=== PATIENT | female | born 1950 | race African-American/Black ===

== ENCOUNTER 2021-03-16 18:38 | Inpatient (IN) | payer MEDICARE, MEDICAID, SELFPAY ==
[2021-03-16] VITALS (12 sets, daily range): BP systolic 113–162; BP diastolic 73–105; PULSE 44–78; RESP 14–22; TEMP 36.1–36.6; O2SAT 90–100; BMI 43.6
--- NOTE | ~2021-03-16 | CT_ITS ---
EXAMINATION: CT abdomen pelvis w con DATE: 03/16/2021 21:33 INDICATION: Abdominal pain. TECHNIQUE: Computed tomography (CT) of the abdomen and pelvis was performed with 100 mL Omnipaque 350 intravenous contrast. Automated exposure control and iterative reconstruction technique were employe d. The dose-length product was 1506.04 mGy-cm. COMPARISON: None. FINDINGS: The visualized portions of the lung bases demonstrate mild atelectasis. No pleural effusion . Cardiomegaly is noted. No pericardial effusion. There is a large sliding hiatal hernia. There is no nobstructed colon within the hiatal hernia. The liver is normal. There are gallstones in the gallblad luisa, which demonstrates wall calcifications. The gallbladder is normal in size. There are low-attenua tion lesions in the spleen measuring up to 14 mm. The pancreas and adrenal glands are normal. There i s cortical thinning of the kidneys. There are cysts in the kidneys measuring up to 19 mm on the right . The appendix is normal. There is a dilated loop of small bowel in right abdomen with proximal and d istal transition points in close proximity in the mid abdomen best seen on coronal images. Small yogi l is also dilated proximal to this loop. Distal small bowel is decompressed. The colon is normal in c aliber. There is a small supraumbilical ventral hernia containing trace ascites. There are no patholo gically enlarged lymph nodes. There is mild thoracolumbar spondylosis. IMPRESSION: 1. Closed-loop small bowel obstruction. 2. Large sliding hiatal hernia that also contains nonobstructed colon. 3. Splenic lesions measuring up to 14 mm, most likely benign given the absence of extrasplenic signs of malignancy. Reviewed, dictated and finalized at location A.
--- NOTE | ~2021-03-16 | XR_ITS ---
EXAMINATION: XR abdomen NG/feed tube rechec DATE: 03/16/2021 22:54 INDICATION: Nasogastric tube placement. TECHNIQUE: An upright view of the abdomen was obtained. COMPARISON: CT abdomen and pelvis 03/16/2021 FINDINGS: The lower abdomen is excluded. The nasogastric tube tip is in the stomach below the diaphra gm. There is a large hiatal hernia. Cardiomegaly is noted. IMPRESSION: 1. Large hiatal hernia. 2. Nasogastric tube tip in the stomach below the diaphragm. Reviewed, dictated and finalized at location A.
--- NOTE | ~2021-03-16 | XR_ITS ---
EXAMINATION: XR chest 1V portable INDICATION: Nausea and vomiting, chest pain TECHNIQUE: Portable AP chest at 1917 hours COMPARISON: None available FINDINGS: There is a small left pleural effusion. Cardiomegaly is noted. There is a moderate diffuse interstitial pattern. No pneumothorax is identified. There appears to be a moderate-sized hiatal john ia. IMPRESSION: 1. Cardiomegaly with moderate pulmonary edema. 2. Small left pleural effusion. 3. Left basilar airspace opacity, consistent with atelectasis versus pneumonia. Reviewed, dictated and finalized at location A.
--- NOTE | ~2021-03-16 | XR_ITS ---
XR abdomen NG/feed tube insert DATE: 03/16/2021 22:34 INDICATION: NG tube TECHNIQUE: Portable AP view on 04/02/2021 at 2225 and 2227 hours COMPARISON: None FINDINGS: NG tube is present in the lower left thorax situated in the proximal aspect of a moderately large hiatal hernia. Bilateral renal excretion of contrast material is noted. There are bilateral patchy mid and lower lung infiltrates. IMPRESSION: NG tube in proximal aspect of moderately large hiatal hernia, in the lower left thorax Reviewed, dictated and finalized at Location A. Reviewed, dictated and finalized at location A. IMPRESSION: NG tube in proximal aspect of moderately large hiatal hernia, in th e lower left thorax
--- NOTE | 2021-03-16 18:50 | ECG_ITS ---
Measurements Intervals [place] Rate: 57 P: MO: 0 QRS: -35 QRSD: 161 T: -61 QT: 470 QTc: 461 Interpretive Statements ATRIAL FIBRILLATION VENTRICULAR BIGEMINY LEFT AXIS DEVIATION RIGHT BUNDLE BRANCH BLOCK BASELINE ARTIFACT- I, II, III, AVR, AVL, AVF, V3-V5 ABNORMAL ECG Electronically Signed On 03-16-2021 19:50:23 CDT by José Miguel Gomes D.O.
--- NOTE | 2021-03-16 19:12 | ED.GENADULT ---
HPI - General Adult General Chief complaint: Abdominal Pain Stated complaint: n/v/abd pain/cp Time Seen by Provider: 03/16/21 18:57 Source: RN notes reviewed History of Present Illness HPI narrative: Patient presents emergency department from home via EMS for abdominal pain. Patient states that symptoms began approximately 430 today. Patient states abdominal pain the bilateral lower abdomen associated with nausea and vomiting. Patient states that approximate hour and half ago she developed midsternal chest pain described as a tightness patient was given Zofran as well as aspirin by EMS she states she is not taking medication for pain at home she denies any fevers or chills shortness of breath diarrhea or any other symptoms Related Data Home Medications Medication Instructions Recorded Confirmed apixaban [Eliquis] mg 03/16/21 03/16/21 cephalexin 03/16/21 diltiazem HCl PO 03/16/21 gentamicin applic TOPICAL 03/16/21 hydrocodone-acetaminophen 03/16/21 Allergies Allergy/AdvReac Type Severity Reaction Status Date / Time No Known Allergies Allergy Verified 03/16/21 18:55 Review of Systems Review of Systems: Gen.: Denies fevers or chills ENT: Denies congestion Respiratory: Denies shortness of breath or cough CV: Reports chest pain GI: See HPI Musculoskeletal: Denies back pain or muscle pain Neuro: Denies numbness, tingling, weakness or focal weakness Skin: Denies rash Except as documented, all other systems reviewed and negative [facility] Past Medical History Medical History (Updated 03/16/21 @ 22:07 by Oni Thompson DO) CHF (congestive heart failure) Social History Social History (Updated 03/16/21 @ 19:13 by Oni Thompson DO) Smoking status: Never smoker Exam Narrative: APPEARANCE: No acute distress, nontoxic, resting in bed HEENT: Normocephalic, atraumatic, OMM RESPIRATORY: No respiratory distress, clear to auscultation bilaterally with no rhonchi wheezing or rales CARDIOVASCULAR: RRR s murmur ABDOMINAL: Soft nondistended tender palpation diffusely throughout the abdomen no rebound or guarding MUSCULOSKELETAl: Moves all extremities. No clubbing, cyanosis or edema. NEURO: Awake and alert. Following commands, speech normal, no focal deficits SKIN:: Warm, dry. Normal Color PSYCHIATRIC: Normal affect/mood Course Course Emergency Course: Patient with episode of oxygen desaturation down to the 80s nursing staff in room start patient on nasal cannula Discussed with Dr. Valdes presentation work-up agrees with consult and agrees plan for NG tube Discussed Dr. Ralph presentation work-up agrees with admission at this time Discussed with patient and family results of workup and diagnosis. Discussed need for admission. Patient and family understand and agree to current treatment plan Vital Signs Vital signs: Vital Signs Temperature 97 F L 03/16/21 18:39 Pulse Rate 56 L 03/16/21 18:39 Respiratory Rate 20 03/16/21 18:39 Blood Pressure 113/73 03/16/21 18:39 Pulse Oximetry 96 03/16/21 18:39 Temperature 97 F L 03/16/21 18:39 Pulse Rate 64 03/16/21 21:17 Respiratory Rate 20 03/16/21 21:17 Blood Pressure 157/95 H 03/16/21 21:17 Pulse Oximetry 98 03/16/21 21:17 Medical Decision Making Vital Signs Vital Signs: Vital Signs Temperature 97 F L 03/16/21 18:39 Pulse Rate 56 L 03/16/21 18:39 Respiratory Rate 20 03/16/21 18:39 Blood Pressure 113/73 03/16/21 18:39 Pulse Oximetry 96 03/16/21 18:39 Temperature 97 F L 03/16/21 18:39 Pulse Rate 64 03/16/21 21:17 Respiratory Rate 20 03/16/21 21:17 Blood Pressure 157/95 H 03/16/21 21:17 Pulse Oximetry 98 03/16/21 21:17 Lab Data Result diagrams: 03/16/21 20:18 03/16/21 20:18 Labs: Lab Results 03/16/21 03/16/21 03/16/21 Range/Units 20:18 20:18 20:18 WBC 7.4 (4.5-10.0) K/mm3 RBC 4.43 (4.2-5.4) M/mm3 Hgb 10.1 L (12.0-15.0) g/dL Hct 34.4
[2021-03-16 20:40] LABS: Basophils Percent Auto 0.3 % (0.2-1.2); Eosinophils Percent Auto 0.1 % (0-4.4); Hematocrit 34.4 % (37.0-47.0); Hemoglobin 10.1 g/dL (12.0-15.0); Immature Granulocyte Absolute 0.02 K/mm3 (0.00-0.031); Immature Granulocyte Percent A 0.3 % (0-0.5); Immature Platelet Fraction Pct 5.3 % (0.9-11.2); Lymphocytes Absolute Auto 0.89 K/mm3 (0.9-3.2); Mean Corpuscular HGB Conc 29.4 g/dl (32-36); Mean Corpuscular Hemoglobin 22.8 pg (26-34); Mean Corpuscular Volume 77.7 fl (80-100); Monocytes Absolute Auto 0.3 K/mm3 (0.1-0.6); Monocytes Percent Auto 3.8 % (2.6-8.5); Neutrophils Absolute Auto 6.2 K/mm3 (1.3-6.7); Neutrophils Percent Auto 83.5 % (45.5-73.1); Platelet Count Result 156 k/mm3 (150-375); Red Blood Count 4.43 M/mm3 (4.2-5.4); Red Cell Distribution Width 30.2 % (11.5-14.5); White Blood Count 7.4 K/mm3 (4.5-10.0)
[2021-03-16 20:47] LABS: Alanine Aminotransferase 12 U/L (4-35); Alkaline Phosphatase 83 U/L (38-126); Anion Gap 7 mmol/L (8-16); Aspartate Amino Transferase 24 U/L (14-36); Bilirubin,Total 0.7 mg/dL (0.2-1.3); Blood Urea Nitrogen 12 mg/dL (7-17); Calcium 9.4 mg/dL (8.4-10.2); Carbon Dioxide 29 mmol/L (22-30); Chloride 102 mmol/L (98-107); Estimated CRCL calculation 132 ml/min; Estimated Glomerular Filt Rate > 60; Glucose 131 mg/dL (65-110); Lipase 32 U/L (23-300); Magnesium 1.6 mg/dL (1.6-2.3); Potassium 3.9 mmol/L (3.4-5.0); Sodium 138 mmol/L (137-145)
[2021-03-16 20:47] LABS: Alveolar/Arterial O2 Gradient 29.1 mmHg; Base Excess ABG 1.4 mEq/l (+/-2.0); Device NASAL CANNULA; Fractional Inspired Oxygen 28 %; HCO3 ABG 27.6 mEq/l (22.0-26.0); Modified Allen's Test Pass; Oxygen Content ABG 15.5 %vol (16.0-22.0); Oxygen Saturation ABG 97.8 % (95.0-100.0); Oxyhemoglobin 96.6 % THb (90.0-100.0); PCO2 ABG 50.6 mmHg (35.0-45.0); PO2 ABG 110.8 mmHg (80.0-100.0); PO2 FiO2 Ratio Arterial Blood 3.96 %; Site Drawn LEFT RADIAL; Total Hemoglobin 11.3 g/dL (12.0-18.0); pH ABG 7.354 (7.350-7.450)
[2021-03-16 20:48] LABS: INR 1.3; Prothrombin Time 16.3 Seconds (11.1-14.7)
[2021-03-16 20:49] LABS: Partial Thromboplastin Time 34.7 SECONDS (22.3-36.8)
[2021-03-16 20:59] LABS: NT Pro B Type Natriuretic Pept 845 pg/mL (5-100); Troponin I < 0.012 ng/mL (0.000-0.034)
[2021-03-16 21:01] LABS: Platelet Estimate Adequate (Adequate)
[2021-03-16 21:02] LABS: Hypochromasia 1+ (NORMAL)
[2021-03-16 21:03] LABS: Ovalocytes 1+ (NORMAL); Target Cells 2+ (NORMAL)
[2021-03-16] MEDS: MAGNESIUM SULF 2 GM/WATER 50ML 2 GM/50 ML BAG IVPB (21:09)
[2021-03-17] VITALS (20 sets, daily range): BP systolic 111–166; BP diastolic 61–96; PULSE 47–91; RESP 13–22; TEMP 36–37.6; O2SAT 90–99
--- NOTE | 2021-03-17 00:08 | ADMGEN ---
This patient, Vanessa Olsen, was admitted to IMU Room 206-01 at 2330 on 03/16/21. Patient/family oriented to hospital policies and general routines including ID bracelet, bed and alarms, visiting hours, pain management, procedures, bathroom and other care routines, personal items, smoking policy, room service/diet, and visiting hours. Information on how to activate the Rapid Response Team has been discussed. Patient/Family are encouraged to report perceived risks to care and to ask questions if they do not understand what they are told or what they should do.
[2021-03-17 00:37] LABS: Troponin I < 0.012 ng/mL (0.000-0.034)
--- NOTE | 2021-03-17 00:48 | PM.IMHP ---
H&P: HPI History of Present Illness Date/Time: 03/17/21 00:48 Chief Complaint: Abdominal pain Narrative: This is a 71-year-old female with past medical history significant atrial fibrillation rate control and anticoagulated, bilateral lower extremity chronic ulcers, congestive heart failure. Patient presented to emergency room due to abdominal pain the restarted in the morning states that she has been her usual state of health up until yesterday morning when she started having abdominal pain that progressed through nausea vomiting patient has history of hernia repair in the past. Pain is localized diffusely but signaled to the left lower quadrant states that she has been having her usual bowel movement every day and there has been no change in stool character.She has not been able to eat due to persistent nausea and vomiting decided to come to the emergency room. Patient found to have small-bowel obstruction. Patient denies any fevers any rigors, any chills ,any cough ,any sputum production ,any shortness of breath,any hematemesis, bright red blood per rectum or melena. NG was placed in emergency room and hooked up to low intermittent suction and surgery has been consulted patient has been admitted to general medical floor for further management assessment and treatment. Review of Systems Review of Systems: Abdominal pain nausea and vomiting of 1 day duration Constitutional: Constitutional: Denies chills, Denies fatigue, Denies fever(s), Denies lethargy, Denies night sweats, Denies poor appetite and Denies weakness Eyes: Eyes: Denies change in vision ENT: Denies dysphagia, Denies nasal congestion, Denies nasal discharge, Denies nasal obstruction and Denies odynophagia Cardiovascular: Cardiovascular: Denies irregular heart rhythm, Denies lightheadedness, Denies radiating jaw, neck or arm pain, Denies palpitations, Denies dyspnea on exertion and Denies orthopnea Respiratory: Respiratory: Denies change in phlegm color, Denies cough, Denies excessive phlegm production and Denies dyspnea Gastrointestinal: Gastrointestinal: Reports abdominal pain, Denies diarrhea, Reports nausea and Reports vomiting Genitourinary: Genitourinary: Reports no additional female genitourinary complaints Musculoskeletal: Musculoskeletal: Reports no additional musculoskeletal complaints Integumentary/Breasts: Skin/Breast: Reports system reviewed and no additional complaints, except as docu Neurologic: Reports system reviewed and no additional complaints, except as documented Psychiatric: Psychiatric: Reports no additional psychiatric complaints Endocrine: Endocrine: Reports no additional endocrine complaints Hematologic/Lymphatic: Hematologic/Lymphatic: Reports no additional hematologic/lymphatic complaints Allergic/Immunologic: Allergic/Immunologic: Reports no additional allergic/immunologic complaints [facility] Past Medical History Medical History (Updated 03/17/21 @ 04:27 by Jorge Mayo MD) CHF (congestive heart failure) Social History Social History (Updated 03/16/21 @ 19:13 by Oni Thompson DO) Smoking status: Never smoker Spiritual care concerns: No Meds Home Medications and Allergies Home Medications Medication Instructions Recorded Confirmed Type apixaban [Eliquis] 5 mg PO BID 03/16/21 03/17/21 History cephalexin 500 mg PO BID 03/16/21 03/17/21 History diltiazem HCl 120 mg PO DAILY 03/16/21 03/17/21 History gentamicin 1 applic TOPICAL DAILY PRN 03/16/21 03/17/21 History hydrocodone-acetaminophen 5 - 325 tablet PO Q8H PRN 03/16/21 03/17/21 History sertraline 50 mg PO DAILY 03/17/21 03/17/21 History spironolactone 25 mg PO BID 03/17/21 03/17/21 History Allergies Allergy/AdvReac Type Severity Reaction Status Date / Time No Known Allergies Allergy Verified 03/16/21 18:55 Vital Signs Vital Signs - 24 hr 03/16/21 18:39 03/16/21 18:47 03/16/21 19:00 Temperature 97 F L Pulse Rate 56 L 56 L 66 Respiratory Rate
[2021-03-17 03:34] LABS: Basophils Percent Auto 0.3 % (0.2-1.2); Hematocrit 34.7 % (37.0-47.0); Hemoglobin 10.2 g/dL (12.0-15.0); Immature Granulocyte Absolute 0.02 K/mm3 (0.00-0.031); Immature Granulocyte Percent A 0.3 % (0-0.5); Immature Platelet Fraction Pct 5.5 % (0.9-11.2); Lymphocytes Absolute Auto 0.96 K/mm3 (0.9-3.2); Lymphocytes Percent Auto 13.5 % (18.3-44.2); Mean Corpuscular HGB Conc 29.4 g/dl (32-36); Mean Corpuscular Hemoglobin 22.7 pg (26-34); Mean Corpuscular Volume 77.1 fl (80-100); Monocytes Absolute Auto 0.4 K/mm3 (0.1-0.6); Monocytes Percent Auto 5.9 % (2.6-8.5); Neutrophils Absolute Auto 5.7 K/mm3 (1.3-6.7); Platelet Count Result 158 k/mm3 (150-375); Red Cell Distribution Width 30.2 % (11.5-14.5); White Blood Count 7.1 K/mm3 (4.5-10.0)
[2021-03-17 03:53] LABS: Alanine Aminotransferase 12 U/L (4-35); Albumin Level 3.8 g/dL (3.5-5.1); Alkaline Phosphatase 84 U/L (38-126); Anion Gap 7 mmol/L (8-16); Aspartate Amino Transferase 23 U/L (14-36); Bilirubin,Total 0.6 mg/dL (0.2-1.3); Blood Urea Nitrogen 10 mg/dL (7-17); Calcium 9.2 mg/dL (8.4-10.2); Carbon Dioxide 29 mmol/L (22-30); Chloride 102 mmol/L (98-107); Estimated CRCL calculation 161 ml/min; Estimated Glomerular Filt Rate > 60; Glucose 121 mg/dL (65-110); Sodium 138 mmol/L (137-145)
[2021-03-17 04:05] LABS: Troponin I < 0.012 ng/mL (0.000-0.034)
[2021-03-17 05:12] LABS: INR 1.3; Prothrombin Time 15.8 Seconds (11.1-14.7)
[2021-03-17 05:13] LABS: Partial Thromboplastin Time 31.5 SECONDS (22.3-36.8)
[2021-03-17 05:26] LABS: Hypochromasia 1+ (NORMAL); Ovalocytes 1+ (NORMAL); Platelet Estimate Adequate (Adequate); Target Cells 1+ (NORMAL)
[2021-03-17] MEDS: HEPARIN SOD/D5W 100 UNITS/ML 25,000 UNITS/250 ML BAG 15 UNITS IV CONT (05:37)
[2021-03-17] MEDS: ONDANSETRON INJ 4 MG/2 ML VIAL IV PUSH ×2 (05:50→08:17)
[2021-03-17] MEDS: PANTOPRAZOLE SODIUM IV 40 MG VIAL IV PUSH ×2 (08:18→20:30)
[2021-03-17] MEDS: MORPHINE SULFATE (*CRX) 2 MG/ML INJ IV PUSH (10:06)
--- NOTE | 2021-03-17 10:41 | PM.CNGS ---
Assessment and Plan Assessment and plan (1) Small bowel obstruction: Code(s): K56.609 - Unspecified intestinal obstruction, unspecified as to partial versus complete obstruction Status: Acute Assessment and Plan: Patient presented with evidence of a small bowel obstruction on the CT scan. The Radiologist who reviewed the CT scan this morning believes this looks like a closed-loop small bowel obstruction, which we wouldn't expect to resolve with conservative measures. Clinically, the patient is not showing much improvement and is still having a significant amount of abdominal pain and nausea. We will continue the NG tube decompression, NPO status, and analgesics. Will adjust pain medication to help with pain control. Dr. Valdes plans to review the CT scan with the Radiologist and further plans to follow. If this appears to be a closed-loop obstruction, then the patient will likely require more urgent exploratory surgery. Will try to gather more information regarding her recent hernia repair as well. I will stop the Heparin drip now, in case of surgery today. Discussed the plan with the patient. (2) Anticoagulant long-term use: Code(s): Z79.01 - correction (current) use of anticoagulants Status: Acute Assessment and Plan: Eliquis on hold. Will stop Heparin drip. See plan above. (3) CHF (congestive heart failure): Code(s): I50.9 - Heart failure, unspecified Status: Acute Assessment and Plan: Increases risks of surgery. (4) A-fib: Code(s): I48.91 - Unspecified atrial fibrillation Status: Acute Assessment and Plan: Hx of atrial fibrillation on Eliquis, which is currently on hold. Appears to be in a.fib on the radiation monitor with heart rate in 50-60's. Management per Hospitalist. (5) S/P hernia repair: Code(s): Z98.890 - Other specified postprocedural states; Z87.19 - Personal history of other diseases of the digestive system Status: Acute Assessment and Plan: Reportedly had a recent hernia repair with mesh at [facility]. Will try to request records of her recent surgery. (6) Patient is Mandaen: Code(s): Z78.9 - Other specified health status Status: Acute Assessment and Plan: She is a Mandaen and subsequently refuses any blood products. I spoke with her about the risks of bleeding with surgery and her anticoagulation. She is aware of these risks and the consequences of refusing blood products if deemed necessary. Additional Plan I have discussed the patient's case and plan of care with Dr. Valdes. Thank you for allowing us to see the patient in consultation and we will continue to follow along with you. History of Present Illness Consult details Consult date: 03/17/21 Reason for consult: other (Small-bowel obstruction) Requesting physician: Oni Thompson DO Narrative: This is a 71-year-old female who presented to the ER with complaints of abdominal pain. The patient began having lower abdominal pain yesterday around 4:30 a.m.. She developed nausea and vomiting. She also developed midsternal chest pain with tightness. She was brought to the ED via EMS from home where she lives alone. CT scan of the abdomen and pelvis in the ER was read by the virtual radiologist, suggesting evidence of a small bowel obstruction with transition point in the mid lower anterior abdomen. EKG obtained and showed atrial fibrillation with heart rate in the 50's with bigeminy. Troponin negative x 3. She was admitted for the small bowel obstruction to the Hospitalist in the IMU. She takes Eliquis at home for a history of atrial fibrillation, which she reportedly took her last dose yesterday. The Hospitalist has started her on a Heparin drip this morning while holding her oral anticoagulation. Our service has been consulted by the ED physician for the small bowel obstruction. On my exam in the IMU, she appears uncomfortable
[2021-03-17] MEDS: HYDROmorphone HCL INJ (*CRX) 1 MG/ML SYR IV PUSH ×3 (11:34→21:23)
[2021-03-17 12:18] LABS: Partial Thromboplastin Time 52.4 SECONDS (22.3-36.8)
--- NOTE | 2021-03-17 15:02 | PM.IMPN ---
Progress Note: A&P Assessment and Plan (1) Abdominal pain: Code(s): R10.9 - Unspecified abdominal pain Status: Acute Assessment and Plan: CT of abdomen and pelvis significant for small bowel obstruction NPO Supportive care IV fluid Intake and output 03/17 Interval history patient with a small-bowel obstruction patient continue to complaint of pain, started the patient on the diluaded, patient had a CT scan of abdomen and showed patient has Closed-loop small bowel obstruction. discussed with general surgeon may take the patient to OR today, will continue to monitor and further recommendation to follow. (2) Small bowel obstruction: Code(s): K56.609 - Unspecified intestinal obstruction, unspecified as to partial versus complete obstruction Status: Acute Assessment and Plan: NG in to low intermittent suction (3) CHF (congestive heart failure): Code(s): I50.9 - Heart failure, unspecified Status: Acute Assessment and Plan: Appears to be euvolemic Continue to monitor intake and output (4) A-fib: Code(s): I48.91 - Unspecified atrial fibrillation Status: Acute Assessment and Plan: Rate controlled Holding p.o. anticoagulation Started heparin drip Subjective Date/time seen: 03/17/21 15:02 Chief Complaint: Abdominal pain Narrative: This is a 71-year-old female with past medical history significant atrial fibrillation rate control and anticoagulated, bilateral lower extremity chronic ulcers, congestive heart failure. Patient presented to emergency room due to abdominal pain the restarted in the morning states that she has been her usual state of health up until yesterday morning when she started having abdominal pain that progressed through nausea vomiting patient has history of hernia repair in the past. Pain is localized diffusely but signaled to the left lower quadrant states that she has been having her usual bowel movement every day and there has been no change in stool character.She has not been able to eat due to persistent nausea and vomiting decided to come to the emergency room. Patient found to have small-bowel obstruction. Patient denies any fevers any rigors, any chills ,any cough ,any sputum production ,any shortness of breath,any hematemesis, bright red blood per rectum or melena. NG was placed in emergency room and hooked up to low intermittent suction and surgery has been consulted patient has been admitted to general medical floor for further management assessment and treatment. 10/04 Interval history patient with a small-bowel obstruction patient continue to complaint of pain, started the patient on the diluaded, patient had a CT scan of abdomen and showed patient has Closed-loop small bowel obstruction. discussed with general surgeon may take the patient to OR today, will continue to monitor and further recommendation to follow. Review of Systems Review of Systems: All systems reviewed & are unremarkable except as noted in HPI and below Exam Narrative: Patient is in pain NAD HEENT: eyes are clear and none icteric LUNGS: normal respiratory effort ABD: distended Lower extremities: no edema SKIN: nonjaundiced Neuro: grossly intact normal speech. Objective Data Vital Signs Vital Signs: Vital Signs - 24 hr 03/16/21 18:39 03/16/21 18:47 03/16/21 19:00 Temperature 97 F L Pulse Rate 56 L 56 L 66 Respiratory Rate 20 20 18 Blood Pressure 113/73 Pulse Oximetry 96 90 98 03/16/21 19:01 03/16/21 19:26 03/16/21 20:35 Temperature Pulse Rate 61 51 L 49 L Respiratory Rate 17 17 14 Blood Pressure 144/105 H Pulse Oximetry 94 100 03/16/21 20:47 03/16/21 20:48 03/16/21 21:07 Temperature Pulse Rate 44 L 45 L 78 Respiratory Rate 14 16 22 H Blood Pressure 162/81 H Pulse Oximetry 100 100 98 03/16/21 21:15 03/16/21 21:17 03/16/21 23:43 Temperature 97.9 F Pulse Rate 59 L 64 67 Respiratory Rate 17 20 20 Bl
--- NOTE | 2021-03-17 15:03 | SUR.PREOP ---
DR FALCON NOTIFIED OF PTT OF 52.4 AT 1155 TODAY. NO ORDERS AT THIS TIME.
--- NOTE | 2021-03-17 15:40 | WPDHPUPDATE1 ---
History and Physical Update Update Date/Time: 03/17/21 15:40 History and Physical has been reviewed, including an updated exam of the patient. There are NO changes in the patient's condition. Risks, benefits, and alternatives have been discussed and questions answered. Patient agrees to proceed with procedure.
--- NOTE | 2021-03-17 15:57 | WPDANESEPPF ---
Anes - Initial Pre Proc Eval Procedure: Operation Date: 03/17/21 16:30 Proposed Procedures p Laparoscopic Adhesiolysis, - Vernon Valdes DO s Possible Exploratory Laparotomy, Possible Bowel Resection - Vernon Valdes DO Date/Time: 03/17/21 15:57 Surgeon: Jorge Mayo MD Pre Op Diagnosis: small bowel obstruction, hypoxia, bigeminy Patient Data Age: 71 Gender: F Height: 1.78 m Weight: 138 kg Last Vital Signs Temp 37.6 C H 03/17/21 14:45 Pulse 67 03/17/21 14:45 Resp 14 03/17/21 14:45 BP 128/67 03/17/21 14:45 Pulse Ox 97 03/17/21 14:45 Allergies Allergy/AdvReac Type Severity Reaction Status Date / Time No Known Allergies Allergy Verified 03/16/21 18:55 Home Medications Medication Instructions Recorded Confirmed Type apixaban [Eliquis] 5 mg PO BID 03/16/21 03/17/21 History cephalexin 500 mg PO BID 03/16/21 03/17/21 History diltiazem HCl 120 mg PO DAILY 03/16/21 03/17/21 History gentamicin 1 applic TOPICAL DAILY PRN 03/16/21 03/17/21 History hydrocodone-acetaminophen 5 - 325 tablet PO Q8H PRN 03/16/21 03/17/21 History sertraline 50 mg PO DAILY 03/17/21 03/17/21 History spironolactone 25 mg PO BID 03/17/21 03/17/21 History Laboratory Tests 03/16/21 03/16/21 03/16/21 20:18 20:18 20:18 WBC 7.4 K/mm3 K/mm3 (4.5-10.0) RBC 4.43 M/mm3 M/mm3 (4.2-5.4) Hgb 10.1 g/dL L g/dL (12.0-15.0) Hct 34.4 % L % (37.0-47.0) MCV 77.7 fl L fl (80-100) MCH 22.8 pg L pg (26-34) MCHC 29.4 g/dl L g/dl (32-36) RDW 30.2 % H % (11.5-14.5) Plt Count 156 k/mm3 k/mm3 (150-375) MPV TNP Immature Gran % (Auto) 0.3 % % (0-0.5) Neut % (Auto) 83.5 % H % (45.5-73.1) Lymph % (Auto) 12.0 % L % (18.3-44.2) [place] % (Auto) 3.8 % % (2.6-8.5) Eos % (Auto) 0.1 % % (0-4.4) Baso % (Auto) 0.3 % % (0.2-1.2) Lymph # (Auto) 0.89 K/mm3 L K/mm3 (0.9-3.2) [place] # (Auto) 0.3 K/mm3 K/mm3 (0.1-0.6) Eos # (Auto) 0.0 K/mm3 K/mm3 (0-0.3) Baso # (Auto) 0.0 K/mm3 K/mm3 (0.0-0.1) Abs Immat Gran (auto) 0.02 K/mm3 K/mm3 (0.00-0.031) Absolute Neuts (auto) 6.2 K/mm3 K/mm3 (1.3-6.7) Absolute Nucleated RBC 0.0 K/mm3 K/mm3 (0.0-0.012) Nucleated RBC % 0.0 % % (0.0-0.2) Platelet Estimate Adequate (Adequate) % Immature Plt Fraction 5.3 % % (0.9-11.2) Hypochromasia 1+ (NORMAL) Target Cells 2+ (NORMAL) Ovalocytes 1+ (NORMAL) PT 16.3 Seconds H Seconds (11.1-14.7) INR 1.3 APTT 34.7 SECONDS SECONDS (22.3-36.8) Puncture Site ABG pH ABG pCO2 ABG pO2 ABG PO2/FiO2 Ratio ABG HCO3 ABG O2 Saturation ABG O2 Content ABG Base Excess A-a Gradient Oxyhemoglobin Total Hemoglobin O2 Delivery Device O2 Liters/Min FiO2 Sodium 138 mmol/L mmol/L (137-145) Potassium 3.9 mmol/L mmol/L (3.4-5.0) Chloride 102 mmol/L mmol/L (98-107) Carbon Dioxide 29 mmol/L mmol/L (22-30) Anion Gap 7 mmol/L L mmol/L (8-16) BUN 12 mg/dL mg/dL (7-17) Creatinine 0.50 mg/dL L mg/dL (0.7-1.0) Estim Creat Clear Calc 132 ml/min ml/min Estimated GFR > 60 (59 - ) Glucose 131 mg/dL H mg/dL (65-110) Calcium 9.4 mg/dL mg/dL (8.4-10.2) Magnesium 1.6 mg/dL mg/dL (1.6-2.3) Total Bilirubin 0.7 mg/dL mg/dL (0.2-1.3) Direct Bilirubin 0.0 mg/dL mg/dL (0-0.3) AST 24 U/L U/L (14-36) ALT 12 U/L U/L (4-35) Alkaline Phosphatase 83 U/L U/L (38-126) Tro
[2021-03-17] MEDS: LACTATED RINGERS 1,000 ML 30 ML IV CONT ×2 (16:00)
--- NOTE | 2021-03-17 18:12 | W.PM.PROC2 ---
Procedure Note - Detailed Date of Procedure 03/17/21 Pre-op Diagnosis small bowel obstruction, history of laparoscopic ventral hernia repair with mesh Post-op Diagnosis same (Closed loop bowel obstruction caused by adhesive band) Procedure Performed Laparoscopic adhesiolysis with release of small-bowel obstruction Surgeon Vernon Valdes, DO Anesthesia general and local (0.5% bupivacaine) Indications This is a 71-year-old woman who presented to the emergency department with abdominal pain over the past 24 hours. She had been feeling bloated and nauseated. She is not passing any flatus. A CT in the emergency department showed evidence of a closed loop small-bowel obstruction. She does have a recent history of a robotic assisted laparoscopic ventral hernia repair with mesh done at an outside facility. Discussions were made with the patient about treatment options and decision was made to proceed with laparoscopic adhesiolysis, possible exploratory laparotomy, possible bowel resection. Findings Laparoscopic adhesiolysis was performed. The patient was found to have a few omental adhesions up to the falciform ligament, and there was 1 loop of bowel adherent up to the omentum in this area. After taking down these adhesions I was then able to carefully inspect the small bowel and identified an adhesive band causing a closed loop obstruction in the distal jejunum. Once this adhesive band was taken down, I was then able to run the entire small bowel from terminal ileum to the ligament of Treitz. No other adhesions were identified and all of the bowel appeared healthy and viable. The previous mesh repair appeared intact with only a few adhesions. Description of Procedure Procedure as well as risks, benefits, and alternatives were discussed with the patient. Written consent was obtained and placed in chart prior to procedure. Patient was brought back to surgical suite. She was placed supine on operating table. Time-out was done to confirm patient and procedure. She was then intubated by the Anesthesia Department. Her abdomen was prepped and draped in sterile fashion using chlorhexidine prep. 0.5% bupivacaine was infiltrated locally at the areas for port placement. A 5 mm incision was made in the left upper quadrant and a 5 mm Optiview trocar was then advanced through the abdominal layers under direct visualization. Once inside the abdominal cavity, carbon dioxide insufflation was used for pneumoperitoneum. The camera was inserted in the abdomen was inspected. The left lateral abdomen appeared free of adhesions. A 5 mm incision was made in the left lower quadrant and another 5 mm incision was made in the left lateral abdomen. 5 mm trocars were inserted under direct visualization. I then carefully inspected the bowel and identified a few areas of adhesions. These adhesions were carefully taken down using scissors. There was then some omentum adherent to the falciform ligament and this was carefully taken down using scissors with electrocautery. I was then able to identify decompressed distal bowel and I carefully traced this proximally using an atraumatic bowel grasper. I then was able to identify the adhesive band causing the closed-loop obstruction. This band was then taken down using scissors. This then freed up the small bowel and I was able to continue running the small bowel to identify any other potential areas of obstruction. I was able to identify the terminal ileum and traced the bowel proximally all the way to the ligament of Treitz. No other significant adhesions or obstruction was identified. Hemostasis appeared adequate. No other abnormalities were noted. The mesh from her recent ventral hernia repair was inspected and this appeared in proper position with minimal adhesions. The ports were then removed under direct visualization, the camera was removed, and the pneumoperitoneum was released. The incisions were then closed using 4-0 Monocr
[2021-03-17] MEDS: DEXTROSE 5%/LACTATED RINGERS 1,000 ML 125 ML IV CONT (20:22)
[2021-03-18] VITALS (17 sets, daily range): BP systolic 110–142; BP diastolic 56–75; PULSE 43–89; RESP 18–24; TEMP 35.9–36.8; O2SAT 94–100
--- NOTE | 2021-03-18 | ECHO_ITS ---
Patient Info Name: Vanessa Olsen Age: 71 years : 1950 Gender: Female Ht: 70 in Wt: 309 lbs BSA: 2.70 m2 HR: 50 bpm BP: 142 / 75 mmHg Heart Rhythm: Atrial Fibrillation Technical Quality: Poor Exam Date: 03/18/2021 1:34 PM Exam Location: [facility] Pulmonary Patient Status: Inpatient Admit Date: 03/17/2021 Staff Ordering Physician: Marc Sunshine MD Physician Assistant Psychiatry: Inez Merchant RDCS Attending Provider: Jorge Mayo MD Exam Type: CA echo dop color flow w con Study Info Indications - CHF Complete two-dimensional, color flow and Doppler transthoracic echocardiogram is performed with contrast to opacify the left ventricle and to improve the deliniation of the left ventricle endocardial borders. Contrast/Agitated Saline Contrast/Ag. Saline: Definity Amount: 2.00 ml Administered By: Sabine Wen RN Existing IV Access: Yes IV Access Condition: patent with no signs of infiltration Reason for Poor Study: patient body habitus Summary 1. Left ventricular chamber dimension is mildly enlarged. 2. Left ventricular systolic function is normal, estimated at 60-65%. 3. There is mildly increased left ventricular wall thickness. 4. The left ventricular diastolic function is indeterminate. 5. Right ventricular chamber dimension is severely enlarged. 6. Right ventricular systolic function is reduced. 7. 'D-shaped' in both systole and diasole consistent with RV pressure and volume overload. 8. Left atrial chamber dimension is severely enlarged. 9. Right atrial chamber dimension is severely enlarged. 10. The mitral valve has thickened leaflets, calcified annulus and anterior prolapse. 11. There is moderate mitral valve regurgitation. 12. There is moderate to severe tricuspid valve regurgitation. 13. Severe pulmonary hypertension, estimated pulmonary arterial systolic pressure is 75 mmHg. Left Ventricle Left ventricular chamber dimension is mildly enlarged. Left ventricular systolic function is normal, estimated at 60-65%. There is mildly increased left ventricular wall thickness. The left ventricular diastolic function is indeterminate. Right Ventricle Right ventricular chamber dimension is severely enlarged. Right ventricular systolic function is reduced. 'D-shaped' in both systole and diasole consistent with RV pressure and volume overload. Left Atria Left atrial chamber dimension is severely enlarged. Right Atria Right atrial chamber dimension is severely enlarged. Atrial Septum Bowing of the interatrial septum to the left by color flow imaging. Aortic Valve The aortic valve is trileaflet. There is mild aortic valve sclerosis. There is no aortic valve stenosis. There is trace aortic valve regurgitation. Pulmonic Valve The pulmonic valve is normal. There is no pulmonic valve stenosis. There is trace pulmonic regurgitation. Mitral Valve The mitral valve has thickened leaflets, calcified annulus and anterior prolapse. There is no mitral valve stenosis. There is moderate mitral valve regurgitation. Tricuspid Valve The tricuspid valve leaflets are normal. There is no significant tricuspid valve stenosis. There is moderate to severe tricuspid valve regurgitation. Severe pulmonary hypertension, estimated pulmonary arterial systolic pressure is 75 mmHg. Pericardium/Pleural The pericardium appears normal. There is no pericardial effusion. Inferior Vena Cava Normal inferio
[2021-03-18] MEDS: HYDROmorphone HCL INJ (*CRX) 1 MG/ML SYR IV PUSH ×3 (04:02→20:42)
[2021-03-18] MEDS: DEXTROSE 5%/LACTATED RINGERS 1,000 ML 125 ML IV CONT ×2 (04:02→16:02)
[2021-03-18 05:20] LABS: Basophils Percent Auto 0.1 % (0.2-1.2); Hematocrit 34.2 % (37.0-47.0); Immature Granulocyte Absolute 0.03 K/mm3 (0.00-0.031); Immature Granulocyte Percent A 0.4 % (0-0.5); Immature Platelet Fraction Pct 6.2 % (0.9-11.2); Lymphocytes Absolute Auto 0.85 K/mm3 (0.9-3.2); Lymphocytes Percent Auto 10.6 % (18.3-44.2); Mean Corpuscular HGB Conc 29.2 g/dl (32-36); Mean Corpuscular Hemoglobin 23.2 pg (26-34); Mean Corpuscular Volume 79.4 fl (80-100); Monocytes Absolute Auto 0.5 K/mm3 (0.1-0.6); Monocytes Percent Auto 5.6 % (2.6-8.5); Neutrophils Absolute Auto 6.7 K/mm3 (1.3-6.7); Neutrophils Percent Auto 83.3 % (45.5-73.1); Platelet Count Result 134 k/mm3 (150-375); Red Blood Count 4.31 M/mm3 (4.2-5.4)
[2021-03-18 05:50] LABS: Alanine Aminotransferase 11 U/L (4-35); Albumin Level 3.4 g/dL (3.5-5.1); Alkaline Phosphatase 68 U/L (38-126); Anion Gap 4 mmol/L (8-16); Aspartate Amino Transferase 22 U/L (14-36); Bilirubin,Total 0.6 mg/dL (0.2-1.3); Blood Urea Nitrogen 11 mg/dL (7-17); Calcium 8.9 mg/dL (8.4-10.2); Carbon Dioxide 29 mmol/L (22-30); Chloride 103 mmol/L (98-107); Estimated CRCL calculation 134 ml/min; Estimated Glomerular Filt Rate > 60; Glucose 139 mg/dL (65-110); Magnesium 1.9 mg/dL (1.6-2.3); Potassium 4.1 mmol/L (3.4-5.0); Sodium 136 mmol/L (137-145)
[2021-03-18 06:27] LABS: Ovalocytes 1+ (NORMAL); Platelet Estimate Adequate (Adequate); Target Cells 1+ (NORMAL)
[2021-03-18 06:28] LABS: Tear Drop Cells 1+ (NORMAL)
--- NOTE | 2021-03-18 08:13 | PM.CNCAR ---
Assessment and Plan Assessment and plan (1) Atrial fibrillation: Code(s): I48.91 - Unspecified atrial fibrillation Status: Acute Assessment and Plan: A 71-year-old female (Jeh[employer]ah Witness) with atrial fibrillation on anticoagulation with apixaban, CHF with unknown LV systolic function, chronic left lower extremity wound, history of ? TIA. Patient admitted with small-bowel obstruction, and status post laparoscopic adhesiolysis with release of small-bowel obstruction. patient has atrial fibrillation with slow ventricular response, frequent PVCs versus aberrantly conducted beats and pauses up to 2.2 seconds. No associated symptoms of dizziness or syncope. Hemodynamically stable , with blood pressure either normal or high. Patient was on diltiazem at home, however has not received diltiazem during hospitalization. - Avoid AV rachael blocking agents - continue to monitor for now. Will consider temporary pacemaker placement if patient has any worsening of bradyarrhythmia or pauses. Patient may have underlying sick sinus syndrome which will need to be monitored closely. - Keep atropine and transcutaneous pads bedside. - Patient gives history of CHF. She does have mild volume overload. Will check echocardiogram with Doppler to assess LV/ RV function and rule out any major structural heart disease. - Resume anticoagulation with apixaban when okay with surgery. - Gentle diuresis as needed for any significant volume overload. - Local wound care in the left lower extremity. Patient undergoing vascular studies at outside hospital, per patient. (2) Bradyarrhythmia: Code(s): I49.8 - Other specified cardiac arrhythmias Status: Acute Assessment and Plan: atrial fibrillation with slow ventricular response, occasional pauses up to 2.2 seconds. Hemodynamically stable. No symptoms of dizziness or syncope. Continue to monitor closely. Avoid AV rachael blocking agents. (3) Small bowel obstruction: Code(s): K56.609 - Unspecified intestinal obstruction, unspecified as to partial versus complete obstruction Status: Acute Assessment and Plan: Status post surgery. Management as per primary team and surgery. (4) CHF (congestive heart failure): Code(s): I50.9 - Heart failure, unspecified Status: Acute History of Present Illness History of Present Illness Consult date/time: 03/18/21 08:13 DATE OF CONSULT: 03/18/2021 REASON FOR CONSULT: afib with bigeminy REQUESTING PHYSICIAN:Wikiera,Vernon H., DO CHIEF COMPLAINT: abdominal pain HPI: A 71-year-old female (Jeh[employer]ah Witness) with atrial fibrillation on anticoagulation with apixaban, CHF with unknown LV systolic function, chronic left lower extremity wound, history of ? TIA. Patient presented to [facility] Emergency Room via EMS on 03/16/2021 with complaints of abdominal pain, nausea and vomiting. CT scan of abdomen and pelvis among other findings showed closed-loop small bowel obstruction; large sliding hiatal hernia containing nonobstructed colon. On 03/17/2021, patient underwent laparoscopic adhesiolysis with release of small-bowel obstruction. Patient gives history of atrial fibrillation and has been on chronic anticoagulation with apixaban. She does not recall the onset of the atrial fibrillation. She also has dyspnea on exertion with limited mobility. She also reports occasional chest discomfort, occasional dizziness without syncope. She uses walker and wheelchair due to what she described as lymphedema in the left lower extremity. She states that she has wound in the left lower extremity for about a month. She denies any history of clinical [place], but reports history of congestive heart failure. He does not recall any cardiac catheterization or PCI in the past. She follows up with field service consultant in [place]. She does not recall the name. EKG on my personal evaluation showed atrial fibrillation with PVCs versus aberrantly conducted
--- NOTE | 2021-03-18 09:08 | PM.PNGS ---
Progress Note: A&P Assessment and Plan (1) Small bowel obstruction: Code(s): K56.609 - Unspecified intestinal obstruction, unspecified as to partial versus complete obstruction Status: Acute Assessment and Plan: Await return of bowel function Increase activity OK to remove [place] when determined by Hospitalist (2) S/P hernia repair: Code(s): Z98.890 - Other specified postprocedural states; Z87.19 - Personal history of other diseases of the digestive system Status: Acute (3) Anticoagulant long-term use: Code(s): Z79.01 - watermelon harvesting supervisor (current) use of anticoagulants Status: Acute (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 No flatus or BM yet. Exam GI: Inspection: incision (intact with glue) and obesity GI Palp: Yes Tenderness to palpation present (GI) (incisional) Auscultation: Hypoactive bowel sounds present Objective Data Vital Signs Vital Signs: Vital Signs - 24 hr 03/17/21 10:00 03/17/21 12:00 03/17/21 14:00 Temperature 36.6 C Pulse Rate 76 72 66 Respiratory Rate 22 H Blood Pressure 116/62 Pulse Oximetry 92 03/17/21 14:45 03/17/21 16:00 03/17/21 18:14 Temperature 37.6 C H 36.0 C L Pulse Rate 67 54 L 58 L Respiratory Rate 14 15 Blood Pressure 128/67 130/87 Pulse Oximetry 97 97 03/17/21 18:29 03/17/21 18:44 03/17/21 18:59 Temperature Pulse Rate 60 56 L 47 L Respiratory Rate 15 13 15 Blood Pressure 130/86 111/96 H 166/93 H Pulse Oximetry 99 99 90 03/17/21 19:09 03/17/21 19:31 03/17/21 20:00 Temperature 36.6 C Pulse Rate 65 53 L 64 Respiratory Rate 14 18 Blood Pressure 161/95 H 152/92 H Pulse Oximetry 95 98 03/17/21 21:01 03/17/21 22:00 03/17/21 23:38 Temperature 36.6 C 36.4 C L Pulse Rate 53 L 53 L 55 L Respiratory Rate 18 20 Blood Pressure 148/78 H 140/78 Pulse Oximetry 98 99 03/18/21 00:00 03/18/21 02:00 03/18/21 04:00 Temperature Pulse Rate 52 L 47 L 48 L Respiratory Rate Blood Pressure Pulse Oximetry 03/18/21 05:01 03/18/21 06:00 Temperature 36.8 C Pulse Rate 89 47 L Respiratory Rate 18 Blood Pressure 138/56 L Pulse Oximetry 97 Intake/Output Intake/Output: Intake & Output 03/15/21 03/16/21 03/17/21 03/18/21 23:59 23:59 23:59 23:59 Intake Total 764 195 1995 Output Total 705 250 Balance 150 145 900 Meds/Results Medications: Active Medications Generic Name Dose Route Start Last Admin Trade Name Freq PRN Reason Stop Dose Admin Enoxaparin Sodium 40 mg 03/18/21 09:00 Enoxaparin 40 Mg/0.4 Ml Syringe SUB-Q DAILY TAMMY Hydromorphone HCl 1 mg 03/17/21 11:20 03/18/21 04:02 Hydromorphone Hcl Inj (*Crx) 1 Mg/Ml Syr IV PUSH 1 mg Q2H PRN Administration Pain Rated 7-10 Hydromorphone HCl 0.5 mg 03/17/21 11:21 Hydromorphone Hcl Inj (*Crx) 1 Mg/Ml Syr IV PUSH Q2H PRN Pain Rated 4-6 Piperacillin/Tazobactam/Dextrose 3.375 gm in 50 mls @ 100 mls/hr 03/17/21 04:30 03/18/21 05:50 Zosyn 3.375 Gm/D5w 50ml Pm IVPB 100 mls/hr Q6HR TAMMY Administration Acetaminophen 1,000 mg in 100 mls @ 400 mls/hr 03/18/21 00:00 03/18/21 05:53 Ofirmev 1,000 Mg Ivpb IVPB 03/18/21 22:59 400 mls/hr Q6HR TAMMY Administration Dextrose/Lactated Ringer's 1,000 mls @ 125 mls/hr 03/17/21 19:16 03/18/21 04:02 Dextrose 5%/Lactated Ringers IV CONT 125 mls/hr .Q8H TAMMY Administration Ondansetron HCl 4 mg 03/17/21 05:09 03/17/21 05:50 Ondansetron Inj 4 Mg/2 Ml Vial IV PUSH 4 mg Q6H PRN Administration Nausea And Vomiting Pantoprazole Sodium 40 mg 03/17/21 09:00 03/17/21 20:30 Pantoprazole Sodium Iv 40 Mg Vial IV PUSH 40 mg Q12HR TAMMY Administration Radiology Results: ITS Impressions Chest X-
[2021-03-18] MEDS: PANTOPRAZOLE SODIUM IV 40 MG VIAL IV PUSH ×2 (09:51→20:41)
[2021-03-18] MEDS: ENOXAPARIN 40 MG/0.4 ML SYRINGE SUB-Q (09:51)
--- NOTE | 2021-03-18 10:25 | WPDANESPN ---
Anes - Prog Note Post-Op Date/Time: 03/18/21 10:25 Cardiovascular status: normal Respiratory status: normal Airway patency: baseline Mental status: baseline Post-Op hydration status: normal Vital Signs: Last Vital Signs Temp 36.2 C L 03/18/21 09:08 Pulse 52 L 03/18/21 09:08 Resp 24 H 03/18/21 09:08 BP 142/75 H 03/18/21 09:08 Pulse Ox 100 03/18/21 09:08 Pain Score (VAS): 3 I/O: Intake & Output 03/17/21 03/18/21 03/18/21 23:59 07:59 15:59 Intake Total 750 1150 Output Total 105 250 Balance 645 900 Laboratory Tests 03/18/21 04:29 03/18/21 04:29 03/17/21 03/18/21 03/18/21 11:55 04:29 04:29 WBC 8.0 RBC 4.31 Hgb 10.0 L Hct 34.2 L MCV 79.4 L MCH 23.2 L MCHC 29.2 L RDW TNP Plt Count 134 L MPV TNP Immature Gran % (Auto) 0.4 Neut % (Auto) 83.3 H Lymph % (Auto) 10.6 L Blount % (Auto) 5.6 Eos % (Auto) 0.0 Baso % (Auto) 0.1 L Lymph # (Auto) 0.85 L Blount # (Auto) 0.5 Eos # (Auto) 0.0 Baso # (Auto) 0.0 Abs Immat Gran (auto) 0.03 Absolute Neuts (auto) 6.7 Absolute Nucleated RBC 0.0 Nucleated RBC % 0.0 Platelet Estimate Adequate % Immature Plt Fraction 6.2 Target Cells 1+ Tear Drop Cells 1+ Ovalocytes 1+ APTT 52.4 H Sodium 136 L Potassium 4.1 Chloride 103 Carbon Dioxide 29 Anion Gap 4 L BUN 11 Creatinine 0.50 L Estim Creat Clear Calc 134 Estimated GFR > 60 Glucose 139 H Calcium 8.9 Magnesium 1.9 Total Bilirubin 0.6 AST 22 ALT 11 Alkaline Phosphatase 68 Total Protein 6.0 L Albumin 3.4 L Microbiology 03/17/21 04:41 Blood Blood Culture - Preliminary 03/17/21 04:33 Blood Blood Culture - Preliminary Post-procedural complaints: none Patient Feedback: Patient satisfied with anesthetic care.
[2021-03-18] MEDS: PERFLUTREN LIPID MICROSPHERES 1.5 ML VIAL DILUTED TO 10 ML TOTAL VOLUME IV PUSH (14:10)
--- NOTE | 2021-03-18 15:11 | PM.IMPN ---
Progress Note: A&P Assessment and Plan (1) Abdominal pain: Code(s): R10.9 - Unspecified abdominal pain Status: Acute Assessment and Plan: CT of abdomen and pelvis significant for small bowel obstruction NPO Supportive care IV fluid NG tube Surgery consult 03/17 Interval history patient with a small-bowel obstruction patient continue to complaint of pain, started the patient on the diluaded, patient had a CT scan of abdomen and showed patient has Closed-loop small bowel obstruction. Surgery aware. (2) Small bowel obstruction: Code(s): K56.609 - Unspecified intestinal obstruction, unspecified as to partial versus complete obstruction Status: Acute Assessment and Plan: NG in to low intermittent suction (3) CHF (congestive heart failure): Code(s): I50.9 - Heart failure, unspecified Status: Acute Assessment and Plan: Appears to be euvolemic Cardiology consulted (4) A-fib: Code(s): I48.91 - Unspecified atrial fibrillation Status: Inactive Assessment and Plan: Rate controlled pt was on heparin transitioned to lovenox Subjective Date/time seen: 03/18/21 15:11 71-year-old female with past medical history significant atrial fibrillation rate control and anticoagulated, bilateral lower extremity chronic ulcers, congestive heart failure. Patient presented to emergency room due to abdominal pain found to have SBO, pt has seen surgery pt is having NG tube in situ. doing well. Awaiting to see cardiology. Review of Systems Review of Systems: All systems reviewed & are unremarkable except as noted in HPI and below Exam Narrative: Pt is elderly lady pleasant with NG tube in situ LUNGS: normal respiratory effort ABD0: distended Lower extremities: no edema SKIN: leg wound on left [place] area Neuro: grossly intact normal speech. Objective Data Vital Signs Vital Signs: Vital Signs - 24 hr 03/17/21 16:00 03/17/21 18:14 03/17/21 18:29 Temperature 36.0 C L Pulse Rate 54 L 58 L 60 Respiratory Rate 15 15 Blood Pressure 130/87 130/86 Pulse Oximetry 97 99 03/17/21 18:44 03/17/21 18:59 03/17/21 19:09 Temperature Pulse Rate 56 L 47 L 65 Respiratory Rate 13 15 14 Blood Pressure 111/96 H 166/93 H 161/95 H Pulse Oximetry 99 90 95 03/17/21 19:31 03/17/21 20:00 03/17/21 21:01 Temperature 36.6 C 36.6 C Pulse Rate 53 L 64 53 L Respiratory Rate 18 18 Blood Pressure 152/92 H 148/78 H Pulse Oximetry 98 98 03/17/21 22:00 03/17/21 23:38 03/18/21 00:00 Temperature 36.4 C L Pulse Rate 53 L 55 L 52 L Respiratory Rate 20 Blood Pressure 140/78 Pulse Oximetry 99 03/18/21 02:00 03/18/21 04:00 03/18/21 05:01 Temperature 36.8 C Pulse Rate 47 L 48 L 89 Respiratory Rate 18 Blood Pressure 138/56 L Pulse Oximetry 97 03/18/21 06:00 03/18/21 08:00 03/18/21 09:08 Temperature 36.2 C L Pulse Rate 47 L 48 L 52 L Respiratory Rate 24 H Blood Pressure 142/75 H Pulse Oximetry 100 03/18/21 10:00 03/18/21 12:00 03/18/21 12:35 Temperature 35.9 C L Pulse Rate 43 L 46 L 46 L Respiratory Rate 20 Blood Pressure 133/72 Pulse Oximetry 100 03/18/21 14:00 Temperature Pulse Rate 51 L Respiratory Rate Blood Pressure Pulse Oximetry Intake/Output Intake/Output: Intake & Output 03/15/21 03/16/21 03/17/21 03/18/21 23:59 23:59 23:59 23:59 Intake Total 662 457 6805 Output Total 705 250 Balance 007 392 4311 Meds/Results Medications: Active Medications Generic Name Dose Route Start Last Admin Trade Name Freq PRN Reason Stop Dose Admin Enoxaparin Sodium 40 mg 03/18/21 09:00 03/18/21 09:51 Enoxaparin 40 Mg/0.4 Ml Syringe SUB-Q 40 mg DAILY TAMMY Administration Hydromorphone HCl 1 mg 03/17/21 11:20 03/18/21 12:16 Hydromorphone Hcl Inj (*Crx) 1 Mg/Ml Syr IV PUSH 1 mg Q2H PRN Administration Pain Rated 7-10 Hydromorphone HCl 0.5 mg 03/17/21 11:21
[2021-03-19] VITALS (15 sets, daily range): BP systolic 125–165; BP diastolic 66–83; PULSE 36–98; RESP 16–26; TEMP 35.9–37.6; O2SAT 94–98
[2021-03-19] MEDS: HYDROmorphone HCL INJ (*CRX) 1 MG/ML SYR IV PUSH ×2 (00:36→17:35)
[2021-03-19] MEDS: DEXTROSE 5%/LACTATED RINGERS 1,000 ML 125 ML IV CONT ×2 (00:37→08:21)
[2021-03-19 05:07] LABS: Hematocrit 32.6 % (37.0-47.0); Hemoglobin 9.5 g/dL (12.0-15.0); Immature Platelet Fraction Pct 5.5 % (0.9-11.2); Mean Corpuscular HGB Conc 29.1 g/dl (32-36); Mean Corpuscular Hemoglobin 23.1 pg (26-34); Mean Corpuscular Volume 79.3 fl (80-100); Platelet Count Result 132 k/mm3 (150-375); Red Blood Count 4.11 M/mm3 (4.2-5.4); White Blood Count 5.7 K/mm3 (4.5-10.0)
[2021-03-19 05:19] LABS: Alanine Aminotransferase 11 U/L (4-35); Albumin Level 3.3 g/dL (3.5-5.1); Alkaline Phosphatase 54 U/L (38-126); Anion Gap 4 mmol/L (8-16); Aspartate Amino Transferase 21 U/L (14-36); Bilirubin,Total 0.5 mg/dL (0.2-1.3); Blood Urea Nitrogen 12 mg/dL (7-17); Carbon Dioxide 32 mmol/L (22-30); Chloride 104 mmol/L (98-107); Estimated CRCL calculation 134 ml/min; Estimated Glomerular Filt Rate > 60; Glucose 112 mg/dL (65-110); Magnesium 1.8 mg/dL (1.6-2.3); Potassium 3.7 mmol/L (3.4-5.0); Sodium 140 mmol/L (137-145)
[2021-03-19] MEDS: PANTOPRAZOLE SODIUM IV 40 MG VIAL IV PUSH ×2 (08:16→20:08)
[2021-03-19] MEDS: ENOXAPARIN 40 MG/0.4 ML SYRINGE SUB-Q (08:16)
--- NOTE | 2021-03-19 10:50 | PM.PNCARD ---
Progress Note: A&P Assessment and Plan (1) Atrial fibrillation: Code(s): I48.91 - Unspecified atrial fibrillation Status: Acute Assessment and Plan: A 71-year-old female (J[employer] Witness) with atrial fibrillation on anticoagulation with apixaban, CHF with unknown LV systolic function, chronic left lower extremity wound, history of ? TIA. Patient admitted with small-bowel obstruction, and status post laparoscopic adhesiolysis with release of small-bowel obstruction. patient has atrial fibrillation with slow ventricular response, frequent PVCs versus aberrantly conducted beats and pauses up to 2.2 seconds. No associated symptoms of dizziness or syncope. Hemodynamically stable , with blood pressure either normal or high. Patient was on diltiazem at home, however has not received diltiazem during hospitalization. - Avoid AV rachael blocking agents - continue to monitor for now. Will consider temporary pacemaker placement if patient has any worsening of bradyarrhythmia or pauses. Patient may have underlying sick sinus syndrome which will need to be monitored closely. - Keep atropine and transcutaneous pads bedside. - Patient gives history of CHF. She does have mild volume overload. - Resume anticoagulation with apixaban when okay with surgery. - Gentle diuresis as needed for any significant volume overload. - Local wound care in the left lower extremity. Patient undergoing vascular studies at outside hospital, per patient. (2) Bradyarrhythmia: Code(s): I49.8 - Other specified cardiac arrhythmias Status: Acute Assessment and Plan: atrial fibrillation with slow ventricular response, occasional pauses . Hemodynamically stable. No symptoms of dizziness or syncope. Continue to monitor closely. Avoid AV rachael blocking agents. (3) Small bowel obstruction: Code(s): K56.609 - Unspecified intestinal obstruction, unspecified as to partial versus complete obstruction Status: Acute Assessment and Plan: Status post surgery. Management as per primary team and surgery. (4) CHF (congestive heart failure): Code(s): I50.9 - Heart failure, unspecified Status: Acute Assessment and Plan: Furosemide 20 mg IV x1 Subjective Date/time seen: 03/19/21 10:50 Interval history: 71-year-old with a small-bowel obstruction with a consultation for bradycardia Date of service 03/19/2021: Feels tired today but no syncope, presyncope. No chest pain or shortness of breath. Review of Systems Review of Systems: All systems reviewed & are unremarkable except as noted in HPI and below Constitutional: Constitutional: Reports fatigue Eyes: Eyes: Denies blurry vision ENT: Reports Normal hearing present Cardiovascular: Cardiovascular: Denies chest pain Respiratory: Respiratory: Denies dyspnea Gastrointestinal: Gastrointestinal: Denies abdominal pain Genitourinary: Genitourinary: Denies flank pain Musculoskeletal: Musculoskeletal: Denies neck pain Integumentary/Breasts: Skin/Breast: Denies dry skin Neurologic: Denies headache(s) Psychiatric: Psychiatric: Denies anxiety Endocrine: Endocrine: Denies excessive sweating Hematologic/Lymphatic: Hematologic/Lymphatic: Denies easy bleeding Allergic/Immunologic: Allergic/Immunologic: Denies GI upset with certain foods Exam Narrative: PHYSICAL EXAMINATION: GENERAL: obese, Alert, oriented, no acute distress MENTAL STATUS: affect appropriate to mood EYES: Extraocular movements intact, pallor EARS: External ears appear normal, hearing grossly normal NOSE: Normal and patent, no discharge MOUTH: Mucous membranes moist, tongue normal NECK: Supple, no JVD CHEST: decreased breath sounds, decreased effort HEART: bradycardia, irregularly irregular rhythm ABDOMEN: postsurgical, mild tenderness NEUROLOGICAL: Alert, oriented, normal speech, no gross motor deficits MUSCULOSKELETAL: No major deformity, no amputation
[2021-03-19] MEDS: FUROSEMIDE INJ 40 MG/4 ML VIAL 20 MG IV PUSH (11:06)
--- NOTE | 2021-03-19 12:54 | PM.PNGS ---
Progress Note: A&P Assessment and Plan (1) Small bowel obstruction: Code(s): K56.609 - Unspecified intestinal obstruction, unspecified as to partial versus complete obstruction Status: Acute Assessment and Plan: Bowel function returning. Will remove NG tube and start clear liquids. Increase activity and try ambulating a few times today. OK to remove [place] when determined by Hospitalist (2) S/P hernia repair: Code(s): Z98.890 - Other specified postprocedural states; Z87.19 - Personal history of other diseases of the digestive system Status: Acute (3) Anticoagulant long-term use: Code(s): Z79.01 - skilled nursing (current) use of anticoagulants Status: Acute Assessment and Plan: Continue prophylactic-dosed Lovenox and hold Eliquis today. Consider restarting Eliquis tomorrow. (4) Patient is Confucianism: Code(s): Z78.9 - Other specified health status Status: Acute Additional Plan I discussed the plan of care with Dr. Valdes. Subjective Subjective Date/Time Seen: 03/19/21 11:00 Post Op day: 2 Patient reports: no new complaints, feels better, flatus, no bowel movement and afebrile Interval history: Patient seen and examined today. She reports feeling better today. Pain is well-controlled. Started passing flatus this morning. Sat up in the chair this morning but has not ambulated since surgery. No other complaints at this time. Review of Systems Review of Systems: All systems reviewed & are unremarkable except as noted in HPI and below Constitutional: Constitutional: Reports as per HPI, Reports no additional constitutional complaints, Denies chills and Denies fever(s) Cardiovascular: Cardiovascular: Reports no additional cardiovascular complaints, Denies chest pain and Reports leg edema (no more leg swelling than what she chronically deals with) Respiratory: Respiratory: Reports no additional respiratory complaints, Denies cough and Denies dyspnea Gastrointestinal: Gastrointestinal: Reports as per HPI and Reports no additional gastrointestinal complaints Neurologic: Denies Abnormal speech present and Denies focal weakness Exam Const: General: comfortable, no acute distress, alert and awake Orientation/consciousness: patient oriented x3 Resp: Effort & Inspection: normal respiratory effort Auscultation: clear to auscultation bilaterally Cardio: Rate: bradycardic Rhythm: abnormal rhythm irregularly irregular GI: Inspection: incision (Abdominal incisions clean and dry, glue intact.), obesity and other (mildly distended) GI Palp: Yes Soft to palpation, Yes Tenderness to palpation present (GI) (incisional) and No Guarding due to palpation present (GI) Auscultation: normal bowel sounds Skin: General skin exam: normal color and other (L lower leg dressing clean and dry) Neuro: General: moves all extremities and no focal motor deficits Extrem: General: no calf tenderness and edema bilateral (bilateral lower ext mild nonpitting edema, unchanged) Psych: Mental Status: mental status grossly normal Insight: Good insight present (Psych) Judgement: Good judgement present (Psych) Objective Data Vital Signs Vital Signs: Vital Signs - 24 hr 03/18/21 14:00 03/18/21 16:00 03/18/21 16:54 Temperature 97.0 F L Pulse Rate 51 L 59 L 50 L Respiratory Rate 21 H Blood Pressure 110/65 Pulse Oximetry 94 03/18/21 18:00 03/18/21 20:00 03/18/21 22:00 Temperature 96.9 F L Pulse Rate 50 L 50 L 50 L Respiratory Rate 20 Blood Pressure 125/73 Pulse Oximetry 99 03/18/21 23:10 03/19/21 00:00 03/19/21 02:00 Temperature 97.3 F L Pulse Rate 53 L 57 L 56 L Respiratory Rate 20 Blood Pressure 116/72 Pulse Oximetry 98 03/19/21 04:00 03/19/21 06:00 03/19/21 08:00 Temperature 97.8 F 99.6 F Pulse Rate 66 86 47 L Respiratory Rate 20 16 Blood Pressure 125/71 147/83 H Pulse Oximetry 95 94 03/19/21 10:00 03/19/21 11:12 [facility]
--- NOTE | 2021-03-19 12:59 | PM.IMPN ---
Progress Note: A&P Assessment and Plan (1) Abdominal pain: Code(s): R10.9 - Unspecified abdominal pain Status: Acute Assessment and Plan: CT of abdomen and pelvis significant for small bowel obstruction NPO Supportive care IV fluid NG tube Surgery consult 03/17 Interval history patient with a small-bowel obstruction patient continue to complaint of pain, started the patient on the diluaded, patient had a CT scan of abdomen and showed patient has Closed-loop small bowel obstruction. Surgery aware. (2) Small bowel obstruction: Code(s): K56.609 - Unspecified intestinal obstruction, unspecified as to partial versus complete obstruction Status: Acute Assessment and Plan: NG in to low intermittent suction (3) CHF (congestive heart failure): Code(s): I50.9 - Heart failure, unspecified Status: Acute Assessment and Plan: Appears to be euvolemic Cardiology consulted (4) A-fib: Code(s): I48.91 - Unspecified atrial fibrillation Status: Inactive Assessment and Plan: Rate controlled pt was on heparin transitioned to lovenox Subjective Date/time seen: 03/19/21 12:59 Interval history: 71-year-old female with past medical history significant atrial fibrillation rate control and anticoagulated, bilateral lower extremity chronic ulcers, congestive heart failure.Patient presented to emergency room due to abdominal pain found to have SBO, Laparoscopic adhesiolysis with release of small-bowel obstruction on 03/17. Pt was seen by surgery team, pt is having NG tube in situ. doing well. Awaiting to see cardiology. Review of Systems Review of Systems: All systems reviewed & are unremarkable except as noted in HPI and below Exam Narrative: Pt is elderly lady pleasant with NG tube in situ LUNGS: normal respiratory effort ABD0: distended Lower extremities: no edema SKIN: leg wound on left [place] area Neuro: grossly intact normal speech. Objective Data Vital Signs Vital Signs: Vital Signs - 24 hr 03/18/21 14:00 03/18/21 16:00 03/18/21 16:54 Temperature 36.1 C L Pulse Rate 51 L 59 L 50 L Respiratory Rate 21 H Blood Pressure 110/65 Pulse Oximetry 94 03/18/21 18:00 03/18/21 20:00 03/18/21 22:00 Temperature 36.1 C L Pulse Rate 50 L 50 L 50 L Respiratory Rate 20 Blood Pressure 125/73 Pulse Oximetry 99 03/18/21 23:10 03/19/21 00:00 03/19/21 02:00 Temperature 36.3 C L Pulse Rate 53 L 57 L 56 L Respiratory Rate 20 Blood Pressure 116/72 Pulse Oximetry 98 03/19/21 04:00 03/19/21 06:00 03/19/21 08:00 Temperature 36.6 C 37.6 C Pulse Rate 66 86 47 L Respiratory Rate 20 16 Blood Pressure 125/71 147/83 H Pulse Oximetry 95 94 03/19/21 10:00 03/19/21 11:12 Temperature 35.9 C L Pulse Rate 47 L 57 L Respiratory Rate 26 H Blood Pressure 146/77 H Pulse Oximetry 97 Intake/Output Intake/Output: Intake & Output 03/16/21 03/17/21 03/18/21 03/19/21 23:59 23:59 23:59 23:59 Intake Total 934 417 4916 2150 Output Total 705 475 250 Balance 067 025 5996 1900 Meds/Results Medications: Active Medications Generic Name Dose Route Start Last Admin Trade Name Freq PRN Reason Stop Dose Admin Enoxaparin Sodium 40 mg 03/18/21 09:00 03/19/21 08:16 Enoxaparin 40 Mg/0.4 Ml Syringe SUB-Q 40 mg DAILY TAMMY Administration Hydromorphone HCl 1 mg 03/17/21 11:20 03/19/21 00:36 Hydromorphone Hcl Inj (*Crx) 1 Mg/Ml Syr IV PUSH 1 mg Q2H PRN Administration Pain Rated 7-10 Hydromorphone HCl 0.5 mg 03/17/21 11:21 Hydromorphone Hcl Inj (*Crx) 1 Mg/Ml Syr IV PUSH Q2H PRN Pain Rated 4-6 Piperacillin/Tazobactam/Dextrose 3.375 gm in 50 mls @ 100 mls/hr 03/17/21 04:30 03/19/21 11:45 Zosyn 3.375 Gm/D5w 50ml Pm IVPB Infused Q6HR TAMMY Infusion Dextrose/Lactated Ringer's 1,000 mls @ 70 mls/hr 03/17/21 19:16 03/19/21 08:21 Dextrose 5%/Lactated Ringers IV CONT 125 mls/
[2021-03-19] MEDS: PHENOL/SOD PHENO SPRAY CHERRY (*BKC) 1 SPRAY MUCOUS MEM (13:29)
--- NOTE | 2021-03-19 13:42 | PC.NURSE ---
On 03/19/21, the student, Collette SANCHEZ [facility], provided care and completed [employer] documentation on this patient. I have reviewed the student's documentation and agree with the findings.
[2021-03-19] MEDS: DEXTROSE 5%/LACTATED RINGERS 1,000 ML 70 ML IV CONT (20:09)
[2021-03-20] VITALS (18 sets, daily range): BP systolic 124–158; BP diastolic 78–88; PULSE 38–92; RESP 16–20; TEMP 36.1–36.8; O2SAT 95–99
[2021-03-20 06:57] LABS: Hematocrit 33.3 % (37.0-47.0); Hemoglobin 9.9 g/dL (12.0-15.0); Immature Platelet Fraction Pct 6.3 % (0.9-11.2); Mean Corpuscular HGB Conc 29.7 g/dl (32-36); Mean Corpuscular Hemoglobin 23.4 pg (26-34); Mean Corpuscular Volume 78.7 fl (80-100); Platelet Count Result 124 k/mm3 (150-375); Red Blood Count 4.23 M/mm3 (4.2-5.4); White Blood Count 4.9 K/mm3 (4.5-10.0)
[2021-03-20 07:04] LABS: Alanine Aminotransferase 12 U/L (4-35); Albumin Level 3.2 g/dL (3.5-5.1); Alkaline Phosphatase 46 U/L (38-126); Anion Gap 2 mmol/L (8-16); Aspartate Amino Transferase 29 U/L (14-36); Bilirubin,Total 0.8 mg/dL (0.2-1.3); Blood Urea Nitrogen 9 mg/dL (7-17); Calcium 9.1 mg/dL (8.4-10.2); Carbon Dioxide 35 mmol/L (22-30); Chloride 101 mmol/L (98-107); Estimated CRCL calculation 114 ml/min; Estimated Glomerular Filt Rate > 60; Glucose 92 mg/dL (65-110); Magnesium 1.6 mg/dL (1.6-2.3); Potassium 3.8 mmol/L (3.4-5.0); Sodium 138 mmol/L (137-145)
[2021-03-20] MEDS: PANTOPRAZOLE SODIUM IV 40 MG VIAL IV PUSH ×2 (08:40→20:49)
[2021-03-20] MEDS: ENOXAPARIN 40 MG/0.4 ML SYRINGE SUB-Q (08:40)
--- NOTE | 2021-03-20 10:25 | PM.PNGS ---
Progress Note: A&P Assessment and Plan (1) Small bowel obstruction: Code(s): K56.609 - Unspecified intestinal obstruction, unspecified as to partial versus complete obstruction Status: Acute Assessment and Plan: Advance diet and stimulate bowels. Increase activity. Will resume Candice mcmahon Not sure why she was started on Zosyn. No infectious concerns that I see. Will discontinue Zosyn. (2) S/P hernia repair: Code(s): Z98.890 - Other specified postprocedural states; Z87.19 - Personal history of other diseases of the digestive system Status: Acute (3) Anticoagulant long-term use: Code(s): Z79.01 - termite inspector (current) use of anticoagulants Status: Acute (4) Atrial fibrillation: Code(s): I48.91 - Unspecified atrial fibrillation Status: Acute Subjective Subjective Date/Time Seen: 03/20/21 10:25 Interval history: Tolerating clear liquids and passing flatus. No bloating or nausea. No BM yet. Afebrile. In good spirits this morning. Exam GI: Inspection: non-distended and incision (intact with glue) GI Palp: Yes Soft to palpation, No Tenderness to palpation present (GI) and No Guarding due to palpation present (GI) Auscultation: normal bowel sounds Objective Data Vital Signs Vital Signs: Vital Signs - 24 hr 03/19/21 11:12 03/19/21 12:00 03/19/21 14:00 Temperature 35.9 C L Pulse Rate 57 L 36 L 39 L Respiratory Rate 26 H Blood Pressure 146/77 H Pulse Oximetry 97 03/19/21 16:00 03/19/21 18:00 03/19/21 19:34 Temperature 36.9 C 36.9 C Pulse Rate 88 51 L 56 L Respiratory Rate 16 16 Blood Pressure 165/74 H 145/66 H Pulse Oximetry 98 96 03/19/21 20:00 03/19/21 22:00 03/19/21 23:38 Temperature 36.4 C L Pulse Rate 66 46 L 98 Respiratory Rate 20 Blood Pressure 128/82 Pulse Oximetry 98 03/20/21 00:00 03/20/21 02:00 03/20/21 04:00 Temperature 36.8 C Pulse Rate 41 L 44 L 43 L Respiratory Rate 20 Blood Pressure 154/85 H Pulse Oximetry 98 03/20/21 06:00 03/20/21 08:00 Temperature 36.2 C L Pulse Rate 51 L 38 L Respiratory Rate 18 Blood Pressure 158/81 H Pulse Oximetry 98 Intake/Output Intake/Output: Intake & Output 03/17/21 03/18/21 03/19/21 03/20/21 23:59 23:59 23:59 23:59 Intake Total 850 2600 3250 400 Output Total 579 142 9553 500 Balance 145 2125 -475 -100 Meds/Results Medications: Active Medications Generic Name Dose Route Start Last Admin Trade Name Freq PRN Reason Stop Dose Admin Enoxaparin Sodium 40 mg 03/18/21 09:00 03/20/21 08:40 Enoxaparin 40 Mg/0.4 Ml Syringe SUB-Q 40 mg DAILY TAMMY Administration Hydromorphone HCl 1 mg 03/17/21 11:20 03/19/21 17:35 Hydromorphone Hcl Inj (*Crx) 1 Mg/Ml Syr IV PUSH 1 mg Q2H PRN Administration Pain Rated 7-10 Hydromorphone HCl 0.5 mg 03/17/21 11:21 Hydromorphone Hcl Inj (*Crx) 1 Mg/Ml Syr IV PUSH Q2H PRN Pain Rated 4-6 Ondansetron HCl 4 mg 03/17/21 05:09 03/17/21 05:50 Ondansetron Inj 4 Mg/2 Ml Vial IV PUSH 4 mg Q6H PRN Administration Nausea And Vomiting Pantoprazole Sodium 40 mg 03/17/21 09:00 03/20/21 08:40 Pantoprazole Sodium Iv 40 Mg Vial IV PUSH 40 mg Q12HR TAMMY Administration Phenol 1 spray 03/19/21 11:10 03/19/21 13:29 Phenol/Sod Pheno [place] (*Bkc) MUCOUS MEM 1 spray PRN PRN Administration Sore Throat Polyethylene Glycol 17 gm 03/20/21 10:25 Polyethylene Glycol 3350 17 Gm Powd.Pack PO QAM [facility] Radiology Results: ITS Impressions Chest X-Ray 03/16/21 19:22 IMPRESSION: 1. Cardiomegaly with moderate pulmonary edema. 2. Small left pleural effusion. 3. Left basilar airspace opacity, consistent with atelectasis versus pneumonia. Abdomen/Pelvis CT 03/17/21 10:00 IMPRESSION: 1. Closed-loop small bowel obstruction. 2. Large sliding hiatal hernia that also contains nonobstructed colon. 3. Splenic lesions measuring up to 14 m
--- NOTE | 2021-03-20 10:29 | PM.PNCARD ---
Progress Note: A&P Assessment and Plan (1) Atrial fibrillation: Code(s): I48.91 - Unspecified atrial fibrillation Status: Acute Assessment and Plan: A 71-year-old female (Jeh[employer]ah Witness) with atrial fibrillation on anticoagulation with apixaban, CHF with unknown LV systolic function, chronic left lower extremity wound, history of ? TIA. Patient admitted with small-bowel obstruction, and status post laparoscopic adhesiolysis with release of small-bowel obstruction. patient has atrial fibrillation with slow ventricular response, frequent PVCs versus aberrantly conducted beats and pauses up to 2.2 seconds. No associated symptoms of dizziness or syncope. Hemodynamically stable , with blood pressure either normal or high. Patient was on diltiazem at home, however has not received diltiazem during hospitalization. - Avoid AV rachael blocking agents - continue to monitor for now. Will consider temporary pacemaker placement if patient has any worsening of bradyarrhythmia or pauses. Patient may have underlying sick sinus syndrome which will need to be monitored closely. - Keep atropine and transcutaneous pads bedside. - Patient gives history of CHF. She does have mild volume overload. - Resume anticoagulation with apixaban when okay with surgery. - Gentle diuresis as needed for any significant volume overload. - Local wound care in the left lower extremity. Patient undergoing vascular studies at outside hospital, per patient. (2) Bradyarrhythmia: Code(s): I49.8 - Other specified cardiac arrhythmias Status: Acute Assessment and Plan: atrial fibrillation with slow ventricular response, occasional pauses . Hemodynamically stable. No symptoms of dizziness or syncope. Continue to monitor closely. Avoid AV rachael blocking agents. (3) Small bowel obstruction: Code(s): K56.609 - Unspecified intestinal obstruction, unspecified as to partial versus complete obstruction Status: Acute Assessment and Plan: Status post surgery. Management as per primary team and surgery. (4) CHF (congestive heart failure): Code(s): I50.9 - Heart failure, unspecified Status: Acute Assessment and Plan: Will start scheduling furosemide 40 mg IV daily, 1st dose now will refer. Will DC her IV fluids that she is taking clear liquid (5) Electrolyte imbalance: Code(s): E87.8 - Other disorders of electrolyte and fluid balance, not elsewhere classified Status: Acute Assessment and Plan: KCL 40 mEq p.o. x1, magnesium 2 g IV x1 Subjective Date/time seen: 03/20/21 10:29 Interval history: 71-year-old with a small-bowel obstruction with a consultation for bradycardia Date of service 03/19/2021: Feels tired today but no syncope, presyncope. No chest pain or shortness of breath. Date of service 03/20/2021: Still bradycardic but asymptomatic. Does complain of swelling Review of Systems Review of Systems: All systems reviewed & are unremarkable except as noted in HPI and below Constitutional: Constitutional: Denies excessive sweating, Reports fatigue and Denies headache(s) Eyes: Eyes: Denies blurry vision ENT: Reports Normal hearing present, Denies headache(s) and Denies neck pain Cardiovascular: Cardiovascular: Denies chest pain and Denies dyspnea Respiratory: Respiratory: Denies dyspnea Gastrointestinal: Gastrointestinal: Denies abdominal pain Genitourinary: Genitourinary: Denies flank pain Musculoskeletal: Musculoskeletal: Denies neck pain Integumentary/Breasts: Skin/Breast: Denies dry skin Neurologic: Reports Normal hearing present and Denies headache(s) Psychiatric: Psychiatric: Denies anxiety Endocrine: Endocrine: Denies excessive sweating and Reports fatigue Hematologic/Lymphatic: Hematologic/Lymphatic: Denies easy bleeding Allergic/Immunologic: Allergic/Immunologic: Denies GI upset with certain foods Exam Narrative: PHYSICAL EXAMINATION:
[2021-03-20] MEDS: MAGNESIUM SULF 2 GM/WATER 50ML 2 GM/50 ML BAG IVPB (10:50)
[2021-03-20] MEDS: polyethylene glycoL 3350 17 GM POWD.PACK PO (10:50)
[2021-03-20] MEDS: HYDROmorphone HCL INJ (*CRX) 1 MG/ML SYR IV PUSH (11:25)
[2021-03-20] MEDS: FUROSEMIDE INJ 40 MG/4 ML VIAL IV PUSH (12:00)
--- NOTE | 2021-03-20 13:53 | PM.IMPN ---
Progress Note: A&P Assessment and Plan (1) Abdominal pain: Code(s): R10.9 - Unspecified abdominal pain Status: Acute Assessment and Plan: 03/20 Pt is doing well pt had ng tube removed today 03/17 Interval history patient with a small-bowel obstruction patient continue to complaint of pain, started the patient on the diluaded, patient had a CT scan of abdomen and showed patient has Closed-loop small bowel obstruction. Surgery aware. (2) Small bowel obstruction: Code(s): K56.609 - Unspecified intestinal obstruction, unspecified as to partial versus complete obstruction Status: Acute Assessment and Plan: See above (3) CHF (congestive heart failure): Code(s): I50.9 - Heart failure, unspecified Status: Acute Assessment and Plan: CHronic and stable Cardiology consulted (4) A-fib: Code(s): I48.91 - Unspecified atrial fibrillation Status: Chronic Assessment and Plan: Rate controlled pt was on heparin transitioned to lovenox (5) Leg wound, left: Code(s): S81.802A - Unspecified open wound, left lower leg, initial encounter Status: Acute Assessment and Plan: Daily dressing changes pt will follow with [facility] Subjective Date/time seen: 03/20/21 13:53 Interval history: 71-year-old female with past medical history significant atrial fibrillation rate control and anticoagulated, bilateral lower extremity chronic ulcers, congestive heart failure.Patient presented to emergency room due to abdominal pain found to have SBO, Laparoscopic adhesiolysis with release of small-bowel obstruction on 03/17. Pt is doing well pt had ng tube removed today, pt continues to have problems with left leg wound Review of Systems Review of Systems: All systems reviewed & are unremarkable except as noted in HPI and below Exam Narrative: Pt is elderly lady pleasant LUNGS: normal respiratory effort ABD0: soft non tender Lower extremities: no edema SKIN: leg wound on left [place] area Neuro: grossly intact normal speech. Objective Data Vital Signs Vital Signs: Vital Signs - 24 hr 03/19/21 14:00 03/19/21 16:00 03/19/21 18:00 Temperature 36.9 C Pulse Rate 39 L 88 51 L Respiratory Rate 16 Blood Pressure 165/74 H Pulse Oximetry 98 03/19/21 19:34 03/19/21 20:00 03/19/21 22:00 Temperature 36.9 C Pulse Rate 56 L 66 46 L Respiratory Rate 16 Blood Pressure 145/66 H Pulse Oximetry 96 03/19/21 23:38 03/20/21 00:00 03/20/21 02:00 Temperature 36.4 C L Pulse Rate 98 41 L 44 L Respiratory Rate 20 Blood Pressure 128/82 Pulse Oximetry 98 03/20/21 04:00 03/20/21 06:00 03/20/21 08:00 Temperature 36.8 C 36.2 C L Pulse Rate 43 L 51 L 38 L Respiratory Rate 20 18 Blood Pressure 154/85 H 158/81 H Pulse Oximetry 98 98 03/20/21 10:00 03/20/21 11:58 03/20/21 12:46 Temperature 36.4 C L Pulse Rate 56 L 46 L 53 L Respiratory Rate 18 Blood Pressure 151/84 H Pulse Oximetry 95 Intake/Output Intake/Output: Intake & Output 03/17/21 03/18/21 03/19/21 03/20/21 23:59 23:59 23:59 23:59 Intake Total 850 2600 3250 2005 Output Total 337 540 5144 2610 Balance 145 2125 -475 -605 Meds/Results Medications: Active Medications Generic Name Dose Route Start Last Admin Trade Name Freq PRN Reason Stop Dose Admin Apixaban 5 mg 03/20/21 17:00 Apixaban 5 Mg Tablet PO BID TAMMY Furosemide 40 mg 03/20/21 10:35 03/20/21 12:00 Furosemide Inj 40 Mg/4 Ml Vial IV PUSH 40 mg DAILY TAMMY Administration Hydromorphone HCl 1 mg 03/17/21 11:20 03/20/21 11:25 Hydromorphone Hcl Inj (*Crx) 1 Mg/Ml Syr IV PUSH 1 mg Q2H PRN Administration Pain Rated 7-10 Hydromorphone HCl 0.5 mg 03/17/21 11:21 Hydromorphone Hcl Inj (*Crx) 1 Mg/Ml Syr IV PUSH Q2H PRN Pain Rated 4-6 Potassium Chloride 500 mls @ 125 mls/hr 03/20/21 10:32 03/20/21 12:00 Kcl 40 Meq/D5w 500
--- NOTE | 2021-03-20 15:34 | PC.NURSE ---
On 03/20/21, the student, [Aleta Templeton], provided care and [facility] this [facility]. I have reviewed the student's documentation and agree with the findings.
[2021-03-20] MEDS: APIXABAN 5 MG TABLET PO (16:47)
[2021-03-20] MEDS: HYDROcodone/acetaminophen (*CRX) 5-325 MG TABLET 1 TAB PO (23:33)
[2021-03-21] VITALS (12 sets, daily range): BP systolic 121–167; BP diastolic 60–85; PULSE 42–78; RESP 18; TEMP 36–36.6; O2SAT 95–100
[2021-03-21 05:10] LABS: Hemoglobin 9.8 g/dL (12.0-15.0); Immature Platelet Fraction Pct 5.8 % (0.9-11.2); Mean Corpuscular HGB Conc 29.7 g/dl (32-36); Mean Corpuscular Hemoglobin 23.6 pg (26-34); Mean Corpuscular Volume 79.3 fl (80-100); Platelet Count Result 127 k/mm3 (150-375); Red Blood Count 4.16 M/mm3 (4.2-5.4)
[2021-03-21 05:12] LABS: Alanine Aminotransferase 12 U/L (4-35); Albumin Level 3.1 g/dL (3.5-5.1); Alkaline Phosphatase 59 U/L (38-126); Anion Gap 1 mmol/L (8-16); Aspartate Amino Transferase 19 U/L (14-36); Bilirubin,Total 0.8 mg/dL (0.2-1.3); Blood Urea Nitrogen 5 mg/dL (7-17); Calcium 8.8 mg/dL (8.4-10.2); Carbon Dioxide 35 mmol/L (22-30); Chloride 99 mmol/L (98-107); Estimated CRCL calculation 164 ml/min; Estimated Glomerular Filt Rate > 60; Glucose 81 mg/dL (65-110); Magnesium 1.5 mg/dL (1.6-2.3); Potassium 3.2 mmol/L (3.4-5.0); Sodium 135 mmol/L (137-145)
--- NOTE | 2021-03-21 08:00 | PM.PNGS ---
Progress Note: A&P Assessment and Plan (1) Small bowel obstruction: Code(s): K56.609 - Unspecified intestinal obstruction, unspecified as to partial versus complete obstruction Status: Acute Assessment and Plan: Surgically stable for discharge Discussed wound care and activity with patient She doesn't need to follow up with me unless she has any surgical concerns (2) S/P hernia repair: Code(s): Z98.890 - Other specified postprocedural states; Z87.19 - Personal history of other diseases of the digestive system Status: Acute Subjective Subjective Date/Time Seen: 03/21/21 08:00 Interval history: Tolerating solid diet and bowels moving. No nausea or bloating. Exam GI: Inspection: non-distended and incision (intact with glue) GI Palp: Yes Soft to palpation, No Tenderness to palpation present (GI) and No Guarding due to palpation present (GI) Percussion: Yes normal to percussion Auscultation: normal bowel sounds Objective Data Vital Signs Vital Signs: Vital Signs - 24 hr 03/20/21 10:00 03/20/21 11:58 03/20/21 12:00 Temperature 36.4 C L Pulse Rate 56 L 46 L 52 L Respiratory Rate 18 Blood Pressure 151/84 H Pulse Oximetry 95 03/20/21 12:46 03/20/21 14:00 03/20/21 15:52 Temperature 36.6 C Pulse Rate 53 L 67 92 Respiratory Rate 16 Blood Pressure 134/78 Pulse Oximetry 95 03/20/21 16:00 03/20/21 18:00 03/20/21 19:50 Temperature 36.1 C L Pulse Rate 43 L 56 L 51 L Respiratory Rate 16 Blood Pressure 143/78 H Pulse Oximetry 99 03/20/21 20:00 03/20/21 20:52 03/20/21 22:00 Temperature Pulse Rate 47 L 56 L 51 L Respiratory Rate 16 Blood Pressure Pulse Oximetry 99 03/20/21 23:34 03/21/21 00:00 03/21/21 02:00 Temperature 36.7 C Pulse Rate 54 L 52 L 46 L Respiratory Rate 16 Blood Pressure 124/88 Pulse Oximetry 97 03/21/21 03:57 03/21/21 04:00 03/21/21 06:00 Temperature 36.0 C L Pulse Rate 47 L 48 L 57 L Respiratory Rate 18 Blood Pressure 167/74 H Pulse Oximetry 95 Intake/Output Intake/Output: Intake & Output 03/18/21 03/19/21 03/20/21 03/21/21 23:59 23:59 23:59 23:59 Intake Total 2600 3250 3175 422 Output Total 475 3725 4860 1100 Balance 2125 -475 -1685 -678 Meds/Results Medications: Active Medications Generic Name Dose Route Start Last Admin Trade Name Freq PRN Reason Stop Dose Admin Hydrocodone Bitart/Acetaminophen 1 tab 03/20/21 23:01 03/20/21 23:33 Hydrocodone/Acetaminophen (*Crx) 5-325 Mg Tablet PO 1 tab Q6H PRN Administration Moderate Pain (4-6) Apixaban 5 mg 03/20/21 17:00 03/20/21 16:47 Apixaban 5 Mg Tablet PO 5 mg BID TAMMY Administration Furosemide 40 mg 03/20/21 10:35 03/20/21 12:00 Furosemide Inj 40 Mg/4 Ml Vial IV PUSH 40 mg DAILY TAMMY Administration Hydromorphone HCl 1 mg 03/17/21 11:20 03/20/21 11:25 Hydromorphone Hcl Inj (*Crx) 1 Mg/Ml Syr IV PUSH 1 mg Q2H PRN Administration Pain Rated 7-10 Hydromorphone HCl 0.5 mg 03/17/21 11:21 Hydromorphone Hcl Inj (*Crx) 1 Mg/Ml Syr IV PUSH Q2H PRN Pain Rated 4-6 Ondansetron HCl 4 mg 03/17/21 05:09 03/17/21 05:50 Ondansetron Inj 4 Mg/2 Ml Vial IV PUSH 4 mg Q6H PRN Administration Nausea And Vomiting Pantoprazole Sodium 40 mg 03/17/21 09:00 03/20/21 20:49 Pantoprazole Sodium Iv 40 Mg Vial IV PUSH 40 mg Q12HR TAMMY Administration Phenol 1 spray 03/19/21 11:10 03/19/21 13:29 Phenol/Sod Pheno [place] Mariano (*Bkc) MUCOUS MEM 1 spray PRN PRN Administration Sore Throat Polyethylene Glycol 17 gm 03/20/21 10:25 03/20/21 10:50 Polyethylene Glycol 3350 17 Gm Powd.Pack PO 17 gm QAM TAMMY Administration Radiology Results: ITS Impressions Chest X-Ray 03/16/21 19:22 IMPRESSION: 1. Cardiomegaly with moderate pulmonary edema. 2. Small left pleural effusion. 3. Left basilar airspace opacity, consistent with atelectasis versus
[2021-03-21] MEDS: polyethylene glycoL 3350 17 GM POWD.PACK PO (08:40)
[2021-03-21] MEDS: PANTOPRAZOLE SODIUM IV 40 MG VIAL IV PUSH (08:40)
[2021-03-21] MEDS: FUROSEMIDE INJ 40 MG/4 ML VIAL IV PUSH (08:40)
[2021-03-21] MEDS: APIXABAN 5 MG TABLET PO ×2 (08:40→16:51)
[2021-03-21] MEDS: HYDROmorphone HCL INJ (*CRX) 1 MG/ML SYR IV PUSH ×2 (08:55→15:42)
--- NOTE | 2021-03-21 09:44 | PM.PNCARD ---
Progress Note: A&P Assessment and Plan (1) Atrial fibrillation: Code(s): I48.91 - Unspecified atrial fibrillation Status: Acute Assessment and Plan: A 71-year-old female ([employer] Witness) with atrial fibrillation on anticoagulation with apixaban, CHF with unknown LV systolic function, chronic left lower extremity wound, history of ? TIA. Patient admitted with small-bowel obstruction, and status post laparoscopic adhesiolysis with release of small-bowel obstruction. patient has atrial fibrillation with slow ventricular response, frequent PVCs versus aberrantly conducted beats and pauses up to 2.2 seconds. No associated symptoms of dizziness or syncope. Hemodynamically stable , with blood pressure either normal or high. Patient was on diltiazem at home, however has not received diltiazem during hospitalization. - Avoid AV rachael blocking agents - continue to monitor for now. Will consider temporary pacemaker placement if patient has any worsening of bradyarrhythmia or pauses. Patient may have underlying sick sinus syndrome which will need to be monitored closely. - Keep atropine and transcutaneous pads bedside. - Patient gives history of CHF. She does have mild volume overload. - Resume anticoagulation with apixaban when okay with surgery. - Gentle diuresis as needed for any significant volume overload. - Local wound care in the left lower extremity. Patient undergoing vascular studies at outside hospital, per patient. (2) Bradyarrhythmia: Code(s): I49.8 - Other specified cardiac arrhythmias Status: Acute Assessment and Plan: atrial fibrillation with slow ventricular response, occasional pauses . Hemodynamically stable. No symptoms of dizziness or syncope. Continue to monitor closely. Avoid AV rachael blocking agents. (3) Small bowel obstruction: Code(s): K56.609 - Unspecified intestinal obstruction, unspecified as to partial versus complete obstruction Status: Acute Assessment and Plan: Status post surgery. Management as per primary team and surgery. (4) CHF (congestive heart failure): Code(s): I50.9 - Heart failure, unspecified Status: Acute Assessment and Plan: Continue furosemide 40 mg IV daily. Transition to oral Lasix tomorrow (5) Electrolyte imbalance: Code(s): E87.8 - Other disorders of electrolyte and fluid balance, not elsewhere classified Status: Acute Assessment and Plan: Magnesium 4 g IV x1. KCL 40 mEq p.o. times 1 Subjective Date/time seen: 03/21/21 09:44 Interval history: 71-year-old with a small-bowel obstruction with a consultation for bradycardia Date of service 03/19/2021: Feels tired today but no syncope, presyncope. No chest pain or shortness of breath. Date of service 03/20/2021: Still bradycardic but asymptomatic. Does complain of swelling Date of service 03/21/2021: Her swelling is much better. Still bradycardic but asymptomatic. No chest pain or shortness of breath Review of Systems Review of Systems: All systems reviewed & are unremarkable except as noted in HPI and below Constitutional: Constitutional: Denies excessive sweating, Reports fatigue and Denies headache(s) Eyes: Eyes: Denies blurry vision ENT: Reports Normal hearing present, Denies headache(s) and Denies neck pain Cardiovascular: Cardiovascular: Denies chest pain and Denies dyspnea Respiratory: Respiratory: Denies dyspnea Gastrointestinal: Gastrointestinal: Denies abdominal pain Genitourinary: Genitourinary: Denies flank pain Musculoskeletal: Musculoskeletal: Denies neck pain Integumentary/Breasts: Skin/Breast: Denies dry skin Neurologic: Reports Normal hearing present and Denies headache(s) Psychiatric: Psychiatric: Denies anxiety Endocrine: Endocrine: Denies excessive sweating and Reports fatigue Hematologic/Lymphatic: Hematologic/Lymphatic: Denies easy bleeding Allergic/Immunologic: Allergic/Immunolog
--- NOTE | 2021-03-21 10:02 | PCPTNOTE ---
attempted therapy, pt refused. Will attempt this afternoon.
[2021-03-21] MEDS: MAGNESIUM SULF 4 GM/WATER100ML 4 GM/100 ML BAG IVPB (10:05)
[2021-03-21] MEDS: POTASSIUM CHLORIDE 20 MEQ TABLET 40 MEQ PO (10:05)
--- NOTE | 2021-03-21 12:32 | PM.IMPN ---
Progress Note: A&P Assessment and Plan (1) Abdominal pain: Code(s): R10.9 - Unspecified abdominal pain Status: Acute Assessment and Plan: 03/17 Interval history patient with a small-bowel obstruction patient continue to complaint of pain, started the patient on the diluaded, patient had a CT scan of abdomen and showed patient has Closed-loop small bowel obstruction. 03/20 Pt had NG tube sp Laparoscopic adhesiolysis with release of small-bowel obstruction on 03/17 03/21 Pt is doing well pt is still edematous hopeful discharge tomorrow (2) Small bowel obstruction: Code(s): K56.609 - Unspecified intestinal obstruction, unspecified as to partial versus complete obstruction Status: Acute Assessment and Plan: See above (3) CHF (congestive heart failure): Code(s): I50.9 - Heart failure, unspecified Status: Acute Assessment and Plan: CHronic and stable Cardiology consulted (4) A-fib: Code(s): I48.91 - Unspecified atrial fibrillation Status: Chronic Assessment and Plan: Rate controlled pt was on heparin transitioned to lovenox (5) Leg wound, left: Code(s): S81.802A - Unspecified open wound, left lower leg, initial encounter Status: Acute Assessment and Plan: Daily dressing changes pt will follow with [facility] for leg wound Subjective Date/time seen: 03/21/21 12:32 Interval history: 71-year-old female with past medical history significant atrial fibrillation rate control and anticoagulated, bilateral lower extremity chronic ulcers, congestive heart failure.Patient presented to emergency room due to abdominal pain found to have SBO, Laparoscopic adhesiolysis with release of small-bowel obstruction on 03/17. Pt is doing well but legs are still edematous. Review of Systems Review of Systems: All systems reviewed & are unremarkable except as noted in HPI and below Exam Narrative: Pt is elderly lady pleasant LUNGS: normal respiratory effort ABD0: soft non tender Lower extremities:2+ edema SKIN: leg wound on left [place] area Neuro: grossly intact normal speech. Objective Data Vital Signs Vital Signs: Vital Signs - 24 hr 03/20/21 12:46 03/20/21 14:00 03/20/21 15:52 Temperature 36.6 C Pulse Rate 53 L 67 92 Respiratory Rate 16 Blood Pressure 134/78 Pulse Oximetry 95 03/20/21 16:00 03/20/21 18:00 03/20/21 19:50 Temperature 36.1 C L Pulse Rate 43 L 56 L 51 L Respiratory Rate 16 Blood Pressure 143/78 H Pulse Oximetry 99 03/20/21 20:00 03/20/21 20:52 03/20/21 22:00 Temperature Pulse Rate 47 L 56 L 51 L Respiratory Rate 16 Blood Pressure Pulse Oximetry 99 03/20/21 23:34 03/21/21 00:00 03/21/21 02:00 Temperature 36.7 C Pulse Rate 54 L 52 L 46 L Respiratory Rate 16 Blood Pressure 124/88 Pulse Oximetry 97 03/21/21 03:57 03/21/21 04:00 03/21/21 06:00 Temperature 36.0 C L Pulse Rate 47 L 48 L 57 L Respiratory Rate 18 Blood Pressure 167/74 H Pulse Oximetry 95 03/21/21 08:00 03/21/21 10:00 03/21/21 12:00 Temperature 36.6 C 36.4 C Pulse Rate 50 L 42 L 44 L Respiratory Rate 18 18 Blood Pressure 143/72 H 121/60 Pulse Oximetry 100 98 Intake/Output Intake/Output: Intake & Output 03/18/21 03/19/21 03/20/21 03/21/21 23:59 23:59 23:59 23:59 Intake Total 2600 3250 3175 902 Output Total 475 3725 4860 4800 Balance 2125 -475 -1685 -3898 Meds/Results Medications: Active Medications Generic Name Dose Route Start Last Admin Trade Name Freq PRN Reason Stop Dose Admin Hydrocodone Bitart/Acetaminophen 1 tab 03/20/21 23:01 03/20/21 23:33 Hydrocodone/Acetaminophen (*Crx) 5-325 Mg Tablet PO 1 tab Q6H PRN Administration Moderate Pain (4-6) Apixaban 5 mg 03/20/21 17:00 03/21/21 08:40 Apixaban 5 Mg Tablet PO 5 mg BID TAMMY Administration Furosemide 40 mg 03/20/21 10:35 03/21/21 08:40 Furosemide Inj 40
[2021-03-21] MEDS: SPIRONOLACTONE 25 MG TABLET PO (16:51)
[2021-03-21] MEDS: POTASSIUM CHLORIDE 20 MEQ PACKET (FOR LIQUID) 40 MEQ PO (16:51)
--- NOTE | 2021-03-21 16:55 | PC.NURSE ---
This patient, Vanessa Olsen, was transferred to [facility] on 03/21/21 at 1655. Personal belongings sent with patient. Report given to GRETA Reid. Appropriate documentation sent with patient.
--- NOTE | 2021-03-21 17:02 | PC.NURSE ---
This patient, Vanessa Olsen, was received from [[facility]] on 03/21/21 at 1700. Patient/family oriented to unit policies and routines
[2021-03-21] MEDS: HYDROcodone/acetaminophen (*CRX) 5-325 MG TABLET 1 TAB PO (20:32)
[2021-03-22] VITALS (8 sets, daily range): BP systolic 117–156; BP diastolic 66–89; PULSE 44–74; RESP 16–20; TEMP 36.4–36.8; O2SAT 97–100
[2021-03-22 06:56] LABS: Hematocrit 33.5 % (37.0-47.0); Hemoglobin 10.1 g/dL (12.0-15.0); Immature Platelet Fraction Pct 5.7 % (0.9-11.2); Mean Corpuscular HGB Conc 30.1 g/dl (32-36); Mean Corpuscular Hemoglobin 23.5 pg (26-34); Mean Corpuscular Volume 77.9 fl (80-100); Platelet Count Result 146 k/mm3 (150-375); White Blood Count 4.7 K/mm3 (4.5-10.0)
[2021-03-22 07:16] LABS: Anion Gap 1 mmol/L (8-16); Blood Urea Nitrogen 6 mg/dL (7-17); Calcium 9.1 mg/dL (8.4-10.2); Carbon Dioxide 35 mmol/L (22-30); Chloride 99 mmol/L (98-107); Estimated CRCL calculation 134 ml/min; Estimated Glomerular Filt Rate > 60; Glucose 83 mg/dL (65-110); Potassium 3.9 mmol/L (3.4-5.0); Sodium 135 mmol/L (137-145)
[2021-03-22] MEDS: HYDROcodone/acetaminophen (*CRX) 5-325 MG TABLET 1 TAB PO ×2 (09:22→18:13)
[2021-03-22] MEDS: FUROSEMIDE INJ 40 MG/4 ML VIAL IV PUSH ×2 (09:23→20:06)
[2021-03-22] MEDS: APIXABAN 5 MG TABLET PO ×2 (09:23→18:14)
[2021-03-22] MEDS: SERTRALINE HCL 50 MG TABLET PO (09:24)
[2021-03-22] MEDS: SPIRONOLACTONE 25 MG TABLET PO ×2 (09:24→18:14)
--- NOTE | 2021-03-22 11:52 | PM.PNGS ---
Progress Note: A&P Assessment and Plan (1) Small bowel obstruction: Code(s): K56.609 - Unspecified intestinal obstruction, unspecified as to partial versus complete obstruction Status: Acute Assessment and Plan: doing well postop. Okay to discharge from surgical standpoint but still undergoing medical evaluation and optimization. Postsurgical instructions in the discharge orders. Call if can be of further assistance. Subjective Subjective Date/Time Seen: 03/22/21 11:52 Post Op day: 5 Patient reports: no new complaints, feels better, tolerating a regular diet, bowel movement and afebrile Exam Const: General: cooperative, comfortable, no acute distress, alert and awake Nutritional Appearance: overweight Orientation/consciousness: patient oriented x3 GI: Inspection: non-distended and incision ( Incisions dry and healing well) GI Palp: Yes Soft to palpation and No Tenderness to palpation present (GI) Auscultation: normal bowel sounds Objective Data Vital Signs Vital Signs: Vital Signs - 24 hr 03/21/21 12:00 03/21/21 14:00 03/21/21 16:00 Temperature 36.4 C 36.5 C Pulse Rate 43 L 78 60 Respiratory Rate 18 18 Blood Pressure 121/60 128/75 Pulse Oximetry 98 97 03/21/21 20:00 03/21/21 23:38 03/22/21 00:00 Temperature 36.4 C 36.6 C Pulse Rate 54 L 48 L 51 L Respiratory Rate 18 18 Blood Pressure 136/85 142/76 H Pulse Oximetry 99 100 03/22/21 04:00 03/22/21 08:00 Temperature 36.4 C 36.6 C Pulse Rate 45 L 51 L Respiratory Rate 18 16 Blood Pressure 155/73 H 156/89 H Pulse Oximetry 97 99 Intake/Output Intake/Output: Intake & Output 03/19/21 03/20/21 03/21/21 03/22/21 23:59 23:59 23:59 23:59 Intake Total 3250 3175 1482 750 Output Total 4625 6370 2600 500 Siireep -473 -8660 -6953 250 Meds/Results Medications: Active Medications Generic Name Dose Route Start Last Admin Trade Name Freq PRN Reason Stop Dose Admin Hydrocodone Bitart/Acetaminophen 1 tab 03/20/21 23:01 03/22/21 09:22 Hydrocodone/Acetaminophen (*Crx) 5-325 Mg Tablet PO 1 tab Q6H PRN Administration Moderate Pain (4-6) Apixaban 5 mg 03/20/21 17:00 03/22/21 09:23 Apixaban 5 Mg Tablet PO 5 mg BID TAMMY Administration Furosemide 40 mg 03/20/21 10:35 03/22/21 09:23 Furosemide Inj 40 Mg/4 Ml Vial IV PUSH 40 mg DAILY TAMMY Administration Hydromorphone HCl 1 mg 03/17/21 11:20 03/21/21 15:42 Hydromorphone Hcl Inj (*Crx) 1 Mg/Ml Syr IV PUSH 1 mg Q2H PRN Administration Pain Rated 7-10 Hydromorphone HCl 0.5 mg 03/17/21 11:21 Hydromorphone Hcl Inj (*Crx) 1 Mg/Ml Syr IV PUSH Q2H PRN Pain Rated 4-6 Ondansetron HCl 4 mg 03/17/21 05:09 03/17/21 05:50 Ondansetron Inj 4 Mg/2 Ml Vial IV PUSH 4 mg Q6H PRN Administration Nausea And Vomiting Phenol 1 spray 03/19/21 11:10 03/19/21 13:29 Phenol/Sod Pheno [place] Mariano (*Bkc) MUCOUS MEM 1 spray PRN PRN Administration Sore Throat Polyethylene Glycol 17 gm 03/20/21 10:25 03/22/21 09:23 Polyethylene Glycol 3350 17 Gm Powd.Pack PO Not Given QAM TAMMY Potassium Chloride 40 meq 03/21/21 17:00 03/21/21 16:51 Potassium Chloride 20 Meq Packet (For Liquid) PO 40 meq BID TAMMY Administration Sertraline HCl 50 mg 03/22/21 09:00 03/22/21 09:24 Sertraline Hcl 50 Mg Tablet PO 50 mg DAILY TAMMY Administration Spironolactone 25 mg 03/21/21 17:00 03/22/21 09:24 Spironolactone 25 Mg Tablet PO 25 mg BID TAMMY Administration Radiology Results: ITS Impressions Chest X-Ray 03/16/21 19:22 IMPRESSION: 1. Cardiomegaly with moderate pulmonary edema. 2. Small left pleural effusion. 3. Left basilar airspace opacity, consistent with atelectasis versus pneumonia. Abdomen/Pelvis CT 03/17/21 10:00 IMPRESSION: 1. Closed-loop small bowel obstruction. 2. Large sliding hiatal hernia that also contains nonobstructed colon. 3. Splenic lesions measuring up to 14 m
--- NOTE | 2021-03-22 12:36 | PCOTNOTE ---
Patient is being discharged from OT services at this time due to meeting all goals.
--- NOTE | 2021-03-22 13:09 | PM.IMPN ---
Progress Note: A&P Assessment and Plan (1) Abdominal pain: Code(s): R10.9 - Unspecified abdominal pain Status: Acute Assessment and Plan: CT scan shows small bowel obstruction. She was taken to the OR and lysis of adhesions were done. She tolerated the procedure very well. Tolerating diet. No nausea vomiting or abdominal distension. Surgery is following and they have cleared her for discharge. Serial abdominal exam. (2) Small bowel obstruction: Code(s): K56.609 - Unspecified intestinal obstruction, unspecified as to partial versus complete obstruction Status: Acute Assessment and Plan: See above (3) CHF (congestive heart failure): Code(s): I50.9 - Heart failure, unspecified Status: Acute Assessment and Plan: She is being diuresed with IV Lasix. Good urine output with current dose of Lasix. Continue to monitor intake and output record. Continue to follow renal parameters and electrolytes. Replace electrolytes if low. Cardiology recommendations appreciated. Echo done here shows ejection fraction of 60-65%. She does have severe pulmonary hypertension with RV dilation and moderate to severe tricuspid wall regurgitation. (4) A-fib: Code(s): I48.91 - Unspecified atrial fibrillation Status: Chronic Assessment and Plan: Rate controlled but bradyarrhythmia and had significant pauses up to 2.2 seconds. She is back on her Eliquis at home dose. Cardiology evaluation appreciated. They have recommended avoiding AV rachael blocking agent. Continue to monitor. Temporary pacemaker placement if patient continued to have worsening of bradyarrhythmia or pauses. She might be having underlying sick sinus syndrome. Atropine and transcutaneous pads at the bedside. Continue to monitor heart rate and rest of the hemodynamics closely. (5) Leg wound, left: Code(s): S81.802A - Unspecified open wound, left lower leg, initial encounter Status: Acute Assessment and Plan: Daily dressing changes pt will follow with [facility] for leg wound Time Spent With Patient Time: Discontinue [place]'s catheter today. She will likely get discharged in the next 1-2 days 1 her lower extremity swelling and edema subsides. I will stop IV Dilaudid. She will be continued on p.o. pain medications. Subjective Date/time seen: 03/22/21 13:09 Interval history: 71-year-old female with past medical history significant atrial fibrillation rate control and anticoagulated, bilateral lower extremity chronic ulcers, congestive heart failure. Patient presented to emergency room due to abdominal pain found to have SBO, Laparoscopic adhesiolysis with release of small-bowel obstruction on 03/17. Pt is doing well but legs are still edematous. 03/17 patient with a small-bowel obstruction patient continue to complaint of pain, started the patient on the diluaded, patient had a CT scan of abdomen and showed patient has Closed-loop small bowel obstruction. 03/20 Pt had NG tube sp Laparoscopic adhesiolysis with release of small-bowel obstruction on 03/17 03/21 Pt is doing well pt is still edematous 03/22 She was diuresed overnight and had a net negative fluid balance of 3.2 L in the last 24 hour. Her blood pressure has been noticed to be elevated. She is still complaining of bilateral lower extremity tightness and swelling. She claims to have ambulated for few steps with physical therapy. She denied have any significant symptoms of shortness of breath chest pain fever chills and cough. Review of Systems Review of Systems: All systems reviewed & are unremarkable except as noted in HPI and below Exam Narrative: Pt is elderly lady pleasant LUNGS: No wheezes. Few crepitation heard at the bases. ABD0: soft non tender Lower extremities:2+ edema SKIN: leg wound on left [place] area Neuro: grossly intact normal speech. GI soft nontender Objective Data Vit
--- NOTE | 2021-03-22 14:32 | PM.PNCARD ---
Progress Note: A&P Assessment and Plan (1) Atrial fibrillation: Code(s): I48.91 - Unspecified atrial fibrillation Status: Acute Assessment and Plan: A 71-year-old female ([employer] Witness) with atrial fibrillation on anticoagulation with apixaban, CHF with unknown LV systolic function, chronic left lower extremity wound, history of ? TIA. Patient admitted with small-bowel obstruction, and status post laparoscopic adhesiolysis with release of small-bowel obstruction. patient has atrial fibrillation with slow ventricular response, frequent PVCs versus aberrantly conducted beats and pauses up to 2.2 seconds. No associated symptoms of dizziness or syncope. Hemodynamically stable , with blood pressure either normal or high. Patient was on diltiazem at home, however has not received diltiazem during hospitalization. - Avoid all AV rachael blocking agents - continue to monitor for now. Temporary pacemaker placement if patient has any worsening of bradyarrhythmia or pauses but has not been required. We discussed at length indications for pacemaker including symptomatic bradycardia, pathologic pauses and/or high-grade blocks. Patient tolerating very well. We also discussed if this continues the high likelihood she will require pacemaker in the near future. - I would recommend outpatient sterile products processor upon discharge. Patient very likely as underlying sick sinus syndrome which will need to be monitored closely. Excessive vagal tone may also be contributing yet patient denies significant abdominal pain, nausea vomiting. - Keep atropine and transcutaneous pads bedside while in-house. - Patient gives history of CHF. She does have mild volume overload. May transition to oral Lasix 40 mg b.i.d. tomorrow but I would like to observe urine output overnight. - continue anticoagulation with apixaban - Local wound care of the left lower extremity. Patient undergoing vascular studies at outside hospital, per patient. Possible patient may be discharged from a cardiac perspective tomorrow renal function, electrolytes and hemodynamics stable. (2) Bradyarrhythmia: Code(s): I49.8 - Other specified cardiac arrhythmias Status: Acute Assessment and Plan: Persistent atrial fibrillation with slow ventricular response, occasional pauses <3 seconds. Hemodynamically stable. No symptoms of dizziness or syncope. Continue to monitor closely. Avoid AV rachael blocking agents. No indication for permanent pacemaker implantation at this time. Explained likelihood and concern to the patient in detail. All questions answered to her satisfaction. (3) Small bowel obstruction: Code(s): K56.609 - Unspecified intestinal obstruction, unspecified as to partial versus complete obstruction Status: Acute Assessment and Plan: Status post surgery. Management as per primary team and surgery. (4) CHF (congestive heart failure): Code(s): I50.9 - Heart failure, unspecified Status: Acute Assessment and Plan: Continue furosemide 40 mg IV daily. Transition to oral Lasix tomorrow (5) Electrolyte imbalance: Code(s): E87.8 - Other disorders of electrolyte and fluid balance, not elsewhere classified Status: Acute Assessment and Plan: Recheck magnesium level in a.m. and BMP. Subjective Date/time seen: Date of service: 03/22/21 14:32 Interval history: 71-year-old with a small-bowel obstruction with seen in follow-up for atrial fibrillation with slow ventricular response Patient is feeling better. She denies chest pain, shortness of breath, dizziness, lightheadedness or significant fatigue. Pain is controlled. She is able to walk around the alas without much difficulty she states. She remains in atrial fibrillation with average heart rate in the 40s to 50s occasionally dropping into the upper 30s. No pathologic pauses or high-grade AV blocks thus far. She states she may be discharged home thiago
[2021-03-22] MEDS: POTASSIUM CHLORIDE 20 MEQ PACKET (FOR LIQUID) 40 MEQ PO ×2 (15:15→18:13)
[2021-03-23] VITALS (8 sets, daily range): BP systolic 127–138; BP diastolic 67–92; PULSE 49–152; RESP 18–20; TEMP 36.1–36.4; O2SAT 97–98
[2021-03-23 06:25] LABS: Basophils Percent Auto 0.6 % (0.2-1.2); Eosinophils Absolute Auto 0.2 K/mm3 (0-0.3); Eosinophils Percent Auto 3.1 % (0-4.4); Hematocrit 34.6 % (37.0-47.0); Hemoglobin 10.5 g/dL (12.0-15.0); Immature Granulocyte Absolute 0.02 K/mm3 (0.00-0.031); Immature Granulocyte Percent A 0.4 % (0-0.5); Immature Platelet Fraction Pct 5.6 % (0.9-11.2); Lymphocytes Absolute Auto 1.61 K/mm3 (0.9-3.2); Lymphocytes Percent Auto 31.2 % (18.3-44.2); Mean Corpuscular HGB Conc 30.3 g/dl (32-36); Mean Corpuscular Hemoglobin 22.9 pg (26-34); Mean Corpuscular Volume 75.5 fl (80-100); Monocytes Absolute Auto 0.6 K/mm3 (0.1-0.6); Monocytes Percent Auto 11.4 % (2.6-8.5); Neutrophils Absolute Auto 2.8 K/mm3 (1.3-6.7); Neutrophils Percent Auto 53.3 % (45.5-73.1); Platelet Count Result 152 k/mm3 (150-375); Red Blood Count 4.58 M/mm3 (4.2-5.4); White Blood Count 5.2 K/mm3 (4.5-10.0)
[2021-03-23 06:38] LABS: Anion Gap 6 mmol/L (8-16); Blood Urea Nitrogen 5 mg/dL (7-17); Calcium 9.7 mg/dL (8.4-10.2); Carbon Dioxide 33 mmol/L (22-30); Chloride 97 mmol/L (98-107); Estimated CRCL calculation 134 ml/min; Estimated Glomerular Filt Rate > 60; Glucose 83 mg/dL (65-110); Magnesium 1.6 mg/dL (1.6-2.3); Potassium 3.6 mmol/L (3.4-5.0); Sodium 136 mmol/L (137-145)
[2021-03-23 07:36] LABS: Platelet Estimate Adequate (Adequate)
[2021-03-23 07:37] LABS: Ovalocytes 1+ (NORMAL); Target Cells 1+ (NORMAL)
[2021-03-23] MEDS: POTASSIUM CHLORIDE 20 MEQ PACKET (FOR LIQUID) 40 MEQ PO ×2 (09:00→16:42)
[2021-03-23] MEDS: APIXABAN 5 MG TABLET PO ×2 (09:01→16:42)
[2021-03-23] MEDS: SERTRALINE HCL 50 MG TABLET PO (09:02)
[2021-03-23] MEDS: FUROSEMIDE INJ 40 MG/4 ML VIAL IV PUSH (09:02)
[2021-03-23] MEDS: SPIRONOLACTONE 25 MG TABLET PO ×2 (09:02→16:42)
[2021-03-23] MEDS: HYDROcodone/acetaminophen (*CRX) 5-325 MG TABLET 1 TAB PO ×2 (09:09→20:18)
[2021-03-23] MEDS: MAGNESIUM SULF 2 GM/WATER 50ML 2 GM/50 ML BAG IVPB (12:24)
--- NOTE | 2021-03-23 12:40 | PM.IMPN ---
Progress Note: A&P Assessment and Plan (1) Abdominal pain: Code(s): R10.9 - Unspecified abdominal pain Status: Acute Assessment and Plan: CT scan shows small bowel obstruction. She was taken to the OR and lysis of adhesions were done. She tolerated the procedure very well. Tolerating diet. No nausea vomiting or abdominal distension. Surgery is following and they have cleared her for discharge. Serial abdominal exam. (2) Small bowel obstruction: Code(s): K56.609 - Unspecified intestinal obstruction, unspecified as to partial versus complete obstruction Status: Acute Assessment and Plan: See above (3) CHF (congestive heart failure): Code(s): I50.9 - Heart failure, unspecified Status: Acute Assessment and Plan: She was diuresed with IV Lasix. Good urine output with current dose of Lasix. Continue to monitor intake and output record. Continue to follow renal parameters and electrolytes. Replace electrolytes if low. Her IV Lasix will be switched to p.o. today. She will be observed overnight for urine output. Cardiology recommendations appreciated. Echo done here shows ejection fraction of 60-65%. She does have severe pulmonary hypertension with RV dilation and moderate to severe tricuspid wall regurgitation. Lower extremity edema has decreased significantly. (4) A-fib: Code(s): I48.91 - Unspecified atrial fibrillation Status: Chronic Assessment and Plan: Rate controlled but bradyarrhythmia and had significant pauses up to 2.2 seconds. She is back on her Eliquis at home dose. Cardiology evaluation appreciated. They have recommended avoiding AV rachael blocking agent. Continue to monitor. Temporary pacemaker placement if patient continued to have worsening of bradyarrhythmia or pauses. She might be having underlying sick sinus syndrome. Cardiology recommended event monitor which has been ordered and likely will be placed in the a.m.. Atropine and transcutaneous pads at the bedside. Continue to monitor heart rate and rest of the hemodynamics closely. (5) Leg wound, left: Code(s): S81.802A - Unspecified open wound, left lower leg, initial encounter Status: Acute Assessment and Plan: Daily dressing changes pt will follow with [facility] for leg wound Additional Plan She will likely be discharged in a.m. after event monitor is placed. She will be monitored overnight for good urine output after changing her Lasix from IV to p.o.. She is ambulatory and has been walking around in the hallway. [place]'s catheter will be discontinued. She will follow with her brass polisher as an outpatient. She will probably need to be evaluated by Pulmonary at some point as an outpatient for her severe pulmonary hypertension. Subjective Date/time seen: 03/23/21 12:40 Interval history: 71-year-old female with past medical history significant atrial fibrillation rate control and anticoagulated, bilateral lower extremity chronic ulcers, congestive heart failure. Patient presented to emergency room due to abdominal pain found to have SBO, Laparoscopic adhesiolysis with release of small-bowel obstruction on 03/17. Pt is doing well but legs are still edematous. 03/17 patient with a small-bowel obstruction patient continue to complaint of pain, started the patient on the diluaded, patient had a CT scan of abdomen and showed patient has Closed-loop small bowel obstruction. 03/20 Pt had NG tube sp Laparoscopic adhesiolysis with release of small-bowel obstruction on 03/17 03/21 Pt is doing well pt is still edematous 03/22 She was diuresed overnight and had a net negative fluid balance of 3.2 L in the last 24 hour. Her blood pressure has been noticed to be elevated. She is still complaining of bilateral lower extremity tightness and swelling. She claims to have ambulated for few steps with physical therapy. She denied have any significant sy
--- NOTE | 2021-03-23 14:16 | PM.PNCARD ---
Progress Note: A&P Assessment and Plan (1) Atrial fibrillation: Code(s): I48.91 - Unspecified atrial fibrillation Status: Acute Assessment and Plan: A 71-year-old female ([employer]) with atrial fibrillation on anticoagulation with apixaban, CHF with unknown LV systolic function, chronic left lower extremity wound, history of ? TIA. Patient admitted with small-bowel obstruction, and status post laparoscopic adhesiolysis with release of small-bowel obstruction. patient has atrial fibrillation with slow ventricular response, frequent PVCs versus aberrantly conducted beats and pauses up to 2.2 seconds. No associated symptoms of dizziness or syncope. Hemodynamically stable , with blood pressure either normal or high. Patient was on diltiazem at home, however has not received diltiazem during hospitalization. - Avoid all AV rachael blocking agents. Hopefully, heart rate will recover as she improves clinically. - Outpatient vehicle monitor technician upon discharge from our office. Patient very likely as underlying sick sinus syndrome which will need to be monitored closely. Excessive vagal tone may also be contributing yet patient denies significant abdominal pain, nausea vomiting. May transition to oral Lasix 40 mg b.i.d. today and discharged home tomorrow morning. - continue anticoagulation with apixaban - Local wound care of the left lower extremity. Patient undergoing vascular studies at outside hospital, per patient. Anticipate patient may be discharged from a cardiac perspective tomorrow renal function, electrolytes and hemodynamics stable. (2) Bradyarrhythmia: Code(s): I49.8 - Other specified cardiac arrhythmias Status: Acute Assessment and Plan: Persistent atrial fibrillation with slow ventricular response, occasional pauses <3 seconds. Hemodynamically stable. No symptoms of dizziness or syncope. Continue to monitor closely. Avoid AV rahcael blocking agents. No indication for permanent pacemaker implantation at this time. Explained likelihood and concern to the patient in detail. All questions answered to her satisfaction. (3) Small bowel obstruction: Code(s): K56.609 - Unspecified intestinal obstruction, unspecified as to partial versus complete obstruction Status: Acute Assessment and Plan: Status post surgery. Management as per primary team and surgery. (4) CHF (congestive heart failure): Code(s): I50.9 - Heart failure, unspecified Status: Acute Assessment and Plan: Continue furosemide 40 mg IV daily. Transition to oral Lasix tomorrow (5) Electrolyte imbalance: Code(s): E87.8 - Other disorders of electrolyte and fluid balance, not elsewhere classified Status: Acute Assessment and Plan: Potassium 3.6, magnesium 1.6 marginal. Additional supplementation provided. Recheck in a.m.. Subjective Date/time seen: Date of service: 03/23/21 14:16 Interval history: 71-year-old with a small-bowel obstruction with seen in follow-up for atrial fibrillation with slow ventricular response Patient states she again feels well. Denies dizziness, lightheadedness. Pain much better. No shortness of breath, chest pain. Heart rate better on telemetry 50s- 60s on average. Review of Systems Review of Systems: All systems reviewed & are unremarkable except as noted in HPI and below Constitutional: Constitutional: Denies excessive sweating, Reports fatigue and Denies headache(s) Eyes: Eyes: Denies blurry vision ENT: Reports Normal hearing present, Denies headache(s) and Denies neck pain Cardiovascular: Cardiovascular: Denies chest pain and Denies dyspnea Respiratory: Respiratory: Denies dyspnea Gastrointestinal: Gastrointestinal: Denies abdominal pain Genitourinary: Genitourinary: Denies flank pain Musculoskeletal: Musculoskeletal: Denies neck pain Integumentary/Breasts: Skin/Breast: Denies dry skin Neurologic: Reports Normal hear
[2021-03-23] MEDS: FUROSEMIDE 40 MG TABLET PO (16:42)
[2021-03-24] VITALS: PULSE 69
[2021-03-24 04:00] VITALS: PULSE 73
[2021-03-24 06:00] VITALS: BP 132/86; PULSE 148; RESP 18; TEMP 36.5; O2SAT 98
[2021-03-24 06:31] LABS: Anion Gap 6 mmol/L (8-16); Blood Urea Nitrogen 6 mg/dL (7-17); Calcium 9.9 mg/dL (8.4-10.2); Carbon Dioxide 31 mmol/L (22-30); Chloride 98 mmol/L (98-107); Estimated CRCL calculation 134 ml/min; Estimated Glomerular Filt Rate > 60; Glucose 91 mg/dL (65-110); Magnesium 1.8 mg/dL (1.6-2.3); Potassium 3.9 mmol/L (3.4-5.0); Sodium 135 mmol/L (137-145)
[2021-03-24 08:00] VITALS: PULSE 60
[2021-03-24] MEDS: SPIRONOLACTONE 25 MG TABLET PO (08:36)
[2021-03-24] MEDS: SERTRALINE HCL 50 MG TABLET PO (08:36)
[2021-03-24] MEDS: FUROSEMIDE 40 MG TABLET PO (08:36)
[2021-03-24] MEDS: POTASSIUM CHLORIDE 20 MEQ PACKET (FOR LIQUID) 40 MEQ PO (08:37)
[2021-03-24] MEDS: APIXABAN 5 MG TABLET PO (08:37)
[2021-03-24] MEDS: HYDROcodone/acetaminophen (*CRX) 5-325 MG TABLET 1 TAB PO (08:39)
--- NOTE | 2021-03-24 10:21 | PM.PNCARD ---
Progress Note: A&P Assessment and Plan (1) Atrial fibrillation: Code(s): I48.91 - Unspecified atrial fibrillation <EUGENIA Pizarro - Last Filed: 03/24/21 13:40> Status: Acute <EUGENIA Pizarro - Last Filed: 03/24/21 13:40> Assessment and Plan: A 71-year-old female (Jeh[employer]ah Witness) with atrial fibrillation on anticoagulation with apixaban, CHF with unknown LV systolic function, chronic left lower extremity wound, history of ? TIA. Patient admitted with small-bowel obstruction, and status post laparoscopic adhesiolysis with release of small-bowel obstruction. patient has atrial fibrillation with slow ventricular response, frequent PVCs versus aberrantly conducted beats and pauses up to 2.2 seconds. No associated symptoms of dizziness or syncope. Hemodynamically stable , with blood pressure either normal or high. Patient was on diltiazem at home, however has not received diltiazem during hospitalization. - Avoid all AV rachael blocking agents. Hopefully, heart rate will recover as she improves clinically. HR in 70's, 80's still in atrial fibrillation. No significant pauses noted overnight. - Outpatient classroom monitor upon discharge from [employer] [facility] [employer] - her regular jewelry model maker is at this office. Patient very likely as underlying sick sinus syndrome which will need to be monitored closely. Excessive vagal tone may also be contributing yet patient denies significant abdominal pain, nausea vomiting. - continue anticoagulation with apixaban <EUGENIA Pizarro - Last Filed: 03/24/21 13:40> (2) Bradyarrhythmia: Code(s): I49.8 - Other specified cardiac arrhythmias <EUGENIA Pizarro - Last Filed: 03/24/21 13:40> Status: Acute <EUGENIA Pizarro - Last Filed: 03/24/21 13:40> Assessment and Plan: Persistent atrial fibrillation with slow ventricular response, occasional pauses <3 seconds. Hemodynamically stable. No symptoms of dizziness or syncope. Continue to monitor closely. Avoid AV rachael blocking agents. No indication for permanent pacemaker implantation at this time. <EUGENIA Pizarro - Last Filed: 03/24/21 13:40> (3) Small bowel obstruction: Code(s): K56.609 - Unspecified intestinal obstruction, unspecified as to partial versus complete obstruction <EUGENIA Pizarro - Last Filed: 03/24/21 13:40> Status: Acute <EUGENIA Pizarro - Last Filed: 03/24/21 13:40> Assessment and Plan: Status post surgery. Management as per primary team and surgery. <EUGENIA Pizarro - Last Filed: 03/24/21 13:40> (4) CHF (congestive heart failure): Code(s): I50.9 - Heart failure, unspecified <EUGENIA Pizarro - Last Filed: 03/24/21 13:40> Status: Acute <EUGENIA Pizarro - Last Filed: 03/24/21 13:40> Assessment and Plan: Continue furosemide 40mg p.o. b.i.d. <EUGENIA Pizarro - Last Filed: 03/24/21 13:40> (5) Electrolyte imbalance: Code(s): E87.8 - Other disorders of electrolyte and fluid balance, not elsewhere classified <EUGENIA Pizarro - Last Filed: 03/24/21 13:40> Status: Acute <EUGENIA Pizarro - Last Filed: 03/24/21 13:40> Assessment and Plan: Potassium 3.9, magnesium 1.8 today. <EUGENIA Pizarro - Last Filed: 03/24/21 13:40> Additional Plan Attending addendum: I agree with above plan of care as documented. <Preston Parikh MD - Last Filed: 03/24/21 15:08> Subjective Date/time seen: 03/24/21 10:21 <EUGENIA Pizarro - Last Filed: 03/24/21 13:40> Interval history: 71-year-old with a small-bowel obstruction with seen in follow-up for atrial fibrillation with slow ventricular response Patient states she again feels well. Denies dizziness, lightheadedness. Pain much better. No shortness of breath, chest pain. Heart rate better on telemetry 50s- 60s on
[2021-03-24 12:00] VITALS: PULSE 71
--- NOTE | 2021-03-24 13:19 | P.DS_ITS ---
DS: Admitting Diagnosis Discharge Date 03/24/2021 Admitting Diagnosis Small-bowel obstruction DS: Discharge Diagnosis Discharge Diagnosis (1) Small bowel obstruction: Code(s): K56.609 - Unspecified intestinal obstruction, unspecified as to partial versus complete obstruction Status: Acute Assessment and Plan: Presented with abdominal pain, nausea, and vomiting * CT abdomen/pelvis showed closed-loop small-bowel obstruction. She had recently had hernia surgery and this was likely due to adhesions. * NG tube was initiated. She was seen in consultation by General surgery * Given closed-loop obstruction, she underwent laparoscopic adhesiolysis with release of small-bowel obstruction on 03/17/[address] Valdes * She tolerated the procedure well and pain was well controlled following * Diet was slowly advanced and she was able to tolerate a heart healthy diet * Follow-up with general surgery as needed for any wound issues or other concerns (2) CHF (congestive heart failure): Code(s): I50.9 - Heart failure, unspecified Status: Acute Assessment and Plan: Demonstrated signs of volume overload, CXR showed cardiomegaly with moderate pulmonary edema and small left pleural effusion * She was seen in consultation by Cardiology * Echo showed EF of 60-65%, indeterminate diastolic function, with severe pulmonary hypertension, RV dilation * Diuresed with IV Lasix and had symptomatic improvement * Will be started on p.o. Lasix 40 mg b.i.d. per Cardiology recommendations. Potassium supplementation 20 mEq daily with addition of furosemide, cautiously monitor potassium given concurrent spironolactone therapy. Repeat potassium in 1 week * Continue p.o. spironolactone 25 mg b.i.d. * CHF Education provided * Follow-up with cardiology as an outpatient (3) A-fib: Code(s): I48.91 - Unspecified atrial fibrillation Status: Chronic Assessment and Plan: She had atrial fibrillation with slow ventricular response and pauses up to 2.2 seconds. * Diltiazem was discontinued per cardiology recommendations * AV rachael blocking agents to be avoided * Heart rate remained stable * She will follow up with her conduit helper at [facility] to obtain outpatient cardiology nurse practitioner. I left a message with their office regarding this. * Continue home Eliquis (4) Bradyarrhythmia: Code(s): I49.8 - Other specified cardiac arrhythmias Status: Acute Assessment and Plan: See above (5) Leg wound, left: Code(s): S81.802A - Unspecified open wound, left lower leg, initial encounter Status: Acute Assessment and Plan: Chronic venous stasis ulcer * Evaluated by Wound Care * Continue with local wound care and dressing changes * Follow-up outpatient with [facility] she is established and this has been monitored (6) Patient is [employer]: Code(s): Z78.9 - Other specified health status Status: Acute Assessment and Plan: Not agreeable to receive blood products DS: Summary Hospital Course Hospital Course: Date of admission 03/16/2021 Date of discharge: 03/24/2021 Vanessa Olsen is a 71-year-old female with a history of CHF atrial fibrillation on chronic anticoagulation as well as recent ventral hernia repair with mesh about 3-4 months ago who presented to the emergency department on 03/16/2021 with complaints of abdominal pain, nausea, and vomiting. On presentation to the emergency department, her vital signs were stable, she
--- NOTE | 2021-03-24 13:19 | PM.DS ---
DS: Admitting Diagnosis Discharge Date 03/24/2021 Admitting Diagnosis Small-bowel obstruction DS: Discharge Diagnosis Discharge Diagnosis (1) Small bowel obstruction: Code(s): K56.609 - Unspecified intestinal obstruction, unspecified as to partial versus complete obstruction Status: Acute Assessment and Plan: Presented with abdominal pain, nausea, and vomiting CT abdomen/pelvis showed closed-loop small-bowel obstruction. She had recently had hernia surgery and this was likely due to adhesions. NG tube was initiated. She was seen in consultation by General surgery Given closed-loop obstruction, she underwent laparoscopic adhesiolysis with release of small-bowel obstruction on 03/17/[address] Valdes She tolerated the procedure well and pain was well controlled following Diet was slowly advanced and she was able to tolerate a heart healthy diet Follow-up with general surgery as needed for any wound issues or other concerns (2) CHF (congestive heart failure): Code(s): I50.9 - Heart failure, unspecified Status: Acute Assessment and Plan: Demonstrated signs of volume overload, CXR showed cardiomegaly with moderate pulmonary edema and small left pleural effusion She was seen in consultation by Cardiology Echo showed EF of 60-65%, indeterminate diastolic function, with severe pulmonary hypertension, RV dilation Diuresed with IV Lasix and had symptomatic improvement Will be started on p.o. Lasix 40 mg b.i.d. per Cardiology recommendations. Potassium supplementation 20 mEq daily with addition of furosemide, cautiously monitor potassium given concurrent spironolactone therapy. Repeat potassium in 1 week Continue p.o. spironolactone 25 mg b.i.d. CHF Education provided Follow-up with cardiology as an outpatient (3) A-fib: Code(s): I48.91 - Unspecified atrial fibrillation Status: Chronic Assessment and Plan: She had atrial fibrillation with slow ventricular response and pauses up to 2.2 seconds. Diltiazem was discontinued per cardiology recommendations AV rachael blocking agents to be avoided Heart rate remained stable She will follow up with her water taxi operator at [facility] to obtain outpatient fire lookout. I left a message with their office regarding this. Continue home Eliquis (4) Bradyarrhythmia: Code(s): I49.8 - Other specified cardiac arrhythmias Status: Acute Assessment and Plan: See above (5) Leg wound, left: Code(s): S81.802A - Unspecified open wound, left lower leg, initial encounter Status: Acute Assessment and Plan: Chronic venous stasis ulcer Evaluated by Wound Care Continue with local wound care and dressing changes Follow-up outpatient with [facility] she is established and this has been monitored (6) Patient is [employer]: Code(s): Z78.9 - Other specified health status Status: Acute Assessment and Plan: Not agreeable to receive blood products DS: Summary Hospital Course Hospital Course: Date of admission 03/16/2021 Date of discharge: 03/24/2021 Vanessa Olsen is a 71-year-old female with a history of CHF atrial fibrillation on chronic anticoagulation as well as recent ventral hernia repair with mesh about 3-4 months ago who presented to the emergency department on 03/16/2021 with complaints of abdominal pain, nausea, and vomiting. On presentation to the emergency department, her vital signs were stable, she is afebrile, H&H slightly decreased with additional CBC and BMP unremarkable, CXR showed cardiomegaly with moderate pulmonary edema small left pleural effusion, and left basilar airspace opacity, and CT abdomen/pelvis showed closed-loop small-bowel obstruction. She was admitted to the hospitalist service for further evaluation and management and seen in consultation by General surgery and Cardiology. Please see above for further
[2021-03-24 14:00] VITALS: BP 173/92; PULSE 93; RESP 18; TEMP 36.9; O2SAT 100
== END 2021-03-24 15:25 | disposition home health service (06) | DRG 336 ==
LOC: ANHED 22:07 → ANHIMU 22:58 → ANH3MEDSUR 03-24 07:05 → ANHIMU 03-26 11:03
PROVIDERS: Emergency Medicine; Family Medicine; Internal Medicine Cardiovascular Disease; Internal Medicine Critical Care Medicine; Surgery; Admitting Provider Internal Medicine; Emergency Provider Emergency Medicine; Visit Provider Physician Assistant
PROC: 0DTJ4ZZ Resection of Appendix, Percutaneous Endoscopic Approach (ICD-10-PCS; CPT 44970; principal; 2021-03-17 16:30)
DX: K56.50 Intestinal adhesions [bands], unspecified as to partial versus complete obstruction (principal); I48.20 Chronic atrial fibrillation, unspecified; Z68.41 Body mass index [BMI] 40.0-44.9, adult; L97.829 Non-pressure chronic ulcer of other part of left lower leg with unspecified severity; Z23 Encounter for immunization; R09.02 Hypoxemia; I87.2 Venous insufficiency (chronic) (peripheral); R00.8 Other abnormalities of heart beat; I50.9 Heart failure, unspecified; E66.01 Morbid (severe) obesity due to excess calories; Z79.01 Long term (current) use of anticoagulants; Z90.710 Acquired absence of both cervix and uterus; Z90.722 Acquired absence of ovaries, bilateral
CPT/HCPCS: 36415; 36600; 71045; 74018; 74177; 80048; 80053; 80076; 82805; 83690; 83735; 83880; 84436; 84443; 84484; 85025; 85027; 85055; 85610; 85730; 87040; 90471; 90653; 93005; 96365; 96367; 96375; 96376; 97162; 97165; 97530; 97535; 99285; A9270; C8929; C9113; G0008; G0378; J0131; J0330; J1100; J1170; J1644; J1650; J1940; J2270; J2405; J2543; J2704; J2710; J3010; J3475; J3480; J7120; J7121; Q9957; Q9967

== ENCOUNTER 2021-11-17 20:54 | Emergency (ER) | payer MEDICARE, MEDICAID, SELFPAY ==
--- NOTE | ~2021-11-17 | XR_ITS ---
EXAMINATION: XR chest 1V portable INDICATION: Left arm pain TECHNIQUE: Portable AP chest at 2119 hours COMPARISON: 04/02/2021 FINDINGS: Cardiomegaly is noted. There is a large hiatal hernia. A mild diffuse interstitial pattern is present. There is no definite pleural effusion or pneumothorax. There are left basilar airspace op acities. IMPRESSION: 1. Cardiomegaly with mild pulmonary edema. 2. Large hiatal hernia. 3. Left basilar airspace opacity, consistent with atelectasis versus pneumonia. Reviewed, dictated and finalized at location F.
--- NOTE | ~2021-11-17 | CT_ITS ---
EXAMINATION: CT brain wo con INDICATION: Left arm numbness COMPARISON: None TECHNIQUE: Standard unenhanced head CT. The dose-length product (DLP) was 832.33 mGy-cm. The mA was a djusted according to patient size. Iterative reconstruction technique was employed. FINDINGS: Motion artifact limits the examination. There is no acute intraparenchymal hemorrhage. No e vidence of mass lesion. No evidence of acute infarction. There is mild periventricular and subcortica l hypodensity probably related to small vessel ischemic disease. There is mild prominence of the sulc i and ventricles related to cerebral atrophy. Intracranial calcified cerebral atherosclerosis is note d. There are no extra-axial collections. There is no mass effect or midline shift. The orbits and sof t tissues are unremarkable. The visualized sinuses and mastoid air cells are well aerated. IMPRESSION: 1. No acute intracranial abnormality. 2. Age related findings. Reviewed, dictated and finalized at location F.
[2021-11-17 20:57] VITALS: BP 117/85; PULSE 78; RESP 16; TEMP 36.4; O2SAT 98
--- NOTE | 2021-11-17 21:03 | ECG_ITS ---
Measurements Intervals [place] Rate: 69 P: WI: 0 QRS: -40 QRSD: 163 T: -76 QT: 451 QTc: 486 Interpretive Statements ATRIAL FIBRILLATION WITH ABERRANT CONDUCTION OR PVCS RIGHT BUNDLE BRANCH BLOCK T-WAVE ABNORMALITY, CONSIDER ISCHEMIA Electronically Signed On 11-18-2021 11:12:05 CDT by Marc Sunshine M.D.
[2021-11-17 21:04] LABS: Glucose Point of Care 115 mg/dl (65-105)
[2021-11-17 21:34] LABS: Basophils Absolute Auto 0.1 K/mm3 (0.0-0.1); Basophils Percent Auto 0.4 % (0.2-1.2); Eosinophils Absolute Auto 0.2 K/mm3 (0-0.3); Eosinophils Percent Auto 1.6 % (0-4.4); Hematocrit 37.7 % (37.0-47.0); Hemoglobin 11.2 g/dL (12.0-15.0); Immature Granulocyte Absolute 0.04 K/mm3 (0.00-0.031); Immature Granulocyte Percent A 0.3 % (0-0.5); Lymphocytes Absolute Auto 2.17 K/mm3 (0.9-3.2); Lymphocytes Percent Auto 18.8 % (18.3-44.2); Mean Corpuscular HGB Conc 29.7 g/dl (32-36); Mean Corpuscular Hemoglobin 23.4 pg (26-34); Mean Corpuscular Volume 78.9 fl (80-100); Monocytes Absolute Auto 0.7 K/mm3 (0.1-0.6); Monocytes Percent Auto 6.2 % (2.6-8.5); Neutrophils Absolute Auto 8.4 K/mm3 (1.3-6.7); Neutrophils Percent Auto 72.7 % (45.5-73.1); Platelet Count Result 235 k/mm3 (150-375); Red Blood Count 4.78 M/mm3 (4.2-5.4); Red Cell Distribution Width 21.1 % (11.5-14.5); White Blood Count 11.5 K/mm3 (4.5-10.0)
[2021-11-17 21:44] LABS: Alanine Aminotransferase 15 U/L (6-35); Albumin Level 3.8 g/dL (3.5-5.1); Alkaline Phosphatase 101 U/L (38-126); Anion Gap 7 mmol/L (8-16); Aspartate Amino Transferase 30 U/L (14-36); Bilirubin,Total 0.4 mg/dL (0.2-1.3); Blood Urea Nitrogen 18 mg/dL (7-17); Calcium 9.2 mg/dL (8.4-10.2); Carbon Dioxide 27 mmol/L (22-30); Chloride 107 mmol/L (98-107); Estimated CRCL calculation 123 ml/min; Estimated Glomerular Filt Rate > 60; Glucose 126 mg/dL (65-110); Potassium 3.2 mmol/L (3.4-5.0); Sodium 141 mmol/L (137-145)
--- NOTE | 2021-11-17 21:49 | PC.NURSE ---
Pt has grossly edemitous LE. Pt dosnt walk RT Lymph edema. Affecting Stroke scale.
[2021-11-17 21:50] LABS: INR 1.2; Prothrombin Time 14.5 Seconds (11.1-14.7)
[2021-11-17 21:52] LABS: Partial Thromboplastin Time 32.1 SECONDS (22.3-36.8)
[2021-11-17 21:56] LABS: Troponin I 0.016 ng/mL (0.000-0.034)
--- NOTE | 2021-11-17 22:12 | ED.NEUROSD ---
HPI - Neuro Symptoms/Deficit General Chief Complaint: Neuro Symptoms/Deficit Stated Complaint: LT ARM NUMBNESS Time Seen by Provider: 11/17/21 21:00 Source: patient and EMS History of Present Illness HPI Narrative: Patient presents with left arm pain. Patient utilized her life alert and EMS was contacted and patient transferred to the ER for evaluation. Patient has been complaining of left arm pain for approximately 30 minutes prior to arrival. Patient does not respond to any other questions. Patient screams and says her left arm hurts. Related Data Home Medications Medication Instructions Recorded Confirmed apixaban 5 mg tablet (Eliquis) 5 mg PO BID 03/16/21 03/17/21 cephalexin 500 mg capsule 500 mg PO BID 03/16/21 03/17/21 gentamicin 0.1 % topical cream 1 applic topical DAILY PRN pain 03/16/21 03/17/21 hydrocodone 5 mg-acetaminophen 325 5 - 325 tablet PO Q8H PRN Pain 03/16/21 03/17/21 mg tablet sertraline 50 mg tablet 50 mg PO DAILY 03/17/21 03/17/21 spironolactone 25 mg tablet 25 mg PO BID 03/17/21 03/17/21 Allergies Allergy/AdvReac Type Severity Reaction Status Date / Time No Known Allergies Allergy Verified 03/16/21 18:55 Review of Systems Review of Systems: ROS unobtainable: Yes other (Patient does not respond to additional questions) PMFSH Past Medical History Medical History A-fib CHF (congestive heart failure) Surgical History Surgical History History of total abdominal hysterectomy and bilateral salpingo-oophorectomy History of ventral hernia repair Family History Family History Other No pertinent family history Social History Social History Smoking status: Never smoker Alcohol intake: never Substance use: never Gender identity (if verbalized by the patient): Female Spiritual care concerns: No Exam Narrative: GENERAL: Well-appearing, well-nourished, and in no acute distress. HEAD: Normocephalic, atraumatic. EYES: PERRLA and EOMI. ENT: Nares clear, no rhinorrhea or epistaxis. Mucous membranes moist. NECK: Supple. No masses. No JVD CHEST: Clear to auscultation. No respiratory distress. No wheezes rales or rhonchi HEART: Regular rate and rhythm. No murmur heard. Normal peripheral pulses. ABDOMEN: Soft, nontender, nondistended, normal active bowel sounds. EXTREMITIES: Normal range of motion. Severe symmetric edema in the bilateral lower extremities SKIN: Warm, dry, no rash. NEURO: No focal deficits. Alert. PSYCH: Normal mood and affect. Course Reevaluation(s) Reevaluation #1: Patient is feeling much improved. Patient reports she had left arm pain when she was sitting down to use the restroom her pain got progressively worse it started in her fingers and radiate up her arm and was associated with some paresthesias. She was very worried because she did not initially have her life alert with her when she is having increasing pain she says she is very anxious which caused exacerbation of her symptoms she is actually able to notify life alert and have EMS transported to the ER. Given patient's improvement negative work-up she is appropriate for outpatient supportive therapies. Patient is comfortable with outpatient plan. Patient notified of UA results and is comfortable with antibiotic therapies. Date: 11/18/21 Time: 02:12 Vital Signs Vital signs: Vital Signs Temperature 36.4 C 11/17/21 20:57 Pulse Rate 78 11/17/21 20:57 Respiratory Rate 16 11/17/21 20:57 Blood Pressure 117/85 11/17/21 20:57 Pulse Oximetry 98 11/17/21 20:57 Temperature 36.4 C 11/17/21 20:57 Pulse Rate 72 11/18/21 03:10 Respiratory Rate 18 11/18/21 03:10 Blood Pressure 149/99 H 11/18/21 03:10 Pulse Oximetry 96 11/18/21 03:[address] [facility] - Neuro Sympto
[2021-11-17 22:22] LABS: Appearance Urine Clear (Clear); Bilirubin Urine Negative (Negative); Blood Urine 3+ (Negative); Color Urine Yellow (Yellow); Glucose Urine UA Negative (Negative); Ketones Urine Trace mg/dL (Negative); Leukocyte Esterase Ur Negative LEU/UL (Negative); Nitrate Urine Negative (Negative); Protein Urine 2+ mg/dL (Negative); Specific Grav Ur >= 1.030 (1.001-1.035)
[2021-11-17 22:25] LABS: Bacteria Urine 2+ /hpf; Mucus Urine Rare /lpf; RBC Urine >75 /hpf (0-2); WBC Urine 31-50 /hpf
[2021-11-17 22:36] LABS: Add Urine Microscopic? YES
[2021-11-18 00:06] LABS: Lactic Acid Reflex 3.1 mmol/L (0.7-2.0)
[2021-11-18 01:14] VITALS: BP 155/86; PULSE 78; RESP 16; O2SAT 98
[2021-11-18 01:44] LABS: Troponin I 0.019 ng/mL (0.000-0.034)
--- NOTE | 2021-11-18 02:31 | PC.NURSE ---
Pt refusing D/C at this time. MADELINE Lewis called back to the Bedside to explain to Pt Tx at home and rationale for D/C from the ER. Pt accepted and D/c Cont.
[2021-11-18 02:53] LABS: Reflex Lactic Acid Yes or No Add Lactic
--- NOTE | 2021-11-18 03:08 | PC.NURSE ---
[place] cath removed bulb deflated and intact. 300 urine output in bag.
[2021-11-18 03:10] VITALS: BP 149/99; PULSE 72; RESP 18; O2SAT 96
== END 2021-11-18 03:12 | disposition home or self-care (01) ==
PROVIDERS: Emergency Provider Emergency Medicine
DX: N39.0 Urinary tract infection, site not specified (principal); M79.602 Pain in left arm; I48.91 Unspecified atrial fibrillation; I50.9 Heart failure, unspecified
CPT/HCPCS: 36415; 51702; 70450; 71045; 80053; 81001; 82948; 83605; 84484; 85025; 85610; 85730; 87077; 87086; 87186; 93005; 96365; 96367; 99284; J0131; J0696

== ENCOUNTER 2025-01-08 08:29 | Inpatient (IN) | payer MEDICARE, MEDICAID, SELFPAY ==
[2025-01-08] VITALS (29 sets, daily range): BP systolic 121–160; BP diastolic 77–103; PULSE 44–72; RESP 10–24; TEMP 34.2–37; O2SAT 85–100; BMI 32.9
--- NOTE | ~2025-01-08 | XR_ITS ---
HISTORY: trauma COMPARISON: None TECHNIQUE: 3 views of the right knee were performed. FINDINGS: Diffuse bony demineralization is identified. Near complete obliteration of the medial tibiofemoral joint space with osteophytic bridging and scler osis. Complete obliteration of the patellofemoral joint space is also noted. Ossification of the insertion of the quadriceps tendon is detected. Ossification of the insertion of the tibial patellar tendon is also present. No significant suprapatellar joint effusion is identified. The infrapatellar joint space is clear. No acute fracture. IMPRESSION: Diffuse bony demineralization and significant degenerative disease, as detailed above. No acute fracture. Reviewed, dictated and finalized at location A. IMPRESSION: Diffuse bony demineralization and significant degenerative disease , as detailed above. No acute fracture.
--- NOTE | ~2025-01-08 | CT_ITS ---
History: Trauma PROCEDURE: CT head without contrast. COMPARISON: None 11/17/2021 TECHNIQUE: Axial imaging of the head performed from the skull base to the vertex without IV contrast. Sagittal a nd coronal reformations obtained. Examination is limited by significant motion artifact DLP: 1513 mGy-cm FINDINGS: The ventricles are enlarged. The dilatation of the ventricles is proportional to the degree of sulcal prominence, not uncommon in the senescent brain. Decreased attenuation is identified within the periventricular white matter, likely secondary to micr ovascular ischemic disease, in a patient of this age. There is no large mass, mass effect or midline shift. There is no large abnormal extra-axial fluid collection or intracranial hemorrhage. Visualized paranasal sinuses are clear. The mastoid air cells are well aerated. No large acute displaced fractures within the overlying cranium. Impression: Age-related changes within the brain, without acute intracranial hemorrhage or suspicious mass effect . Reviewed, dictated and finalized at location A. Impression: Age-related changes within the brain, without acute intracranial hemorrhage or suspicious mass effect.
--- NOTE | ~2025-01-08 | US_ITS ---
EXAMINATION: US venous doppler [facility] DATE: 01/10/2025 13:09 INDICATION: Pulmonary embolism and asymmetric lower limb swelling. TECHNIQUE: Grayscale ultrasound images without and with compression and Doppler ultrasound images of the bilateral lower extremity veins were obtained. COMPARISON: None. FINDINGS: Noncompressible nonocclusive deep venous anastomosis in the right popliteal vein. The visualized port ions of right common femoral vein, profunda (deep) femoral vein, femoral vein and greater saphenous v ein outflow are patent. The right posterior tibial and peroneal veins were unable to be clearly visua lized to assess for patency. The visualized portions of left common femoral vein, profunda femoral vein, femoral vein, popliteal v ein, posterior tibial veins, peroneal veins, gastrocnemius vein and proximal to mid greater saphenous vein are patent. IMPRESSION: 1. Nonocclusive deep venous thrombosis at the right popliteal vein. The more peripheral right [employer] ior tibial and peroneal veins were unable be definitively identified to assess for additional thrombo sis. 2. No deep venous thrombosis in the left lower limb. Reviewed, dictated and finalized at location A. IMPRESSION: 1. Nonocclusive deep venous thrombosis at the right popliteal vein. The more p eripheral right posterior tibial and peroneal veins were unable be definitively identified to assess for additional thrombosis. 2. No deep venous thrombosis in the left lower limb.
--- NOTE | ~2025-01-08 | XR_ITS ---
HISTORY: trauma COMPARISON: None TECHNIQUE: 2 views of the right hip along with an AP view of the pelvis FINDINGS: 4 x 4 x 5 (Stephanie Juarez believe you are coming to treatment position this morning to suggest a con solidation for micropuncture. If you have any questions at all me on my salivary: [phone] thank you in advance of the Superior lateral sclerosis of the femoral acetabular joint space is present consistent with osteoarth ritis. Joint space narrowing detected within the left SI joint with sclerosis. Degenerative disease within the lower lumbar spine. Double-J stent is detected, to the right of midline. Periarticular osteopenia is identified within the sacroiliac and bilateral femoral acetabular joint s paces, consistent with osteoarthritis. No acute fracture is identified. IMPRESSION: Degenerative disease without acute fracture or dislocation Reviewed, dictated and finalized at location A.
--- NOTE | ~2025-01-08 | CT_ITS ---
History: Trauma PROCEDURE: CT cervical spine without intravenous contrast. COMPARISON: None TECHNIQUE: Multiple contiguous axial images of the cervical spine were performed without the administration of i ntravenous contrast. DLP: 309 mGy-cm FINDINGS: Moderate kyphosis and dextro scoliotic curvature of the cervical spine is present. Significant degenerative disease is also noted, with osteophyte formation, disc space narrowing, endp late changes and vacuum phenomenon. Subchondral cyst formation and facet arthropathy is also present. No acute fractures are present. Left apical scarring is present. Significant calcified atherosclerotic disease is also noted. No soft tissue abnormality is appreciated The airway is patent. Impression: Significant degenerative disease without acute fracture. Reviewed, dictated and finalized at location A. Impression: Significant degenerative disease without acute fracture.
--- NOTE | ~2025-01-08 | XR_ITS ---
INTRAOPERATIVE FLUOROSCOPY: CLINICAL HISTORY: 74 years old Female; RIGHT STENT EXCHANGE PROCEDURE COMMENTS: Limited intraoperative fluoroscopy of the retroperitoneum was performed. CUMULATIVE DOSE: 35.6 mGy FLUOROSCOPY TIME: 114.2 seconds FINDINGS/IMPRESSION: Please refer to operative note for further details. Reviewed, dictated and finalized at location A.
--- NOTE | ~2025-01-08 | XR_ITS ---
EXAMINATION: XR chest PICC line Exam Date/Time: 01/09/2025 16:20 CDT HISTORY: picc Comparison: 11/17/2021; CT cap 01/08/2025. RESULT: Lines, tubes, and devices: Right upper extremity PICC terminating in the distal SVC. Lungs and pleura: Patchy/nodular bilateral opacities. Segmental left basilar airspace disease. Mild left and minimal right costophrenic angle blunting. Cardiomediastinal silhouette: Stable. Other: No acute osseous or upper abdominal finding. IMPRESSION: Right upper extremity PICC, terminating in the distal SVC. Bilateral pulmonary opacities may represent edema/infection. Segmental atelectasis/consolidation in t he left lower lung. Small bilateral pleural effusions. Reviewed, dictated and finalized at [facility]. IMPRESSION: Right upper extremity PICC, terminating in the distal SVC. Bilateral pulmonary opacities may represent edema/infection. Segmental atelecta sis/consolidation in the left lower lung. Small bilateral pleural effusions.
--- NOTE | ~2025-01-08 | XR_ITS ---
EXAMINATION: XR ankle LT min 3V DATE: 01/10/2025 12:14 INDICATION: Left ankle pain post fall TECHNIQUE: Anteroposterior, oblique and lateral views of the left ankle were obtained. COMPARISON: None. FINDINGS: Diffuse osteopenia which decreases sensitivity for nondisplaced fracture. Bone alignment is normal. N o fractures identified. Minimal to mild polyarticular osteoarthritis at the left ankle, mid and hindf oot. No ankle joint effusion. Diffuse tissue swelling and subcutaneous edema about the ankle, visuali zed foot and lower leg. IMPRESSION: 1. No left ankle joint effusion or acute osseous abnormality. Reviewed, dictated and finalized at location A.
--- NOTE | ~2025-01-08 | XR_ITS ---
XR abdomen/kub 1V 01/11/2025 07:01 Indication: Ureteral stone position Procedure: KUB Comparison: 01/10/2025 and 03/16/2021 Findings: There are bilateral internal ureteral stents, 2 on the right. There is a proximal left uret eral stone near the expected location of the UPJ measuringr 12 x 3 mm. Bowel gas pattern nonspecific. There is left basilar airspace consolidation which may represent pneumonia or atelectasis. Impression: 1: Probable left UPJ stone measuring 12 mm. 2: Left basilar airspace consolidation which may represent pneumonia and/or atelectasis. Reviewed, dictated and finalized at location B. Impression: 1: Probable left UPJ stone measuring 12 mm. 2: Left basilar airspace consolidation which may represent pneumonia and/or at electasis.
--- NOTE | ~2025-01-08 | CT_ITS ---
EXAMINATION: CT chest abdomen pelvis w con DATE: 01/08/2025 10:31 INDICATION: Lower abdominal pain and right hip pain post trauma TECHNIQUE: Computed tomography (CT) of the chest, abdomen, and pelvis was performed with 100 mL Omnip aque-350 intravenous contrast. Automated exposure control and iterative reconstruction technique were employed. The dose-length product was 1562.96 mGy-cm. COMPARISON: 03/16/2021 FINDINGS: CHEST CT: Multinodular goiter. Large hiatal hernia extending to the posterior medial lower left hemithorax whic h contains a large portion the stomach as well as a segment of the transverse colon. There is consoli dation in the basilar left lower lobe with some associated volume loss and favor compressive atelecta sis over pneumonia. Small bilateral pleural effusions. Mosaic attenuation and additional scattered li near opacities throughout the remainder of lungs consistent with additional mild atelectasis. There a re a few scattered <4 mm pulmonary nodules. Moderate cardiomegaly with right ventricular and biatrial enlargement. No pericardial effusion. Enlargement of the central pulmonary arteries consistent with pulmonary arterial hypertension. Pulmonary emboli with nonocclusive peripheral filling defects at the right lower lobar pulmonary artery extending into the anterior and posterior segmental pulmonary art eries. Additional small amount of a central thrombus in the No pathologically enlarged thoracic lymph adenopathy. There is dependent predominant body wall edema. Mild thoracic and moderate lower cervical spondylosis. ABDOMEN/PELVIS CT: Liver, spleen, pancreas and bilateral adrenal glands are normal. Suggestion of multiple gallstones fi lling the decompressed gallbladder. Mild bilateral hydronephrosis with [place] catheter in the bladder and a right internal ureteral stent in expected position with one loop formed in the bladder and the second at the right renal pelvis. 7 mm stone along side the stent in the distal right ureter. 1.2 x 0 .4 cm stone at the left ureteropelvic junction. Status post right hemicolectomy with ileocolic anasto mosis in the central abdomen. No bowel obstruction. The uterus is not identified and has likely been surgically resected. No abscess or free intraperitoneal gas. No pathologically enlarged abdominal or pelvic lymphadenopathy. There is diffuse mesenteric, retroperitoneal and extensive body wall edema. B one [place] at the bilateral ischial tuberosities. Mild lumbar spondylosis. No acute osseous abnormal ity. IMPRESSION: 1. Pulmonary emboli with relatively low clot burden. Dr. Mccartney discussed this and the following fi ndings with Dr. clarke at 11:00 AM. 2. Moderate cardiomegaly with right ventricular and biatrial enlargement. 3. Small bilateral pleural effusions. 4. Complex medial left lower lobe along side a large sliding-type hiatal hernia containing large port ion the stomach as well as segment of the nonobstructed transverse colon.. 5. Cholelithiasis. 6. Mild bilateral hydronephrosis with 1.2 x 0.4 cm stone at the left ureteropelvic junction and with 7 mm stone in the distal right ureter alongside a right intrarenal stent which is in expected positio n. Reviewed, dictated and finalized at location A. IMPRESSION: 1. Pulmonary emboli with relatively low clot burden. Dr. Mccartney discussed thi s and the following findings with Dr. clarke at 11:00 AM. 2. Moderate cardiomegaly with right ventricular and biatrial enlargement. 3. Small bilateral pleural effusions. 4. Complex medial left lower lobe along side a large sliding-type hiatal hernia containing large portion the stomach as well as segment of the nonobstructed t ransverse colon.. 5. Cholelithiasis. 6. Mild bilateral hydronephrosis with 1.2 x 0.4 cm stone at the left ureteropel naida junction and with 7 mm stone in the distal right ureter alongside a right i ntrarenal stent which is in expected position.
--- NOTE | ~2025-01-08 | XR_ITS ---
EXAMINATION: XR chest 1V portable DATE: 01/13/2025 13:50 INDICATION: Chest pain TECHNIQUE: frontal view of the chest was obtained. COMPARISON: Chest radiograph dated 01/09/[address] dated 01/08/2025 FINDINGS: Persistent linear discoid atelectasis/scarring at the bilateral mid lung zones and at the right lower lung zone. Opacity medial left lower lung zone corresponding to a large hiatal hernia containing por tions of the stomach and colon on the prior CT. No new airspace opacities, pulmonary edema, pleural e ffusion or pneumothorax.. Cardiomegaly. Right upper extremity peripherally inserted central venous ca theter (PICC) tip at the caudal superior vena cava. IMPRESSION: 1. Persistent linear opacities in bilateral mid and right lower lung zones consistent with persistent atelectasis/scarring. 2. Large hiatal hernia. Reviewed, dictated and finalized at location A. IMPRESSION: 1. Persistent linear opacities in bilateral mid and right lower lung zones cons istent with persistent atelectasis/scarring. 2. Large hiatal hernia.
[2025-01-08] MEDS: HYDROmorphone HCL INJ (*CRX) 2 MG/ML VIAL 0.5 MG IV PUSH (09:05)
[2025-01-08] MEDS: ALBUTEROL SULFATE NEB 2.5 MG/3 ML INH 5 MG INHALATION (09:08)
--- NOTE | 2025-01-08 09:12 | ED.GENADULT ---
HPI - General Adult General Chief complaint: Fall Stated complaint: fall Time Seen by Provider: 01/08/25 08:58 History of Present Illness HPI narrative: 74-year-old female presents to the emergency department for evaluation after a ground level fall with right hip pain. Patient states she fell yesterday was entrapped on the floor. Patient does have history of CHF, AFib and is on blood thinners. Patient does complain of right hip pain, abdominal pain. Patient does have a new O2 requirement and is hypoxic and saturating 85% on room air. Related Data Home Medications ?Medication ?Instructions ?Recorded ?Confirmed ?Last Taken ?Type apixaban 5 mg tablet (Eliquis) 5 mg PO BID 03/16/21 01/08/25 Unknown History cephalexin 500 mg capsule 500 mg PO BID 03/16/21 01/08/25 Unknown History sertraline 50 mg tablet 50 mg PO DAILY 03/17/21 01/08/25 Unknown History spironolactone 25 mg tablet 25 mg PO BID 03/17/21 01/08/25 Unknown History Allergies Allergy/AdvReac Type Severity Reaction Status Date / Time No Known Allergies Allergy Verified 01/08/25 09:49 Review of Systems Review of Systems: All systems reviewed & are unremarkable except as noted in HPI and below PMFSH Past Medical History Medical History CHF (congestive heart failure) A-fib Surgical History Surgical History History of total abdominal hysterectomy and bilateral salpingo-oophorectomy History of ventral hernia repair Family History Family History Other No pertinent family history Social History Social History Smoking status: Never smoker Alcohol intake: never Substance use: never Lack of Transportation: No Lack of Food: Never True Current Housing: I Have Housing Concerned About Future Housing: No Difficulty Paying Gas/Electric Bills: No Difficulty Paying for Meds: No Currently Unemployed: No Education: High School Diploma/GED Difficulty w/ Childcare or Family Care: No Living arrangements: alone Occupation/Education: retired Gender identity (if verbalized by the patient): Female Spiritual care concerns: No Exam Narrative: APPEARANCE: Ill-appearing HEAD: normocephalic, atraumatic. EYES: PERRLA/EOMI, conjunctivae clear. NOSE: Normal no drainage EARS:TMS clear with good light reflex. THROAT: Pharynx clear, no exudate. NECK: Supple. No adenopathy, no masses. RESPIRATORY: Airway patent, respirations nonlabored. Clear to auscultation bilaterally, no rales, rhonchi, wheezing. CARDIOVASCULAR: Regular rate and rhythm without murmurs rubs or gallops. ABDOMINAL: Abdominal tenderness to palpation MUSCULOSKELETAL: Left hip tenderness to palpation NEURO: Alert. Cranial nerves II through XII intact. Good gait. Good coordination SKIN: Warm, dry. Normal Color Course Vital Signs Vital signs: Vital Signs Temperature 93.5 F L 01/08/25 08:25 Pulse Rate 72 01/08/25 08:25 Respiratory Rate 20 01/08/25 08:25 Blood Pressure 158/99 H 01/08/25 08:25 Pulse Oximetry 85 L 01/08/25 08:25 Oxygen Delivery Room Air 01/08/25 08:25 Temperature 97.9 F 01/08/25 16:00 Pulse Rate 44 L 01/08/25 16:00 Respiratory Rate 22 H 01/08/25 16:00 Blood Pressure 135/80 01/08/25 16:00 Pulse Oximetry 100 01/08/25 16:00 Oxygen Delivery Nasal Cannula 01/08/25 14:03 Oxygen Flow Rate 2 01/08/25 14:03 Medical Decision Making [facility] Narrative Medical decision making narrative: 74-year-old female presented emergency department for evaluation for altered mental status, ground level fall with entrapment and left hip pain. Patient was afebrile upon arrival to emergency department, no elevated leukocytosis, hemoglobin of 14.2. INR of 1.2. No significant abnormalities on the patient's ABG. No significant acute abnormalities the patient's CMP than an elevated lactic acid 3.7, patient had a total CPK of 470. Patient's UA was positive for nitrates leukocyte esterase greater than 100 red blood cells and greater than 100 white blood cells and +4 bacteria. X-ray showed no fracture of the hip or knee. CT scan did show evidence of pulmonary emboli bilaterally with low clot burden along with a right-sided ureteral stone and stent and a new left-sided stone without stent. patient was started on antibiotic for the abnormal urinary analysis, patient was started on IV heparin bolus and infusion for the pulmonary embolism. Patient was having some difficulty maintaining oxygen saturation so she was placed on BiPAP. Urology was consulted for the hydronephrosis and obstructing left-sided ureteral calculi. Case was discussed with hospitalist patient was accepted to the IMU. Critical Care Procedure Note Authorized and Performed by: Richie Aceves Total critical care time: Approximately 36 minutes Due to a high probability of clinically significant, life threatening deterioration, the patient required my highest level of preparedness to intervene emergently and I personally spent this critical care time directly and personally managing the patient. This critical care time included obtaining a history; examining the patient; pulse oximetry; ordering and review of studies; arranging urgent treatment with development of a management plan; evaluation of patient's response to treatment; frequent reassessment; and, discussions with other providers. This critical care time was performed to assess and manage the high probability of imminent, life-threatening deterioration that could result in multi-organ failure. It was exclusive of separately billable procedures and treating other patients and teaching time. Please see MDM section and the rest of the note for further information on patient assessment and treatment. Differential Diagnosis Differential Diagnosis: Pulmonary embolism, pneumonia, pneumothorax, hip fracture, knee fracture, ureteral calculi, urinary tract infection, pyelonephritis, infected stone Vital Signs Vital Signs: Vital Signs Temperature 93.5 F L 01/08/25 08:25 Pulse Rate 72 01/08/25 08:25 Respiratory Rate 20 01/08/25 08:25 Blood Pressure 158/99 H 01/08/25 08:25 Pulse Oximetry 85 L 01/08/25 08:25 Oxygen Delivery Room Air 01/08/25 08:25 Temperature 97.9 F 01/08/25 16:00 Pulse Rate 44 L 01/08/25 16:00 Respiratory Rate 22 H 01/08/25 16:00 Blood Pressure 135/80 01/08/25 16:00 Pulse Oximetry 100 01/08/25 16:00 Oxygen Delivery Nasal Cannula 01/08/25 14:03 Oxygen Flow Rate 2 01/08/25 14:03 Lab Data Lab results reviewed: Yes I reviewed the patient's lab results. 01/08/25 09:17 01/08/25 09:17 Labs: Lab Results 01/08/25 01/08/25 01/08/25 Range/Units 09:17 09:17 09:17 WBC 7.7 (4.5-10.0) K/mm3 RBC 5.19 (4.2-5.4) M/mm3 Hgb 14.2 D (12.0-15.0) g/dL Hct 45.7 (37.0-47.0) % MCV 88.1 (80-100) fl MCH 27.4 (26-34) pg MCHC 31.1 L (32-36) g/dl RDW 15.9 H (11.5-14.5) % Plt Count 182 (150-375) k/mm3 MPV 11.8 H (7.4-10.4) fl Immature Gran % (Auto) 0.4 (0-0.5) % Neut % (Auto) 85.8 H (45.5-73.1) % Lymph % (Auto) 6.9 L (18.3-44.2) % [place] % (Auto) 6.8 (2.6-8.5) % Eos % (Auto) 0.0 (0-4.4) % Baso % (Auto) 0.1 L (0.2-1.2) % Lymph # (Auto) 0.53 L (0.9-3.2) K/mm3 [place] # (Auto) 0.5 (0.1-0.6) K/mm3 Eos # (Auto) 0.0 (0-0.3) K/mm3 Baso # (Auto) 0.0 (0.0-0.1) K/mm3 Abs Immat Gran (auto) 0.03 (0.00-0.031) K/mm3 Absolute Neuts (auto) 6.6 (1.3-6.7) K/mm3 Absolute Nucleated RBC 0.000 (0.0-0.012) K/mm3 Nucleated RBC % 0.0 (0.0-0.2) % PT 15.8 H (11.1-14.7) Seconds INR 1.2 APTT 32.9 (22.3-36.8) Seconds Methemoglobin (0-1.5) %THb Sodium 141 142 (137-145) mmol/L Potassium 3.8 3.8 (3.4-5.0) mmol/L Chloride 104 (98-107) mmol/L Carbon Dioxide (22-30) mmol/L Anion Gap (4-12) mmol/L BUN (7-17) mg/dL Creatinine (0.7-1.0) mg/dL Estim Creat Clear Calc Estimated GFR (59 - ) Glucose (65-110) mg/dL Lactic Acid (0.7-2.0) mmol/L Calcium (8.4-10.2) mg/dL Total Bilirubin (0.2-1.3) mg/dL AST (14-36) U/L ALT (6-35) U/L Alkaline Phosphatase (38-126) U/L Total Creatine Kinase (30-135) U/L Total Protein (6.3-8.2) g/dL Albumin (3.5-5.1) g/dL Lipase (23-300) U/L Urine Color (Yellow) Urine Appearance (Clear) Urine pH (5.0-9.0) Ur Specific [place] (1.001-1.035) Urine Protein (Negative) mg/dL Urine Glucose (UA) (Negative) mg/dL Urine Ketones (Negative) mg/dL Ur Blood (Man) (Negative) Urine Nitrate (Negative) Urine Bilirubin (Negative) Urine Urobilinogen (<2.0) mg/dL Add Ur Microanalysis Leukocyte Esterase Rfl (Negative) JOHNNY/UL Urine RBC (0-2) /hpf Urine WBC (0-3) /hpf Ur Squamous Epith Cells (Few) /hpf Urine Bacteria /hpf Urine Casts Blood Type Antibody Screen 01/08/25 01/08/25 01/08/25 Range/Units 09:17 09:17 09:17 WBC (4.5-10.0) K/mm3 RBC (4.2-5.4) M/mm3 Hgb (12.0-15.0) g/dL Hct (37.0-47.0) % MCV (80-100) fl MCH (26-34) pg MCHC (32-36) g/dl RDW (11.5-14.5) % Plt Count (150-375) k/mm3 MPV (7.4-10.4) fl Immature Gran % (Auto) (0-0.5) % Neut % (Auto) (45.5-73.1) % Lymph % (Auto) (18.3-44.2) % [place] % (Auto) (2.6-8.5) % Eos % (Auto) (0-4.4) % Baso % (Auto) (0.2-1.2) % Lymph # (Auto) (0.9-3.2) K/mm3 [place] # (Auto) (0.1-0.6) K/mm3 Eos # (Auto) (0-0.3) K/mm3 Baso # (Auto) (0.0-0.1) K/mm3 Abs Immat Gran (auto) (0.00-0.031) K/mm3 Absolute Neuts (auto) (1.3-6.7) K/mm3 Absolute Nucleated RBC (0.0-0.012) K/mm3 Nucleated RBC % (0.0-0.2) % PT (11.1-14.7) Seconds INR APTT (22.3-36.8) Seconds Methemoglobin (0-1.5) %THb Sodium (137-145) mmol/L Potassium (3.4-5.0) mmol/L Chloride 104 (98-107) mmol/L Carbon Dioxide 27 26 (22-30) mmol/L Anion Gap 10 12 (4-12) mmol/L BUN 18 H (7-17) mg/dL Creatinine (0.7-1.0) mg/dL Estim Creat Clear Calc Estimated GFR (59 - ) Glucose (65-110) mg/dL Lactic Acid (0.7-2.0) mmol/L Calcium (8.4-10.2) mg/dL Total Bilirubin (0.2-1.3) mg/dL AST (14-36) U/L ALT (6-35) U/L Alkaline Phosphatase (38-126) U/L Total Creatine Kinase (30-135) U/L Total Protein (6.3-8.2) g/dL Albumin (3.5-5.1) g/dL Lipase (23-300) U/L Urine Color (Yellow) Urine Appearance (Clear) Urine pH (5.0-9.0) Ur Specific [place] (1.001-1.035) Urine Protein (Negative) mg/dL Urine Glucose (UA) (Negative) mg/dL Urine Ketones (Negative) mg/dL Ur Blood (Man) (Negative) Urine Nitrate (Negative) Urine Bilirubin (Negative) Urine Urobilinogen (<2.0) mg/dL Add Ur Microanalysis Leukocyte Esterase Rfl (Negative) JOHNNY/UL Urine RBC (0-2) /hpf Urine WBC (0-3) /hpf Ur Squamous Epith Cells (Few) /hpf Urine Bacteria /hpf Urine Casts Blood Type Antibody Screen 01/08/25 01/08/25 01/08/25 Range/Units 09:17 09:17 09:17 WBC (4.5-10.0) K/mm3 RBC (4.2-5.4) M/mm3 Hgb (12.0-15.0) g/dL Hct (37.0-47.0) % MCV (80-100) fl MCH (26-34) pg MCHC (32-36) g/dl RDW (11.5-14.5) % Plt Count (150-375) k/mm3 MPV (7.4-10.4) fl Immature Gran % (Auto) (0-0.5) % Neut % (Auto) (45.5-73.1) % Lymph % (Auto) (18.3-44.2) % [place] % (Auto) (2.6-8.5) % Eos % (Auto) (0-4.4) % Baso % (Auto) (0.2-1.2) % Lymph # (Auto) (0.9-3.2) K/mm3 [place] # (Auto) (0.1-0.6) K/mm3 Eos # (Auto) (0-0.3) K/mm3 Baso # (Auto) (0.0-0.1) K/mm3 Abs Immat Gran (auto) (0.00-0.031) K/mm3 Absolute Neuts (auto) (1.3-6.7) K/mm3 Absolute Nucleated RBC (0.0-0.012) K/mm3 Nucleated RBC % (0.0-0.2) % PT (11.1-14.7) Seconds INR APTT (22.3-36.8) Seconds Methemoglobin (0-1.5) %THb Sodium (137-145) mmol/L Potassium (3.4-5.0) mmol/L Chloride (98-107) mmol/L Carbon Dioxide (22-30) mmol/L Anion Gap (4-12) mmol/L BUN 18 H (7-17) mg/dL Creatinine 0.81 0.78 (0.7-1.0) mg/dL Estim Creat Clear Calc Not Reportable Not Reportable Estimated GFR > 60 (59 - ) Glucose (65-110) mg/dL Lactic Acid (0.7-2.0) mmol/L Calcium (8.4-10.2) mg/dL Total Bilirubin (0.2-1.3) mg/dL AST (14-36) U/L ALT (6-35) U/L Alkaline Phosphatase (38-126) U/L Total Creatine Kinase (30-135) U/L Total Protein (6.3-8.2) g/dL Albumin (3.5-5.1) g/dL Lipase (23-300) U/L Urine Color (Yellow) Urine Appearance (Clear) Urine pH (5.0-9.0) Ur Specific [place] (1.001-1.035) Urine Protein (Negative) mg/dL Urine Glucose (UA) (Negative) mg/dL Urine Ketones (Negative) mg/dL Ur Blood (Man) (Negative) Urine Nitrate (Negative) Urine Bilirubin (Negative) Urine Urobilinogen (<2.0) mg/dL Add Ur Microanalysis Leukocyte Esterase Rfl (Negative) JOHNNY/UL Urine RBC (0-2) /hpf Urine WBC (0-3) /hpf Ur Squamous Epith Cells (Few) /hpf Urine Bacteria /hpf Urine Casts Blood Type Antibody Screen 01/08/25 01/08/25 01/08/25 Range/Units 09:17 09:17 09:17 WBC (4.5-10.0) K/mm3 RBC (4.2-5.4) M/mm3 Hgb (12.0-15.0) g/dL Hct (37.0-47.0) % MCV (80-100) fl MCH (26-34) pg MCHC (32-36) g/dl RDW (11.5-14.5) % Plt Count (150-375) k/mm3 MPV (7.4-10.4) fl Immature Gran % (Auto) (0-0.5) % Neut % (Auto) (45.5-73.1) % Lymph % (Auto) (18.3-44.2) % [place] % (Auto) (2.6-8.5) % Eos % (Auto) (0-4.4) % Baso % (Auto) (0.2-1.2) % Lymph # (Auto) (0.9-3.2) K/mm3 [place] # (Auto) (0.1-0.6) K/mm3 Eos # (Auto) (0-0.3) K/mm3 Baso # (Auto) (0.0-0.1) K/mm3 Abs Immat Gran (auto) (0.00-0.031) K/mm3 Absolute Neuts (auto) (1.3-6.7) K/mm3 Absolute Nucleated RBC (0.0-0.012) K/mm3 Nucleated RBC % (0.0-0.2) % PT (11.1-14.7) Seconds INR APTT (22.3-36.8) Seconds Methemoglobin (0-1.5) %THb Sodium (137-145) mmol/L Potassium (3.4-5.0) mmol/L Chloride (98-107) mmol/L Carbon Dioxide (22-30) mmol/L Anion Gap (4-12) mmol/L BUN (7-17) mg/dL Creatinine (0.7-1.0) mg/dL Estim Creat Clear Calc Estimated GFR > 60 (59 - ) Glucose 121 H 121 H (65-110) mg/dL Lactic Acid 2.5 H (0.7-2.0) mmol/L Calcium 9.9 9.9 (8.4-10.2) mg/dL Total Bilirubin 1.7 H (0.2-1.3) mg/dL AST (14-36) U/L ALT (6-35) U/L Alkaline Phosphatase (38-126) U/L Total Creatine Kinase (30-135) U/L Total Protein (6.3-8.2) g/dL Albumin (3.5-5.1) g/dL Lipase (23-300) U/L Urine Color (Yellow) Urine Appearance (Clear) Urine pH (5.0-9.0) Ur Specific [place] (1.001-1.035) Urine Protein (Negative) mg/dL Urine Glucose (UA) (Negative) mg/dL Urine Ketones (Negative) mg/dL Ur Blood (Man) (Negative) Urine Nitrate (Negative) Urine Bilirubin (Negative) Urine Urobilinogen (<2.0) mg/dL Add Ur Microanalysis Leukocyte Esterase Rfl (Negative) JOHNNY/UL Urine RBC (0-2) /hpf Urine WBC (0-3) /hpf Ur Squamous Epith Cells (Few) /hpf Urine Bacteria /hpf Urine Casts Blood Type Antibody Screen 01/08/25 01/08/25 01/08/25 Range/Units 09:17 09:17 09:17 WBC (4.5-10.0) K/mm3 RBC (4.2-5.4) M/mm3 Hgb (12.0-15.0) g/dL Hct (37.0-47.0) % MCV (80-100) fl MCH (26-34) pg MCHC (32-36) g/dl RDW (11.5-14.5) % Plt Count (150-375) k/mm3 MPV (7.4-10.4) fl Immature Gran % (Auto) (0-0.5) % Neut % (Auto) (45.5-73.1) % Lymph % (Auto) (18.3-44.2) % [place] % (Auto) (2.6-8.5) % Eos % (Auto) (0-4.4) % Baso % (Auto) (0.2-1.2) % Lymph # (Auto) (0.9-3.2) K/mm3 [place] # (Auto) (0.1-0.6) K/mm3 Eos # (Auto) (0-0.3) K/mm3 Baso # (Auto) (0.0-0.1) K/mm3 Abs Immat Gran (auto) (0.00-0.031) K/mm3 Absolute Neuts (auto) (1.3-6.7) K/mm3 Absolute Nucleated RBC (0.0-0.012) K/mm3 Nucleated RBC % (0.0-0.2) % PT (11.1-14.7) Seconds INR APTT (22.3-36.8) Seconds Methemoglobin (0-1.5) %THb Sodium (137-145) mmol/L Potassium (3.4-5.0) mmol/L Chloride (98-107) mmol/L Carbon Dioxide (22-30) mmol/L Anion Gap (4-12) mmol/L BUN (7-17) mg/dL Creatinine (0.7-1.0) mg/dL Estim Creat Clear Calc Estimated GFR (59 - ) Glucose (65-110) mg/dL Lactic Acid (0.7-2.0) mmol/L Calcium (8.4-10.2) mg/dL Total Bilirubin 1.7 H (0.2-1.3) mg/dL AST 51 H 52 H (14-36) U/L ALT 25 25 (6-35) U/L Alkaline Phosphatase 89 (38-126) U/L Total Creatine Kinase (30-135) U/L Total Protein (6.3-8.2) g/dL Albumin (3.5-5.1) g/dL Lipase (23-300) U/L Urine Color (Yellow) Urine Appearance (Clear) Urine pH (5.0-9.0) Ur Specific [place] (1.001-1.035) Urine Protein (Negative) mg/dL Urine Glucose (UA) (Negative) mg/dL Urine Ketones (Negative) mg/dL Ur Blood (Man) (Negative) Urine Nitrate (Negative) Urine Bilirubin (Negative) Urine Urobilinogen (<2.0) mg/dL Add Ur Microanalysis Leukocyte Esterase Rfl (Negative) JOHNNY/UL Urine RBC (0-2) /hpf Urine WBC (0-3) /hpf Ur Squamous Epith Cells (Few) /hpf Urine Bacteria /hpf Urine Casts Blood Type Antibody Screen 01/08/25 01/08/25 01/08/25 Range/Units 09:17 09:17 09:17 WBC (4.5-10.0) K/mm3 RBC (4.2-5.4) M/mm3 Hgb (12.0-15.0) g/dL Hct (37.0-47.0) % MCV (80-100) fl MCH (26-34) pg MCHC (32-36) g/dl RDW (11.5-14.5) % Plt Count (150-375) k/mm3 MPV (7.4-10.4) fl Immature Gran % (Auto) (0-0.5) % Neut % (Auto) (45.5-73.1) % Lymph % (Auto) (18.3-44.2) % [place] % (Auto) (2.6-8.5) % Eos % (Auto) (0-4.4) % Baso % (Auto) (0.2-1.2) % Lymph # (Auto) (0.9-3.2) K/mm3 [place] # (Auto) (0.1-0.6) K/mm3 Eos # (Auto) (0-0.3) K/mm3 Baso # (Auto) (0.0-0.1) K/mm3 Abs Immat Gran (auto) (0.00-0.031) K/mm3 Absolute Neuts (auto) (1.3-6.7) K/mm3 Absolute Nucleated RBC (0.0-0.012) K/mm3 Nucleated RBC % (0.0-0.2) % PT (11.1-14.7) Seconds INR APTT (22.3-36.8) Seconds Methemoglobin (0-1.5) %THb Sodium (137-145) mmol/L Potassium (3.4-5.0) mmol/L Chloride (98-107) mmol/L Carbon Dioxide (22-30) mmol/L Anion Gap (4-12) mmol/L BUN (7-17) mg/dL Creatinine (0.7-1.0) mg/dL Estim Creat Clear Calc Estimated GFR (59 - ) Glucose (65-110) mg/dL Lactic Acid (0.7-2.0) mmol/L Calcium (8.4-10.2) mg/dL Total Bilirubin (0.2-1.3) mg/dL AST (14-36) U/L ALT (6-35) U/L Alkaline Phosphatase 90 (38-126) U/L Total Creatine Kinase 470 H (30-135) U/L Total Protein 8.2 8.2 (6.3-8.2) g/dL Albumin 4.0 4.1 (3.5-5.1) g/dL Lipase 26 (23-300) U/L Urine Color (Yellow) Urine Appearance (Clear) Urine pH (5.0-9.0) Ur Specific [place] (1.001-1.035) Urine Protein (Negative) mg/dL Urine Glucose (UA) (Negative) mg/dL Urine Ketones (Negative) mg/dL Ur Blood (Man) (Negative) Urine Nitrate (Negative) Urine Bilirubin (Negative) Urine Urobilinogen (<2.0) mg/dL Add Ur Microanalysis Leukocyte Esterase Rfl (Negative) JOHNNY/UL Urine RBC (0-2) /hpf Urine WBC (0-3) /hpf Ur Squamous Epith Cells (Few) /hpf Urine Bacteria /hpf Urine Casts Blood Type Antibody Screen 01/08/25 01/08/25 Range/Units 09:17 10:57 WBC (4.5-10.0) K/mm3 RBC (4.2-5.4) M/mm3 Hgb (12.0-15.0) g/dL Hct (37.0-47.0) % MCV (80-100) fl MCH (26-34) pg MCHC (32-36) g/dl RDW (11.5-14.5) % Plt Count (150-375) k/mm3 MPV (7.4-10.4) fl Immature Gran % (Auto) (0-0.5) % Neut % (Auto) (45.5-73.1) % Lymph % (Auto) (18.3-44.2) % [place] % (Auto) (2.6-8.5) % Eos % (Auto) (0-4.4) % Baso % (Auto) (0.2-1.2) % Lymph # (Auto) (0.9-3.2) K/mm3 [place] # (Auto) (0.1-0.6) K/mm3 Eos # (Auto) (0-0.3) K/mm3 Baso # (Auto) (0.0-0.1) K/mm3 Abs Immat Gran (auto) (0.00-0.031) K/mm3 Absolute Neuts (auto) (1.3-6.7) K/mm3 Absolute Nucleated RBC (0.0-0.012) K/mm3 Nucleated RBC % (0.0-0.2) % PT (11.1-14.7) Seconds INR APTT (22.3-36.8) Seconds Methemoglobin 0.1 (0-1.5) %THb Sodium (137-145) mmol/L Potassium (3.4-5.0) mmol/L Chloride (98-107) mmol/L Carbon Dioxide (22-30) mmol/L Anion Gap (4-12) mmol/L BUN (7-17) mg/dL Creatinine (0.7-1.0) mg/dL Estim Creat Clear Calc Estimated GFR (59 - ) Glucose (65-110) mg/dL Lactic Acid (0.7-2.0) mmol/L Calcium (8.4-10.2) mg/dL Total Bilirubin (0.2-1.3) mg/dL AST (14-36) U/L ALT (6-35) U/L Alkaline Phosphatase (38-126) U/L Total Creatine Kinase (30-135) U/L Total Protein (6.3-8.2) g/dL Albumin (3.5-5.1) g/dL Lipase 26 (23-300) U/L Urine Color Brown H (Yellow) Urine Appearance Turbid H (Clear) Urine pH 6.0 (5.0-9.0) Ur Specific [place] 1.019 (1.001-1.035) Urine Protein 4+ H (Negative) mg/dL Urine Glucose (UA) Negative (Negative) mg/dL Urine Ketones 1+ H (Negative) mg/dL Ur Blood (Man) 3+ H (Negative) Urine Nitrate Positive H (Negative) Urine Bilirubin 1+ H (Negative) Urine Urobilinogen 1.0 (<2.0) mg/dL Add Ur Microanalysis Reviewed Leukocyte Esterase Rfl 3+ H (Negative) JOHNNY/UL Urine RBC >100 H (0-2) /hpf Urine WBC >100 H (0-3) /hpf Ur Squamous Epith Cells None seen (Few) /hpf Urine Bacteria 4+ H /hpf Urine Casts 3-5 Blood Type A Positive Antibody Screen Negative ABG Data ABG results: 01/08/25 10:57 Puncture Site Right radial ABG pH 7.409 ABG pCO2 42.8 ABG pO2 62.0 L ABG PO2/FiO2 Ratio 1.41 ABG HCO3 26.5 H ABG O2 Saturation 91.9 L ABG O2 Content 18.0 ABG Base Excess 1.5 A-a Gradient 202.9 Oxyhemoglobin 88.8 L Carboxyhemoglobin 1.0 Reduced Hemoglobin 10.1 H Total Hemoglobin 14.4 O2 Delivery Device Nasal cannula O2 Liters/Min 6.0 FiO2 44 Imaging Data Radiologist's impression: Impressions Head CT 01/08/25 10:14 Impression: Age-related changes within the brain, without acute intracranial hemorrhage or suspicious mass effect. Hip/Pelvis X-Ray 01/08/25 10:15 IMPRESSION: Degenerative disease without acute fracture or dislocation Knee X-Ray 01/08/25 10:22 IMPRESSION: Diffuse bony demineralization and significant degenerative disease, as detailed above. No acute fracture. Cervical Spine CT 01/08/25 10:28 Impression: Significant degenerative disease without acute fracture. Chest/Abdomen/Pelvis CT 01/08/25 10:46 IMPRESSION: 1. Pulmonary emboli with relatively low clot burden. Dr. Mccartney discussed this and the following findings with Dr. clarke at 11:00 AM. 2. Moderate cardiomegaly with right ventricular and biatrial enlargement. 3. Small bilateral pleural effusions. 4. Complex medial left lower lobe along side a large sliding-type hiatal hernia containing large portion the stomach as well as segment of the nonobstructed transverse colon.. 5. Cholelithiasis. 6. Mild bilateral hydronephrosis with 1.2 x 0.4 cm stone at the left ureteropelvic junction and with 7 mm stone in the distal right ureter alongside a right intrarenal stent which is in expected position. Critical Care Time Critical Care Time Critical Care Time: Yes Total Critical Care Time: 36 Discharge Plan Discharge Clinical Impression: Calculus of left ureter, Abnormal urinalysis, Hip pain CHF (congestive heart failure) Qualifiers: Heart failure type: unspecified Heart failure chronicity: chronic Qualified Code(s): I50.9 - Heart failure, unspecified Pulmonary embolism Qualifiers: Pulmonary embolism type: multiple subsegmental (without acute cor pulmonale) Qualified Code(s): I26.94 - Multiple subsegmental thrombotic pulmonary emboli without acute cor pulmonale Patient Disposition: Still a Patient Condition: Serious
--- NOTE | 2025-01-08 09:20 | PC.NURSE ---
Pt placed in [facility] and on 2 LO2
[2025-01-08] MEDS: FUROSEMIDE INJ 40 MG/4 ML VIAL IV PUSH ×2 (09:22→20:53)
[2025-01-08 09:24] LABS: Hematocrit 45.7 % (37.0-47.0); Hemoglobin 14.2 g/dL (12.0-15.0); Immature Granulocyte Percent A 0.4 % (0-0.5); Lymphocytes Absolute Auto 0.53 K/mm3 (0.9-3.2); Mean Corpuscular HGB Conc 31.1 g/dl (32-36); Mean Corpuscular Hemoglobin 27.4 pg (26-34); Mean Corpuscular Volume 88.1 fl (80-100); Nucleated Red Blood Cells Absolute Auto 0.000 K/mm3 (0.0-0.012); Nucleated Red Blood Cells Perc 0.0 % (0.0-0.2); Platelet Count Result 182 k/mm3 (150-375); Red Blood Count 5.19 M/mm3 (4.2-5.4); White Blood Count 7.7 K/mm3 (4.5-10.0)
[2025-01-08 09:37] LABS: INR 1.2; Prothrombin Time 15.8 Seconds (11.1-14.7)
[2025-01-08 09:38] LABS: Partial Thromboplastin Time 32.9 Seconds (22.3-36.8)
--- OUTSIDE RECORDS SUMMARY | 2025-01-08 09:41 | XMS_ITS | Encounter Summary ---
Author Organization [facility] Healthcare Address [address] [place] [address] Care Team Providers Care Mutual Fund Accountant Name Role Phone Jennifer Elizabeth MD Unavailable [phone] Cece Lyn MD Unavailable Karri Gallardo MD Primary Care Provider Sadi Monterroso MD Unavailable [phone] Kathie Perez MD Unavailable Reason for Visit * Reason Onset Date Comments Error (Erroneous Encounter) 12/25/2024 Encounter Details Date Type Department Care Team (Late st Contact Info) Description 12/25/2024 Telephone [facility] Medical [facility] Primary Care at [address] [address] Karri Gallardo MD [address] [place] [address] [address] [place] [address] Error (Erroneous Encounter) Social History Tobacco Use Types Packs/Day Years Used Date Smoking Tobacco: Never Smokeless Tobacco: Never Alcohol Use Standard Drinks/Week Comments Yes 0 (1 standard drink = 0.6 oz pur e alcohol) 1-2 drinks per year [facility] Utilities Answer Date Recorded In the past 12 months has [employer], gas, oil, or water [employer] threatened to shut off services in your home? No 12/03/2023 Humiliation, Afraid, Rape, and Kick questionnair e Answer Date Recorded Fear of Current or Ex-Partner Not on file Emotionally Abused Not on file 05/20/2020 Physically Abused Not on file 05/20/2020 Within the last year, have y ou been raped or forced to have any kind of sexual activity by your partner or ex-partner? No 05/20/2020 Social Connection and Isolat ion Panel [NHANES] Answer Date Recorded In a typical week, how many times do you talk on the phone with family, friends, or neighbors? More than three times a week 12/03/2023 How often do you get togethe r with friends or relatives? More than three times a week 12/03/2023 How often do you attend chur ch or protestant services? More than 4 times per year 12/03/2023 Do you belong to any clubs o r organizations such as jehovah's witness groups, unions, fraternal or athletic groups, or school groups? No 12/03/2023 How often do you attend meet ings of the clubs or organizations you belong to? Never 12/03/2023 Are you , , di vorced, , never , or living with a partner? 12/03/2023 AUDIT-C Answer Date Recorded Q1: How often do you have a drink containing alcohol? Never 02/01/2024 Q2: How many drinks containi ng alcohol do you have on a typical day when you are drinking? Patient does not drink Q3: How often do you have si x or more drinks on one occasion? Never 02/01/2024 Overall Financial Resource Strain (CARDIA) Answe r Date Recorded How hard is it for you to pa y for the very basics like food, housing, medical care, and heating? Not hard at all 12/03/2023 PHQ-2 Answer Date Recorded PHQ-2 Total Score (If total score is 3 or more points, staff should administer the PHQ-9) 3 07/18/2024 [facility] - Occupational Stress Questionnaire Answer Date Recorded Feeling of Stress Only a little 03/10/2019 Hunger Vital Sign Answer Date Recorded Within the past 12 months, y ou worried that your food would run out before you got the money to buy more. Never true 12/03/19 24 Within the past 12 months, t he food you bought just didn't last and you didn't have money to get more. Never true 12/03/2023 PRAPARE - Transportation Answer Date Re corded In the past 12 months, has l ack of transportation kept you from medical appointments or from getting medications? Yes 11/13 In the past 12 months, has l ack of transportation kept you from meetings, work, or from getting things needed for daily living? Yes 12/03/2023 Housing Stability Vital Sign Answer Jadon e Recorded In the last 12 months, was t here a time when you were not able to pay the mortgage or rent on time? No 03/26/2023 In the last 12 months, how many places have you lived? 1 03/26/2023 In the last 12 months, was t here a time when you did not have a steady place to sleep or slept in a mcc (including now)? No 03/26/2023 PHQ-9 Answer Date Recorded PHQ-9 Total Score 5 07/18/2024 Housing Stability Vital Sign Answer Jadon e Recorded In the last 12 months, was t here a time when you were not able to pay the mortgage or rent on time? No 12/03/2023 In the past 12 months, how m any times have you moved where you were living? 0 12/03/2023 At any time in the past 12 m [facility], were you homeless or living in a mcc (including now)? No 12/03/2023 Personal Safety Answer Date Recorded Have you ever been in or are you currently in a harmful physical or emotional relationship or is someone making you feel afraid or unsafe? Denies 11/22/2023 Education Answer Date Recorded What is the highest level of school you have completed or the highest degree you have received? 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
--- OUTSIDE RECORDS SUMMARY | 2025-01-08 09:41 | XMS_ITS | Clinical Summary ---
Author Organization [facility] Address [address] [place] [address] Phone Care Team Providers Care Noc Analyst Name Role Phone Adilson Sherwood MD Primary Care Provider [phone] Social History Tobacco Use Types Packs/Day Years Used Date Smoking Tobacco: Never Assessed Comments Unknown Sex and Gender Information Value Date Recorded Sex Assigned at Not on file Legal Sex Female 10:27 PM CDT Gender Identity Not on file Sexual Orientation Not on file Plan of Treatment Health Maintenance Due Date Last Done Comments Hepatitis C Virus (HCV) Screening 1950 TdaP Immunization 1950 Cologuard 02/04/1996 Colonoscopy 02/04/1996 Colorectal Cancer Screening 02/04/1996 Immunochemical Fecal Occult Blood 02/04/1996 Pneumococcal Immunization (5 0+ years) (1 of 1 - PCV) 2001 Zoster Immunization (1 of 2) 2001 SARS-COV-2 Immunization (2 - season) 2024 08/26/2020 Influenza Immunization (#1) 2025 03/15/2015 Respiratory Syncytial Virus (RSV) Immunization (Adult) (1 - 1-dose 75+ series) 2026 Hepatitis B Immunization Aged Out No longer eligible based on patient's age to complete this topic Human Papillomavirus (HPV) Immunization Aged Out No longer eligible b ased on patient's age to complete this topic Meningococcal Immunization (ACWY) Aged Out No longer eligible based on patient's age to complete this topic Rotavirus Immunization Aged Out No lo nger eligible based on patient's age to complete this topic Insurance MEDICARE [place]ICAID [place] Care Teams Noc Analyst Relationship Specialty Start Date End Date Adilson Sherwood MD [address] [place], [place] [id number] PCP - General Family Medicine 09/09/17
--- OUTSIDE RECORDS SUMMARY | 2025-01-08 09:41 | XMS_ITS | Clinical Summary ---
Author Organization [facility] [place] [address] [place] [address] Care Team Providers Care Customer Service Receptionist Name Role Phone Jennifer Elizabeth MD Unavailable [phone] Cece Lyn MD Unavailable Karri Gallardo MD Primary Care Provider Sadi Monterroso MD Unavailable [phone] Kathie Perez MD Unavailable Allergies No known active allergies Medications ferrous sulfate 325 mg (65 mg of elemental iron) tabletIndications: Iron Deficiency Anemia Take 1 tablet (325 mg total) by mouth 2 (two) times a day with meals 180 tablet 3 11/27/19 23 Active Additional Information Patient not taking.Reported on 07/18/2024 furosemide (LASIX) 20 mg tablet Take 1 tablet (20 mg total) by mouth daily 30 tablet 11/27/19 24 Active Additional Information Patient not taking.Reported on 12/07/2023 Eliquis 5 mg tablet Take 1 tablet (5 mg total) by mouth every 12 (twelve) hours 12/16/19 24 Active amLODIPine (NORVASC) 10 mg tabletIndications: Essential hypertension Take 1 tablet (10 mg total) by mouth daily 90 tablet 3 02/01/20 24 025 Active Additional Information Patient not taking.Reported on 07/18/2024 cholecalciferol (VITAMIN D-3) 5,000 unit tabletIndications: Vitamin D Deficiency Take 1 tablet (5,000 Units total) by mouth daily 90 tablet 3 02/01/20 24 Active Additional Information Patient not taking.Reported on 07/18/2024 sertraline (ZOLOFT) 100 mg tabletIndications: Moderate episode of recurrent major depressive disorder (HCC) Take 1 tablet (100 mg total) by mouth daily 90 tablet 3 07/18/19 25 026 Active lidocaine 5 % creamIndications:P rimary osteoarthritis of left knee Apply 1 Application topically 3 (three) times a day as needed (pain) 28 g 2 07/18/19 25 Active Active Problems Problem Noted Date Diagnosed Date Dyspnea on exertion 02/04/2024 Assessment & Plan (02/04/2024 11:32 AM CDT): -chronic, stable -patient reports history intermittent oxygen use -patient currently utilizes 2 L nasal cannula with exertion -patient reports dyspnea with exertion including her oxygen levels becoming lower with movement -patient currently uses a motorized scooter to improve mobility -[id number] evaluation performed, recommendation for patient to obtain new oxygen compressor -continue current treatment plan S/P partial colectomy 12/20/2023 Syncope and collapse 11/15/2023 Preventative health care 09/23/2023 Assessment & Plan (09/23/2023 12:00 PM CDT): - New or chronic worsening conditions: chronic left knee pain secondary to left knee osteoarthritis - Mental health: no significant psychiatric/mental health conditions affecting her day to day functioning - Dental health: Recommend regular dental care and cleaning. Discussed importance of regular tooth brushing, flossing, and dental visits. - Nutrition: Recommend moderation in sodium/caffeine intake, saturated fat and cholesterol, caloric balance, sufficient intake of fresh fruits, vegetables - Exercise: - Recommend to exercise at least 30 minutes moderate to vigorous exercise most days of the week. (minimum 150 minutes weekly) - Immunizations: Age and sex appropriate immunizations reviewed and offered - Cervical Cancer screening: not applicable - Breast Cancer screening: patient declines - aware of benefit and risks - Colon cancer screening: up to date - Lung cancer screening: not applicable - Bone desnity/osteoporosis screening:deferred - control: postmenopausal Primary osteoarthritis of left knee 09/23/2023 Assessment & Plan (07/18/2024 11:27 AM TOBACCO DIPPER): Chronic problem, stable. Improved with topical lidocaine cream refilled per patient request today Assessment & Plan (09/23/2023 11:52 AM CDT): - chronic, worse - chronic pain in left knee - ongoing pain, with limited ROM - does not desire surgical intervention/orthopedic consultation, very adamant about it but pain affecting quality of life and mobility - reviewed XR of left knee - showed severe/advanced tricompartmental osteoarthritis - recommend pain management --> referral placed XR left knee 03/2023 EXAM DESCRIPTION: XR KNEE LEFT 3 VIEWS REASON FOR STUDY: Knee pain, initial exam Bilateral knee pain since being admitted to the hospital, states left knee if worse than right TECHNIQUE: 3 radiographic view(s) of the left knee . COMPARISON: None FINDINGS: No acute fracture or malalignment. No osseous erosions. There is severe tricompartmental osteoarthritis of the left knee. No knee joint effusion. Soft tissues are normal. IMPRESSION: Severe tricompartmental osteoarthritis. No acute findings of the left knee. Ureterolithiasis 03/24/2023 Assessment & Plan (06/21/2023 3:20 PM TOBACCO DIPPER): - was hospitalized 03/2023 for Septic shock due to UTI, bacteremia in setting of Righ sided ureteral stone and hydronephrosis - s/p right ureteral stent placement in addition to cauterization of a urethral caruncle on 03/24 - documentation stated plan for stone removal as outpatient after treatment of UTI but does not appear to have taken place, patient poor historian - check US renal for further evaluation of renal stones JERICHO (obstructive sleep apnea) 11/28/2022 Assessment & Plan (07/18/2024 11:30 AM TOBACCO DIPPER): Chronic condition, stable and managed with CPAP Letter written today for oxygen supply company to remove excessive tanks from her home that are not required for machine use Assessment & Plan (11/28/2022 5:01 PM CDT): - recent diagnosis - states was told it may be one of the reasons for her bradycardia - recent discharge summary states IP sleep study 11/16 demonstrates moderate- severe JERICHO improved w/ APAP 14-20. -will work to arrange home CPAP unit - at this time awaiting device PSG 12/04 This all night polysomnogram provides evidence of moderate to severe obstructive sleep apnea based on a 3% AHI of 35.5 and a 4% AHI of 27.2 events per hour of sleep which is worse in REM sleep. Titration of CPAP documented that this is an effective treatment for the patient's obstructive sleep apnea, with the best pressure being 14 cm H2O. The patient had prolonged awakenings during the titration portion of the study limiting the ability to fully titrate PAP. Would recommend APAP 14-20 cm H2O. Best CPAP Pressure: 14 cm H2O Bradycardia 11/28/2022 Assessment & Plan (11/28/2022 5:08 PM CDT): - chronic, recurrent condition - known atrial fibrillation - recent diagnosis of severe JERICHO, awaiting CPAP device - evaluation during recent hospitalization - no longer on Diltiazem - was told JERICHO may be contributing factor during inpatient hospital stay where she was in 30s-40s - today in low 40s - awaiting CPAP device - patient establish with Cardiology and has follow-up appointment on December 18, 2022 Mammogram declined 11/28/2022 Assessment & Plan (09/23/2023 11:55 AM CDT): - I have had this discussion with patient before - she is aware of benefit of breast cancer screening mammogram but patient declines does not want to do it and is aware of the risk of missing early diagnosis of breast cancer Assessment & Plan (11/28/2022 5:07 PM CDT): - discussed importance of breast cancer screening mammogram but patient declines does not want to do it and is aware of the risk of missing early diagnosis of breast cancer Pulmonary hypertension 11/15/2022 Assessment & Plan (11/28/2022 5:09 PM CDT): - chronic condition, stable - history of pulmonary embolisms - followed by Pulmonology, recent hospital admission and work up - s/p Right heart cath on 11/17/2022 as shown belpw - has had significant weight loss - recent diagnosis of JERICHO, awaiting CPAP device - not on any medications for this Right and Left heart cath with coronary angiography 11/17/2022 DIAGNOSTIC IMPRESSIONS Normal left heart filling pressures. Mildly elevated right heart filling pressures. Moderate pulmonary hypertension. Borderline normal cardiac output at rest. No gradient across the aortic valve. No obstructive benton coronary artery disease. PSG 12/04 This all night polysomnogram provides evidence of moderate to severe obstructive sleep apnea based on a 3% AHI of 35.5 and a 4% AHI of 27.2 events per hour of sleep which is worse in REM sleep. Titration of CPAP documented that this is an effective treatment for the patient's obstructive sleep apnea, with the best pressure being 14 cm H2O. The patient had prolonged awakenings during the titration portion of the study limiting the ability to fully titrate PAP. Would recommend APAP 14-20 cm H2O. Best CPAP Pressure: 14 cm H2O Statin myopathy 08/11/2022 Overview (08/11/2022): patient has discontinued statin use due to muscle pain Stenosis of right vertebral artery 04/17/2022 Assessment & Plan (04/17/2022 10:05 AM CDT): - noted after recent admission for dizziness - noted on CTA as noted below - told to follow up with vascular surgery CTA Head and Neck 02/2022 IMPRESSION: Please note, examination is markedly limited by suboptimal bolus timing and opacification of the arterial tree. BRAIN: No acute abnormalities. INTRACRANIAL CTA: No high-grade stenosis or occlusion. Relative decreased size of the basilar tip as compared to prior CT angiography, possibly related to artifact or findings described below. CAROTID CTA: Occlusion of the right V3 and V4 vertebral artery with asymmetric thready flow and decreased caliber throughout the entirety of the right vertebral artery where there is multifocal high-grade stenosis. Findings are new as compared to prior CT angiography. Retrograde filling is noted about the most distal aspect of the right vertebral artery. Probable segmental pulmonary embolism within the right upper lobe with partially imaged patchy opacification within the right upper lobe. Recommend dedicated chest CTA after correlation with patient's symptomatology. Multifocal thyroid mass, similar as compared to prior. Non-adherence to medical treatment 01/13/2022 Assessment & Plan (01/13/2022 8:34 AM CDT): - reports not taking any medication for over a month - aware of the risk of not taking her medications - states she was depressed and did not care for it and wanted to see what would happen and if she would feel bad - she is willing to restart medications at this time Overflow incontinence 09/26/2021 Assessment & Plan (06/21/2023 3:17 PM TOBACCO DIPPER): - Has overflow incontinence, uses incontinence supplies, under pads, prolapse, PAD/liners - will send orders for incontinence supplies to be sent to patient History of hysterectomy 04/01/2021 Assessment & Plan (04/01/2021 1:06 PM CDT): - in remote past for dysmenorrhea History of TIA (transient ischemic attack) 02/08 Assessment & Plan (04/01/2021 1:10 PM CDT): - hx of acute TIA on 10/02, darshan had presented with hemiparesis of the left - CTA head and neck and CT scan of head were unremakrable - she is currently on atorvastatin 40mg nightly, aspirin 81mg daily - no tobacco use history - no deficits from the stroke Chronic diastolic CHF (congestive heart failure) 10/05/2019 Assessment & Plan (07/18/2024 10:49 AM TOBACCO DIPPER): - chronic, stable, asymptomatic at this time - follows with cardiology: APR 1608/2024 - has known atrial fibrillation, see other note - has not been taking her lasix due to urinating a lot - monitor electrolytes closely, recheck due today - continue current management with PRN lasix 20mg daily Assessment & Plan (09/23/2023 11:51 AM CDT): - chronic, stable, asymptomatic at this time - follows with cardiology - has normal LVEF, has known atrial fibrillation, see other note - has not been taking her lasix, was on up to 80 of Lasix at one point - suspect some of it was lymphedema, doing very well off the lasix at this time - monitor electrolytes closely, rechecked - continue current management Lab Results Component Value Date POTASSIUM 3.9 04/02/2023 Echo 10/2020 Conclusions: Normal left ventricular systolic function with no focal wall motion abnormalities. Normal left ventricular size. Ejection fraction is visually estimated at 60-65 %. There is severe enlargement of left atrium. There is severe enlargement of right atrium. Right Atrial Pressure = 5 mmHg. The atrial septum is not well visualized. Saline contrast study performed without evidence of right to left shunt, however, this was an inadequate study to assess for PFO. Consider TREV if clinically indicated.. Moderate pulmonary hypertension based on right ventricular systolic pressure. Estimated peak RVSP is 59 mmHg. Atrial fibrillation. Technically difficult study with limited views. Other than patient's rhythm, no clear evidence for cardiac source of emboli. Assessment & Plan (08/11/2022 3:16 PM TOBACCO DIPPER): - chronic - follows with cardiology - has normal LVEF, has known atrial fibrillation, see other note - has not been taking her lasix - currently on Lasix 80 mg daily which she does not take as recommended by cardiology - monitor electrolytes closely, rechecked Lab Results Component Value Date POTASSIUM 3.0 (Critical) 05/20/2022 Echo 10/2020 Conclusions: Normal left ventricular systolic function with no focal wall motion abnormalities. Normal left ventricular size. Ejection fraction is visually estimated at 60-65 %. There is severe enlargement of left atrium. There is severe enlargement of right atrium. Right Atrial Pressure = 5 mmHg. The atrial septum is not well visualized. Saline contrast study performed without evidence of right to left shunt, however, this was an inadequate study to assess for PFO. Consider TREV if clinically indicated.. Moderate pulmonary hypertension based on right ventricular systolic pressure. Estimated peak RVSP is 59 mmHg. Atrial fibrillation. Technically difficult study with limited views. Other than patient's rhythm, no clear evidence for cardiac source of emboli. Assessment & Plan (04/17/2022 8:27 AM CDT): - chronic - follows with cardiology - has normal LVEF, has known atrial fibrillation, see other note - has not been taking her lasix - restart Lasix 40 mg daily - monitor electrolytes closely, rechecl Lab Results Component Value Date POTASSIUM 4.0 03/10/2022 Echo 10/2020 Conclusions: Normal left ventricular systolic function with no focal wall motion abnormalities. Normal left ventricular size. Ejection fraction is visually estimated at 60-65 %. There is severe enlargement of left atrium. There is severe enlargement of right atrium. Right Atrial Pressure = 5 mmHg. The atrial septum is not well visualized. Saline contrast study performed without evidence of right to left shunt, however, this was an inadequate study to assess for PFO. Consider TREV if clinically indicated.. Moderate pulmonary hypertension based on right ventricular systolic pressure. Estimated peak RVSP is 59 mmHg. Atrial fibrillation. Technically difficult study with limited views. Other than patient's rhythm, no clear evidence for cardiac source of emboli. Assessment & Plan (08/04/2021 12:55 AM TOBACCO DIPPER): - follows with cardiology - has normal LVEF, has known atrial fibrillation, see other note - has not been taking her lasix - restart Lasix 40 mg daily - monitor electrolytes closely, rechecl Lab Results Component Value Date POTASSIUM 4.4 02/18/2021 Assessment & Plan (04/02/2021 12:23 AM CDT): - follows with cardiology - has normal LVEF, has known atrial fibrillation, see other note - currently on lasix was on 40mg BID but states recently was told to increase to 4x daily, she will confirm the dosage and directions after getting back to home Assessment & Plan (11/19/2020 4:33 PM CDT): The patient has chronic diastolic CHF and Debility condition that causes her to require elevation of the head of the bed 30 degrees or greater. Patient also requires frequent changes in body position to prevent possible skin break down and/or to alleviate pain. Recommend patient to have hospital bed at home. Assessment & Plan (05/20/2020 8:21 PM TOBACCO DIPPER): Continued MARCH, swelling She is needing to improve her activity level Continuing current regimen Aortic atherosclerosis 10/05/2019 Overview (10/05/2019): Identified on CT scan September 2019 Iron deficiency anemia radha morton to inadequate dietary iron intake 03/21/2019 Assessment & Plan (07/18/2024 10:54 AM TOBACCO DIPPER): - chronic condition. not at goal Hgb >12. - hx of iron deficiency anemia - currently has inconsistent use of iron supplements due to fear ofcosntipation - not on stool softeners, managing with diet only - hx of iron infusion while in hospital stay 11/2022 - most recent Hgb and iron studies in 2023 Assessment & Plan (09/23/2023 11:51 AM CDT): - chronic, improved but not at goal - hx of iron deficiency anemia - currently has inconsistent use of iron supplementations, at this time afraid of having cosntipation, not on stool softeners, managing with diet only --> script sent in - hx of iron infusion while in hospital stay 11/2022 - most recent Hgb and iron studies as shown below - recheck labs order placed Lab Results Component Value Date WBC 9.0 04/02/2023 HGB 10.1 (L) 04/02/2023 HCT 30.6 (L) 04/02/2023 MCV 84.1 04/02/2023 LABPLAT 167 04/02/2023 Lab Results Component Value Date IRON 47 11/15/2022 TIBC 326 11/15/2022 FERRITIN 26 11/15/2022 Lab Results Component Value Date VITB12 672 11/11/2021 Lab Results Component Value Date FOLATE 12.1 11/11/2021 Assessment & Plan (11/26/2022 11:45 AM CDT): - chronic, improved but nto at goal - hx of iron deficiency anemia - currently has inconsistent use of iron supplementations, at this time afraid of having cosntipation, not on stool softeners, managing with diet only --> script sent in - recently had iron infusion while in hospital stay 11/2022 - most recent Hgb and iron studies as shown below - recheck labs on next visit Lab Results Component Value Date WBC 3.5 (L) 11/18/2022 HGB 8.3 (L) 11/18/2022 HCT 26.1 (L) 11/18/2022 MCV 72.5 (L) 11/18/2022 LABPLAT 139 (L) 11/18/2022 Lab Results Component Value Date IRON 47 11/15/2022 TIBC 326 11/15/2022 FERRITIN 26 11/15/2022 Lab Results Component Value Date VITB12 672 11/11/2021 Lab Results Component Value Date FOLATE 12.1 11/11/2021 Assessment & Plan (05/12/2021 9:53 AM TOBACCO DIPPER): - chronic, improved - hx of iron deficiency anemia - currently has inconsistent use of iron supplementations, at this time afraid of having cosntipation, not on stool softeners, managing with diet only - most recent Hgb and iron studies as shown below - Lab test on 04/07/2021 showed hemoglobin of 12.2 with total iron level of 104, TIBC 3 9 to and ferritin of 104 normal vitamin B12 and folate levels - recheck labs on next visit Lab Results Component Value Date HGB 8.0 (L) 02/18/2021 Lab Results Component Value Date IRON 22 (L) 02/11/2021 TIBC 333 02/11/2021 FERRITIN 61 02/11/2021 Assessment & Plan (04/02/2021 12:21 AM CDT): - hx of iron def anemia - currently has inconsistent use of iron supplementations, at this time afraid of having cosntipation, not on stool softeners, managing with diet only - most recent Hgb and iron studies as shown below - recheck labs Lab Results Component Value Date HGB 8.0 (L) 02/18/2021 Lab Results Component Value Date IRON 22 (L) 02/11/2021 TIBC 333 02/11/2021 FERRITIN 61 02/11/2021 History of pulmonary embolism 05/13/2018 Assessment & Plan (08/11/2022 3:01 PM TOBACCO DIPPER): - recent diagnosis as noted below in hospital stay - told to be compliant with eliquis - has Afib and needs lifelong anticoagulation - noted to have Pulmonary hypertension as well CT Chest PE 02/2022 IMPRESSION: Pulmonary embolism involving the lobar segmental levels, right greater than left. Enlarged right ventricle with RV-LV ratio of approximately 1.2 and straightening of the intraventricular septum. This was similar as compared to prior CT though given presence of acute pulmonary embolism, correlation should be made with the echocardiogram and clinical presentation to evaluate for acute right heart failure. Bibasilar airspace opacities, likely atelectasis with possibly infarct. Recommend short term follow up chest CT. Mild bilateral pleural effusion. Multifocal thyroid mass with coarse calcification. Recommend follow-up ultrasound if workup has not been performed. Diffuse body wall edema. Assessment & Plan (04/17/2022 10:07 AM CDT): - recent diagnosis as noted below in hospital stay - told to be compliant with eliquis - has Afib and needs lifelong anticoagulation - noted to have Pulmonary hypertension as well CT Chest PE 02/2022 IMPRESSION: Pulmonary embolism involving the lobar segmental levels, right greater than left. Enlarged right ventricle with RV-LV ratio of approximately 1.2 and straightening of the intraventricular septum. This was similar as compared to prior CT though given presence of acute pulmonary embolism, correlation should be made with the echocardiogram and clinical presentation to evaluate for acute right heart failure. Bibasilar airspace opacities, likely atelectasis with possibly infarct. Recommend short term follow up chest CT. Mild bilateral pleural effusion. Multifocal thyroid mass with coarse calcification. Recommend follow-up ultrasound if workup has not been performed. Diffuse body wall edema. SHYAM (generalized anxiety disorder) 09/07/2017 Assessment & Plan (02/04/2024 10:02 AM CDT): -chronic, stable -patient currently takes sertraline 100 mg -patient denies any worsening of depressed mood, thoughts of harming herself or others, or worsening anxiety -refill of medication provided -continue current treatment plan Assessment & Plan (09/23/2023 9:30 AM CDT): - chronic condition, better controlled - chronic anxiety and depression which is better controlled - states it is because of her health issues - currently on Sertraline 100 mg daily - continue current therapy Lab Results Component Value Date TSH 1.50 11/15/2022 Assessment & Plan (06/21/2023 12:33 PM TOBACCO DIPPER): - chronic condition, better controlled - chronic anxiety and depression which is better controlled - states it is because of her health issues - currently on Sertraline 100 mg daily - continue current therapy Lab Results Component Value Date TSH 1.50 11/15/2022 Assessment & Plan (11/26/2022 11:38 AM CDT): - chronic condition, better controlled - chronic anxiety and depression which is better controlled - states it is because of her health issues - currently on Sertraline 100 mg daily - continue current therapy Lab Results Component Value Date TSH 1.50 11/15/2022 Assessment & Plan (08/11/2022 3:03 PM TOBACCO DIPPER): - chronic condition, controlled - chronic anxiety and depression which is not well controlled - states it is because of her health issues - currently on Sertraline 100 mg daily - continue therapy Lab Results Component Value Date TSH 0.10 (L) 04/28/2022 Assessment & Plan (04/17/2022 10:01 AM CDT): - chronic condition, better controlled - chronic anxiety and depression which is not well controlled - states it is because of her health issues - currently on Sertraline 100 mg daily - continue therapy Lab Results Component Value Date TSH 1.11 11/11/2021 Assessment & Plan (01/13/2022 8:29 AM CDT): - chronic condition, better controlled - chronic anxiety and depression which is not well controlled - states it is because of her health issues - restart her Sertraline 100 mg daily Lab Results Component Value Date TSH 1.11 11/11/2021 Assessment & Plan (11/11/2021 8:34 AM CDT): - chronic condition, not well controlled - chronic anxiety and depression which is not well controlled - states it is because of her health issues - currently on Sertraline 50 mg daily -> increase to 100 mg daily - follow-up in 8 weeks Assessment & Plan (08/04/2021 12:59 AM TOBACCO DIPPER): - chronic condition, worse - chronic anxiety and depression which is not well controlled - states it is because of her health issues - had stopped taking her medication Sertraline 50mg daily --> restart medication - feels like anxiety is not well controlled - follow-up in 6 weeks Assessment & Plan (05/12/2021 9:47 AM TOBACCO DIPPER): - chronic condition, not at goal - chronic anxiety and depression which is not well controlled - states it is because of health issues - currently on Sertraline 50mg daily??? - discussed to call and tell me the dose at home so I know what to increase it to - feels like anxiety is not well controlled - in mean time continue with current medciation Assessment & Plan (04/01/2021 1:20 PM CDT): - chronic condition, stable, not at goal - states it is because of health issues - currently on Sertraline 50mg daily??? - feels like anxiety is not well controlled - she would benefit with increase of dose, she will call and let me know exactly how much she is taking - in mean time continue with current medciation Lymphedema 09/07/2017 Assessment & Plan (02/04/2024 10:29 AM CDT): -chronic, stable -patient reports longstanding history of lymphedema in her bilateral lower legs -contributes to bilateral lower leg weakness and difficulty with mobility -patient reports wearing Tunde hose regularly and uses lymphedema pump -continue current treatment plan Assessment & Plan (09/23/2023 9:38 AM CDT): - chronic condition, better controlled - of lower extremities - established with lymphedema clinic but no longer going there - has the lymphedema pump and wears compression socks and does exercises as well - wearing bilateral knee high compressions - continue therapy, resume lymphedema pump EXAM DESCRIPTION: US ARTERIAL DOPPLER LOWER EXTREMITY BILATERAL 2021 IMPRESSION: 1. Significantly limited examination. The patient declined cuff compression of multiple areas within the lower extremities as per the performing technologist secondary to pain. The posterior tibial arteries and right calf were also noted to be noncompressible likely reflecting densely calcified vessels. Dedicated color Doppler and spectral analysis or CT angiogram may be performed for further evaluation. Assessment & Plan (11/26/2022 11:40 AM CDT): - chronic condition, better controlled - of lower extremities - established with lymphedema clinic but no longer going there - has the lymphedema pump and wears compression socks and does exercises as well - wearing bilateral knee high compressions - continue therapy, resume lymphedema pump EXAM DESCRIPTION: US ARTERIAL DOPPLER LOWER EXTREMITY BILATERAL 2021 IMPRESSION: 1. Significantly limited examination. The patient declined cuff compression of multiple areas within the lower extremities as per the performing technologist secondary to pain. The posterior tibial arteries and right calf were also noted to be noncompressible likely reflecting densely calcified vessels. Dedicated color Doppler and spectral analysis or CT angiogram may be performed for further evaluation. Assessment & Plan (08/11/2022 3:13 PM TOBACCO DIPPER): - chronic condition, of lower extremities, better controlled - established with lymphedema clinic but no longer going there - has the lymphedema pump which she does not use it - wearing bilateral knee high compressions - continue therapy, resume lymphedema pump EXAM DESCRIPTION: US ARTERIAL DOPPLER LOWER EXTREMITY BILATERAL 2021 IMPRESSION: 1. Significantly limited examination. The patient declined cuff compression of multiple areas within the lower extremities as per the performing technologist secondary to pain. The posterior tibial arteries and right calf were also noted to be noncompressible likely reflecting densely calcified vessels. Dedicated color Doppler and spectral analysis or CT angiogram may be performed for further evaluation. Assessment & Plan (04/17/2022 10:07 AM CDT): - chronic condition, of lower extremities, better controlled - established with lymphedema clinic but no longer going there - recently got the pump which she tries to use daily - wearing bilateral knee high compressions - continue therapy The following test was ordered by an outside provider EXAM DESCRIPTION: US ARTERIAL DOPPLER LOWER EXTREMITY BILATERAL 2021 IMPRESSION: 1. Significantly limited examination. The patient declined cuff compression of multiple areas within the lower extremities as per the performing technologist secondary to pain. The posterior tibial arteries and right calf were also noted to be noncompressible likely reflecting densely calcified vessels. Dedicated color Doppler and spectral analysis or CT angiogram may be performed for further evaluation. Assessment & Plan (01/13/2022 8:31 AM CDT): - chronic condition, of lower extremities, better controlled - established with lymphedema clinic - recently got the pump which she tries to use daily - wearing bilateral knee high compressions The following test was ordered by an outside provider EXAM DESCRIPTION: US ARTERIAL DOPPLER LOWER EXTREMITY BILATERAL 2021 IMPRESSION: 1. Significantly limited examination. The patient declined cuff compression of multiple areas within the lower extremities as per the performing technologist secondary to pain. The posterior tibial arteries and right calf were also noted to be noncompressible likely reflecting densely calcified vessels. Dedicated color Doppler and spectral analysis or CT angiogram may be performed for further evaluation. Assessment & Plan (12/26/2021 4:40 PM CDT): - chronic condition, of lower extremities, not well controlled - she does not have a lymphedema pump at this time - had bilateral lower extremity wounds and is being seen at wound care now - wearing bilateral knee high compression socks - continue wound care and then will need follow -up at lymphedema clinic - was on Lasix with limited benefit and is not using it regularly, only prn Lower Extremity: Patient has been using an E0651 compression pump for daily at home, which they've` been using daily for at least 30 minutes each time. Although it has helped reduce the swelling in lower legs, now presents with lymphedema that extends into the trunk and abdomen. The lymphedema is classified as chronic, persistent, and severe identified by increase measurements over time. Patient has been compliant with daily use of compression, exercise, elevation, and has also tried own MLD daily. Patient has been compliant with diet and medications, but still presents with significant lymphedema in thighs and abdomen. I am recommending this patient get an E0652 Compression Pump with [employer] which will provide compression past the inguinal lymph nodes and around abdomen. Patient requires this advanced pump and garment due to complex condition. 5cm Above Navel Circumference: 135cm 25cm Below Navel Circumference: 120cm Assessment & Plan (08/04/2021 12:37 AM TOBACCO DIPPER): - chronic condition, of lower extremities - worse, not well controlled - she does not have a lymphedema pump at this time - had bilateral lower extremity wounds - wearing bilateral knee high compression socks - recommended lymphedema clinic establishment - would benefit with wound care at home, patient is homebound status, used walker and wheelchair for mobility Assessment & Plan (05/12/2021 9:32 AM TOBACCO DIPPER): - chronic condition, of lower extremities - she has had a tactile pump, she has had one before - had left lower extremity wound from the swelling, following with wound care now - would like referral to Lymphdema clinic - wearing bilateral knee high compression socks, recommend thigh high ones Assessment & Plan (04/01/2021 1:25 PM CDT): - chronic condition, of lower extremities - she has had a tactile pump, she has had one before - had left lower extremity wound from the swelling, following with wound care now Assessment & Plan (05/20/2020 8:23 PM TOBACCO DIPPER): She may benefit from tactile pump Wheelchair dependent 06/24/2017 Assessment & Plan (02/04/2024 10:27 AM CDT): -chronic, stable -patient reports longstanding history with difficulty walking and bilateral lower leg weakness -patient currently utilizes motorized scooter -comorbidities lymphedema and obesity -patient reports her motorized scooter does not hold charge very well anymore and she is hoping to obtain a new one -[id number] evaluation performed, recommendation for patient to obtain new motorized scooter to improve mobility -continue current treatment plan Assessment & Plan (09/23/2023 9:30 AM CDT): - patient has difficulty with mobility - at risk for falls - uses wheelchair - has morbid obesity and lymphedema Assessment & Plan (06/21/2023 3:17 PM TOBACCO DIPPER): - patient has difficulty with mobility - at risk for falls - uses wheelchair - has morbid obesity and lymphedema Assessment & Plan (05/12/2021 10:58 AM TOBACCO DIPPER): - patient has difficulty with mobility - at risk for falls - uses wheelchair - has morbid obesity and lymphedema Moderate episode of recurrent major depressive d isorder 04/11/2013 Assessment & Plan (07/18/2024 11:29 AM TOBACCO DIPPER): -chronic condition with concomitant anxiety. Stable at this time per patient report however stress is increased in her life, which she believes is the cause of her blood pressure elevation. PHQ-9 score today: 5 Previously Rx Zoloft 100mg daily - not using at this time but would like to have it refilled. -patient denies any worsening of depressed mood, thoughts of harming herself or others, or worsening anxiety Emergent BH information given including ED/911 for worsening s/sx. Assessment & Plan (02/04/2024 10:02 AM CDT): -chronic, stable -patient currently takes sertraline 100 mg -patient denies any worsening of depressed mood, thoughts of harming herself or others, or worsening anxiety -refill of medication provided -continue current treatment plan Assessment & Plan (09/23/2023 9:30 AM CDT): - chronic condition, better controlled - chronic anxiety and depression which is better controlled - states it is because of her health issues - currently on Sertraline 100 mg daily - continue current therapy Lab Results Component Value Date TSH 1.50 11/15/2022 Assessment & Plan (06/21/2023 12:33 PM TOBACCO DIPPER): - chronic condition, better controlled - chronic anxiety and depression which is better controlled - states it is because of her health issues - currently on Sertraline 100 mg daily - continue current therapy Lab Results Component Value Date TSH 1.50 11/15/2022 Assessment & Plan (11/26/2022 11:38 AM CDT): - chronic condition, better controlled - chronic anxiety and depression which is better controlled - states it is because of her health issues - currently on Sertraline 100 mg daily - continue current therapy Lab Results Component Value Date TSH 1.50 11/15/2022 Assessment & Plan (08/11/2022 3:14 PM TOBACCO DIPPER): - chronic condition, better controlled - chronic anxiety and depression which is not well controlled - states it is because of her health issues - currently on Sertraline 100 mg daily - continue therapy Lab Results Component Value Date TSH 0.10 (L) 04/28/2022 Assessment & Plan (04/17/2022 10:02 AM CDT): - chronic condition, better controlled - chronic anxiety and depression which is not well controlled - states it is because of her health issues - currently on Sertraline 100 mg daily - continue therapy Lab Results Component Value Date TSH 1.11 11/11/2021 Assessment & Plan (01/13/2022 8:29 AM CDT): - chronic condition, better controlled - chronic anxiety and depression which is not well controlled - states it is because of her health issues - restart her Sertraline 100 mg daily Lab Results Component Value Date TSH 1.11 11/11/2021 Assessment & Plan (11/11/2021 8:34 AM CDT): - chronic condition, not well controlled - chronic anxiety and depression which is not well controlled - states it is because of her health issues - currently on Sertraline 50 mg daily -> increase to 100 mg daily - follow-up in 8 weeks Assessment & Plan (08/04/2021 12:59 AM TOBACCO DIPPER): - chronic condition, worse - chronic anxiety and depression which is not well controlled - states it is because of her health issues - had stopped taking her medication Sertraline 50mg daily --> restart medication - feels like anxiety is not well controlled - follow-up in 6 weeks Assessment & Plan (05/12/2021 9:47 AM TOBACCO DIPPER): - chronic condition, not at goal - chronic anxiety and depression which is not well controlled - states it is because of health issues - currently on Sertraline 50mg daily??? - discussed to call and tell me the dose at home so I know what to increase it to - feels like anxiety is not well controlled - in mean time continue with current medciation Assessment & Plan (04/01/2021 1:20 PM CDT): - chronic condition, stable, not at goal - states it is because of health issues - currently on Sertraline 50mg daily??? - feels like anxiety is not well controlled - she would benefit with increase of dose, she will call and let me know exactly how much she is taking - in mean time continue with current medciation Vitamin D deficiency 11/11/2012 Assessment & Plan (02/04/2024 9:31 AM CDT): -chronic, stable -patient currently takes vitamin D3 supplement -will recheck lab value at future visit -refill of supplement provided -continue current treatment plan Assessment & Plan (09/23/2023 9:30 AM CDT): - chronic, not well controlled - has hx of vitamin D def - most recent Vitamin D level is as shown below - patient is currently on Vitamin D3 supplementation - supposed to be on Vitamin D3 5000 international units daily - recommend restarting vitamin D supplementation Vitamin D 25-OH Date Value Ref Range Status 11/11/2021 27 (L) 30 - 80 ng/mL Final Assessment & Plan (01/13/2022 8:23 AM CDT): - chronic, not well controlled - has hx of vitamin D def - most recent Vitamin D level is as shown below - patient is currently on Vitamin D3 supplementation - supposed to be on Vitamin D3 5000 international units daily - recommend restarting vitamin D supplementation Vitamin D, 25-hydroxy Date Value Ref Range Status 11/11/2021 27 (L) 30 - 80 ng/mL Final Assessment & Plan (05/12/2021 9:44 AM TOBACCO DIPPER): - hx of vitamin D def - most recent Vitamin D level is as shown below Vitamin D, 25-hydroxy Date Value Ref Range Status 09/12/2020 25 (L) 30 - 80 ng/mL Final 04/07/21 - Vitamin D level of 25 as well - patient is currently on Vitamin D3 supplementation - Increase from 1000 --> 5000 international units daily - recheck Labs in 3 months Assessment & Plan (04/01/2021 1:12 PM CDT): - hx of vitamin D def - most recent Vitamin D level is as shown below Vitamin D, 25-hydroxy Date Value Ref Range Status 09/12/2020 25 (L) 30 - 80 ng/mL Final - patient is on started on Vitamin D3 supplementation - she is not sure how much the dose is - recheck vitamin D level Permanent atrial fibrillation 11/10/2012 Assessment & Plan (07/18/2024 10:51 AM TOBACCO DIPPER): - chronic condition, stable - follows with cardiology: APR 1608/2024 History of noncompliance with medications -AC with Eliquis, not on rate control due to bradycardia (previously diltiazem 120mg) Discussed with pt the risk of clot with no AC; risk of decompensating heart function with concomitant CHF. Assessment & Plan (09/23/2023 9:30 AM CDT): - chronic condition, stable - follows with cardiology - currently back on Eliquis 5 mg BID only - no longer on Diltiazem CD 120 mg daily due to bradycardia - not in afib rvr - continue current therapy per Cardiology Lab Results Component Value Date TSH 1.50 11/15/2022 Echo 10/2020 Conclusions: Normal left ventricular systolic function with no focal wall motion abnormalities. Normal left ventricular size. Ejection fraction is visually estimated at 60-65 %. There is severe enlargement of left atrium. There is severe enlargement of right atrium. Right Atrial Pressure = 5 mmHg. The atrial septum is not well visualized. Saline contrast study performed without evidence of right to left shunt, however, this was an inadequate study to assess for PFO. Consider TREV if clinically indicated.. Moderate pulmonary hypertension based on right ventricular systolic pressure. Estimated peak RVSP is 59 mmHg. Atrial fibrillation. Technically difficult study with limited views. Other than patient's rhythm, no clear evidence for cardiac source of emboli. Assessment & Plan (11/28/2022 4:59 PM CDT): - chronic condition, stable - follows with cardiology - currently back on Eliquis 5 mg BID only - no longer on Diltiazem CD 120 mg daily due to bradycardia - not in afib rvr - continue current therapy per Cardiology Lab Results Component Value Date TSH 1.50 11/15/2022 Echo 10/2020 Conclusions: Normal left ventricular systolic function with no focal wall motion abnormalities. Normal left ventricular size. Ejection fraction is visually estimated at 60-65 %. There is severe enlargement of left atrium. There is severe enlargement of right atrium. Right Atrial Pressure = 5 mmHg. The atrial septum is not well visualized. Saline contrast study performed without evidence of right to left shunt, however, this was an inadequate study to assess for PFO. Consider TREV if clinically indicated.. Moderate pulmonary hypertension based on right ventricular systolic pressure. Estimated peak RVSP is 59 mmHg. Atrial fibrillation. Technically difficult study with limited views. Other than patient's rhythm, no clear evidence for cardiac source of emboli. Assessment & Plan (08/11/2022 3:03 PM TOBACCO DIPPER): - chronic condition, stable - follows with cardiology - currently back on Eliquis 5 mg BID, Diltiazem CD 120 mg daily - not in afib rvr - continue current therapy Lab Results Component Value Date TSH 0.10 (L) 04/28/2022 Echo 10/2020 Conclusions: Normal left ventricular systolic function with no focal wall motion abnormalities. Normal left ventricular size. Ejection fraction is visually estimated at 60-65 %. There is severe enlargement of left atrium. There is severe enlargement of right atrium. Right Atrial Pressure = 5 mmHg. The atrial septum is not well visualized. Saline contrast study performed without evidence of right to left shunt, however, this was an inadequate study to assess for PFO. Consider TREV if clinically indicated.. Moderate pulmonary hypertension based on right ventricular systolic pressure. Estimated peak RVSP is 59 mmHg. Atrial fibrillation. Technically difficult study with limited views. Other than patient's rhythm, no clear evidence for cardiac source of emboli. Assessment & Plan (04/17/2022 10:01 AM CDT): - chronic condition, stable - follows with cardiology - currently back on Eliquis 5 mg BID, Diltiazem CD 120 mg daily - not in afib rvr - continue current therapy Lab Results Component Value Date TSH 1.11 11/11/2021 Echo 10/2020 Conclusions: Normal left ventricular systolic function with no focal wall motion abnormalities. Normal left ventricular size. Ejection fraction is visually estimated at 60-65 %. There is severe enlargement of left atrium. There is severe enlargement of right atrium. Right Atrial Pressure = 5 mmHg. The atrial septum is not well visualized. Saline contrast study performed without evidence of right to left shunt, however, this was an inadequate study to assess for PFO. Consider TREV if clinically indicated.. Moderate pulmonary hypertension based on right ventricular systolic pressure. Estimated peak RVSP is 59 mmHg. Atrial fibrillation. Technically difficult study with limited views. Other than patient's rhythm, no clear evidence for cardiac source of emboli. Assessment & Plan (01/13/2022 8:24 AM CDT): - chronic condition, stable - follows with cardiology - need to restart taking her anticoagulation with Eliquis 5 mg BID, Diltiazem CD 120 mg daily - not in afib rvr - continue current therapy Lab Results Component Value Date TSH 1.11 11/11/2021 Echo 10/2020 Conclusions: Normal left ventricular systolic function with no focal wall motion abnormalities. Normal left ventricular size. Ejection fraction is visually estimated at 60-65 %. There is severe enlargement of left atrium. There is severe enlargement of right atrium. Right Atrial Pressure = 5 mmHg. The atrial septum is not well visualized. Saline contrast study performed without evidence of right to left shunt, however, this was an inadequate study to assess for PFO. Consider TREV if clinically indicated.. Moderate pulmonary hypertension based on right ventricular systolic pressure. Estimated peak RVSP is 59 mmHg. Atrial fibrillation. Technically difficult study with limited views. Other than patient's rhythm, no clear evidence for cardiac source of emboli. Assessment & Plan (11/17/2021 11:57 AM CDT): - chronic condition, stable - follows with cardiology - currently on anticoagulation with Eliquis 5 mg BID - currently on diltiazem CD 120 mg daily - not in afib rvr - continue current therapy - obtain labs ordered in the past Lab Results Component Value Date TSH 1.11 11/11/2021 Echo 10/2020 Conclusions: Normal left ventricular systolic function with no focal wall motion abnormalities. Normal left ventricular size. Ejection fraction is visually estimated at 60-65 %. There is severe enlargement of left atrium. There is severe enlargement of right atrium. Right Atrial Pressure = 5 mmHg. The atrial septum is not well visualized. Saline contrast study performed without evidence of right to left shunt, however, this was an inadequate study to assess for PFO. Consider TREV if clinically indicated.. Moderate pulmonary hypertension based on right ventricular systolic pressure. Estimated peak RVSP is 59 mmHg. Atrial fibrillation. Technically difficult study with limited views. Other than patient's rhythm, no clear evidence for cardiac source of emboli. Assessment & Plan (08/04/2021 12:55 AM TOBACCO DIPPER): - chronic condition, stable - follows with cardiology - had stopped taking her medications - restart - anticoagulation with Eliquis 5 mg BID - restart diltiazem CD 120 mg daily - not in afib rvr Assessment & Plan (04/01/2021 1:26 PM CDT): - chronic condition - follows with cardiology - anticoagulated with Eliquis 5 mg BID - currently on diltiazem CD 120 mg daily - not in afib rvr Essential hypertension 11/10/2012 Assessment & Plan (07/18/2024 11:29 AM TOBACCO DIPPER): BP Readings from Last 3 Encounters: 07/18/24 (!) 180/100 02/11/24 (!) 173/92 02/01/24 154/99 -chronic condition. Not controlled or at goal of SBP less than 140 at today's office visit. Current Rx include amlodipine 10mg daily, which pt is not taking and does plan to take. -patient reports checking blood pressure regularly at home which typically runs 140s over 80s -patient reports she has been dealing with an increase in stress related to her neighbor's which he believes is contributing to some blood pressure elevation -encourage patient to continue low-sodium diet. Risks of hypertension discussed including stroke, [place], decrease in cardiac function. Emergency room indications given to pt including Red flags Assessment & Plan (02/04/2024 10:05 AM CDT): BP Readings from Last 3 Encounters: 02/01/24 154/99 12/07/23 153/90 11/26/23 108/64 -chronic, stable -currently taking amlodipine 10 mg -patient reports checking blood pressure regularly at home which typically runs 120s to 130s over 80s -patient reports she has been dealing with an increase in stress related to her neighbor's which he believes is contributing to some blood pressure elevation -encourage patient to continue low-sodium diet -refill of medication provided -continue current treatment plan Assessment & Plan (09/23/2023 9:30 AM CDT): BP Readings from Last 3 Encounters: 09/23/23 140/90 06/24/23 113/62 06/21/23 110/70 - chronic condition, well controlled - labile, fluctuates - currently on Amlodipine 10 mg daily only - follow low salt diet - monitor BP regularly - continue current therapy Lab Results Component Value Date POTASSIUM 3.9 04/02/2023 Assessment & Plan (06/21/2023 12:33 PM TOBACCO DIPPER): BP Readings from Last 3 Encounters: 06/21/23 110/70 05/04/23 116/71 04/02/23 122/61 - chronic condition, well controlled - labile, fluctuates - currently on Amlodipine 10 mg daily only - follow low salt diet - monitor BP regularly - continue current therapy Lab Results Component Value Date POTASSIUM 3.9 04/02/2023 Assessment & Plan (11/26/2022 11:39 AM CDT): BP Readings from Last 3 Encounters: 11/26/22 134/82 11/19/22 128/76 10/27/22 131/69 - chronic condition, well controlled - labile, fluctuates - currently on Amlodipine 10 mg daily only ( no longer on Diltiazem CD 120 mg daily, she is also on HCTZ 12.5 mg daily) - no longer on KCL ER 20 meq daily as needed as well - follow low salt diet - monitor BP regularly - continue current therapy Lab Results Component Value Date POTASSIUM 4.6 11/18/2022 Assessment & Plan (08/11/2022 3:04 PM TOBACCO DIPPER): - chronic condition, well controlled - labile, fluctuates - currently on Diltiazem CD 120 mg daily, she is also on HCTZ 12.5 mg daily, has Lasix 40 mg every other day which she no longer takes - on KCL ER 20 meq daily as needed as well - follow low salt diet - monitor BP regularly - continue current therapy Lab Results Component Value Date POTASSIUM 3.0 (Critical) 05/20/2022 Assessment & Plan (04/17/2022 10:01 AM CDT): - chronic condition, well controlled - labile, fluctuates - currently on Diltiazem CD 120 mg daily, she is also on Lasix 40 mg every other day, HCTZ 12.5 mg daily started in hospital stay - on KCL ER 20 meq daily as needed as well - follow low salt diet - monitor BP regularly - continue current therapy Lab Results Component Value Date POTASSIUM 4.0 03/10/2022 Assessment & Plan (01/13/2022 8:28 AM CDT): - chronic condition, well controlled - labile, fluctuates - need to restart her regular medication Diltiazem CD 120 mg daily, she is also on Lasix - restart KCL ER 20 meq daily as needed as well - follow low salt diet - monitor BP regularly - continue current therapy Lab Results Component Value Date POTASSIUM 4.4 02/18/2021 Assessment & Plan (11/17/2021 11:52 AM CDT): - chronic condition, suboptimal controlled - labile, fluctuates - currently on Diltiazem CD 120 mg daily, she is also on Lasix - restart KCL ER 20 meq daily as needed - follow low salt diet - monitor BP regularly - continue current therapy Assessment & Plan (08/04/2021 12:57 AM TOBACCO DIPPER): - chronic condition, not controlled - labile, fluctuates - had stopped taking medications - restart Diltiazem CD 120 mg daily, she is also on Lasix - restart KCL ER 20 meq daily - follow low salt diet - monitor BP regularly Assessment & Plan (04/01/2021 1:15 PM CDT): - chronic condition - labile, fluctuates - currently on Diltiazem CD 120 mg daily, she is also on Lasix - takes KCL ER 20 meq daily - follow low salt diet - monitor BP regularly Assessment & Plan (11/19/2020 4:34 PM CDT): Ranging 120-140/70s with majority 140 systolic readings. Will increase Diltiazem to 180 mg daily Home BP diary and bring to f/u in 1 month. Assessment & Plan (11/19/2020 8:24 AM CDT): 120-140/70 Assessment & Plan (05/20/2020 8:22 PM TOBACCO DIPPER): Blood Pressure Follow-up: Lifestyle modifications education provided on sodium reduction, increase physical activity and weight reduction. Assessment & Plan (03/06/2020 10:00 AM CDT): Very stable blood pressure in office today, much improved from prior visit. Patient denies having symptoms We will stay at the current dose of Diltiazem If BP at home starts to creep up then let us know of if you start experiencing symptoms again. Patient verbalizes understanding and agrees with the plan. Assessment & Plan (02/21/2020 12:39 PM CDT): Elevated blood pressure in office Home bp's are elevated per patient with sx Will increase Diltiazem to 240mg daily instead. Please keep blood pressure log for the 3 days. Take blood pressure 2x/day, once in the a.m. and once in the p.m. At the end of the week you can send your results via [employer] or if you do not have [employer] you may call them in. Class 1 obesity with body ma ss index (BMI) of 30.0 to 30.9 in adult 11/10/2012 Assessment & Plan (07/18/2024 11:29 AM TOBACCO DIPPER): Chronic condition. Not able to calculate BMI today due to patient inability to get out of wheelchair. Due to mobility limitation, recommend patient focus on nutrition to reduce weight Assessment & Plan (02/04/2024 9:31 AM CDT): Wt Readings from Last 3 Encounters: 11/26/23 96.5 kg (212 lb 11.9 oz) 06/24/23 91.2 kg (201 lb) 06/21/23 91.2 kg (201 lb) There is no height or weight on file to calculate BMI. -Stable, not at goal of <30 bmi -Discussed recommendations for exercise at least 30 minutes moderate to vigorous exercise as tolerated most days of the week. (minimum 150 minutes weekly) -Discussed importance of well-balanced diet. Assessment & Plan (11/26/2022 11:30 AM CDT): Wt Readings from Last 3 Encounters: 11/19/22 99.8 kg (220 lb) 10/09/22 108 kg (238 lb) 04/28/22 108 kg (238 lb) Body mass index is 31.57 kg/m . - chronic, not at goal - limits her mobility significantly along with lymphedema of lower extremities and wounds - BMI Follow-up includes: nutrition counseling, exercise counseling Assessment & Plan (04/17/2022 10:01 AM CDT): Wt Readings from Last 3 Encounters: 03/10/22 (!) 165.2 kg (364 lb 3.2 oz) 08/09/21 (!) 161.5 kg (356 lb) 05/12/21 (!) 137.9 kg (304 lb) There is no height or weight on file to calculate BMI. - chronic, not at goal - limits her mobility significantly along with lymphedema of lower extremities and wounds - BMI Follow-up includes: nutrition counseling, exercise counseling Assessment & Plan (01/13/2022 8:12 AM CDT): Wt Readings from Last 3 Encounters: 08/09/21 (!) 161.5 kg (356 lb) 05/12/21 (!) 137.9 kg (304 lb) 04/16/21 119.4 kg (263 lb 3.2 oz) Body mass index is 51.08 kg/m . - chronic, not at goal - significant weight gain noted - limits her mobility significantly along with lymphedema of lower extremities and wounds - BMI Follow-up includes: nutrition counseling, exercise counseling Assessment & Plan (11/11/2021 8:33 AM CDT): Wt Readings from Last 3 Encounters: 08/09/21 (!) 161.5 kg (356 lb) 05/12/21 (!) 137.9 kg (304 lb) 04/16/21 119.4 kg (263 lb 3.2 oz) Body mass index is 51.08 kg/m . - chronic, not at goal - significant weight gain noted - limits her mobility significantly along with lymphedema of lower extremities and wounds - BMI Follow-up includes: nutrition counseling, exercise counseling Assessment & Plan (08/04/2021 12:56 AM TOBACCO DIPPER): Wt Readings from Last 3 Encounters: 05/12/21 (!) 137.9 kg (304 lb) 04/16/21 119.4 kg (263 lb 3.2 oz) 04/01/21 111.7 kg (246 lb 3.2 oz) Body mass index is 43.62 kg/m . - chronic, not at goal - limits her mobility significantly along with lymphedema of lower extremities - BMI Follow-up includes: nutrition counseling, exercise counseling Assessment & Plan (05/12/2021 9:42 AM TOBACCO DIPPER): Wt Readings from Last 3 Encounters: 05/12/21 (!) 137.9 kg (304 lb) 04/16/21 119.4 kg (263 lb 3.2 oz) 04/01/21 111.7 kg (246 lb 3.2 oz) Body mass index is 43.62 kg/m . - chronic, not at goal - large weight gain noted, has fluctuating weight, question validity of last measurement with her lymphedema - BMI Follow-up includes: nutrition counseling, exercise counseling and education provided Assessment & Plan (04/01/2021 1:31 PM CDT): Wt Readings from Last 3 Encounters: 04/01/21 111.7 kg (246 lb 3.2 oz) 02/17/21 (!) 137.5 kg (303 lb 2.1 oz) 12/03/20 (!) 155.6 kg (343 lb) Body mass index is 35.33 kg/m . - large amount of weight loss, states it is from her edema getting better - BMI Follow-up includes: nutrition counseling, exercise counseling and education provided Assessment & Plan (05/20/2020 8:22 PM TOBACCO DIPPER): BMI Follow-up includes: nutrition counseling and exercise counseling. Assessment & Plan (03/06/2020 9:37 AM CDT): Healthy, low carbohydrate lifestyle and exercise Avoid all bread, potatoes, cereal, pasta, rice, margarine, milk, yogurt, ice cream, juices, soda (including diet), beer, and manmade or manufactured desserts. Please enjoy steak, fish, chicken, pork, butter, vegetables, nuts, whole eggs, cheese and cream in your coffee. The overall goal is to minimize net carbohydrates. Also, exercise for 150min/week recommended Substitutions: Aldi carries a zero net carb bread If you are looking for whole potatoes, like to use in soup or new potato shape/flavor, radishes are a great replacement If you are looking for mashed potatoes, riced cauliflower in the frozen bag section are a great replacement For pasta, try using zucchini noodles [place] and/or coconut flour instead of regular flour For pizza dough, try fathead pizza dough recipe online SPOOTNIC[employer]COMffles recipe online For ice cream, try the brand Enlightened Use Pinterest for recipe ideas. Type in low carb... Assessment & Plan (02/21/2020 12:27 PM CDT): Healthy, low carbohydrate lifestyle and exercise for 150min/week recommended Avoid all bread, potatoes, cereal, pasta, rice, margarine, milk, yogurt, ice cream, juices, soda (including diet), beer, and manmade or manufactured desserts. Please enjoy steak, fish, chicken, pork, butter, vegetables, nuts, whole eggs, cheese and cream in your coffee. The overall goal is to minimize net carbohydrates. Also, exercise for 150min/week recommended Substitutions: Aldi carries a zero net carb bread If you are looking for whole potatoes, like to use in soup or new potato shape/flavor, radishes are a great replacement If you are looking for mashed potatoes, riced cauliflower in the frozen bag section are a great replacement For pasta, try using zucchini noodles [place] and/or coconut flour instead of regular flour For pizza dough, try fathead pizza dough recipe online SPOOTNIC[employer]Activation Life recipe online For ice cream, try the brand Enlightened Use Pinterest for recipe ideas. Type in low carb... Generalized osteoarthritis 11/10/2012 Assessment & Plan (02/04/2024 10:03 AM CDT): -chronic, stable -patient reports longstanding history of osteoarthritis in multiple joints -currently uses Tylenol/ibuprofen, lidocaine patches as needed -encouraged patient to utilize ice/heat application -encourage patient if osteoarthritis pain worsens to reach out to office for further treatment -continue current treatment plan Fibromyalgia affecting lower leg Assessment & Plan (08/11/2022 11:23 PM TOBACCO DIPPER): - questionable diagnosis, chronic condition that is not at goal - used to be on pregabalin but no longer as it was not effective - has been on long -term narcotic therapy - she would like to discontinue statin medication and also be off her pain medications, removing both from medication list a this time Assessment & Plan (04/01/2021 1:23 PM CDT): - chronic condition - she was on Pregabalin 150 mg BID brief, not sure if it did - no longer on Pregabalin - has coexisting depression and anxiety Resolved Problems Problem Noted Date Diagnosed Date Resolved Date Anemia, unspecified type 11/13/2023 Dizziness 03/04/2022 04/17/2022 Subclinical hyperthyroidism 04/11/2021 05/12/2021 Overview (04/11/2021): 04/07/21 - TSh 0.04, Free T4 1.7 Encounter for screening mamm ogram for malignant neoplasm of breast 04/01/2021 11/11/2021 Assessment & Plan (04/01/2021 1:27 PM CDT): - declined to proceed with further breast cancer screening mammogram Acute CVA (cerebrovascular a ccident) ([facility]) 10/16/2020 04/01/2021 Acute pain of left shoulder 10/16/2020 04/01/2021 Small bowel obstruction 10/11/2020 05/0 11/2020 Incarcerated ventral hernia 10/10/2020 10/16/2020 Anasarca 07/26/2020 04/01/2021 Cellulitis of lower extremity 07/26/2020 04/01/2021 Acute on chronic diastolic c ongestive heart failure 07/26/2020 10/28/2020 Debility 07/26/2020 04/17/2022 Assessment & Plan (11/19/2020 4:34 PM CDT): The patient has chronic diastolic CHF and Debility condition that causes her to require elevation of the head of the bed 30 degrees or greater. Patient also requires frequent changes in body position to prevent possible skin break down and/or to alleviate pain. Recommend patient to have hospital bed at home. Encounter for Medicare annual wellness exam 05/20/2020 11/11/2021 Assessment & Plan (05/20/2020 10:55 AM TOBACCO DIPPER): A yearly Medicare Annual Wellness Visit has been performed today. Vanessa Lauren is up to date on screening tests. She is in need of None- no screening indicated at this time- these have been ordered. She is up to date on needed preventative vaccinations; She is in need of Tdap/Td. These have been ordered/arranged unless otherwise indicated. 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-325 TID PRN Assessment & Plan (01/13/2022 8:30 AM CDT): - chronic, stable - mainly over bilateral lower extremities - this could be from her fibromyalgia, lymphedema or neuropathy - she is on chronic narcotic pain medication, being managed by PCP - continue current therapy - 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-325 TID PRN Assessment & Plan (11/17/2021 11:52 AM CDT): - chronic, stable - mainly over bilateral lower extremities - this could be from her fibromyalgia, lymphedema or neuropathy - she is on chronic narcotic pain medication, being managed by PCP Assessment & Plan (04/02/2021 12:20 AM CDT): - mainly over bilateral lower extremities - this could be from her fibromyalgia, lymphedema or neuropathy - she is on chronic narcotic pain medication, being managed by PCP 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 In lieu of that, we will try to arrange compression from another DME Acute deep vein thrombosis ( DVT) of popliteal vein of right lower extremity 05/13/2018 09/08/2018 Other chest pain 05/13/2018 09/08/2018 Atherosclerosis of [place] of both lower extremities 12/14/2017 09/08/2018 Ulcer of lower extremity, li mited to breakdown of skin 12/14/2017 12/14/2017 Chronic systolic congestive heart failure 06/24/2017 09/21/2019 Microcytic anemia 03/02/2017 04/01/2021 Injury of finger 11/15/2013 04/01/2021 Dislocation of metacarpophal angeal joint of finger 11/15/2013 04/01/2021 Impaired fasting glucose 05/05/2013 Overview (04/11/2021): Lab test On 04/07/2021 showed A1c of 5.4 Assessment & Plan (04/01/2021 1:15 PM CDT): - hx of impaired fasting glucose - most recent A1c as shown below Lab Results Component Value Date HGBA1C 5.0 06/26/2019 - will recheck A1c results Acute diastolic congestive heart failure 10/28/2020 MAYCOL (acute kidney injury) Encounters Date Type Department Care Team Description 12/25/2024 Telephone [facility] Primary Care at [address] [id number] Karri Gallardo MD Error (Erroneous Encounter) from Last 3 Months Immunizations Immunization Administration Dates Next Due Influenza, Quadrivalent, Hig h Dose, Preservative Free, Intrr 04/02/2023,03/06/2020 03/06/2021 Influenza, Quadrivalent, Spl it, Intramuscular 03/15/2015 Influenza, Quadrivalent, Spl it, Preservative Free, Intramuscular 03/24/2021 Influenza, Split 04/11/2013 Influenza, Trivalent, High D ose, Split, Preservative Free, Intramuscular 07/18/2024,03/10/2019,04/20/2018,02/13,02/24/2016 04/20/2019 Influenza, Trivalent, IM (MDV) 04/04/2014,2012 Influenza, Trivalent, Preser vative Free, Intramuscular 04/11/2012,04/13/2007,04/22/2006 Influenza, Unspecified 08/11/2022(Deferred: Christianne ent Refused) Pneumococcal Conjugate PCV 13 02/24/2016 Pneumococcal Polysaccharide PPV23 12/14/2017, Surgical History Surgery Date Site/Laterality Comments TOTAL ABDOMINAL HYSTERECTOMY W/ BILATERAL SALPINGOOPHORECTOMY 06/14/2002 - 06/13/2003 Hysterectomy, total abdominal, BSO OTHER SURGICAL HISTORY Anemia: Medical Management HERNIA REPAIR 10/11/2020 XI Repair [facility] Laproscopic Robotic CARDIAC CATHETERIZATION 11/17/2022 RHC/C COLECTOMY 11/22/2023 Medical History Medical History Date Comments Hx Other Medical Anemia Osteoarthritis Osteoarthritis; Comments: OAC 11/13/2014 - Morbid obesity (HCC) Morbid obes ity; Comments: OAC 11/13/2014 - Impaired glucose tolerance Predi abetes; Comments: OAC 11/13/2014 - Vitamin D deficiency Vitamin D d eficiency; Comments: OAC 11/13/2014 - Hypertension Hypertension Depression Depression Atrial fibrillation (HCC) Atrial fibrillation Acute pulmonary embolism (HCC) 05/13/2018 Acute deep vein thrombosis ( DVT) of popliteal vein of right lower extremity (HCC) 05/13/2018 Atherosclerosis of [place] of both lower extremities 12/14/2017 CHF (congestive heart failure) (HCC) Refusal of blood transfusion s as patient is [employer] Sleep apnea Stroke (HCC) TIA Fibromyalgia Anxiety Family History Medical History Relation Name Comments Heart disease Father Breast cancer Maternal Grandmother Breast cancer Mother Cancer Mother Diabetes Other 1 Family history of Diabetes mellitus; Hypertension Other 2 Family history of Hypertension; Kidney disease Other 3 Family histor y of Renal disease; Stroke Other 4 Family history of Stroke; Relation Name Status Comments Father Maternal Grandmother Mother Other 1 Other 2 Other 3 Other 4 Social History Tobacco Use Types Packs/Day Years Used Date Smoking Tobacco: Never Smokeless Tobacco: Never Tobacco Cessation:Counseling Given: Not Answered Alcohol Use Standard Drinks/Week Comments Yes 0 (1 standard drink = 0.6 oz pur e alcohol) 1-2 drinks per year [facility] [employer] Answer Date Recorded In the past 12 months has th e [employer], gas, oil, or water [employer] threatened to shut off services in your [...] often do you attend chur ch or jew services? More than 4 times per year 12/03/2023 Do you belong to any clubs o r organizations such as oriental orthodox groups, unions, fraternal or athletic groups, or [...] staff should administer the PHQ-9) 3 07/18/2024 [facility] Occupat ional Health - Occupational Stress [...] place to sleep or slept in a group home (including now)? No 03/26/2023 PHQ-9 Answer Date [...] any time in the past 12 m [facility], were you homeless or living in a group home (including now)? No 12/03/2023 Personal Safety Answer [...] on file Legal Sex Female 3:41 PM TOBACCO DIPPER Gender Identity Not on file Sexual Orientation Not on file Obstetrics History Last Filed Vital Signs Vital Sign Reading Time Taken Comments Blood Pressure 180/100 07/18/2024 10:42 AM TOBACCO DIPPER Pulse 54 07/18/2024 10:42 AM TOBACCO DIPPER Temperature 36.6 C (97.9 F) 07/18/2024 10:42 AM TOBACCO DIPPER Respiratory Rate 14 11/26/2023 1:40 PM CDT Oxygen Saturation 98% 07/18/2024 10:42 AM TOBACCO DIPPER Inhaled Oxygen Concentration - - Weight 80.7 kg (178 lb) 02/11/2024 1:46 PM CDT Height 177.8 cm (5' 10) 02/11/2024 1:46 PM CDT Body Mass Index 25.54 02/11/2024 1:46 PM CDT Plan of Treatment Health Maintenance Due Date Last Done Comments DTaP/Tdap/Td Vaccine (1 - Tdap) 1962 Zoster Vaccine (1 of 2) 2001 Breast Cancer Screening-Mammogram 03/28/2021 020 Osteoporosis Screening-Bone Density Scan 03/28/2022 03/28/2020, 09/27/2017, 11/15/2012 Covid-19 Vaccine (2 - 2023-2 5 season) 2024 08/26/2020 Well Visit 65+ 09/22/2024 09/23/2023, 07/16, 05/12/2021, Additional history exists Influenza Vaccine (#1) 2025 , 04/02/2023, 03/14/2022, Additional history exists Depression Screening 07/18/2025 07/18/2024, 07/18/2024, 02/01/2024, Additional history exists Fall Risk Assessment 07/18/2025 07/18/2024, 02/01/2024, 11/26/2023, Additional history exists Colon Cancer Screening-Colonoscopy 11/16/2033 11/17/2023, 11/19/2022 Pneumococcal vaccine 65+ Completed 018, 02/24/2016, 04/13/2007 Colon Cancer Screening-CT Colonography Discontinued 11/17/2023, 11/19/2022 Colon Cancer Screening-DNA Stool Discontinued 11/17/19 24, 11/19/2022 Colon Cancer Screening-FIT Discontinued 11/17/2023, Colon Cancer Screening-Sigmoidoscopy Discontinued 11/17/2023, 11/19/2022 Hepatitis B Screening Completed 12/07/2023 Hepatitis C Screening Discontinued Medical Devices Implanted Type Area Electronics Repair Technician Device Identifier Shelf Expiration Date Model / Serial / Lot [employer] [id number] Ventralight St Sepra 6x4in Monofilament Absorbable Low Profile Latex Free - [id number] Implanted:Qty: 1 on 10/11/2020 by Mario Escobar MD at [facility] Mesh N/A: Abdomen [employer]/C R Bard 11/08/2021 [id number] / / [id number] [employer] Bette Contour 6fr 26cm Large Inner Lumen Low Profile Bladder Cristóbal Taper Latex Free 180-223 - [id number] Implanted:Qty: 1 on 03/24/2023 by Yisel Baer III, MD at [facility] Right: Urethra [employer] Bette 12/21/2025 [id number] / / [id number] Procedures Procedure Name Priority Date/Time Associated Diagnosis Comments COLONOSCOPY 11/17/2023 4:07 PM CDT DIAGNOSTIC MAMMOGRAM BILATERAL W YURI Schedule Routine, Read Routine (OP Routine) 03/28/2020 11:00 AM CDT Breast tenderness DEXA AXIAL SKELETON BONE DENSITY 1 OR MORE SITES Schedule Routine, Read Routine (OP Routine) 03/28/2020 10:43 AM CDT Asymptomatic menopausal state Osteoporosis screening from Last 3 Months or Most Recently Relevant to Health Maintenance Results * Colonoscopy (11/17/2023 4:07 PM CDT) Anatomical Region Laterality Modality Other Narrative Procedure Note Jennifer Elizabeth MD - 11/17/2023 4:07 PM CDT [facility] Patient Name: Vanessa Lauren Procedure Date: 11/17/2023 4:07 PM Date of : 1950 Admit Type: Inpatient Age: 73 Gender: Female Attending MD: Jennifer Elizabeth M.D. Room: [facility] ENDOSCOPY ROOM 1 Note Status: Finalized Patient Profile: This is a 73 year old female. Patient admitted with severe anemia. Patient is Jehovah Witness and doesnot accept blood transfusion. History of large adenoma polyp in the hepatic flexure noted last yearwithout further intervention Procedure: Colonoscopy Indications: Last colonoscopy: November 2022, Heme positive stool,Iron deficiency anemia Referring MD: Karri Gallardo M.D. Providers: Jennifer Elizabeth M.D. Impression: - One 50 mm semi sessile polyp lesion in theproximal transverse colon with a central the. Biopsied. Tattooed. - Internal hemorrhoids. Recommendation: - Await pathology results. - Repeat colonoscopy in 3 years for surveillance. After surgical removal of the Referral to surgery for excision of the lesion. Medicines: Monitored Anesthesia Care Complications: No immediate complications. Estimated Blood Loss: Estimated blood loss: none. Procedure: Pre-Anesthesia Assessment: - Prior to the procedure, a History and Physicalwas performed, and patient medications and allergieswere reviewed. The patient's tolerance of previous anesthesia was also reviewed. The risks andbenefits of the procedure and the sedation options and risks were discussed with the patient. All questions were answered, and informed consent was obtained. Prior Anticoagulants: The patient has taken noanticoagulant or antiplatelet agents. ASA Grade Assessment: III -A patient with severe systemic disease. Afterreviewing the risks and benefits, the patient was deemed in satisfactory condition to undergo the procedure. The benefits, risks and alternatives of theprocedure and sedation were discussed and informed consentwas obtained. All questions were answered. Please referto the signed informed consent document in the medical record. The bowel preparation used was Miralax and bisacodyl tablets via split dose instruction. The scope was passed under direct vision. The Pediatric Colonoscope [id number]-[id number] was introducedthrough the anus and advanced to the the cecum, identifiedby appendiceal orifice and ileocecal valve. Thequality of the bowel preparation was good. Bowel prep was administered using a split dose. Findings: The perianal and digital rectal examinations were normal. The cecum appeared normal. The ascending colon appeared normal. A 50 mm polyp was found in the proximal transverse colon. The polypwas semi-sessile and laterally spread with central depression. Biopsieswere taken with a cold forceps for histology. Area was tattooed with an injection of 4 mL of Spot (carbon black). The rectum, sigmoid colon and descending colon appeared normal. Internal hemorrhoids were found during retroflexion. The hemorrhoids were medium-sized. Electronically signed by Ahmad Karadaghy, M.D. Jennifer Elizabeth M.D. 11/18/2023 7:34:25 AM Number of Addenda: 0 Note Initiated On: 11/17/2023 4:07 PM Procedure Code(s): --- Professional --- 60208, Colonoscopy, flexible; with directed submucosal injection(s),any substance 00926, Colonoscopy, flexible; with biopsy, single or multiple Diagnosis Code(s): --- Professional --- K64.8, Other hemorrhoids D12.3, Benign neoplasm of transverse colon (hepatic flexure orsplenic flexure) R19.5, Other fecal abnormalities D50.9, Iron deficiency anemia, unspecified CPT copyright 2020 [employer]. All rights reserved. The codes documented in this report are preliminary and upon ux researcher reviewmay be revised to meet current compliance requirements. Recognized by the [employer] for promoting quality in endoscopy Jennifer Elizabeth MD ENDOSCOPY PROCEDURES Final Result * Diagnostic Mammogram Bilateral W Yuri (03/28/2020 11:00 AM CDT) Anatomical Region Laterality Modality Breast Bilateral Mammography 03/28/2020 11:0 3 AM CDT Impressions 03/28/2020 12:35 PM CDT 1. Probably benign global asymmetry/trabecular thickening within the lateral left breast, favoring the lower outer quadrant. This is most likely represents asymmetrically increased edema related to the patient's known history of congestive heart failure/lymphedema. This edema presumably accounts for her non-focal left breast pain/intermittent swelling. Inflammatory left breast cancer is considered much less likely. Clinical follow-up (including continued physical examination) is recommended. Short-term follow-up with left diagnostic mammogram (and possibly left breast ultrasound if warranted) in 3 months is recommended for reevaluation of this these likely benign imaging findings. 2. No mammographic evidence of malignancy involving the right breast. Recommend screening mammography of the right breast in one year. I discussed these results and follow-up recommendations with the patient at time of the exam. BI-RADS: 3 - Probably benign Electronically signed by: Hermann Lewis M.D. Narrative 03/28/2020 12:35 PM CDT EXAMINATION: DIAGNOSTIC MAMMOGRAM BILATERAL W YURI, US BREAST LEFT COMPLETE ORDERING HEALTHCARE PROVIDER: ADIN MORRISON HISTORY: 70-year-old female with diffuse left breast pain and intermittent swelling for one month. Right screening mammogram. Remote benign bilateral breast surgical excisional biopsies as a teenager. History of congestive heart failure, lymphedema. Family history of breast cancer includes mother and maternal grandmother. COMPARISON: None available, new baseline. TECHNIQUE: CC and MLO views of the bilateral breasts were obtained with digital technique using breast tomosynthesis with C view. Computer aided detection was utilized. Grayscale and color Doppler ultrasound of the left breast was performed. FINDINGS: Bilateral mammogram: The breast tissue is heterogeneously dense, which may obscure small masses. There is global asymmetry/trabecular thickening in the lateral portion of the left breast, predominantly the lower outer quadrant. There is also mild skin thickening of the left breast. Focal skin indentation within the upper outer quadrant of the left breast corresponds with a site of remote benign surgery according to the patient. No discrete mass is seen within the left breast. There are several benign calcifications in both breasts. There are no suspicious masses, suspicious calcifications, skin thickening, or architectural distortion within the right breast. Bilateral axillary lymph nodes appear morphologically benign. Left breast ultrasound: Complete ultrasound of the left breast was performed by both the cath lab radiological technologist and myself. There is subcutaneous edema throughout the left breast, which is most prevalent within the lower outer quadrant. Left breast skin thickening is most pronounced within the lower outer quadrant as well. No discrete mass is identified within the left breast. us Adin Morrison SENIOR ANALYST [employer] IMG MAMMO PROCEDURES Final Resul t * Dexa Axial Skeleton Bone Density 1 or 2 Site (03/28/2020 10:43 AM CDT) Anatomical Region Laterality Modality Body N/A Other 03/28/2020 2:20 PM CDT Impressions 03/28/2020 3:02 PM CDT According to the World Health Organization criteria, based upon the left femoral neck bone mineral density (T score value of -2.2), the patient has low bone mass. In this patient with low bone mass not currently on biphosphonate therapy, the 10 year probability for major osteoporotic fracture is 11% and for hip fracture is 2.0%. According to the World Health Organization, biphosphonate therapy is indicated if 10 year risk for a major osteoporotic fracture is greater than or equal to 20% or the 10 year risk for hip fracture is greater than or equal to 3%. General Recommendations: 1. Consider an evaluation for secondary causes of osteoporosis in patients with low bone density. 2. All patients should be counseled on adequate intake of calcium (1200 mg/day), vitamin D (600-800 IU daily) and exercise. 3. The National Osteoporosis Foundation (NOF) guidelines recommend initiating pharmacological therapy, in addition to calcium, vitamin D and exercise, to reduce fracture risk when: a. T-score less than or equal to -2.5 after secondary causes excluded. b. T-score between -1.0 and -2.5 with secondary causes associated with high risk of fracture. c. 10-year probability of hip fracture more than or equal to 3% (based on FRAX score). d. 10-year probability of major osteoporosis related fracture more than or equal to 20% (based on FRAX score). Followup: People with diagnosed cases of osteoporosis or at high risk for fracture should have regular bone mineral density tests. For patients eligible for Medicare, routine testing is allowed once every 2 years. The testing frequency can be increased to one year for patients who have rapidly progressive disease or those who are receiving long-term steroid therapy. Electronically signed by: Hermann Lewis M.D. Narrative 03/28/2020 3:02 PM CDT COMPLETION DATE: 03/28/2020 1:30 PM ORDERING HEALTHCARE PROVIDER: ADILSON DAILEY DESCRIPTION: DEXA AXIAL SKELETON BONE DENSITY 1 OR MORE SITES CLINICAL INDICATIONS: Postmenopausal osteoporosis and high fracture risk. Reported use of vitamin D and calcium. No regular weightbearing exercise, drinks caffeinated beverages. COMPARISON: 09/27/2017 TECHNIQUE: Dual x-ray absorptiometry (DEXA) was performed using [employer] system. GENERAL GUIDELINES: According to WHO guidelines, a T score of -1.0 or greater is normal, between -1.0 to -2.4 is osteopenia, and -2.5 or less is osteoporosis. Z score (instead of T score) is preferred for pediatric, young adults, premenopausal women and men under age of 50 years. In these patients, a Z score greater than or equal to -2.0 is considered to be in the expected range. FINDINGS: LEFT FEMORAL NECK: T-score -2.2 LEFT TOTAL HIP: T-score -1.4 LUMBAR SPINE (L1-L4): T-score -1.2 Dissimilar scan types or analysis methods preclude assessment for change in bone mineral density from prior. A FRAX score based upon a DXA study is not reported unless all of the following criteria are met. The patient: a. Is an untreated postmenopausal woman or a man age 50 or older. b. Has low bone mass (T-score between -1.0 and -2.5). c. Has no prior hip or vertebral fracture (clinical or morphometric). d. Has an evaluable hip for DXA study. Procedure Note Hermann Lewis MD - 03/28/2020 COMPLETION DATE: 03/28/2020 1:30 PM ORDERING HEALTHCARE PROVIDER: ADILSON DAILEY DESCRIPTION: DEXA AXIAL SKELETON BONE DENSITY 1 OR MORE SITES CLINICAL INDICATIONS: Postmenopausal osteoporosis and high fracture risk. Reported use of vitamin D and calcium. No regular weightbearing exercise, drinks caffeinated beverages. COMPARISON: 09/27/2017 TECHNIQUE: Dual x-ray absorptiometry (DEXA) was performed using [employer] system. GENERAL GUIDELINES: According to WHO guidelines, a T score of -1.0 or greater is normal, between -1.0 to -2.4 is osteopenia, and -2.5 or less is osteoporosis. Z score (instead of T score) is preferred for pediatric, young adults, premenopausal women and men under age of 50 years. In these patients, a Z score greater than or equal to -2.0 is considered to be in the expected range. FINDINGS: LEFT FEMORAL NECK: T-score -2.2 LEFT TOTAL HIP: T-score -1.4 LUMBAR SPINE (L1-L4): T-score -1.2 Dissimilar scan types or analysis methods preclude assessment for change in bone mineral density from prior. A FRAX score based upon a DXA study is not reported unless all of the following criteria are met. The patient: a. Is an untreated postmenopausal woman or a man age 50 or older. b. Has low bone mass (T-score between -1.0 and -2.5). c. Has no prior hip or vertebral fracture (clinical or morphometric). d. Has an evaluable hip for DXA study. IMPRESSION: According to the World Health Organization criteria, based upon the left femoral neck bone mineral density (T score value of -2.2), the patient has low bone mass. In this patient with low bone mass not currently on biphosphonate therapy, the 10 year probability for major osteoporotic fracture is 11% and for hip fracture is 2.0%. According to the World Health Organization, biphosphonate therapy is indicated if 10 year risk for a major osteoporotic fracture is greater than or equal to 20% or the 10 year risk for hip fracture is greater than or equal to 3%. General Recommendations: 1. Consider an evaluation for secondary causes of osteoporosis in patients with low bone density. 2. All patients should be counseled on adequate intake of calcium (1200 mg/day), vitamin D (600-800 IU daily) and exercise. 3. The National Osteoporosis Foundation (NOF) guidelines recommend initiating pharmacological therapy, in addition to calcium, vitamin D and exercise, to reduce fracture risk when: a. T-score less than or equal to -2.5 after secondary causes excluded. b. T-score between -1.0 and -2.5 with secondary causes associated with high risk of fracture. c. 10-year probability of hip fracture more than or equal to 3% (based on FRAX score). d. 10-year probability of major osteoporosis related fracture more than or equal to 20% (based on FRAX score). Followup: People with diagnosed cases of osteoporosis or at high risk for fracture should have regular bone mineral density tests. For patients eligible for Medicare, routine testing is allowed once every 2 years. The testing frequency can be increased to one year for patients who have rapidly progressive disease or those who are receiving long-term steroid therapy. Electronically signed by: Hermann Lewis M.D. 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 03/24/2023 Insurance [facility] Address: [address] [address] [place] [address] [employer] [facility] [employer] MEDIC[employer] PPO [employer] PPO Advance Directives For more information, please contact: [phone] Documents on File Type Date Recorded Patient Certified Nurse Operating Room Expl anation ADVANCE DIRECTIVE 11/24/2022 11:04 AM ROM R OF SOUND ENGINEERING TECHNICIAN-MEDICAL ADVANCE DIRECTIVE 11/16/2022 4:29 PM POWER OF SOUND ENGINEERING TECHNICIAN-MEDICAL * Full Code (Latest Code Status on File) Date Activated Date Inactivated Comments 11/17/2023 3:12 PM 11/26/2023 8:17 PM * LIMITED - No CPR Date Activated Date Inactivated Comments 11/13/2023 10:54 AM 11/17/2023 3:12 PM Question Answer Comments Provide aggressive medical m anagement before a full cardiopulmonary arrest occurs. Use antibiotics, IV Fluids, and medical treatment unless specifically selected below: No intubation * Full Code Date Activated Date Inactivated Comments 11/13/2023 4:14 AM 11/13/2023 10:54 AM * LIMITED - No CPR Date Activated Date Inactivated Comments 11/13/2023 4:06 AM 11/13/2023 4:14 AM * Full Code Date Activated Date Inactivated Comments 11/13/2023 2:01 AM 11/13/2023 4:06 AM Healthcare Agents on File Name Relationship Healthcare Agent Relationshi p Communication Janeen Lauren Daughter Health Care Agent Anthony Lauren Grandchild First Alternate Health Care Agent Care Teams Customer Service Receptionist Relationship Specialty Start Date End Date Karri Gallardo MD PCP - General Family Medicine 03/06/21 Jennifer Elizabeth MD Consulting Physician Gastroenterology 09/22/19 Cece Lyn MD Consulting Physician Sleep Medicine 07/27/20 Sadi Monterroso MD Consulting Physician Cardiology 02/10/23 Kathie Perez MD Consulting Physician Urology 04/02/23
[2025-01-08 09:42] LABS: Alanine Aminotransferase 25 U/L (6-35); Albumin Level 4.0 g/dL (3.5-5.1); Alkaline Phosphatase 89 U/L (38-126); Anion Gap 10 mmol/L (4-12); Aspartate Amino Transferase 51 U/L (14-36); Bilirubin,Total 1.7 mg/dL (0.2-1.3); Blood Urea Nitrogen 18 mg/dL (7-17); Calcium 9.9 mg/dL (8.4-10.2); Carbon Dioxide 27 mmol/L (22-30); Chloride 104 mmol/L (98-107); Creatine Kinase 470 U/L (30-135); Estimated Glomerular Filt Rate > 60; Glucose 121 mg/dL (65-110); Lipase 26 U/L (23-300); Potassium 3.8 mmol/L (3.4-5.0); Sodium 141 mmol/L (137-145); Total Protein 8.2 g/dL (6.3-8.2)
--- OUTSIDE RECORDS SUMMARY | 2025-01-08 09:42 | XMS_ITS | Referral Summary ---
Author Organization [facility] Address [address] [place] [address] Care Team Providers Care Engraver Flatware Name Role Phone Jennifer Elizabeth MD Unavailable [phone] Cece Lyn MD Unavailable Karri Gallardo MD Primary Care Provider Sadi Monterroso MD Unavailable [phone] Kathie Perez MD Unavailable Encounters Date Type Department Care Team Description 12/25/2024 Telephone [facility] Primary Care at [address] [address] Karri Gallardo MD Error (Erroneous Encounter) from Last 3 Months Allergies No known active allergies Medications ferrous [...] uses a motorized scooter to improve mobility -lpuw-et-pfgg evaluation performed, recommendation for patient to obtain [...] 09/23/2023 Assessment & Plan (07/18/2024 11:27 AM PLATE FITTER): Chronic problem, stable. Improved with topical lidocaine [...] 03/24/2023 Assessment & Plan (06/21/2023 3:20 PM PLATE FITTER): - was hospitalized 03/2023 for Septic shock [...] 11/28/2022 Assessment & Plan (07/18/2024 11:30 AM PLATE FITTER): Chronic condition, stable and managed with CPAP [...] gradient across the aortic valve. No obstructive [place] coronary artery disease. PSG 12/04 This all [...] 09/26/2021 Assessment & Plan (06/21/2023 3:17 PM PLATE FITTER): - Has overflow incontinence, uses incontinence supplies, under pads, prolapse, PAD/liners - will send orders for incontinence supplies to be sent to patient History of hysterectomy 04/01/2021 Assessment & Plan (04/01/2021 1:06 PM CDT): - in remote past for dysmenorrhea History of TIA (transient ischemic attack) 02/08 Assessment & Plan (04/01/2021 1:10 PM CDT): - hx of acute TIA on 10/02, [facility] had presented with hemiparesis of the left - CTA head and neck and CT scan of head were unremakrable - she is currently on atorvastatin 40mg nightly, aspirin 81mg daily - no tobacco use history - no deficits from the stroke Chronic diastolic CHF (congestive heart failure) 10/05/2019 Assessment & Plan (07/18/2024 10:49 AM PLATE FITTER): - chronic, stable, asymptomatic at this time [...] emboli. Assessment & Plan (08/11/2022 3:16 PM PLATE FITTER): - chronic - follows with cardiology - [...] emboli. Assessment & Plan (08/04/2021 12:55 AM PLATE FITTER): - follows with cardiology - has normal [...] home. Assessment & Plan (05/20/2020 8:21 PM PLATE FITTER): Continued MARCH, swelling She is needing to improve her activity level Continuing current regimen Aortic atherosclerosis 10/05/2019 Overview (10/05/2019): Identified on CT scan September 2019 Iron deficiency anemia radha morton to inadequate dietary iron intake 03/21/2019 Assessment & Plan (07/18/2024 10:54 AM PLATE FITTER): - chronic condition. not at goal Hgb [...] 11/11/2021 Assessment & Plan (05/12/2021 9:53 AM PLATE FITTER): - chronic, improved - hx of iron [...] 05/13/2018 Assessment & Plan (08/11/2022 3:01 PM PLATE FITTER): - recent diagnosis as noted below in [...] 11/15/2022 Assessment & Plan (06/21/2023 12:33 PM PLATE FITTER): - chronic condition, better controlled - chronic [...] 11/15/2022 Assessment & Plan (08/11/2022 3:03 PM PLATE FITTER): - chronic condition, controlled - chronic anxiety [...] weeks Assessment & Plan (08/04/2021 12:59 AM PLATE FITTER): - chronic condition, worse - chronic anxiety and depression which is not well controlled - states it is because of her health issues - had stopped taking her medication Sertraline 50mg daily --> restart medication - feels like anxiety is not well controlled - follow-up in 6 weeks Assessment & Plan (05/12/2021 9:47 AM PLATE FITTER): - chronic condition, not at goal - [...] evaluation. Assessment & Plan (08/11/2022 3:13 PM PLATE FITTER): - chronic condition, of lower extremities, better [...] 120cm Assessment & Plan (08/04/2021 12:37 AM PLATE FITTER): - chronic condition, of lower extremities - [...] mobility Assessment & Plan (05/12/2021 9:32 AM PLATE FITTER): - chronic condition, of lower extremities - [...] now Assessment & Plan (05/20/2020 8:23 PM PLATE FITTER): She may benefit from tactile pump Wheelchair dependent 06/24/2017 Assessment & Plan (02/04/2024 10:27 AM CDT): -chronic, stable -patient reports longstanding history with difficulty walking and bilateral lower leg weakness -patient currently utilizes motorized scooter -comorbidities lymphedema and obesity -patient reports her motorized scooter does not hold charge very well anymore and she is hoping to obtain a new one -ebcu-bb-[id number] evaluation performed, recommendation for patient to obtain new motorized scooter to improve mobility -continue current treatment plan Assessment & Plan (09/23/2023 9:30 AM CDT): - patient has difficulty with mobility - at risk for falls - uses wheelchair - has morbid obesity and lymphedema Assessment & Plan (06/21/2023 3:17 PM PLATE FITTER): - patient has difficulty with mobility - at risk for falls - uses wheelchair - has morbid obesity and lymphedema Assessment & Plan (05/12/2021 10:58 AM PLATE FITTER): - patient has difficulty with mobility - at risk for falls - uses wheelchair - has morbid obesity and lymphedema Moderate episode of recurrent major depressive d isorder 04/11/2013 Assessment & Plan (07/18/2024 11:29 AM PLATE FITTER): -chronic condition with concomitant anxiety. Stable at [...] 11/15/2022 Assessment & Plan (06/21/2023 12:33 PM PLATE FITTER): - chronic condition, better controlled - chronic [...] 11/15/2022 Assessment & Plan (08/11/2022 3:14 PM PLATE FITTER): - chronic condition, better controlled - chronic [...] weeks Assessment & Plan (08/04/2021 12:59 AM PLATE FITTER): - chronic condition, worse - chronic anxiety and depression which is not well controlled - states it is because of her health issues - had stopped taking her medication Sertraline 50mg daily --> restart medication - feels like anxiety is not well controlled - follow-up in 6 weeks Assessment & Plan (05/12/2021 9:47 AM PLATE FITTER): - chronic condition, not at goal - [...] Final Assessment & Plan (05/12/2021 9:44 AM PLATE FITTER): - hx of vitamin D def - [...] 11/10/2012 Assessment & Plan (07/18/2024 10:51 AM PLATE FITTER): - chronic condition, stable - follows with [...] emboli. Assessment & Plan (08/11/2022 3:03 PM PLATE FITTER): - chronic condition, stable - follows with [...] therapy Lab Results Component Value Date TSH 1.11/11/2021 Echo 10/2020 Conclusions: Normal left ventricular systolic [...] past Lab Results Component Value Date TSH 1.11/11/2021 Echo 10/2020 Conclusions: Normal left ventricular systolic [...] emboli. Assessment & Plan (08/04/2021 12:55 AM PLATE FITTER): - chronic condition, stable - follows with [...] 11/10/2012 Assessment & Plan (07/18/2024 11:29 AM PLATE FITTER): BP Readings from Last 3 Encounters: 07/18/24 [...] diet. Risks of hypertension discussed including stroke, [place], decrease in cardiac function. Emergency room indications [...] 04/02/2023 Assessment & Plan (06/21/2023 12:33 PM PLATE FITTER): BP Readings from Last 3 Encounters: 06/21/23 [...] 11/18/2022 Assessment & Plan (08/11/2022 3:04 PM PLATE FITTER): - chronic condition, well controlled - labile, [...] therapy Assessment & Plan (08/04/2021 12:57 AM PLATE FITTER): - chronic condition, not controlled - labile, [...] 120-140/70 Assessment & Plan (05/20/2020 8:22 PM PLATE FITTER): Blood Pressure Follow-up: Lifestyle modifications education provided [...] week you can send your results via [email or web address] or if you do not have [employer] you may call them in. Class 1 obesity with body ma ss index (BMI) of 30.0 to 30.9 in adult 11/10/2012 Assessment & Plan (07/18/2024 11:29 AM PLATE FITTER): Chronic condition. Not able to calculate BMI [...] counseling Assessment & Plan (08/04/2021 12:56 AM PLATE FITTER): Wt Readings from Last 3 Encounters: 05/12/21 (!) 137.9 kg (304 lb) 04/16/21 119.4 kg (263 lb 3.2 oz) 04/01/21 111.7 kg (246 lb 3.2 oz) Body mass index is 43.62 kg/m . - chronic, not at goal - limits her mobility significantly along with lymphedema of lower extremities - BMI Follow-up includes: nutrition counseling, exercise counseling Assessment & Plan (05/12/2021 9:42 AM PLATE FITTER): Wt Readings from Last 3 Encounters: 05/12/21 [...] provided Assessment & Plan (05/20/2020 8:22 PM PLATE FITTER): BMI Follow-up includes: nutrition counseling and exercise [...] replacement For pasta, try using zucchini noodles Exira and/or coconut flour instead of regular flour For pizza dough, try fathead pizza dough recipe online [employer] recipe online For ice cream, try the brand RisparmioSuperightened Use Acupera for recipe ideas. Type in low carb... [...] replacement For pasta, try using zucchini noodles Exira and/or coconut flour instead of regular flour For pizza dough, try fathead pizza dough recipe online chaffles recipe online For ice cream, try the [...] leg Assessment & Plan (08/11/2022 11:23 PM PLATE FITTER): - questionable diagnosis, chronic condition that is [...] screening mammogram Acute CVA (cerebrovascular a ccident) ([facility]/HCC) 10/16/2020 04/01/2021 Acute pain of left shoulder [...] 11/11/2021 Assessment & Plan (05/20/2020 10:55 AM PLATE FITTER): A yearly Medicare Annual Wellness Visit has [...] 03/24/20192023 Assessment & Plan (08/11/2022 3:01 PM PLATE FITTER): - chronic, stable - mainly over bilateral lower extremities - this could be from her fibromyalgia, lymphedema or neuropathy - she is on chronic narcotic pain medication, being managed by PCP - continue current therapy - on usp use of Pengilly 5-325 TID PRN Assessment & Plan (01/13/2022 8:30 AM CDT): - chronic, stable - mainly over bilateral lower extremities - this could be from her fibromyalgia, lymphedema or neuropathy - she is on chronic narcotic pain medication, being managed by PCP - continue current therapy - on superintendent terminal use of Pengilly 5-325 TID PRN Assessment & Plan (11/17/2021 [...] Other chest pain 05/13/2018 09/08/2018 Atherosclerosis of [place] of both lower extremities 12/14/2017 [...] heart failure 10/28/2020 [facility]COL (acute kidney injury) Immunizations Immunization Administration Dates Next Due Influenza, [...] PCV 13 02/24/2016 Pneumococcal Polysaccharide PPV23 12/14/2017, Social History Tobacco Use Types Packs/Day Years Used Date Smoking Tobacco: Never Smokeless Tobacco: Never Tobacco Cessation:Counseling Given: Not Answered Alcohol Use Standard Drinks/Week Comments Yes 0 (1 standard drink = 0.6 oz pur e alcohol) 1-2 drinks per year [employer] Answer Date Recorded In the past 12 months has [employer], [employer], or water [employer] threatened to shut off services in your [...] often do you attend chur ch or uatsdin services? More than 4 times per year 12/03/2023 Do you belong to any clubs o r organizations such as moravian groups, unions, fraternal or athletic groups, or [...] staff should administer the PHQ-9) 3 07/18/2024 [facility] - Occupational Stress Questionnaire Answer Date Recorded [...] place to sleep or slept in a alf (including now)? No 03/26/2023 PHQ-9 Answer Date [...] any time in the past 12 m [facility], were you homeless or living in a alf (including now)? No 12/03/2023 Personal Safety Answer [...] on file Legal Sex Female 3:41 PM PLATE FITTER Gender Identity Not on file Sexual Orientation Not on file Last Filed Vital Signs Vital Sign Reading Time Taken Comments Blood Pressure 180/100 07/18/2024 10:42 AM PLATE FITTER Pulse 54 07/18/2024 10:42 AM PLATE FITTER Temperature 36.6 C (97.9 F) 07/18/2024 10:42 AM PLATE FITTER Respiratory Rate 14 11/26/2023 1:40 PM CDT Oxygen Saturation 98% 07/18/2024 10:42 AM PLATE FITTER Inhaled Oxygen Concentration - - Weight 80.7 kg (178 lb) 02/11/2024 1:46 PM CDT Height 177.8 cm (5' 10) 02/11/2024 1:46 PM CDT Body Mass Index 25.54 02/11/2024 1:46 PM CDT Plan of Treatment Not on file Medical Devices Implanted Type Area Auto Fleet Maintenance Manager Device Identifier Shelf Expiration Date Model / Serial / Lot [employer] Access Systems [id number] Ventralight St Sepra 6x4in Monofilament Absorbable Low Profile Latex Free - [id number] Implanted:Qty: 1 on 10/11/2020 by Mario Escobar MD at [facility] Mesh N/A: Abdomen [employer]/C R Bard 11/08/2021 [id number] / / [id number] [employer] Bette Contour 6fr 26cm Large Inner Lumen Low Profile Bladder Cristóbal Taper Latex Free 180-223 - [id number] Implanted:Qty: 1 on 03/24/2023 by Yisel Baer III, MD at [facility] Right: Urethra [employer] Bette 12/21/2025 [id number] / / [id number] Procedures Procedure Name Priority Date/Time Associated Diagnosis [...] Elizabeth MD - 11/17/2023 4:07 PM CDT [facility] Patient Name: Vanessa Lauren Procedure Date: 11/17/2023 4:07 PM Date of : 1950 Admit Type: Inpatient Age: 73 Gender: Female Attending MD: Jennifer Elizabeth M.D. Room: [facility] 1 Note Status: Finalized Patient [...] under direct vision. The Pediatric Colonoscope [id number]-[id number] was introducedthrough the anus and advanced to [...] The hemorrhoids were medium-sized. Electronically signed by Jennifer Elizabeth M.D. Jennifer Elizabeth M.D. 11/18/2023 7:34:25 AM Number of Addenda: 0 Note Initiated On: 11/17/2023 4:07 PM Procedure Code(s): --- Professional --- 07093, Colonoscopy, flexible; with directed submucosal injection(s),any substance 22963, Colonoscopy, flexible; with biopsy, single or multiple Diagnosis Code(s): --- Professional --- K64.8, Other hemorrhoids D12.3, Benign neoplasm of transverse colon (hepatic flexure orsplenic flexure) R19.5, Other fecal abnormalities D50.9, Iron deficiency anemia, unspecified CPT copyright 2020 [employer]. All rights reserved. The codes documented in this report are preliminary and upon shaper operator reviewmay be revised to meet current compliance requirements. Recognized by the [employer] for promoting quality [...] left breast was performed by both the cardiac catheterization technologist and myself. There is subcutaneous edema throughout the left breast, which is most prevalent within the lower outer quadrant. Left breast skin thickening is most pronounced within the lower outer quadrant as well. No discrete mass is identified within the left breast. us Adin Morrison NP IMG MAMMO PROCEDURES Final Resul t * [...] 03/28/2020 1:30 PM ORDERING HEALTHCARE PROVIDER: ADILSON SHERWOOD STUDY DESCRIPTION: DEXA AXIAL SKELETON BONE DENSITY 1 OR MORE SITES CLINICAL INDICATIONS: Postmenopausal osteoporosis and high fracture risk. Reported use of vitamin D and calcium. No regular weightbearing exercise, drinks caffeinated beverages. COMPARISON: 09/27/2017 TECHNIQUE: Dual x-ray absorptiometry (DEXA) was performed using [employer] system. GENERAL GUIDELINES: According to WHO guidelines, [...] 03/28/2020 1:30 PM ORDERING HEALTHCARE PROVIDER: ADILSON SHERWOOD STUDY DESCRIPTION: DEXA AXIAL SKELETON BONE DENSITY 1 OR MORE SITES CLINICAL INDICATIONS: Postmenopausal osteoporosis and high fracture risk. Reported use of vitamin D and calcium. No regular weightbearing exercise, drinks caffeinated beverages. COMPARISON: 09/27/2017 TECHNIQUE: Dual x-ray absorptiometry (DEXA) was performed using [employer] system. 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 03/24/2023 03/24/2023 Insurance MEDICARE IDCT IDPA HUMANA CHOICE MEDICARE PPO IDPA HUMANA CHOICE MEDICARE PPO Advance Directives For more information, please contact: [phone] Documents on File Type Date Recorded Patient Retread Technician Expl anation ADVANCE DIRECTIVE 11/24/2022 11:04 AM ROM R OF [employer]ACH[employer] RIGGER-MEDICAL ADVANCE DIRECTIVE 11/16/2022 4:29 PM POWER OF PARACHUTE RIGGER-MEDICAL * Full Code (Latest Code Status on [...] Agents on File Name Relationship Healthcare Agent [facility] p Communication Janeen Lauren Daughter Health Care Agent Anthony Lauren Grandchild First Alternate Health Care Agent Care Teams Engraver Flatware Relationship Specialty Start Date End Date Karri Gallardo MD PCP - General Family Medicine 03/06/21 Jennifer Elizabeth MD Consulting Physician Gastroenterology 09/22/19 Cece Lyn MD Consulting Physician Sleep Medicine 07/27/20 Sadi Monterroso MD Consulting Physician Cardiology 02/10/23 Kathie Perez MD Consulting Physician Urology 04/02/23
--- OUTSIDE RECORDS SUMMARY | 2025-01-08 09:42 | XMS_ITS | Encounter Summary ---
Author Organization [facility] Address [address] [place] [address] Phone Care Team Providers Care Electrician'S Assistant Name Role Phone Adilson Sherwood MD Primary Care Provider Prieto Louis DO Unavailable Nellie Kitchen LPN Unavailable Unavailabl Nellie French LPN Unavailable Unavailabl e Herminia Puentes MA Unavailable Jennifer Elizabeth MD Unavailable [phone] Tere Foster Unavailable [phone] Herminia Puentes MA Unavailable Letty Zapata [facility] Unavailable Caterina GuevaraW Unavailable [phone] Karen Dyson MA Unavailable Unavailable Cece Lyn MD Unavailable аТтьяна Carmona RN Unavailable [phone] Edmond Lucero RN Unavailable Shira Castillo RN Unavailable [phone] Karri Gallardo MD Primary Care Provider Jessica Brown LEAD FORMER Unavailable [phone] Jessica Brown LEAD FORMER Unavailable [phone] Kerry Zaman KILN TENDER Unavailable Harshal Peters RN Unavailable [phone] Jacki Scott LCSW Unavailable [phone] Sadi Monterroso MD Unavailable [phone] Kathie Perez MD Unavailable Luna Dempsey RN Unavailable [phone] Jacki Scott LEAD FORMER Unavailable [phone] Encounter Details Date Type Department Care Team (Late st Contact Info) Description 09/13/2017 Orders Only [facility] Provider, MD Cj [facility] [place] [address] Social History Tobacco Use Types Packs/Day Years Used Date Smoking Tobacco: Never Smokeless Tobacco: Never Alcohol Use Standard Drinks/Week Comments Yes 0 (1 standard drink = 0.6 oz pur e alcohol) Comments Unknown Sex and Gender Information Value Date Recorded Sex Assigned at Not on file Legal Sex Female 3:41 PM SOFTLINES SUPERVISOR Gender Identity Not on file Sexual Orientation Not on file documented as of this encounter Plan of Treatment Not on file documented as of this encounter Procedures Procedure Name Priority Date/Time Associated Diagnosis Comments DISCHARGE LABORATORY CUMULATIVE REPORT 09/13/2017 12:00 AM CDT documented in this encounter Results * DISCHARGE LABORATORY CUMULATIVE REPORT (09/13/2017 12:00 AM CDT) Narrative 09/13/2017 12:00 AM CDT Ordered by an unspecified provider. Historical Provider LAB BLOOD ORDERABLES Shanna l Result documented in this encounter Visit Diagnoses Not on filedocumented in this encounter Additional Health Concerns Infection Onset Date Last Indicated Resolved Time COVID: Suspected 07/26/2020 07/26/2020 07/26/2020 5:29 AM SOFTLINES SUPERVISOR Respiratory Infection (ELA), contact + droplet Comment:Automatically added due to negative COVID-19 result. 07/26/2020 07/26/2020 07/26/2020 11: 26 AM SOFTLINES SUPERVISOR COVID: Suspected 03/04/2022 03/04/2022 03/04/2022 2:33 PM CDT MDR gram neg/ESBL 03/24/2023 03/24/2023 COVID: Suspected 11/12/2023 11/12/2023 11/12/2023 10:48 PM CDT documented as of this encounter Care Teams Electrician'S Assistant Relationship Specialty Start Date End Date Adilson Sherwood MD PCP - General 09/11/16 03/05/21 Karri Gallardo MD [address] [place] [address] [address] [place] [address] PCP - General Family Medicine 03/06/21 Prieto Louis DO Cardiovascular Disease 05/13/18 3 Nellie Kitchen LPN Care Manager 05/16/18 05/18/18 Nellie Kitchen LPN Care Manager 05/23/18 05/26/18 Herminia Puentes MA [address] [place] [address] [address] [place] [address] ACO Care Supervisor [employer]liance Assembly 07/03/19 07/04/19 Jennifer Elizabeth MD [address] [place] [address] [address] [place] [address] Consulting Physician Gastroenterology 09/22/19 Tere Foster [address] [place], [place] [id number] ACO Care Supervisor [employer]liance [employer] 09/25/19 10/01/19 Herminia Puentes MA [address] [place] [address] [address] [place] [address] ACO Care Supervisor Major Appliance Assembly 10/02/19 10/22/19 Letty Zapata, [address] [place] [address] Pharmacist Pharmacy 10/05/19 11/25/22 Caterina Guevara, [address] [place] [address] Lokie Driver 11/02/19 11/06/19 Karen Dyson MA [address] [place] [address] [address] [place] [address] ACO Care Supervisor [employer]liance [employer] 02/20/20 05/07/20 Cece Lyn MD [address] [place] [address] [address] [place] [address] Consulting Physician Sleep Medicine 07/27/20 Татьяна Carmona RN [address] [place] [address] [address] [place] [address] General Studies Program Chair 08/05/20 08/29/20 Edmond Lucero, GRETA [address] [place] [address] [address] [place] [address] General Studies Program Chair 10/22/20 11/14/20 Shira Castillo RN [address] [place] [address] [address] [place] [address] General Studies Program Chair 02/19/21 04/30/21 Jessica Brown, [address] [place] [address] Lokie Driver 03/26/21 04/07/21 Jessica Brown LEAD FORMER [address] [place] [address] [place] [address] Lokie Driver 04/15/21 05/11/21 Kerry Zaman LPN [address] [place] [address] [place] [address] ACO Care Supervisor [employer]liance [employer] 03/11/22 03/26/22 Harshal Peters RN [address] [place] [address] [place] [address] General Studies Program Chair 03/27/22 06/16/22 Jacki Scott LEAD FORMER [address] [place] [address] [place] [address] Lokie Driver 03/31/22 04/19/22 Sadi Monterroso MD [address] [place] [address] [place] [address] Consulting Physician Cardiology 02/10/23 Kathie Perez MD [address] [place] [address] [place] [address] Consulting Physician Urology 04/02/23 Luna Dempsey RN [address] [place] [address] [address] [place] [id number] General Studies Program Chair 11/29/23 01/27/24 Jacki Scott [address] [place] [address] Lokie Driver 12/03/23 04/02/24 documented as of this encounter
[2025-01-08 09:43] LABS: Alanine Aminotransferase 25 U/L (6-35); Albumin Level 4.1 g/dL (3.5-5.1); Alkaline Phosphatase 90 U/L (38-126); Anion Gap 12 mmol/L (4-12); Aspartate Amino Transferase 52 U/L (14-36); Bilirubin,Total 1.7 mg/dL (0.2-1.3); Blood Urea Nitrogen 18 mg/dL (7-17); Calcium 9.9 mg/dL (8.4-10.2); Carbon Dioxide 26 mmol/L (22-30); Chloride 104 mmol/L (98-107); Estimated Glomerular Filt Rate > 60; Glucose 121 mg/dL (65-110); Lipase 26 U/L (23-300); Potassium 3.8 mmol/L (3.4-5.0); Sodium 142 mmol/L (137-145); Total Protein 8.2 g/dL (6.3-8.2)
[2025-01-08 09:48] LABS: Need Manual Microscopic Reviewed
[2025-01-08 10:00] LABS: Add Urine Microscopic? YES; Appearance Urine Turbid (Clear); Glucose Urine UA Negative (Negative); Leukocyte Esterase Ur 3+ LEU/UL (Negative); Nitrate Urine Positive (Negative); Specific Grav Ur 1.019 (1.001-1.035)
[2025-01-08 11:18] LABS: Alveolar/Arterial O2 Gradient 202.9 mmHg; Carboxyhemoglobin 1.0 % THb (0-2.0); Fractional Inspired Oxygen 44 %; HCO3 ABG 26.5 mEq/l (22.0-26.0); Methemoglobin ABG 0.1 %THb (0-1.5); Oxygen Content ABG 18.0 %vol (16.0-22.0); Oxygen Saturation ABG 91.9 % (95.0-100.0); PCO2 ABG 42.8 mmHg (35.0-45.0); PO2 ABG 62.0 mmHg (80.0-100.0); PO2 FiO2 Ratio Arterial Blood 1.41 %; Reduced Hemoglobin 10.1 %THb (0-5.0)
[2025-01-08 11:20] LABS: Liters per Minute 6.0 LPM; Modified Allen's Test Pass; Site Drawn RIGHT RADIAL
--- NOTE | 2025-01-08 12:12 | P.HP_ITS ---
H&P: HPI History of Present Illness Date/Time: 01/08/25 12:12 Chief Complaint: Fall Narrative: 74 y/o F with PMH of Afib on anticoagulation, kidney stones, pulmonary embolism, and CHF presents here with a fall. The patient presents here from home on 01/08 for further evaluation post-fall. The patient reports she sustained a ground level fall on 01/07. She reports she had a fall in the bathroom. She was trying to transfer from the toilet to her electric wheelchair. Does not recall events well but ended up on the floor. She is unsure if she hit her head or lost consciousness. Post-fall she reports right hip pain that radiates into her right leg. She was unable to get up post-fall and was laying on the ground for around 7 hours. She is also reporting abdominal pain which she describes as right lower quadrant, achy, nonradiating, and constant. It is accompanied by nausea without vomiting. She denies dysuria, urinary frequency, fever, chills, body aches. Upon arrival to the emergency department the patient was found to be 85% on room air. She has no previous supplemental O2 requirement. Hypoxia is not accompanied by shortness of breath, chest pain, or new/different palpitations. She has been off her daily medications for months because she has been trying to treat herself with eating healthy vs medications. Initial VS at presentation: 93.5? F, HR 72, R 20, 158/99, and 85% on room air. Now 100% on BiPAP. ED workup showed: No leukocytosis, hemoglobin 14.2 (11.2 in 2021), INR 1.2, ABG showed O2 of 62 and O2 saturation 91.9 on 6 L nasal cannula, no significant electrolyte derangements, renal function within normal limits, lactic 2.5, CK 470, and UA consistent with UTI. Head CT showed age-related changes with no acute findings. Hip/pelvic XR showed degenerative disease without acute fracture/dislocation. Knee XR showed bony demineralization and significant degenerative disease without acute fracture. C-spine CT showed significant degenerative disease without acute fracture. CT chest/abdomen/pelvis showed PE with relatively low clot burden, moderate cardiomegaly with right ventricular and biatrial enlargement, small bilateral pleural effusions, complex medial left lower lobe alongside a large sliding-type hiatal hernia containing a large portion of the stomach as well segment of the nonobstructing transverse colon, cholelithiasis, mild bilateral hydronephrosis with a 1.2 x 0.4 cm stone at the left ureteropelvic junction and with 7 mm stone in the distal right ureter alongside a right intrarenal stent which is in expected position. Review of Systems Review of Systems: All systems reviewed & are unremarkable except as noted in HPI and below PMFSH Past Medical History Medical History (Updated 01/08/25 @ 23:11 by Richelle Paulson APRN) Atrial fibrillation Anxiety Cataracts, bilateral Anemia Fibromyalgia CHF (congestive heart failure) Surgical History Surgical History History of total abdominal hysterectomy and bilateral salpingo-oophorectomy History of ventral hernia repair Family History Family History Other No pertinent family history Social History Social History Smoking status: Never smoker Alcohol intake: never Substance use: never Lack of Transportation: No Lack of Food: Never True Current Housing: I Have Housing Concerned About Future Housing: No Difficulty Paying Gas/Electric Bills: No Difficulty Paying for Meds: No Currently Unemployed: No Education: High School Diploma/GED Difficulty w/ Childcare or Family Care: No Living arrangements: alone Occupation/Education: retired Gender identity (if verbalized by the patient): Female Spiritual care concerns: No Meds Home Medications and Allergies Home Medications ?Medication ?Instructions ?Recorded ?Confirmed ?Type apixaban 5 mg tablet (Eliquis) 5 mg PO BID 03/16/21 01/08/25 History cephalexin 500 mg capsule 500 mg PO BID 03/16/21 01/08/25 History sertraline 50 mg tablet 50 mg PO DAILY 03/17/21 01/08/25 History spironolactone 25 mg tablet 25 mg PO BID 03/17/21 01/08/25 History furosemide 40 mg tablet 40 mg PO BID #30 tabs 03/24/21 01/08/25 Rx Allergies Allergy/AdvReac Type Severity Reaction Status Date / Time No Known Allergies Allergy Verified 01/08/25 09:49 Vital Signs Vital Signs - 24 hr 01/08/25 08:25 01/08/25 09:08 01/08/25 09:18 Temperature 93.5 F L 97.7 F Pulse Rate 72 67 62 Respiratory Rate 20 10 L 16 Blood Pressure 158/99 H 160/103 H Pulse Oximetry 85 L 98 Oxygen Delivery Room Air Oxygen Flow Rate 01/08/25 09:20 01/08/25 09:20 01/08/25 09:35 Temperature 97.0 F L 97.2 F L Pulse Rate Respiratory Rate Blood Pressure Pulse Oximetry 89 L Oxygen Delivery Nasal Cannula Oxygen Flow Rate 4 01/08/25 09:40 01/08/25 10:40 01/08/25 10:42 Temperature Pulse Rate 64 Respiratory Rate 18 Blood Pressure 149/77 H Pulse Oximetry 95 87 L 87 L Oxygen Delivery Nasal Cannula Nasal Cannula Oxygen Flow Rate 2 4 01/08/25 10:47 01/08/25 10:48 01/08/25 11:01 Temperature 98.2 F 98.2 F Pulse Rate Respiratory Rate Blood Pressure Pulse Oximetry 85 L Oxygen Delivery Nasal Cannula Oxygen Flow Rate 6 01/08/25 11:21 Temperature Pulse Rate 60 Respiratory Rate 21 H Blood Pressure Pulse Oximetry 94 Oxygen Delivery BiPAP Oxygen Flow Rate Exam Const: General: comfortable and no acute distress Other: , female, ill-appearing, however has nontoxic appearance HENMT: Face/Nose/Sinus: Normal nares present Mouth: Yes moist mucous membranes Eyes: General: appearance normal, both eyes and all related structures Sclera: sclerae normal Pupils: Equal, round and reactive pupils present EOM: EOMs intact bilaterally Resp: Effort & Inspection: normal respiratory effort Auscultation: clear to auscultation bilaterally Other: Nasal cannula place, tolerating well Cardio: Rate: regular rate Rhythm: regular rhythm Other: S1-S2 present without murmur, rub, ectopy GI: Other: Abdomen soft, nondistended, nontender. Normoactive bowel sounds in all quadrants. Skin: General skin exam: normal color and no rashes or lesions noted Wounds: no wounds Neuro: Speech: normal speech Motor exam (neuro): 5/5 motor strength present throughout Sensory Exam: normal sensation Other: A&O x4, generalized weakness Extrem: Other: 2+ edema, non-pitting and symmetric. Psych: Mental Status: mental status grossly normal Affect: normal affect Other: Fair insight and judgment, pleasant H&P: Results Labs Labs: Short CBC 01/08/25 Range/Units 09:17 WBC 7.7 (4.5-10.0) K/mm3 Hgb 14.2 D (12.0-15.0) g/dL Hct 45.7 (37.0-47.0) % Plt Count 182 (150-375) k/mm3 BMP 01/08/25 01/08/25 01/08/25 09:17 09:17 09:17 Sodium 141 142 Potassium 3.8 3.8 Chloride 104 Carbon Dioxide BUN Creatinine Glucose Calcium 01/08/25 01/08/25 01/08/25 09:17 09:17 09:17 Sodium Potassium Chloride 104 Carbon Dioxide 27 26 BUN 18 H 18 H Creatinine 0.81 Glucose Calcium 01/08/25 01/08/25 01/08/25 09:17 09:17 09:17 Sodium Potassium Chloride Carbon Dioxide BUN Creatinine 0.78 Glucose 121 H 121 H Calcium 9.9 9.9 Cardiac Enzymes 01/08/25 Range/Units 09:17 Total Creatine Kinase 470 H (30-135) U/L Liver Function 01/08/25 01/08/25 01/08/25 Range/Units 09:17 09:17 09:17 Total Bilirubin 1.7 H 1.7 H (0.2-1.3) mg/dL AST 51 H 52 H (14-36) U/L ALT 25 (6-35) U/L Alkaline Phosphatase (38-126) U/L Albumin (3.5-5.1) g/dL 01/08/25 01/08/25 01/08/25 Range/Units 09:17 09:17 09:17 Total Bilirubin (0.2-1.3) mg/dL AST (14-36) U/L ALT 25 (6-35) U/L Alkaline Phosphatase 89 90 (38-126) U/L Albumin 4.0 4.1 (3.5-5.1) g/dL Urine 01/08/25 Range/Units 09:17 Urine Color Brown H (Yellow) Urine Appearance Turbid H (Clear) Urine pH 6.0 (5.0-9.0) Ur Specific [place] 1.019 (1.001-1.035) Urine Protein 4+ H (Negative) mg/dL Urine Glucose (UA) Negative (Negative) mg/dL Assessment and Plan Assessment and plan (1) Hypoxia: Code(s): R09.02 - Hypoxemia Status: Acute Assessment and Plan: - 85% on room air upon initial evaluation in the ED on 01/08. No previous supplemental O2 requirement. - CT chest/abdomen/pelvis: 1. Pulmonary emboli with relatively low clot burden. Dr. Mccartney discussed this and the following findings with Dr. clarke at 11:00 AM. 2. Moderate cardiomegaly with right ventricular and biatrial enlargement. 3. Small bilateral pleural effusions. 4. Complex medial left lower lobe along side a large sliding-type hiatal hernia containing large portion the stomach as well as segment of the nonobstructed transverse colon.. 5. Cholelithiasis. 6. Mild bilateral hydronephrosis with 1.2 x 0.4 cm stone at the left ureteropelvic junction and with 7 mm stone in the distal right ureter alongside a right intrarenal stent which is in expected position. - patient has history of PE and atrial fibrillation, on anticoagulation however has not taken anticoagulation for months. P.o. anticoagulation held and patient started on heparin gtt. - given history of CHF, small bilateral pleural effusions noted on CT, and need for IV fluids due to elevated CK the patient was given a dose of Lasix in the ED on 01/08 and started on BiPAP. She is tolerating BiPAP well in the ED. Trialed off this evening and doing well on nasal cannula. - continue supplemental O2 to maintain O2 sat greater than 92%, wean as tolerated (2) Pulmonary embolism: Qualifiers: Pulmonary embolism type: multiple subsegmental (without acute cor pulmonale) Qualified Code(s): I26.94 - Multiple subsegmental thrombotic pulmonary emboli without acute cor pulmonale Code(s): I26.99 - Other pulmonary embolism without acute cor pulmonale Status: Acute Assessment and Plan: - CT on 01/08 showed pulmonary emboli with nonocclusive peripheral filling defects at the right lower lobar pulmonary artery extending into the anterior and posterior segmental pulmonary arteries. low clot burden. - history of PE, prescribed oral anticoagulation secondary to AFib however has been off of these medications for months. started on heparin gtt - continue supplemental O2 to maintain O2 sat greater than 92%, wean as tolerated (3) Calculus of left ureter: Code(s): N20.1 - Calculus of ureter Status: Acute Assessment and Plan: - did not meet SIRS criteria, however lactic elevated at 2.5. trend down. blood cultures obtained on 01/08, follow. - Mild bilateral hydronephrosis with 1.2 x 0.4 cm stone at the left ureteropelvic junction and with 7 mm stone in the distal right ureter alongside a right intrarenal stent which is in expected position. - Urology consulted, NPO midnight - started on gentle IV fluids due to CHF hx - concern for infection, started on ceftriaxone on 01/08. See below. - analgesics prn (4) Abnormal urinalysis: Code(s): R82.90 - Unspecified abnormal findings in urine Status: Acute Assessment and Plan: - UA: Brown, turbid, 4+ protein, 1+ ketones, 3+ blood, positive nitrates, 1+ bilirubin, 3+ leuk esterase, greater than 100 RBC and WBC, no epithelial cells, 4+ bacteria. - UC pending - previous micro reviewed, Klebsiella in 2021. No recent micro available. - started on Ceftriaxone on 01/08 (5) Rhabdomyolysis: Qualifiers: Encounter type: initial encounter Rhabdomyolysis type: traumatic Qualified Code(s): T79.6XXA - Traumatic ischemia of muscle, initial encounter Code(s): M62.82 - Rhabdomyolysis Status: Acute Assessment and Plan: - CK 470 - secondary to prolonged time spent on floor post fall - gentle IV fluids given history of CHF - trend CK (6) Ground-level fall: Code(s): W18.30XA - Fall on same level, unspecified, initial encounter Status: Acute Assessment and Plan: - trauma workup including a head CT, hip/pelvic XR, knee XR, C-spine CT, and CT of the chest/abdomen/pelvis were negative for acute traumatic findings - fall precaution - analgesics p.r.n. (7) CHF (congestive heart failure): Qualifiers: Heart failure chronicity: chronic Heart failure type: unspecified Qualified Code(s): I50.9 - Heart failure, unspecified Code(s): I50.9 - Heart failure, unspecified Status: Chronic Assessment and Plan: - hx of CHF, no echo on file - evidence of small bilateral pleural effusions on CT, otherwise no current concern for volume overload - given Lasix 40 mg IV in the ED due to need for IV fluid secondary to nephrolithiasis and rhabdomyolysis. Will continue Lasix at 40 mg b.i.d. IV. - monitor clinical volume status, daily weights, and I&Os (8) Atrial fibrillation: Qualifiers: Atrial fibrillation type: unspecified Qualified Code(s): I48.91 - Unspecified atrial fibrillation Code(s): I48.91 - Unspecified atrial fibrillation Status: Chronic Assessment and Plan: - hold PO anticoagulation, started on heparin gtt due to PE finding on CT - not currently prescribed a rate controlling medication Plan Diet: NPO GI Prophylaxis: N/A DVT Prophylaxis: heparin gtt IV fluids: LR 125 mL/hr Lines/Tubes: peripheral IV Code Status: full code Quality VTE Prophylaxis VTE prophylaxis: pharmacologic ordered Hospitalist MIPS Advance Care Plan I have confirmed that the patient's Advanced Care Plan is present, code status is documented, or surrogate decision maker is listed in patient medical record.: Yes Medication Reconciliation I have utilized all available resources to obtain, update and review the patients current medications (includes all prescriptions, OTC, herbals, cannabis, and nutritional supplements).: Yes
[2025-01-08] MEDS: cefTRIAXone 1 GM in SODIUM CHLORIDE 0.9% IV 50 ML 100 ML IVPB (12:13)
--- NOTE | 2025-01-08 12:14 | PC.NURSE ---
Dr Aceves aware that only one blood culture has been drawn. States its ok to start antibiotic
[2025-01-08] MEDS: HEPARIN SOD/D5W 100 UNITS/ML 25,000 UNITS/250 ML BAG 15 UNITS IV CONT (12:15)
--- NOTE | 2025-01-08 12:15 | PC.NURSE ---
Phleb called for help obtaining outstanding labs d/t patient being difficult sticks.
[2025-01-08] MEDS: ALBUTEROL SULFATE NEB 2.5 MG/3 ML INH INHALATION ×2 (14:11→20:29)
--- NOTE | 2025-01-08 14:14 | P.CONUR_ITS ---
Assessment and Plan Assessment and plan (1) Calculus of left ureter: Code(s): N20.1 - Calculus of ureter Status: Acute (2) UTI (urinary tract infection): Qualifiers: Hematuria presence: with hematuria Urinary tract infection type: site unspecified Qualified Code(s): N39.0 - Urinary tract infection, site not specified; R31.9 - Hematuria, unspecified Code(s): N39.0 - Urinary tract infection, site not specified Status: Acute (3) Retained ureteral stent: Code(s): Z96.0 - Presence of urogenital implants Status: Chronic Assessment and Plan: Left Placed 03/2023 at OSH Plan - Bilateral obstructing nephrolithiasis with an associated urinary tract infection. A retained right ureteral stent is also present from 03/2023. The patient is currently on BiPAP for hypoxia secondary to acute pulmonary emboli and is on a heparin drip. Given her respiratory status, clearance from her primary medical team is required before proceeding with any urologic intervention requiring anesthesia. Renal function stable, Cr 0.78. Afebrile. Plan: - Discussed with the patient the option for bilateral ureteral stent placement, which would involve exchanging the retained right stent and placing a new left stent. The patient expressed a desire to proceed with the procedure tomorrow. - NPO after midnight. Defer surgical intervention for now to allow for her cardiac and respiratory status to stabilize, possibly tomorrow vs. Wednesday. - Agree with culture-directed antibiotics. Case discussed with Dr. Delacruz Urology Consult Note HPI Date Seen: 01/08/25 Requesting Physician: Allie Wells MD Primary Care Provider: PHYSICIAN NOT ON STAFF Consult Narrative Reason for consult: Bilateral ureteral stones and retained right ureteral stent Narrative: Vanessa Olsen is a 74-year-old female with a known history of bilateral nephrolithiasis, congestive heart failure, atrial fibrillation, and pulmonary embolism who was admitted following a fall. Urology was consulted for management of a 1.2 x 0.4 cm left ureteropelvic junction stone and a 7 mm right distal ureteral stone with a retained right ureteral stent, which was placed in March 2023. The patient also has an active urinary tract infection and is being treated with IV ceftriaxone. She is currently on a heparin drip and BiPAP for acute pulmonary emboli. She reports new-onset bilateral low back pain and lower abdominal pain, worse on the right. She has been NPO since yesterday. She is a poor medical assistant supervisor, has no recollection of having right ureteral stent placed nearly two years ago. -PERTINENT LABS: 01/08/2025 - WBC 7.7, HGB 14.2, Cr 0.78, lactate 2.5-3.7 Urinalysis: 3+ LE, nitrite +, 3+ blood, >100 WBC, >100 RBC, 4+ Bacteria Blood and urine cultures pending on IV ceftriaxone -PERTINENT IMAGIN01/08/2025 CT abdomen/pelvis w/ contrast ([facility]) - Mild bilateral hydronephrosis. A 1.2 x 0.4 cm stone at the left ureteropelvic junction. A 7 mm stone in the distal right ureter alongside a right ureteral stent which is in expected position. Additional findings include pulmonary emboli, moderate cardiomegaly, small bilateral pleural effusions, cholelithiasis, and a large hiatal hernia. Review of Systems 2 Constitutional: Constitutional: Reports fatigue and Reports weakness Cardiovascular: Cardiovascular: Denies chest pain Respiratory: Respiratory: Reports dyspnea on exertion Gastrointestinal: Gastrointestinal: Reports abdominal pain, Denies nausea and Denies vomiting Genitourinary: Genitourinary: Reports as per HPI, Denies dysuria and Denies flank pain Musculoskeletal: Musculoskeletal: Reports back pain PMFSH Past Medical History Medical History CHF (congestive heart failure) A-fib Surgical History Surgical History History of total abdominal hysterectomy and bilateral salpingo-oophorectomy History of ventral hernia repair Family History Family History Other No pertinent family history Social History Social History Smoking status: Never smoker Alcohol intake: never Substance use: never Living arrangements: alone Occupation/Education: retired Gender identity (if verbalized by the patient): Female Spiritual care concerns: No Meds Home Medications and Allergies Home Medications ?Medication ?Instructions ?Recorded ?Confirmed ?Type apixaban 5 mg tablet (Eliquis) 5 mg PO BID 03/16/21 03/17/21 History cephalexin 500 mg capsule 500 mg PO BID 03/16/21 03/17/21 History gentamicin 0.1 % topical cream 1 applic topical DAILY PRN pain 03/16/21 03/17/21 History hydrocodone 5 mg-acetaminophen 325 5 - 325 tablet PO Q8H PRN Pain 03/16/21 03/17/21 History mg tablet sertraline 50 mg tablet 50 mg PO DAILY 03/17/21 03/17/21 History spironolactone 25 mg tablet 25 mg PO BID 03/17/21 03/17/21 History furosemide 40 mg tablet 40 mg PO BID #30 tabs 03/24/21 Rx potassium chloride 20 mEq 20 meq PO DAILY #30 tabs 03/24/21 Rx tablet,extended release cephalexin 500 mg capsule 500 mg PO Q12H 7 days #14 caps 11/18/21 Rx Allergies Allergy/AdvReac Type Severity Reaction Status Date / Time No Known Allergies Allergy Verified 01/08/25 09:49 Vital Signs Vital Signs - 24 hr 01/08/25 08:25 01/08/25 09:08 01/08/25 09:18 Temperature 93.5 F L 97.7 F Pulse Rate 72 67 62 Respiratory Rate 20 10 L 16 Blood Pressure 158/99 H 160/103 H Pulse Oximetry 85 L 98 Oxygen Delivery Room Air Oxygen Flow Rate 01/08/25 09:20 01/08/25 09:20 01/08/25 09:35 Temperature 97.0 F L 97.2 F L Pulse Rate Respiratory Rate Blood Pressure Pulse Oximetry 89 L Oxygen Delivery Nasal Cannula Oxygen Flow Rate 4 01/08/25 09:40 01/08/25 10:40 01/08/25 10:42 Temperature Pulse Rate 64 Respiratory Rate 18 Blood Pressure 149/77 H Pulse Oximetry 95 87 L 87 L Oxygen Delivery Nasal Cannula Nasal Cannula Oxygen Flow Rate 2 4 01/08/25 10:47 01/08/25 10:48 01/08/25 11:01 Temperature 98.2 F 98.2 F Pulse Rate Respiratory Rate Blood Pressure Pulse Oximetry 85 L Oxygen Delivery Nasal Cannula Oxygen Flow Rate 6 01/08/25 11:21 01/08/25 12:19 01/08/25 12:19 Temperature 98.6 F Pulse Rate 60 62 Respiratory Rate 21 H 18 Blood Pressure 153/92 H Pulse Oximetry 94 100 Oxygen Delivery BiPAP Oxygen Flow Rate 01/08/25 12:40 01/08/25 12:56 01/08/25 13:06 Temperature 98.6 F 97.8 F Pulse Rate 57 L 52 L Respiratory Rate 18 22 H Blood Pressure 158/100 H 150/87 H Pulse Oximetry 97 99 Oxygen Delivery Oxygen Flow Rate 01/08/25 13:50 01/08/25 14:03 Temperature Pulse Rate 59 L Respiratory Rate 24 H Blood Pressure Pulse Oximetry 100 96 Oxygen Delivery BiPAP Nasal Cannula Oxygen Flow Rate 2 Exam 2 Const: General: comfortable and no acute distress Eyes: General: appearance normal, both eyes and all related structures Resp: Effort & Inspection: normal respiratory effort Other: BiPAP GI: Inspection: non-distended Other: RLQ/LLQ tender (R>L) : Bimanual exam- vagina & uterus: bladder normal to palpation Skin: General skin exam: normal color Neuro: Speech: normal speech Psych: Affect: normal affect Results Labs 01/08/25 09:17 01/08/25 09:17 Labs: Short CBC 01/08/25 Range/Units 09:17 WBC 7.7 (4.5-10.0) K/mm3 Hgb 14.2 D (12.0-15.0) g/dL Hct 45.7 (37.0-47.0) % Plt Count 182 (150-375) k/mm3 BMP 01/08/25 01/08/25 01/08/25 09:17 09:17 09:17 Sodium 141 142 Potassium 3.8 3.8 Chloride 104 Carbon Dioxide BUN Creatinine Glucose Calcium 01/08/25 01/08/25 01/08/25 09:17 09:17 09:17 Sodium Potassium Chloride 104 Carbon Dioxide 27 26 BUN 18 H 18 H Creatinine 0.81 Glucose Calcium 01/08/25 01/08/25 01/08/25 09:17 09:17 09:17 Sodium Potassium Chloride Carbon Dioxide BUN Creatinine 0.78 Glucose 121 H 121 H Calcium 9.9 9.9 Cardiac Enzymes 01/08/25 Range/Units 09:17 Total Creatine Kinase 470 H (30-135) U/L Liver Function 01/08/25 01/08/25 01/08/25 Range/Units 09:17 09:17 09:17 Total Bilirubin 1.7 H 1.7 H (0.2-1.3) mg/dL AST 51 H 52 H (14-36) U/L ALT 25 (6-35) U/L Alkaline Phosphatase (38-126) U/L Albumin (3.5-5.1) g/dL 01/08/25 01/08/25 01/08/25 Range/Units 09:17 09:17 09:17 Total Bilirubin (0.2-1.3) mg/dL AST (14-36) U/L ALT 25 (6-35) U/L Alkaline Phosphatase 89 90 (38-126) U/L Albumin 4.0 4.1 (3.5-5.1) g/dL Urine 01/08/25 Range/Units 09:17 Urine Color Brown H (Yellow) Urine Appearance Turbid H (Clear) Urine pH 6.0 (5.0-9.0) Ur Specific [place] 1.019 (1.001-1.035) Urine Protein 4+ H (Negative) mg/dL Urine Glucose (UA) Negative (Negative) mg/dL
--- NOTE | 2025-01-08 15:25 | ADMGEN ---
This patient, Vanessa Olsen, was admitted to IMU Room 206-01. Patient/family oriented to hospital policies and general routines including ID bracelet, bed and alarms, visiting hours, pain management, procedures, bathroom and other care routines, personal items, smoking policy, room service/diet, and visiting hours. Information on how to activate the Rapid Response Team has been discussed. Patient/Family are encouraged to report perceived risks to care and to ask questions if they do not understand what they are told or what they should do.
[2025-01-08] MEDS: LACTATED RINGERS 1,000 ML 125 ML IV CONT (18:15)
[2025-01-08 19:31] LABS: Partial Thromboplastin Time > 200.0 Seconds (22.3-36.8)
[2025-01-08] MEDS: HYDROcodone/acetaminophen (*CRX) 5-325 MG TABLET 1 TAB PO (20:53)
[2025-01-09] VITALS (22 sets, daily range): BP systolic 103–141; BP diastolic 63–78; PULSE 41–93; RESP 16–22; TEMP 36.6–37; O2SAT 93–100
[2025-01-09 01:55] LABS: Hematocrit 42.5 % (37.0-47.0); Hemoglobin 12.8 g/dL (12.0-15.0); Immature Granulocyte Percent A 0.2 % (0-0.5); Lymphocytes Absolute Auto 0.98 K/mm3 (0.9-3.2); Mean Corpuscular HGB Conc 30.1 g/dl (32-36); Mean Corpuscular Hemoglobin 27.0 pg (26-34); Mean Corpuscular Volume 89.7 fl (80-100); Nucleated Red Blood Cells Absolute Auto 0.000 K/mm3 (0.0-0.012); Nucleated Red Blood Cells Perc 0.0 % (0.0-0.2); Platelet Count Result 159 k/mm3 (150-375); Red Blood Count 4.74 M/mm3 (4.2-5.4); White Blood Count 6.5 K/mm3 (4.5-10.0)
[2025-01-09] MEDS: ALBUTEROL SULFATE NEB 2.5 MG/3 ML INH INHALATION ×4 (02:14→20:08)
[2025-01-09 02:20] LABS: Partial Thromboplastin Time > 200.0 Seconds (22.3-36.8)
[2025-01-09] MEDS: HYDROcodone/acetaminophen (*CRX) 5-325 MG TABLET 1 TAB PO ×4 (02:29→20:07)
[2025-01-09 02:30] LABS: Alanine Aminotransferase 27 U/L (6-35); Albumin Level 3.2 g/dL (3.5-5.1); Alkaline Phosphatase 69 U/L (38-126); Anion Gap 6 mmol/L (4-12); Aspartate Amino Transferase 51 U/L (14-36); Bilirubin,Total 1.2 mg/dL (0.2-1.3); Blood Urea Nitrogen 15 mg/dL (7-17); Calcium 9.2 mg/dL (8.4-10.2); Carbon Dioxide 31 mmol/L (22-30); Chloride 101 mmol/L (98-107); Estimated CRCL calculation 75 ml/min; Estimated Glomerular Filt Rate > 60; Glucose 105 mg/dL (65-110); Potassium 4.2 mmol/L (3.4-5.0); Sodium 138 mmol/L (137-145); Total Protein 6.5 g/dL (6.3-8.2)
[2025-01-09 02:34] LABS: Procalcitonin 0.2 ng/mL
[2025-01-09 02:56] LABS: Creatine Kinase 689 U/L (30-135)
[2025-01-09 09:08] LABS: NT Pro B Type Natriuretic Pept 4000 pg/mL (19.9-100)
[2025-01-09] MEDS: FUROSEMIDE INJ 40 MG/4 ML VIAL IV PUSH ×2 (09:30→20:08)
--- NOTE | 2025-01-09 09:59 | P.PNUR_ITS ---
Progress Note: A&P Assessment and Plan (1) Calculus of left ureter: Code(s): N20.1 - Calculus of ureter Status: Acute (2) Retained ureteral stent: Code(s): Z96.0 - Presence of urogenital implants Status: Chronic (3) UTI (urinary tract infection): Qualifiers: Hematuria presence: with hematuria Urinary tract infection type: site unspecified Qualified Code(s): N39.0 - Urinary tract infection, site not specified; R31.9 - Hematuria, unspecified Code(s): N39.0 - Urinary tract infection, site not specified Status: Acute Plan - Bilateral obstructing nephrolithiasis with an associated urinary tract infection. A retained right ureteral stent is also present from 03/2023 (Dr. Baer/Jared). The patient is on supplemental O2 via NC for hypoxia secondary to acute pulmonary emboli and is on a heparin gtt. Renal function stable, Cr 0.76. No leukocytosis. Afebrile. - Again, we discussed the option for bilateral ureteral stent placement, which would involve exchanging the retained right stent and placing a new left stent. The patient expressed a desire to proceed with the procedure. - Patient was counseled on importance of outpatient follow-up for stone treatment and stent management. - Spoke with OR staff this morning. She has been added on for tomorrow afternoon likely with Dr. Villeda. There is no OR availability today. OK to resume diet. NPO after midnight. - Agree with culture-directed antibiotics. Cultures pending. Subjective Subjective Date/Time Seen: 01/09/25 09:59 Interval history: NAEO, off BiPAP, no distress, she is asking for ice Still on heparin gtt Has been NPO overnight, unfortunately there is no OR availability today for add- on cases Exam Const: General: comfortable and no acute distress HENMT: Face/Nose/Sinus: Normal nares present Eyes: General: appearance normal, both eyes and all related structures Resp: Effort & Inspection: normal respiratory effort Other: Supplemental O2, NC Skin: General skin exam: normal color Neuro: Speech: normal speech Psych: Mental Status: mental status grossly normal Affect: normal affect Objective Data Vital Signs Vital Signs: Vital Signs - 24 hr 01/08/25 10:40 01/08/25 10:42 01/08/25 10:47 Temperature Pulse Rate 64 Respiratory Rate 18 Blood Pressure 149/77 H Pulse Oximetry 87 L 87 L 85 L Oxygen Delivery Nasal Cannula Nasal Cannula Oxygen Flow Rate 4 6 01/08/25 10:48 01/08/25 11:01 01/08/25 11:21 Temperature 98.2 F 98.2 F Pulse Rate 60 Respiratory Rate 21 H Blood Pressure Pulse Oximetry 94 Oxygen Delivery BiPAP Oxygen Flow Rate 01/08/25 12:19 01/08/25 12:19 01/08/25 12:40 Temperature 98.6 F Pulse Rate 62 57 L Respiratory Rate 18 18 Blood Pressure 153/92 H 158/100 H Pulse Oximetry 100 97 Oxygen Delivery Oxygen Flow Rate 01/08/25 12:56 01/08/25 13:06 01/08/25 13:50 Temperature 98.6 F 97.8 F Pulse Rate 52 L 59 L Respiratory Rate 22 H 24 H Blood Pressure 150/87 H Pulse Oximetry 99 100 Oxygen Delivery BiPAP Oxygen Flow Rate 01/08/25 14:00 01/08/25 14:03 01/08/25 14:12 Temperature Pulse Rate 56 L 57 L Respiratory Rate 16 Blood Pressure Pulse Oximetry 96 Oxygen Delivery Nasal Cannula Oxygen Flow Rate 2 01/08/25 14:19 01/08/25 16:00 01/08/25 16:00 Temperature 97.9 F Pulse Rate 56 L 44 L Respiratory Rate 16 22 H Blood Pressure 135/80 Pulse Oximetry 100 100 Oxygen Delivery Nasal Cannula Oxygen Flow Rate 2 01/08/25 16:00 01/08/25 18:00 01/08/25 20:00 Temperature 98.2 F Pulse Rate 54 L 61 54 L Respiratory Rate 20 Blood Pressure 144/94 H Pulse Oximetry 98 Oxygen Delivery Oxygen Flow Rate 01/08/25 20:00 01/08/25 20:00 01/08/25 20:29 Temperature Pulse Rate 62 67 Respiratory Rate 16 Blood Pressure Pulse Oximetry 100 Oxygen Delivery Nasal Cannula Oxygen Flow Rate 2 01/08/25 20:29 01/08/25 20:38 01/08/25 22:00 Temperature Pulse Rate 67 56 L Respiratory Rate 16 Blood Pressure Pulse Oximetry 97 Oxygen Delivery Nasal Cannula Oxygen Flow Rate 2 01/08/25 23:02 01/08/25 23:56 01/09/25 00:00 Temperature 97.9 F Pulse Rate 67 62 Respiratory Rate 24 H 24 H Blood Pressure 121/81 Pulse Oximetry 96 100 100 Oxygen Delivery BiPAP Nasal Cannula Oxygen Flow Rate 2 01/09/25 02:00 01/09/25 02:14 01/09/25 02:22 Temperature Pulse Rate 52 L 67 67 Respiratory Rate 16 16 Blood Pressure Pulse Oximetry Oxygen Delivery Oxygen Flow Rate 01/09/25 03:32 01/09/25 04:00 01/09/25 04:00 Temperature 98.2 F Pulse Rate 59 L 93 Respiratory Rate 22 H Blood Pressure 129/78 Pulse Oximetry 100 93 Oxygen Delivery Nasal Cannula Oxygen Flow Rate 2 01/09/25 07:42 Temperature 98.2 F Pulse Rate 54 L Respiratory Rate 18 Blood Pressure 141/74 H Pulse Oximetry 97 Oxygen Delivery Oxygen Flow Rate Intake/Output Intake/Output: Intake & Output 01/06/25 01/07/25 01/08/25 01/09/25 23:59 23:59 23:59 23:59 Intake Total 159.2 114.6 Output Total 2100 3600 Balance -1940.8 -3485.4 Meds/Results Medications: Active Medications Generic Name Dose Route Start Last Admin Trade Name Freq PRN Reason Stop Dose Admin Acetaminophen 650 mg 01/08/25 12:40 Acetaminophen 325 Mg Tablet PO Q6H PRN Mild Pain (1-3) or Fever Hydrocodone Bitart/Acetaminophen 1 tab 01/08/25 12:40 01/09/25 09:30 Hydrocodone/Acetaminophen (*Crx) 5-325 Mg Tablet PO 1 tab Q6H PRN Administration Pain Rated 4-6 Albuterol 2.5 mg 01/08/25 14:00 01/09/25 02:14 Albuterol Sulfate Neb 2.5 Mg/3 Ml Inh INHALATION 2.5 mg Q6HRT TAMMY Administration Docusate Sodium 100 mg 01/08/25 12:40 Docusate Sodium 100 Mg Capsule PO Q12H PRN Constipation Furosemide 40 mg 01/08/25 21:00 01/09/25 09:30 Furosemide Inj 40 Mg/4 Ml Vial IV PUSH 40 mg Q12HR TAMMY Administration Heparin Sodium (Porcine) 7,000 units 01/08/25 11:03 Heparin Sodium 5,000 Units/Ml Vial IV PUSH PRN PRN aPTT less than 55 seconds Heparin Sodium (Porcine) 3,500 units 01/08/25 11:03 Heparin Sodium 5,000 Units/Ml Vial IV PUSH PRN PRN aPTT 55 - 70 seconds Hydromorphone HCl 0.5 mg 01/08/25 11:54 Hydromorphone Hcl Inj (*Crx) 2 Mg/Ml Vial IV PUSH Q4H PRN Pain Rated 7-10 Ceftriaxone Sodium 1 gm/ 50 mls @ 100 mls/hr 01/09/25 11:00 Sodium Chloride IVPB Q24H TAMMY Heparin Sodium/Dextrose 25,000 units in 250 mls @ 9 mls/hr 01/08/25 11:05 01/09/25 03:35 Heparin Sodium/D5w 100 Units/Ml IV CONT 900 units/hr .Q24H TAMMY 9 mls/hr Titration Protocol 900 UNITS/HR Lactated Ringer's 1,000 mls @ 125 mls/hr 01/08/25 11:55 01/09/25 03:56 Lr - Lactated Ringers Iv IV CONT Not Given .Q8H TAMMY Naloxone HCl 0.1 mg 01/08/25 12:40 Naloxone Hcl 0.4 Mg/Ml Vial IV PUSH Q5MIN PRN Sedation Ondansetron HCl 4 mg 01/08/25 11:54 Ondansetron Inj 4 Mg/2 Ml Vial IV PUSH Q4H PRN Nausea Perflutren Lipid Microsphere 0 ml 01/09/25 07:48 Perflutren Lipid Microspheres 1.5 Ml Vial Diluted To 10 Ml Total Volume IV PUSH 01/12/25 07:49 ONCE PRN adequate visualization Protocol Polyethylene Glycol 17 gm 01/08/25 12:40 Polyethylene Glycol 3350 17 Gm Powd.Pack PO QAM PRN Constipation Radiology Results: ITS Impressions Head CT 01/08/25 10:14 Impression: Age-related changes within the brain, without acute intracranial hemorrhage or suspicious mass effect. Hip/Pelvis X-Ray 01/08/25 10:15 IMPRESSION: Degenerative disease without acute fracture or dislocation Knee X-Ray 01/08/25 10:22 IMPRESSION: Diffuse bony demineralization and significant degenerative disease, as detailed above. No acute fracture. Cervical Spine CT 01/08/25 10:28 Impression: Significant degenerative disease without acute fracture. Chest/Abdomen/Pelvis CT 01/08/25 10:46 IMPRESSION: 1. Pulmonary emboli with relatively low clot burden. Dr. Mccartney discussed this and the following findings with Dr. clarke at 11:00 AM. 2. Moderate cardiomegaly with right ventricular and biatrial enlargement. 3. Small bilateral pleural effusions. 4. Complex medial left lower lobe along side a large sliding-type hiatal hernia containing large portion the stomach as well as segment of the nonobstructed transverse colon.. 5. Cholelithiasis. 6. Mild bilateral hydronephrosis with 1.2 x 0.4 cm stone at the left ureteropelvic junction and with 7 mm stone in the distal right ureter alongside a right intrarenal stent which is in expected position. Labs Labs: Laboratory Results - last 24 hr 01/08/25 01/08/25 01/08/25 09:17 10:57 12:51 WBC RBC Hgb Hct MCV MCH MCHC RDW Plt Count MPV Immature Gran % (Auto) Neut % (Auto) Lymph % (Auto) [place] % (Auto) Eos % (Auto) Baso % (Auto) Lymph # (Auto) [place] # (Auto) Eos # (Auto) Baso # (Auto) Abs Immat Gran (auto) Absolute Neuts (auto) Absolute Nucleated RBC Nucleated RBC % APTT Puncture Site Right radial ABG pH 7.409 ABG pCO2 42.8 ABG pO2 62.0 L ABG PO2/FiO2 Ratio 1.41 ABG HCO3 26.5 H ABG O2 Saturation 91.9 L ABG O2 Content 18.0 ABG Base Excess 1.5 A-a Gradient 202.9 Oxyhemoglobin 88.8 L Carboxyhemoglobin 1.0 Methemoglobin 0.1 Reduced Hemoglobin 10.1 H Total Hemoglobin 14.4 O2 Delivery Device Nasal cannula O2 Liters/Min 6.0 FiO2 44 Sodium Potassium Chloride Carbon Dioxide Anion Gap BUN Creatinine Estim Creat Clear Calc Estimated GFR Glucose Lactic Acid 3.7 H Calcium Total Bilirubin AST ALT Alkaline Phosphatase Total Creatine Kinase NT-Pro-B Natriuret Pep Total Protein Albumin Procalcitonin Urine Color Brown H Urine Appearance Turbid H Urine pH 6.0 Ur Specific [place] 1.019 Urine Protein 4+ H Urine Glucose (UA) Negative Urine Ketones 1+ H Ur Blood (Man) 3+ H Urine Nitrate Positive H Urine Bilirubin 1+ H Urine Urobilinogen 1.0 Add Ur Microanalysis Reviewed Leukocyte Esterase Rfl 3+ H Urine RBC >100 H Urine WBC >100 H Ur Squamous Epith Cells None seen Urine Bacteria 4+ H Urine Casts 3-5 Blood Type A Positive Antibody Screen Negative 01/08/25 01/09/25 01/09/25 18:20 01:33 01:48 WBC RBC Hgb Hct MCV MCH MCHC RDW Plt Count MPV Immature Gran % (Auto) Neut % (Auto) Lymph % (Auto) [place] % (Auto) Eos % (Auto) Baso % (Auto) Lymph # (Auto) [place] # (Auto) Eos # (Auto) Baso # (Auto) Abs Immat Gran (auto) Absolute Neuts (auto) Absolute Nucleated RBC Nucleated RBC % APTT > 200.0 H* Puncture Site ABG pH ABG pCO2 ABG pO2 ABG PO2/FiO2 Ratio ABG HCO3 ABG O2 Saturation ABG O2 Content ABG Base Excess A-a Gradient Oxyhemoglobin Carboxyhemoglobin Methemoglobin Reduced Hemoglobin Total Hemoglobin O2 Delivery Device O2 Liters/Min FiO2 Sodium Potassium Chloride Carbon Dioxide Anion Gap BUN Creatinine Estim Creat Clear Calc Estimated GFR Glucose Lactic Acid Calcium Total Bilirubin AST ALT Alkaline Phosphatase Total Creatine Kinase NT-Pro-B Natriuret Pep 4000 H Total Protein Albumin Procalcitonin 0.2 Urine Color Urine Appearance Urine pH Ur Specific [place] Urine Protein Urine Glucose (UA) Urine Ketones Ur Blood (Man) Urine Nitrate Urine Bilirubin Urine Urobilinogen Add Ur Microanalysis Leukocyte Esterase Rfl Urine RBC Urine WBC Ur Squamous Epith Cells Urine Bacteria Urine Casts Blood Type Antibody Screen 01/09/25 01/09/25 01/09/25 01:49 01:50 04:41 WBC 6.5 RBC 4.74 Hgb 12.8 Hct 42.5 MCV 89.7 MCH 27.0 MCHC 30.1 L RDW 15.9 H Plt Count 159 MPV 11.6 H Immature Gran % (Auto) 0.2 Neut % (Auto) 73.4 H Lymph % (Auto) 15.1 L [place] % (Auto) 10.9 H Eos % (Auto) 0.2 Baso % (Auto) 0.2 Lymph # (Auto) 0.98 [place] # (Auto) 0.7 H Eos # (Auto) 0.0 Baso # (Auto) 0.0 Abs Immat Gran (auto) 0.01 Absolute Neuts (auto) 4.8 Absolute Nucleated RBC 0.000 Nucleated RBC % 0.0 APTT > 200.0 H* Puncture Site ABG pH ABG pCO2 ABG pO2 ABG PO2/FiO2 Ratio ABG HCO3 ABG O2 Saturation ABG O2 Content ABG Base Excess A-a Gradient Oxyhemoglobin Carboxyhemoglobin Methemoglobin Reduced Hemoglobin Total Hemoglobin O2 Delivery Device O2 Liters/Min FiO2 Sodium 138 Potassium 4.2 Chloride 101 Carbon Dioxide 31 H Anion Gap 6 BUN 15 Creatinine 0.76 Estim Creat Clear Calc 75 Estimated GFR > 60 Glucose 105 Lactic Acid 4.3 H* 2.7 H Calcium 9.2 Total Bilirubin 1.2 AST 51 H ALT 27 Alkaline Phosphatase 69 Total Creatine Kinase 689 H NT-Pro-B Natriuret Pep Total Protein 6.5 Albumin 3.2 L Procalcitonin Urine Color Urine Appearance Urine pH Ur Specific [place] Urine Protein Urine Glucose (UA) Urine Ketones Ur Blood (Man) Urine Nitrate Urine Bilirubin Urine Urobilinogen Add Ur Microanalysis Leukocyte Esterase Rfl Urine RBC Urine WBC Ur Squamous Epith Cells Urine Bacteria Urine Casts Blood Type Antibody Screen
[2025-01-09 10:36] LABS: Partial Thromboplastin Time 69.8 Seconds (22.3-36.8)
--- NOTE | 2025-01-09 10:39 | PM.IMPN ---
Progress Note: A&P Assessment and Plan (1) Pulmonary embolism: Qualifiers: Pulmonary embolism type: multiple subsegmental (without acute cor pulmonale) Qualified Code(s): I26.94 - Multiple subsegmental thrombotic pulmonary emboli without acute cor pulmonale Code(s): I26.99 - Other pulmonary embolism without acute cor pulmonale Status: Acute Assessment and Plan: PE noted on CTA, low clot burden - continue heparin - continue oxygen to keep saturations greater than 90 - patient is going to think about if she wants to be on Eliquis at home or not (also needs it for hx of afib). I discussed the dangers of pulmonary emboli are but also understand she is a Jehov[employer] Witness. Hemoglobin is normal -BNP elevated, will order echo. Lot clot burn[place] on CT. Will order troponin since pt had CP earlier this morning -Continue tele and IMU status (2) Hypoxia: Code(s): R09.02 - Hypoxemia Status: Acute Assessment and Plan: - 85% on room air upon initial evaluation in the ED on 01/08. No previous supplemental O2 requirement. -As above - CT chest/abdomen/pelvis: 1. Pulmonary emboli with relatively low clot burden. Dr. Mccartney discussed this and the following findings with Dr. clarke at 11:00 AM. 2. Moderate cardiomegaly with right ventricular and biatrial enlargement. 3. Small bilateral pleural effusions. 4. Complex medial left lower lobe along side a large sliding-type hiatal hernia containing large portion the stomach as well as segment of the nonobstructed transverse colon.. 5. Cholelithiasis. 6. Mild bilateral hydronephrosis with 1.2 x 0.4 cm stone at the left ureteropelvic junction and with 7 mm stone in the distal right ureter alongside a right intrarenal stent which is in expected position. - patient has history of PE and atrial fibrillation, on anticoagulation however has not taken anticoagulation for months. - given history of CHF, small bilateral pleural effusions noted on CT, and need for IV fluids due to elevated CK the patient, will continue lasix with the IVF (3) Calculus of left ureter: Code(s): N20.1 - Calculus of ureter Status: Acute Assessment and Plan: Mild bilateral hydronephrosis with 1.2 x 0.4 cm stone at the left ureteropelvic junction and with 7 mm stone in the distal right ureter alongside a right intrarenal stent which is in expected position. -UA indicitive on infx, continue ceftraixone -await urine cx -urology consulted, catheter in place (does not usually have at home) -Plan for the OR tomorrow for stent placement 01/10 (4) Abnormal urinalysis: Code(s): R82.90 - Unspecified abnormal findings in urine Status: Acute Assessment and Plan: As above (5) Rhabdomyolysis: Qualifiers: Rhabdomyolysis type: traumatic Encounter type: initial encounter Qualified Code(s): T79.6XXA - Traumatic ischemia of muscle, initial encounter Code(s): M62.82 - Rhabdomyolysis Status: Acute Assessment and Plan: -CK increased overnight -Continue IVF -Pt with crackles, will continue lasix as well - secondary to prolonged time spent on floor post fall - trend CK (6) Ground-level fall: Code(s): W18.30XA - Fall on same level, unspecified, initial encounter Status: Acute Assessment and Plan: - trauma workup including a head CT, hip/pelvic XR, knee XR, C-spine CT, and CT of the chest/abdomen/pelvis were negative for acute traumatic findings - fall precaution - analgesics p.r.n. (7) CHF (congestive heart failure): Qualifiers: Heart failure chronicity: chronic Heart failure type: unspecified Qualified Code(s): I50.9 - Heart failure, unspecified Code(s): I50.9 - Heart failure, unspecified Status: Chronic Assessment and Plan: - hx of CHF, no echo on file - evidence of small bilateral pleural effusions on CT - Continue IV lasix for now - monitor clinical volume status, daily weights, and I&Os (8) Atrial fibrillation: Qualifiers: Atrial fibrillation type: unspecified Qualified Code(s): I48.91 - Unspecified atrial fibrillation Code(s): I48.91 - Unspecified atrial fibrillation Status: Chronic Assessment and Plan: on heparin for PE -rate controlled without any medications -tele Plan lactic trending down-no fevers, tachycardia or leukocytosis. Procalcitonin 0.2. No anion gap. Time Spent With Patient Time with patient: 25 - 35 minutes Subjective Date/time seen: 01/09/25 10:39 Interval history: Pt is a 74-year-old female here for fall with shortness of breath. patient was seen today and states that she is overall feeling okay. she states she has pain all over but not any one area in particular that is worse than the other. She denies shortness of breath. She has not been out of bed. She also denies cough, nausea, vomiting, diarrhea or constipation. She did have some mild chest pain earlier in the day that she cannot describe. She thinks it was stabbing but also could be pressure. She has had this in the past at home and it comes and goes and she is unsure of any instance that makes it better or worse ( i.e. walking, sitting etc). she was told that she needed oxygen in the past but she no longer needs the oxygen and she does not use at home. She has lower extremity swelling that she describes as much better than usual. She has a history of AFib and not on Eliquis for various reasons that she does not want to discuss. She says cost is somewhat a factor but she is going to think about restarting anticoagulation. She is a Jehovah Witness and understands that she is on anticoagulation at this time. She does not usually have a urinary catheter. Review of Systems Review of Systems: All systems reviewed & are unremarkable except as noted in HPI and below Exam Narrative: General: Well developed well nourished patient in NAD HEENT: normocephalic Neck: supple Neuro: Alert and oriented x4 CV: irregularly irregular. Telemetry with AFib Resp: left lower lobe crackles, clear lungs on the right. Oxygen applied Abd: Soft, non distended. No pain to palpation. Positive bowel sounds Extremities: nonpitting edema noted bilaterally. Pain to palpation to both lower extremities. No erythema. Objective Data Vital Signs Vital Signs: Vital Signs - 24 hr 01/08/25 10:40 01/08/25 10:42 01/08/25 10:47 Temperature Pulse Rate 64 Respiratory Rate 18 Blood Pressure 149/77 H Pulse Oximetry 87 L 87 L 85 L Oxygen Delivery Nasal Cannula Nasal Cannula Oxygen Flow Rate 4 6 01/08/25 10:48 01/08/25 11:01 01/08/25 11:21 Temperature 98.2 F 98.2 F Pulse Rate 60 Respiratory Rate 21 H Blood Pressure Pulse Oximetry 94 Oxygen Delivery BiPAP Oxygen Flow Rate 01/08/25 12:19 01/08/25 12:19 01/08/25 12:40 Temperature 98.6 F Pulse Rate 62 57 L Respiratory Rate 18 18 Blood Pressure 153/92 H 158/100 H Pulse Oximetry 100 97 Oxygen Delivery Oxygen Flow Rate 01/08/25 12:56 01/08/25 13:06 01/08/25 13:50 Temperature 98.6 F 97.8 F Pulse Rate 52 L 59 L Respiratory Rate 22 H 24 H Blood Pressure 150/87 H Pulse Oximetry 99 100 Oxygen Delivery BiPAP Oxygen Flow Rate 01/08/25 14:00 01/08/25 14:03 01/08/25 14:12 Temperature Pulse Rate 56 L 57 L Respiratory Rate 16 Blood Pressure Pulse Oximetry 96 Oxygen Delivery Nasal Cannula Oxygen Flow Rate 2 01/08/25 14:19 01/08/25 16:00 01/08/25 16:00 Temperature 97.9 F Pulse Rate 56 L 44 L Respiratory Rate 16 22 H Blood Pressure 135/80 Pulse Oximetry 100 100 Oxygen Delivery Nasal Cannula Oxygen Flow Rate 2 01/08/25 16:00 01/08/25 18:00 01/08/25 20:00 Temperature 98.2 F Pulse Rate 54 L 61 54 L Respiratory Rate 20 Blood Pressure 144/94 H Pulse Oximetry 98 Oxygen Delivery Oxygen Flow Rate 01/08/25 20:00 01/08/25 20:00 01/08/25 20:29 Temperature Pulse Rate 62 67 Respiratory Rate 16 Blood Pressure Pulse Oximetry 100 Oxygen Delivery Nasal Cannula Oxygen Flow Rate 2 01/08/25 20:29 01/08/25 20:38 01/08/25 22:00 Temperature Pulse Rate 67 56 L Respiratory Rate 16 Blood Pressure Pulse Oximetry 97 Oxygen Delivery Nasal Cannula Oxygen Flow Rate 2 01/08/25 23:02 01/08/25 23:56 01/09/25 00:00 Temperature 97.9 F Pulse Rate 67 62 Respiratory Rate 24 H 24 H Blood Pressure 121/81 Pulse Oximetry 96 100 100 Oxygen Delivery BiPAP Nasal Cannula Oxygen Flow Rate 2 01/09/25 02:00 01/09/25 02:14 01/09/25 02:22 Temperature Pulse Rate 52 L 67 67 Respiratory Rate 16 16 Blood Pressure Pulse Oximetry Oxygen Delivery Oxygen Flow Rate 01/09/25 03:32 01/09/25 04:00 01/09/25 04:00 Temperature 98.2 F Pulse Rate 59 L 93 Respiratory Rate 22 H Blood Pressure 129/78 Pulse Oximetry 100 93 Oxygen Delivery Nasal Cannula Oxygen Flow Rate 2 01/09/25 07:42 01/09/25 09:20 Temperature 98.2 F Pulse Rate 54 L 65 Respiratory Rate 18 16 Blood Pressure 141/74 H Pulse Oximetry 97 Oxygen Delivery Oxygen Flow Rate Intake/Output Intake/Output: Intake & Output 01/06/25 01/07/25 01/08/25 01/09/25 23:59 23:59 23:59 23:59 Intake Total 159.2 114.6 Output Total 2100 3600 Balance -1940.8 -3485.4 Meds/Results Medications: Active Medications Generic Name Dose Route Start Last Admin Trade Name Freq PRN Reason Stop Dose Admin Acetaminophen 650 mg 01/08/25 12:40 Acetaminophen 325 Mg Tablet PO Q6H PRN Mild Pain (1-3) or Fever Hydrocodone Bitart/Acetaminophen 1 tab 01/08/25 12:40 01/09/25 09:30 Hydrocodone/Acetaminophen (*Crx) 5-325 Mg Tablet PO 1 tab Q6H PRN Administration Pain Rated 4-6 Albuterol 2.5 mg 01/08/25 14:00 01/09/25 09:20 Albuterol Sulfate Neb 2.5 Mg/3 Ml Inh INHALATION 2.5 mg Q6HRT TAMMY Administration Docusate Sodium 100 mg 01/08/25 12:40 Docusate Sodium 100 Mg Capsule PO Q12H PRN Constipation Furosemide 40 mg 01/08/25 21:00 01/09/25 09:30 Furosemide Inj 40 Mg/4 Ml Vial IV PUSH 40 mg Q12HR TAMMY Administration Heparin Sodium (Porcine) 7,000 units 01/08/25 11:03 Heparin Sodium 5,000 Units/Ml Vial IV PUSH PRN PRN aPTT less than 55 seconds Heparin Sodium (Porcine) 3,500 units 01/08/25 11:03 Heparin Sodium 5,000 Units/Ml Vial IV PUSH PRN PRN aPTT 55 - 70 seconds Hydromorphone HCl 0.5 mg 01/08/25 11:54 Hydromorphone Hcl Inj (*Crx) 2 Mg/Ml Vial IV PUSH Q4H PRN Pain Rated 7-10 Ceftriaxone Sodium 1 gm/ 50 mls @ 100 mls/hr 01/09/25 11:00 Sodium Chloride IVPB Q24H [facility] Heparin Sodium/Dextrose 25,000 units in 250 mls @ 9 mls/hr 01/08/25 11:05 01/09/25 03:35 Heparin Sodium/D5w 100 Units/Ml IV CONT 900 units/hr .Q24H TAMMY 9 mls/hr Titration Protocol 900 UNITS/HR Lactated Ringer's 1,000 mls @ 125 mls/hr 01/08/25 11:55 01/09/25 03:56 Lr - Lactated Ringers Iv IV CONT Not Given .Q8H TAMMY Naloxone HCl 0.1 mg 01/08/25 12:40 Naloxone Hcl 0.4 Mg/Ml Vial IV PUSH Q5MIN PRN Sedation Ondansetron HCl 4 mg 01/08/25 11:54 Ondansetron Inj 4 Mg/2 Ml Vial IV PUSH Q4H PRN Nausea Perflutren Lipid Microsphere 0 ml 01/09/25 07:48 Perflutren Lipid Microspheres 1.5 Ml Vial Diluted To 10 Ml Total Volume IV PUSH 01/12/25 07:49 ONCE PRN adequate visualization Protocol Polyethylene Glycol 17 gm 01/08/25 12:40 Polyethylene Glycol 3350 17 Gm Powd.Pack PO QAM PRN Constipation Radiology Results: ITS Impressions Head CT 01/08/25 10:14 Impression: Age-related changes within the brain, without acute intracranial hemorrhage or suspicious mass effect. Hip/Pelvis X-Ray 01/08/25 10:15 IMPRESSION: Degenerative disease without acute fracture or dislocation Knee X-Ray 01/08/25 10:22 IMPRESSION: Diffuse bony demineralization and significant degenerative disease, as detailed above. No acute fracture. Cervical Spine CT 01/08/25 10:28 Impression: Significant degenerative disease without acute fracture. Chest/Abdomen/Pelvis CT 01/08/25 10:46 IMPRESSION: 1. Pulmonary emboli with relatively low clot burden. Dr. Mccartney discussed this and the following findings with Dr. clarke at 11:00 AM. 2. Moderate cardiomegaly with right ventricular and biatrial enlargement. 3. Small bilateral pleural effusions. 4. Complex medial left lower lobe along side a large sliding-type hiatal hernia containing large portion the stomach as well as segment of the nonobstructed transverse colon.. 5. Cholelithiasis. 6. Mild bilateral hydronephrosis with 1.2 x 0.4 cm stone at the left ureteropelvic junction and with 7 mm stone in the distal right ureter alongside a right intrarenal stent which is in expected position. Labs Labs: Laboratory Results - last 24 hr 01/08/25 01/08/25 01/08/25 10:57 12:51 18:20 WBC RBC Hgb Hct MCV MCH MCHC RDW Plt Count MPV Immature Gran % (Auto) Neut % (Auto) Lymph % (Auto) Gregg % (Auto) Eos % (Auto) Baso % (Auto) Lymph # (Auto) Gregg # (Auto) Eos # (Auto) Baso # (Auto) Abs Immat Gran (auto) Absolute Neuts (auto) Absolute Nucleated RBC Nucleated RBC % APTT > 200.0 H* Puncture Site Right radial ABG pH 7.409 ABG pCO2 42.8 ABG pO2 62.0 L ABG PO2/FiO2 Ratio 1.41 ABG HCO3 26.5 H ABG O2 Saturation 91.9 L ABG O2 Content 18.0 ABG Base Excess 1.5 A-a Gradient 202.9 Oxyhemoglobin 88.8 L Carboxyhemoglobin 1.0 Methemoglobin 0.1 Reduced Hemoglobin 10.1 H Total Hemoglobin 14.4 O2 Delivery Device Nasal cannula O2 Liters/Min 6.0 FiO2 44 Sodium Potassium Chloride Carbon Dioxide Anion Gap BUN Creatinine Estim Creat Clear Calc Estimated GFR Glucose Lactic Acid 3.7 H Calcium Total Bilirubin AST ALT Alkaline Phosphatase Total Creatine Kinase NT-Pro-B Natriuret Pep Total Protein Albumin Procalcitonin 01/09/25 01/09/25 01/09/25 01:33 01:48 01:49 WBC 6.5 RBC 4.74 Hgb 12.8 Hct 42.5 MCV 89.7 MCH 27.0 MCHC 30.1 L RDW 15.9 H Plt Count 159 MPV 11.6 H Immature Gran % (Auto) 0.2 Neut % (Auto) 73.4 H Lymph % (Auto) 15.1 L Gregg % (Auto) 10.9 H Eos % (Auto) 0.2 Baso % (Auto) 0.2 Lymph # (Auto) 0.98 Gregg # (Auto) 0.7 H Eos # (Auto) 0.0 Baso # (Auto) 0.0 Abs Immat Gran (auto) 0.01 Absolute Neuts (auto) 4.8 Absolute Nucleated RBC 0.000 Nucleated RBC % 0.0 APTT > 200.0 H* Puncture Site ABG pH ABG pCO2 ABG pO2 ABG PO2/FiO2 Ratio ABG HCO3 ABG O2 Saturation ABG O2 Content ABG Base Excess A-a Gradient Oxyhemoglobin Carboxyhemoglobin Methemoglobin Reduced Hemoglobin Total Hemoglobin O2 Delivery Device O2 Liters/Min FiO2 Sodium 138 Potassium 4.2 Chloride 101 Carbon Dioxide 31 H Anion Gap 6 BUN 15 Creatinine 0.76 Estim Creat Clear Calc 75 Estimated GFR > 60 Glucose 105 Lactic Acid Calcium 9.2 Total Bilirubin 1.2 AST 51 H ALT 27 Alkaline Phosphatase 69 Total Creatine Kinase 689 H NT-Pro-B Natriuret Pep 4000 H Total Protein 6.5 Albumin 3.2 L Procalcitonin 0.2 01/09/25 01/09/25 01/09/25 01:50 04:41 10:02 WBC RBC Hgb Hct MCV MCH MCHC RDW Plt Count MPV Immature Gran % (Auto) Neut % (Auto) Lymph % (Auto) Gregg % (Auto) Eos % (Auto) Baso % (Auto) Lymph # (Auto) Gregg # (Auto) Eos # (Auto) Baso # (Auto) Abs Immat Gran (auto) Absolute Neuts (auto) Absolute Nucleated RBC Nucleated RBC % APTT 69.8 H Puncture Site ABG pH ABG pCO2 ABG pO2 ABG PO2/FiO2 Ratio ABG HCO3 ABG O2 Saturation ABG O2 Content ABG Base Excess A-a Gradient Oxyhemoglobin Carboxyhemoglobin Methemoglobin Reduced Hemoglobin Total Hemoglobin O2 Delivery Device O2 Liters/Min FiO2 Sodium Potassium Chloride Carbon Dioxide Anion Gap BUN Creatinine Estim Creat Clear Calc Estimated GFR Glucose Lactic Acid 4.3 H* 2.7 H Calcium Total Bilirubin AST ALT Alkaline Phosphatase Total Creatine Kinase NT-Pro-B Natriuret Pep Total Protein Albumin Procalcitonin Quality VTE Prophylaxis VTE prophylaxis: mechanical ordered
[2025-01-09] MEDS: HEPARIN SOD/D5W 100 UNITS/ML 25,000 UNITS/250 ML BAG 11 UNITS IV CONT (11:25)
[2025-01-09] MEDS: cefTRIAXone 1 GM in SODIUM CHLORIDE 0.9% IV 50 ML 100 ML IVPB (11:28)
[2025-01-09 14:24] LABS: Troponin I 0.756 ng/mL (0.000-0.034)
[2025-01-09] MEDS: LACTATED RINGERS 1,000 ML 125 ML IV CONT (15:33)
[2025-01-09] MEDS: LIDOCAINE 1% PF INJ 5 ML VIAL INFILTRATE (15:45)
--- NOTE | 2025-01-09 17:41 | ECG_ITS ---
Test Date: 2025-01-09 18:09:25 Measurements Intervals Scott Rate: 63 P: 0 MN: 0 QRS: -32 QRSD: 153 T: 209 QT: 509 QTc: 525 Interpretive Statements ATRIAL FIBRILLATION WITH ABERRANT CONDUCTION OR VENTRICULAR PREMATURE COMPLEXES LEFT ANTERIOR HEMIBLOCK RIGHT BUNDLE BRANCH BLOCK [120+ ms QRS DURATION, UPRIGHT V1, 40+ ms S IN I/aVL/V4/V5/V6] NONSPECIFIC T-WAVE ABNORMALITY ABNORMAL ECG No previous ECG available for comparison Electronically Signed On 01-10-2025 08:10:47 CDT by Denver Amaya M.D.
[2025-01-09 18:25] LABS: Partial Thromboplastin Time 83.5 Seconds (22.3-36.8)
[2025-01-09 18:34] LABS: Troponin I 0.440 ng/mL (0.000-0.034)
[2025-01-09] MEDS: CENTRAL LINE FLUSH 10 ML IV PUSH (20:10)
[2025-01-09 22:39] LABS: Troponin I 0.403 ng/mL (0.000-0.034)
[2025-01-10] VITALS (32 sets, daily range): BP systolic 88–146; BP diastolic 50–92; PULSE 42–75; RESP 12–22; TEMP 36.3–36.9; O2SAT 91–100
--- NOTE | 2025-01-10 | ECHO_ITS ---
Patient Info Name: Vanessa Olsen Age: 74 years : 1950 Gender: Female Ht: 70 in Wt: 230 lbs BSA: 2.30 m2 HR: 42 bpm BP: 104 / 59 mmHg Heart Rhythm: Atrial Fibrillation Technical Quality: Good Exam Date: 01/10/2025 11:19 AM Patient Status: I Admit Date: 01/09/2025 Exam Type: CA echo doppler color flow Complete two-dimensional, color flow and Doppler transthoracic echocardiogram is performed. Staff Referring Physician: Eliel Lepe M.D. Injection Molding Technician: Leila Escobar Attending Provider: Allie Wells MD Summary 1. Complete two-dimensional, color flow and Doppler transthoracic echocardiogram is performed. Left Ventricle Left ventricular chamber dimension is normal. Left ventricular systolic function is normal, estimated at 50-55. The left ventricular diastolic function is indeterminate. Right Ventricle Right ventricular chamber dimension is severely enlarged. Left Atria Left atrial chamber dimension is severely enlarged. Right Atria Right atrial chamber dimension is severely enlarged. Aortic Valve The aortic valve is normal. Pulmonic Valve The pulmonic valve is normal. Mitral Valve The mitral valve has normal leaflets. There is mild to moderate mitral valve regurgitation. Tricuspid Valve The tricuspid valve leaflets are normal. There is moderate tricuspid valve regurgitation. Severe pulmonary hypertension, estimated pulmonary arterial systolic pressure is 83 mmHg. Pericardium/Pleural The pericardium appears normal. Aorta The aortic root size at the sinus of Valsalva is normal. Left Ventricular Outflow Tract Name Value Normal LVOT 2D LVOT Diameter 2.0 cm LVOT Doppler LVOT Peak Velocity 104 cm/s LVOT Peak Gradient 4 mmHg LVOT Mean Gradient 2 mmHg LVOT VTI 21 cm LVOT Stroke Volume 66 ml LVOT CO 2.8 l/min LVOT CI 1.3 l/min/m2 Pulmonic Valve Name Value Normal RVOT Doppler RVOT Peak Velocity 65 cm/s RVOT Peak Gradient 2 mmHg PV Doppler PV Peak Velocity 85 cm/s PV Peak Gradient 3 mmHg Mitral Valve Name Value Normal MV Regurgitation Doppler MR Peak Gradient 158 mmHg MV Diastolic Function MV E Peak Velocity 89 cm/s MV A Peak Velocity 30 cm/s MV E/A 3.0 MV Decel Time (PW) 237 ms MV Annular TDI MV E/e' (Septal) 16.3 MV E/e' (Lateral) 10.7 MV E/e' (Average) 13.5 Tricuspid Valve Name Value Normal TV Regurgitation Doppler TR Peak Velocity 458 cm/s TR Peak Gradient 73 mmHg Estimated PAP/RSVP PA Systolic Pressure 83 mmHg <36 Aortic Valve Name Value Normal AV Doppler AV Peak Velocity 179 cm/s AV Peak Gradient 12 mmHg AV Area (Cont Eq Kelton) 1.8 cm2 AV DI (Kelton) 0.58 AV Regurgitation 2D LVOT Area 3.1 cm2 Ventricles Name Value Normal LV Dimensions 2D/MM IVS Diastolic Thickness (2D) 1.3 cm 0.6-1.0 LVID Diastole (2D) 4.7 cm 3.8-5.2 LVIW Diastolic Thickness (2D) 1.4 cm 0.6-0.9 LVID Systole (2D) 2.9 cm 2.2-3.5 LVOT Diameter 2.0 cm LV Mass (2D Cubed) 254.76 g 67.00-162.00 LV Mass Index (2D Cubed) 111 g/m2 43-95 Relative Wall Thickness (2D) 0.58 <=0.42 LV Fractional Shortening/Ejection Fraction 2D/MM LV Fractional Shortening (2D) 39 % 27-45 LV EF (2D Teichholz) 69 % LV Diastolic Volume (4C MOD) 119 ml LV EF (4C MOD) 62 % LV Diastolic Volume (2C MOD) 138 ml LV EF (2C MOD) 57 % LV Diastolic Volume (BP MOD) 130 ml 46-106 LV Diastolic Volume Index (BP MOD) 57 ml/m2 29-61 LV Systolic Volume (BP MOD) 54 ml 14-42 LV Systolic Volume Index (BP MOD) 24 ml/m2 8-24 LV EF (BP MOD) 58 % 54-74 LV Diastolic Length (4C) 7.6 cm LV Systolic Length (4C) 7.1 cm LV Stroke Volume (4C MOD) 74 ml Atria Name Value Normal LA Dimensions LA Volume (4C A-L) 145 ml LA Volume (BP A-L) 141 ml RA Dimensions RA Systolic Major Ashburn Length (4C) 8.6 cm 2.2-2.8 RA Area (4C) 51.8 cm2 <=18.0 Report Signatures
[2025-01-10] MEDS: LACTATED RINGERS 1,000 ML 125 ML IV CONT ×2 (00:09→08:01)
[2025-01-10] MEDS: ALBUTEROL SULFATE NEB 2.5 MG/3 ML INH INHALATION ×3 (01:31→20:29)
[2025-01-10 02:08] LABS: Partial Thromboplastin Time 95.6 Seconds (22.3-36.8)
[2025-01-10] MEDS: HYDROcodone/acetaminophen (*CRX) 5-325 MG TABLET 1 TAB PO ×2 (03:29→09:43)
[2025-01-10] MEDS: CENTRAL LINE FLUSH 10 ML IV PUSH ×3 (03:30→21:02)
[2025-01-10 05:20] LABS: Hematocrit 36.2 % (37.0-47.0); Hemoglobin 11.3 g/dL (12.0-15.0); Mean Corpuscular HGB Conc 31.2 g/dl (32-36); Mean Corpuscular Hemoglobin 27.6 pg (26-34); Mean Corpuscular Volume 88.5 fl (80-100); Platelet Count Result 132 k/mm3 (150-375); Red Blood Count 4.09 M/mm3 (4.2-5.4); White Blood Count 5.4 K/mm3 (4.5-10.0)
[2025-01-10 05:31] LABS: Partial Thromboplastin Time 87.2 Seconds (22.3-36.8)
[2025-01-10 05:42] LABS: Anion Gap 4 mmol/L (4-12); Blood Urea Nitrogen 13 mg/dL (7-17); Calcium 8.5 mg/dL (8.4-10.2); Carbon Dioxide 34 mmol/L (22-30); Chloride 100 mmol/L (98-107); Creatine Kinase 430 U/L (30-135); Estimated CRCL calculation 92 ml/min; Estimated Glomerular Filt Rate > 60; Glucose 85 mg/dL (65-110); Potassium 3.2 mmol/L (3.4-5.0); Sodium 138 mmol/L (137-145)
[2025-01-10] MEDS: SERTRALINE HCL 50 MG TABLET PO (08:04)
--- NOTE | 2025-01-10 08:06 | P.CONCA_ITS ---
Assessment and Plan Assessment and plan (1) Pulmonary embolism: Qualifiers: Pulmonary embolism type: multiple subsegmental (without acute cor pulmonale) Qualified Code(s): I26.94 - Multiple subsegmental thrombotic pulmonary emboli without acute cor pulmonale Code(s): I26.99 - Other pulmonary embolism without acute cor pulmonale Status: Acute (2) Atrial fibrillation: Qualifiers: Atrial fibrillation type: unspecified Qualified Code(s): I48.91 - Unspecified atrial fibrillation Code(s): I48.91 - Unspecified atrial fibrillation Status: Chronic (3) Anticoagulant long-term use: Code(s): Z79.01 - MCC (current) use of anticoagulants Status: Acute (4) CHF (congestive heart failure): Qualifiers: Heart failure chronicity: chronic Heart failure type: unspecified Q ualified Code(s): I50.9 - Heart failure, unspecified Code(s): I50.9 - Heart failure, unspecified Status: Chronic (5) Hypokalemia: Code(s): E87.6 - Hypokalemia Status: Acute Plan PE- per patient she has a h/o PE and DVT NSTEMI- elevated troponin, central chest pain 9/10 intensity but this appears to be chronic Congestive heart failure- LV function unknown (no echo in the chart) AFib on chronic anticoagulation- rate controlled, Eliquis on hold for upcoming ureteral procedure Acute hypoxic respiratory failure-most likely secondary to PE and congestive heart failure Ureteral calculus, bilateral hydronephrosis Ground level fall Hypokalemia Chronic constant chest pain, h/o fibromyalgia Plan: NSTEMI could be type I or type II secondary to supple demand mismatch due to acute PE and heart failure. Patient's chest pain is chronic and not new. Troponin has peaked. Recommend treating medically for now. Continue heparin drip. Start asa 81 mg daily after ureteral procedure when safe from bleeding standpoint. Add atorvastatin 40 mg daily Evaluation of coronaries after she recovers from her acute illness with outpatient stress test vs cath unless her clinical condition changes or TTE shows any RWMA Eliquis has been held for ureteral procedure today. Continue anticoagulation with heparin for PE She has rate controlled AFib. No AV rachael blocking agents given Bradycardia Obtain TTE to evaluate for RV strain, LVEF, regional wall motion abnormalities Troponin peaked. Can stop checking EKG now as patient is having chest pain Check and replace electrolytes to keep potassium greater than 4 and magnesium greater than 2 History of Present Illness History of Present Illness Consult date/time: 01/10/25 08:06 Reason For Visit: pulmonary embolism,ureteral calculi,abnormal ua Narrative: 74-year-old female with history of congestive heart failure with unknown systolic function, paroxysmal atrial fibrillation on anticoagulation with Eliquis, history of PE, DVT, kidney stones, anemia, fibromyalgia presents with chief complaints of fall. Patient states she sustained a ground level fall on 01/07 in the bathroom while she was trying to transfer from the toilet to her electric wheelchair. She does not remember the events well but she ended up on the floor. She cannot remember if she had hit her head or lost consciousness. She reports right hip pain that radiates into her right leg from the fall. She was unable to get up post-fall and lay on the ground for 6-7 hours. She also reports constant right lower quadrant abdominal ache that is nonradiating and associated with nausea. She reports off and on chronic central chest pain. She has this central chest pain now of intensity 9/10 now without any radiation or associated symptoms. She denies palpitations, dizziness, lightheadedness, presyncope, syncope. The patient had been off all medications as she was trying to eat healthy and be off medications. In the ER her oxygen saturations were noted to be 85% on room air. She was placed on BiPAP. CT chest showed pulmonary emboli with low clot burden. she was started on heparin drip. She has bilateral hydronephrosis with 1.2 in 2.4 cm stone at the left ureteropelvic junction and 7 mm stone in the distal right ureter alongside a right intrarenal stent. She is scheduled to undergo bilateral ureteral stent placement today. She is noted to have elevated troponin and Cardiology is consulted for further recommendations. EKG shows atrial fibrillation with rate of 63, right bundle branch block and T-wave abnormalities in lateral and inferior leads. Workup: Potassium: 3.2 Hemoglobin: 11.2 Creatinine: 0.61 Troponin: 0.756, 0.440, 0.403 EKG: Atrial fibrillation with rate of 63, right bundle branch block, T-wave abnormalities noted in lateral and inferior leads Chest x-ray: Bilateral pulmonary opacities may represent edema/infection segmental atelectasis/consolidation in left lower lung. Small bilateral pleural effusions. CT chest: Pulmonary embolism with relatively low clot burden. Moderate cardiomegaly with right ventricular and biatrial enlargement. Small bilateral pleural effusions. Complex medial left lower lobe along side a large sliding type hiatal hernia containing large portion of the stomach as well as a segment of the nonobstructive at transverse colon. Cholelithiasis. Mild bilateral hydronephrosis with 1.2 x 0.4 cm stone at the left ureteropelvic junction and with 7 mm stone in the distal right ureter alongside a right intrarenal stent which is in expected position. Head CT: Age-related changes with no acute findings Review of Systems 2 Review of Systems: A complete review of systems was performed and negative other than those mentioned in the [facility] Past Medical History Medical History Atrial fibrillation Anxiety Cataracts, bilateral Anemia Fibromyalgia CHF (congestive heart failure) Surgical History Surgical History History of total abdominal hysterectomy and bilateral salpingo-oophorectomy History of ventral hernia repair Family History Family History Other No pertinent family history Social History Social History Smoking status: Never smoker Alcohol intake: never Substance use: never Lack of Transportation: No Lack of Food: Never True Current Housing: I Have Housing Concerned About Future Housing: No Difficulty Paying Gas/Electric Bills: No Difficulty Paying for Meds: No Currently Unemployed: No Education: High School Diploma/GED Difficulty w/ Childcare or Family Care: No Living arrangements: alone Occupation/Education: retired Gender identity (if verbalized by the patient): Female Spiritual care concerns: No Meds Home Medications and Allergies Home Medications ?Medication ?Instructions ?Recorded ?Confirmed ?Type apixaban 5 mg tablet (Eliquis) 5 mg PO BID 03/16/21 01/08/25 History cephalexin 500 mg capsule 500 mg PO BID 03/16/21 01/08/25 History sertraline 50 mg tablet 50 mg PO DAILY 03/17/21 01/08/25 History spironolactone 25 mg tablet 25 mg PO BID 03/17/21 01/08/25 History furosemide 40 mg tablet 40 mg PO BID #30 tabs 03/24/21 01/08/25 Rx Allergies Allergy/AdvReac Type Severity Reaction Status Date / Time No Known Allergies Allergy Verified 01/10/25 14:26 Vital Signs Vital Signs - 24 hr 01/09/25 09:20 01/09/25 09:32 01/09/25 10:00 Temperature Pulse Rate 65 67 72 Respiratory Rate 16 16 Blood Pressure Pulse Oximetry Oxygen Delivery Oxygen Flow Rate 01/09/25 12:00 01/09/25 12:00 01/09/25 12:00 Temperature 36.7 C Pulse Rate 92 70 Respiratory Rate 18 Blood Pressure 130/69 Pulse Oximetry 93 100 Oxygen Delivery Nasal Cannula Oxygen Flow Rate 2 01/09/25 14:00 01/09/25 14:00 01/09/25 14:15 Temperature Pulse Rate 68 59 L 65 Respiratory Rate 16 16 Blood Pressure Pulse Oximetry Oxygen Delivery Oxygen Flow Rate 01/09/25 15:44 01/09/25 16:00 01/09/25 16:00 Temperature 36.7 C Pulse Rate 49 L 53 L Respiratory Rate 22 H Blood Pressure 125/63 Pulse Oximetry 97 96 Oxygen Delivery Nasal Cannula Oxygen Flow Rate 2 01/09/25 18:00 01/09/25 20:00 01/09/25 20:00 Temperature 36.6 C Pulse Rate 67 58 L Respiratory Rate 22 H Blood Pressure 113/67 Pulse Oximetry 100 97 Oxygen Delivery Nasal Cannula Oxygen Flow Rate 2 01/09/25 20:00 01/09/25 20:08 01/09/25 20:08 Temperature Pulse Rate 41 L 57 L Respiratory Rate 18 Blood Pressure Pulse Oximetry 99 Oxygen Delivery Nasal Cannula Oxygen Flow Rate 2 01/09/25 20:18 01/09/25 22:00 01/09/25 23:49 Temperature 37.0 C Pulse Rate 59 L 52 L 48 L Respiratory Rate 18 22 H Blood Pressure 103/69 Pulse Oximetry 100 Oxygen Delivery Oxygen Flow Rate 01/10/25 00:00 01/10/25 00:00 01/10/25 01:31 Temperature Pulse Rate 46 L 45 L Respiratory Rate 18 Blood Pressure Pulse Oximetry 100 Oxygen Delivery Nasal Cannula Oxygen Flow Rate 2 01/10/25 01:41 01/10/25 02:00 01/10/25 03:24 Temperature Pulse Rate 50 L 46 L Respiratory Rate 18 Blood Pressure Pulse Oximetry 100 Oxygen Delivery Nasal Cannula Oxygen Flow Rate 2 01/10/25 04:00 01/10/25 06:00 Temperature 36.6 C Pulse Rate 49 L 52 L Respiratory Rate 22 H Blood Pressure 104/59 L Pulse Oximetry 100 Oxygen Delivery Oxygen Flow Rate Exam 2 Narrative: General: Alert oriented x3, no acute distress Neck: Supple, JVD + Chest: Bilaterally clear to auscultation, no rales or rhonchi Cardiac: S1, S2 +, irregularly irregular rhythm, no murmurs or rubs Extremities: Bilateral lower extremity edema 1+, no skin rash Neurologic: Alert and oriented x3, no focal neurological deficits Results Labs and Meds 01/10/25 05:11 01/10/25 05:11 Lab results: Cardiac Enzymes 01/09/25 01/09/25 01/09/25 Range/Units 11:47 17:57 21:15 Troponin I 0.756 H* 0.440 H* D 0.403 H* (0.000-0.034) ng/mL Coagulation 01/09/25 01/09/25 01/10/25 Range/Units 10:02 17:57 01:34 APTT 69.8 H 83.5 H 95.6 H (22.3-36.8) Seconds 01/10/25 Range/Units 05:11 APTT 87.2 H (22.3-36.8) Seconds CBC 01/10/25 Range/Units 05:11 WBC 5.4 (4.5-10.0) K/mm3 RBC 4.09 L (4.2-5.4) M/mm3 Hgb 11.3 L (12.0-15.0) g/dL Hct 36.2 L (37.0-47.0) % Plt Count 132 L (150-375) k/mm3 Comprehensive Metabolic Panel 01/10/25 Range/Units 05:11 Sodium 138 (137-145) mmol/L Potassium 3.2 L (3.4-5.0) mmol/L Chloride 100 (98-107) mmol/L Carbon Dioxide 34 H (22-30) mmol/L BUN 13 (7-17) mg/dL Creatinine 0.61 L (0.7-1.0) mg/dL Glucose 85 (65-110) mg/dL Calcium 8.5 (8.4-10.2) mg/dL Intake and Output 01/09/25 01/10/25 01/10/25 23:59 07:59 15:59 Intake Total 2014.7 80.3 983.3 Output Total 2500 2500 Balance -485.3 -2419.7 983.3 Intake: IV 1082.7 80.3 983.3 Heparin Sod/D5w 100 Units/ml 25 82.7 80.3 ,000 units In 250 ml @ 1,100 UNITS/HR 11 mls/hr IV CONT . [id number] TAMMY Rx#:[id number] Lactated Ringers 1,000 ml @ 100 1000 983.3 mls/hr IV CONT .Q10H TAMMY Rx#: [id number] Oral 932 Output: Catheter Urine 2500 2500 Urethral Catheter 2500 2500 Patient Weight 01/10/25 23:59 Weight 104.5 kg
[2025-01-10] MEDS: POTASSIUM CHLORIDE 20 MEQ ER TABLET 40 MEQ PO (09:44)
[2025-01-10] MEDS: DOCUSATE SODIUM 100 MG CAPSULE PO (09:49)
[2025-01-10] MEDS: FUROSEMIDE INJ 40 MG/4 ML VIAL IV PUSH ×2 (10:09→21:02)
--- NOTE | 2025-01-10 10:27 | PM.IMPN ---
Progress Note: A&P Assessment and Plan (1) Pulmonary embolism: Qualifiers: Pulmonary embolism type: multiple subsegmental (without acute cor pulmonale) Qualified Code(s): I26.94 - Multiple subsegmental thrombotic pulmonary emboli without acute cor pulmonale Code(s): I26.99 - Other pulmonary embolism without acute cor pulmonale Status: Acute Assessment and Plan: PE noted on CTA chest with low clot burden. Heparin drip started. Remains on 2L Doppler LE showing nonocclusive DVT at the right popliteal vein. Continue heparin. She is considering if she wants to resume Eliquis. Consider IVC filter if she declines anticoagulation. Echocardiogram ordered. Wean oxygen as tolerated. (2) CHF (congestive heart failure): Qualifiers: Heart failure chronicity: chronic Heart failure type: unspecified Qualified Code(s): I50.9 - Heart failure, unspecified Code(s): I50.9 - Heart failure, unspecified Status: Chronic Assessment and Plan: Patient was 85% on room air upon initial evaluation in the ED on 01/08. No previous supplemental O2 requirement. BNP 4000 Etiology of the hypoxia probably multifactorial from PE and CHF. Echo ordered. She was started on IV Lasix but is also on IV fluids. Given that clinically she is volume overloaded, will stop IV fluids. Total CK is 430 now so should not impact renal function. Monitor fluid status, daily weights, I&Os Wean oxygen as tolerated (3) Hypoxia: Code(s): R09.02 - Hypoxemia Status: Acute Assessment and Plan: [place] related to PE and CHF. (4) Calculus of left ureter: Code(s): N20.1 - Calculus of ureter Status: Acute Assessment and Plan: CT showing mild bilateral hydronephrosis with 1.2 x 0.4 cm stone at the left ureteropelvic junction and with 7 mm stone in the distal right ureter alongside a right intrarenal stent which is in expected position. The right intrarenal stent was placed in 2022. UA is consistent with UTI. UCx collected. Rocephin started. BCx no growth to date UCx growing Gram-negative bacilli. Follow up on UCx results. Urology consulted and patient underwent bilateral stent placements. They were unable to remove the old right renal stent because it was encrusted. (5) Abnormal urinalysis: Code(s): R82.90 - Unspecified abnormal findings in urine Status: Acute Assessment and Plan: As above (6) Rhabdomyolysis: Qualifiers: Encounter type: initial encounter Rhabdomyolysis type: traumatic Qualified Code(s): T79.6XXA - Traumatic ischemia of muscle, initial encounter Code(s): M62.82 - Rhabdomyolysis Status: Acute Assessment and Plan: Total CK mildly elevated to 690 but not trending downward. (7) Ground-level fall: Code(s): W18.30XA - Fall on same level, unspecified, initial encounter Status: Acute Assessment and Plan: Patient presented after having a ground level fall. Trauma workup including a head CT, hip/pelvic XR, knee XR, C-spine CT, and CT of the chest/abdomen/pelvis were negative for acute traumatic findings Left ankle xray negative for frature. Fall precaution Start PT and OT. (8) Atrial fibrillation: Qualifiers: Atrial fibrillation type: unspecified Qualified Code(s): I48.91 - Unspecified atrial fibrillation Code(s): I48.91 - Unspecified atrial fibrillation Status: Chronic Assessment and Plan: On heparin for PE and AFib Rate controlled with bradycardia without any medications Sick sinus syndrome? COntinue to monitor on tele Plan Lactic acidosis - lactic trending down-no fevers, tachycardia or leukocytosis. Procalcitonin 0.2. No anion gap. DVT prophylaxis - Heparin Code status - full Subjective Date/time seen: 01/10/25 10:27 Interval history: 74yo female with AFib, anemia, fibromyalgia and CHF here for fall with shortness of breath. Assuming care. Chart reviewed. Patient complaining of stomach pain present since admission as well as chronic heel pain. She has persistent right flank pain as well as pleuritic back pain. No nausea, vomiting or diarrhea. Eating well without abdominal pain. She has a history of AFib and not on Eliquis for various reasons She says cost is somewhat a factor. She is a [employer] Witness Exam Narrative: AF 97.7 146/72 58 20 99% ra Gen - NARD Chest - few basilar crackles o/w clear. CV - irregular. Tele showing AFib with bradycardia HR around 45. Abd - Soft, righ sided pain with guarding. No rebound Back - Left CVA tenderness Ext - 2+ pedal edema L>R. Pain with any movement of the lower extremtity but reasonably good ROM to hips. Psych - Nml mood and affect Skin - Warm and dry Objective Data Vital Signs Vital Signs: Vital Signs - 24 hr 01/09/25 12:00 01/09/25 12:00 01/09/25 12:00 Temperature 98.1 F Pulse Rate 92 70 Respiratory Rate 18 Blood Pressure 130/69 Pulse Oximetry 93 100 Oxygen Delivery Nasal Cannula Oxygen Flow Rate 2 01/09/25 14:00 01/09/25 14:00 01/09/25 14:15 Temperature Pulse Rate 68 59 L 65 Respiratory Rate 16 16 Blood Pressure Pulse Oximetry Oxygen Delivery Oxygen Flow Rate 01/09/25 15:44 01/09/25 16:00 01/09/25 16:00 Temperature 98.1 F Pulse Rate 49 L 53 L Respiratory Rate 22 H Blood Pressure 125/63 Pulse Oximetry 97 96 Oxygen Delivery Nasal Cannula Oxygen Flow Rate 2 01/09/25 18:00 01/09/25 20:00 01/09/25 20:00 Temperature 97.8 F Pulse Rate 67 58 L Respiratory Rate 22 H Blood Pressure 113/67 Pulse Oximetry 100 97 Oxygen Delivery Nasal Cannula Oxygen Flow Rate 2 01/09/25 20:00 01/09/25 20:08 01/09/25 20:08 Temperature Pulse Rate 41 L 57 L Respiratory Rate 18 Blood Pressure Pulse Oximetry 99 Oxygen Delivery Nasal Cannula Oxygen Flow Rate 2 01/09/25 20:18 01/09/25 22:00 01/09/25 23:49 Temperature 98.6 F Pulse Rate 59 L 52 L 48 L Respiratory Rate 18 22 H Blood Pressure 103/69 Pulse Oximetry 100 Oxygen Delivery Oxygen Flow Rate 01/10/25 00:00 01/10/25 00:00 01/10/25 01:31 Temperature Pulse Rate 46 L 45 L Respiratory Rate 18 Blood Pressure Pulse Oximetry 100 Oxygen Delivery Nasal Cannula Oxygen Flow Rate 2 01/10/25 01:41 01/10/25 02:00 01/10/25 03:24 Temperature Pulse Rate 50 L 46 L Respiratory Rate 18 Blood Pressure Pulse Oximetry 100 Oxygen Delivery Nasal Cannula Oxygen Flow Rate 2 01/10/25 04:00 01/10/25 06:00 01/10/25 07:28 Temperature 98 F Pulse Rate 49 L 52 L 58 L Respiratory Rate 22 H 20 Blood Pressure 104/59 L Pulse Oximetry 100 Oxygen Delivery Oxygen Flow Rate 01/10/25 07:35 01/10/25 08:00 Temperature 97.7 F Pulse Rate 57 L 58 L Respiratory Rate 20 20 Blood Pressure 146/72 H Pulse Oximetry 99 Oxygen Delivery Oxygen Flow Rate Intake/Output Intake/Output: Intake & Output 01/07/25 01/08/25 01/09/25 01/10/25 23:59 23:59 23:59 23:59 Intake Total 159.2 3421.8 1063.6 Output Total 2100 6100 2500 Balance -1940.8 -2678.2 -1436.4 Meds/Results Medications: Active Medications Generic Name Dose Route Start Last Admin Trade Name Freq PRN Reason Stop Dose Admin Acetaminophen 650 mg 01/08/25 12:40 Acetaminophen 325 Mg Tablet PO Q6H PRN Mild Pain (1-3) or Fever Hydrocodone Bitart/Acetaminophen 1 tab 01/08/25 12:40 01/10/25 09:43 Hydrocodone/Acetaminophen (*Crx) 5-325 Mg Tablet PO 1 tab Q6H PRN Administration Pain Rated 4-6 Albuterol 2.5 mg 01/08/25 14:00 01/10/25 07:30 Albuterol Sulfate Neb 2.5 Mg/3 Ml Inh INHALATION 2.5 mg Q6HRT TAMMY Administration Docusate Sodium 100 mg 01/08/25 12:40 01/10/25 09:49 Docusate Sodium 100 Mg Capsule PO 100 mg Q12H PRN Administration Constipation Furosemide 40 mg 01/08/25 21:00 01/10/25 10:09 Furosemide Inj 40 Mg/4 Ml Vial IV PUSH 40 mg Q12HR TAMMY Administration Heparin Sodium (Porcine) 7,000 units 01/08/25 11:03 Heparin Sodium 5,000 Units/Ml Vial IV PUSH PRN PRN aPTT less than 55 seconds Heparin Sodium (Porcine) 3,500 units 01/08/25 11:03 01/09/25 11:27 Heparin Sodium 5,000 Units/Ml Vial IV PUSH 3,500 units PRN PRN Administration aPTT 55 - 70 seconds Hydromorphone HCl 0.5 mg 01/08/25 11:54 Hydromorphone Hcl Inj (*Crx) 2 Mg/Ml Vial IV PUSH Q4H PRN Pain Rated 7-10 Ceftriaxone Sodium 1 gm/ 50 mls @ 100 mls/hr 01/09/25 11:00 01/09/25 11:28 Sodium Chloride IVPB 100 mls/hr Q24H TAMMY Administration Heparin Sodium/Dextrose 25,000 units in 250 mls @ 11 mls/hr 01/08/25 11:05 01/10/25 08:02 Heparin Sodium/D5w 100 Units/Ml IV CONT Not Given .[id number] TAMMY Protocol 1,100 UNITS/HR Lactated Ringer's 1,000 mls @ 100 mls/hr 01/08/25 11:55 01/10/25 08:01 Lr - Lactated Ringers Iv IV CONT 125 mls/hr .Q10H TAMMY Administration Naloxone HCl 0.1 mg 01/08/25 12:40 Naloxone Hcl 0.4 Mg/Ml Vial IV PUSH Q5MIN PRN Sedation Ondansetron HCl 4 mg 01/08/25 11:54 Ondansetron Inj 4 Mg/2 Ml Vial IV PUSH Q4H PRN Nausea Perflutren Lipid Microsphere 0 ml 01/09/25 07:48 Perflutren Lipid Microspheres 1.5 Ml Vial Diluted To 10 Ml Total Volume IV PUSH 01/12/25 07:49 ONCE PRN adequate visualization Protocol Polyethylene Glycol 17 gm 01/08/25 12:40 Polyethylene Glycol 3350 17 Gm Powd.Pack PO QAM PRN Constipation Sertraline HCl 50 mg 01/10/25 09:00 01/10/25 08:04 Sertraline Hcl 50 Mg Tablet PO 50 mg DAILY TAMMY Administration Sodium Chloride 10 ml 01/09/25 22:00 01/10/25 03:30 Central Line Flush IV PUSH 10 ml Q8HR TAMMY Administration Sodium Chloride 10 ml 01/09/25 16:35 Central Line Flush IV PUSH PRN PRN with TPN bag changes Sodium Chloride 20 ml 01/09/25 16:35 Central Line Flush IV PUSH PRN PRN after blood draws Radiology Results: ITS Impressions Head CT 01/08/25 10:14 Impression: Age-related changes within the brain, without acute intracranial hemorrhage or suspicious mass effect. Hip/Pelvis X-Ray 01/08/25 10:15 IMPRESSION: Degenerative disease without acute fracture or dislocation Knee X-Ray 01/08/25 10:22 IMPRESSION: Diffuse bony demineralization and significant degenerative disease, as detailed above. No acute fracture. Cervical Spine CT 01/08/25 10:28 Impression: Significant degenerative disease without acute fracture. Chest/Abdomen/Pelvis CT 01/08/25 10:46 IMPRESSION: 1. Pulmonary emboli with relatively low clot burden. Dr. Mccartney discussed this and the following findings with Dr. clarke at 11:00 AM. 2. Moderate cardiomegaly with right ventricular and biatrial enlargement. 3. Small bilateral pleural effusions. 4. Complex medial left lower lobe along side a large sliding-type hiatal hernia containing large portion the stomach as well as segment of the nonobstructed transverse colon.. 5. Cholelithiasis. 6. Mild bilateral hydronephrosis with 1.2 x 0.4 cm stone at the left ureteropelvic junction and with 7 mm stone in the distal right ureter alongside a right intrarenal stent which is in expected position. Chest X-Ray 01/09/25 16:40 IMPRESSION: Right upper extremity PICC, terminating in the distal SVC. Bilateral pulmonary opacities may represent edema/infection. Segmental atelectasis/consolidation in the left lower lung. Small bilateral pleural effusions. Labs Labs: Laboratory Results - last 24 hr 01/09/25 01/09/25 01/09/25 10:02 11:47 17:57 WBC RBC Hgb Hct MCV MCH MCHC RDW Plt Count MPV APTT 69.8 H 83.5 H Sodium Potassium Chloride Carbon Dioxide Anion Gap BUN Creatinine Estim Creat Clear Calc Estimated GFR Glucose Lactic Acid 2.0 Calcium Total Creatine Kinase Troponin I 0.756 H* 0.440 H* D 01/09/25 01/10/25 01/10/25 21:15 01:34 05:11 WBC 5.4 RBC 4.09 L Hgb 11.3 L Hct 36.2 L MCV 88.5 MCH 27.6 MCHC 31.2 L RDW 15.8 H Plt Count 132 L MPV 10.8 H APTT 95.6 H 87.2 H Sodium 138 Potassium 3.2 L Chloride 100 Carbon Dioxide 34 H Anion Gap 4 BUN 13 Creatinine 0.61 L Estim Creat Clear Calc 92 Estimated GFR > 60 Glucose 85 Lactic Acid Calcium 8.5 Total Creatine Kinase 430 H Troponin I 0.403 H*
[2025-01-10] MEDS: cefTRIAXone 1 GM in SODIUM CHLORIDE 0.9% IV 50 ML 100 ML IVPB (11:50)
--- NOTE | 2025-01-10 12:26 | WPDUROPN2 ---
Progress Note: A&P Assessment and Plan (1) Calculus of left ureter: Code(s): N20.1 - Calculus of ureter Status: Acute (2) Retained ureteral stent: Code(s): Z96.0 - Presence of urogenital implants Status: Chronic (3) UTI (urinary tract infection): Qualifiers: Hematuria presence: with hematuria Urinary tract infection type: site unspecified Qualified Code(s): N39.0 - Urinary tract infection, site not specified; R31.9 - Hematuria, unspecified Code(s): N39.0 - Urinary tract infection, site not specified Status: Acute Plan - Bilateral obstructing nephrolithiasis with an associated urinary tract infection. A retained right ureteral stent is also present from 03/2023 (Dr. Baer/Jared). The patient is on supplemental O2 via NC for hypoxia secondary to acute pulmonary emboli and is on a heparin gtt. eliquis on hold. Renal function stable, Cr 0.61. No leukocytosis. Afebrile. - Again, we discussed the option for bilateral ureteral stent placement, which would involve exchanging the retained right stent and placing a new left stent. The patient expressed a desire to proceed with the procedure. - Patient was counseled on importance of outpatient follow-up for stone treatment and stent management. - patient has been NPO since midnight. planned for surgery today. Cardiology aware and has planned for further anticoags around urologic surgery today. - Agree with culture-directed antibiotics. Cultures pending. Subjective Subjective Date/Time Seen: 01/10/25 12:26 Interval history: 74yo female with AFib, anemia, fibromyalgia and CHF here for fall with shortness of breath. Patient complaining of stomach pain present since admission. She has persistent right flank pain as well as pleuritic back pain. No nausea, vomiting or diarrhea. patient has been npo since midnight for urologic surgery today. cardiology note reviewed. they note the surgery planned and treatment for post op anticoagulation. Review of Systems Constitutional: Constitutional: Reports fatigue and Reports weakness Cardiovascular: Cardiovascular: Denies chest pain and Reports dyspnea on exertion Respiratory: Respiratory: Reports dyspnea on exertion Gastrointestinal: Gastrointestinal: Reports abdominal pain, Denies nausea and Denies vomiting Genitourinary: Genitourinary: Reports as per HPI, Denies dysuria and Denies flank pain Musculoskeletal: Musculoskeletal: Reports back pain Neurologic: Reports weakness Endocrine: Endocrine: Reports fatigue Exam Const: General: comfortable and no acute distress HENMT: Face/Nose/Sinus: Normal nares present Eyes: General: appearance normal, both eyes and all related structures Resp: Effort & Inspection: normal respiratory effort Other: Supplemental O2, NC GI: Inspection: non-distended Other: RLQ/LLQ tender (R>L) : General: Yes bladder normal to palpation Bimanual exam- vagina & uterus: bladder normal to palpation Skin: General skin exam: normal color Neuro: Speech: normal speech Psych: Affect: normal affect Objective Data Vital Signs Vital Signs: Vital Signs - 24 hr 01/09/25 14:00 01/09/25 14:00 01/09/25 14:15 Temperature Pulse Rate 68 59 L 65 Respiratory Rate 16 16 Blood Pressure Pulse Oximetry Oxygen Delivery Oxygen Flow Rate 01/09/25 15:44 01/09/25 16:00 01/09/25 16:00 Temperature 98.1 F Pulse Rate 49 L 53 L Respiratory Rate 22 H Blood Pressure 125/63 Pulse Oximetry 97 96 Oxygen Delivery Nasal Cannula Oxygen Flow Rate 2 01/09/25 18:00 01/09/25 20:00 01/09/25 20:00 Temperature 97.8 F Pulse Rate 67 58 L Respiratory Rate 22 H Blood Pressure 113/67 Pulse Oximetry 100 97 Oxygen Delivery Nasal Cannula Oxygen Flow Rate 2 01/09/25 20:00 01/09/25 20:08 01/09/25 20:08 Temperature Pulse Rate 41 L 57 L Respiratory Rate 18 Blood Pressure Pulse Oximetry 99 Oxygen Delivery Nasal Cannula Oxygen Flow Rate 2 01/09/25 20:18 01/09/25 22:00 01/09/25 23:49 Temperature 98.6 F Pulse Rate 59 L 52 L 48 L Respiratory Rate 18 22 H Blood Pressure 103/69 Pulse Oximetry 100 Oxygen Delivery Oxygen Flow Rate 01/10/25 00:00 01/10/25 00:00 01/10/25 01:31 Temperature Pulse Rate 46 L 45 L Respiratory Rate 18 Blood Pressure Pulse Oximetry 100 Oxygen Delivery Nasal Cannula Oxygen Flow Rate 2 01/10/25 01:41 01/10/25 02:00 01/10/25 03:24 Temperature Pulse Rate 50 L 46 L Respiratory Rate 18 Blood Pressure Pulse Oximetry 100 Oxygen Delivery Nasal Cannula Oxygen Flow Rate 2 01/10/25 04:00 01/10/25 06:00 01/10/25 07:28 Temperature 98 F Pulse Rate 49 L 52 L 58 L Respiratory Rate 22 H 20 Blood Pressure 104/59 L Pulse Oximetry 100 Oxygen Delivery Oxygen Flow Rate 01/10/25 07:35 01/10/25 08:00 Temperature 97.7 F Pulse Rate 57 L 58 L Respiratory Rate 20 20 Blood Pressure 146/72 H Pulse Oximetry 99 Oxygen Delivery Oxygen Flow Rate Intake/Output Intake/Output: Intake & Output 01/07/25 01/08/25 01/09/25 01/10/25 23:59 23:59 23:59 23:59 Intake Total 159.2 3471.8 1063.6 Output Total 2100 6100 2500 Balance -1940.8 -2628.2 -1436.4 Meds/Results Medications: Active Medications Generic Name Dose Route Start Last Admin Trade Name Freq PRN Reason Stop Dose Admin Acetaminophen 650 mg 01/08/25 12:40 Acetaminophen 325 Mg Tablet PO Q6H PRN Mild Pain (1-3) or Fever Hydrocodone Bitart/Acetaminophen 1 tab 01/08/25 12:40 01/10/25 09:43 Hydrocodone/Acetaminophen (*Crx) 5-325 Mg Tablet PO 1 tab Q6H PRN Administration Pain Rated 4-6 Albuterol 2.5 mg 01/08/25 14:00 01/10/25 07:30 Albuterol Sulfate Neb 2.5 Mg/3 Ml Inh INHALATION 2.5 mg Q6HRT TAMMY Administration Docusate Sodium 100 mg 01/08/25 12:40 01/10/25 09:49 Docusate Sodium 100 Mg Capsule PO 100 mg Q12H PRN Administration Constipation Furosemide 40 mg 01/08/25 21:00 01/10/25 10:09 Furosemide Inj 40 Mg/4 Ml Vial IV PUSH 40 mg Q12HR TAMMY Administration Heparin Sodium (Porcine) 7,000 units 01/08/25 11:03 Heparin Sodium 5,000 Units/Ml Vial IV PUSH PRN PRN aPTT less than 55 seconds Heparin Sodium (Porcine) 3,500 units 01/08/25 11:03 01/09/25 11:27 Heparin Sodium 5,000 Units/Ml Vial IV PUSH 3,500 units PRN PRN Administration aPTT 55 - 70 seconds Hydromorphone HCl 0.5 mg 01/08/25 11:54 Hydromorphone Hcl Inj (*Crx) 2 Mg/Ml Vial IV PUSH Q4H PRN Pain Rated 7-10 Ceftriaxone Sodium 1 gm/ 50 mls @ 100 mls/hr 01/09/25 11:00 01/10/25 11:50 Sodium Chloride IVPB 100 mls/hr Q24H TAMMY Administration Heparin Sodium/Dextrose 25,000 units in 250 mls @ 11 mls/hr 01/08/25 11:05 01/10/25 08:02 Heparin Sodium/D5w 100 Units/Ml IV CONT Not Given .[id number] TAMMY Protocol 1,100 UNITS/HR Naloxone HCl 0.1 mg 01/08/25 12:40 Naloxone Hcl 0.4 Mg/Ml Vial IV PUSH Q5MIN PRN Sedation Ondansetron HCl 4 mg 01/08/25 11:54 Ondansetron Inj 4 Mg/2 Ml Vial IV PUSH Q4H PRN Nausea Perflutren Lipid Microsphere 0 ml 01/09/25 07:48 Perflutren Lipid Microspheres 1.5 Ml Vial Diluted To 10 Ml Total Volume IV PUSH 01/12/25 07:49 ONCE PRN adequate visualization Protocol Polyethylene Glycol 17 gm 01/08/25 12:40 Polyethylene Glycol 3350 17 Gm Powd.Pack PO QAM PRN Constipation Sertraline HCl 50 mg 01/10/25 09:00 01/10/25 08:04 Sertraline Hcl 50 Mg Tablet PO 50 mg DAILY TAMMY Administration Sodium Chloride 10 ml 01/09/25 22:00 01/10/25 03:30 Central Line Flush IV PUSH 10 ml Q8HR TAMMY Administration Sodium Chloride 10 ml 01/09/25 16:35 Central Line Flush IV PUSH PRN PRN with TPN bag changes Sodium Chloride 20 ml 01/09/25 16:35 Central Line Flush IV PUSH PRN PRN after blood draws Radiology Results: ITS Impressions Head CT 01/08/25 10:14 Impression: Age-related changes within the brain, without acute intracranial hemorrhage or suspicious mass effect. Hip/Pelvis X-Ray 01/08/25 10:15 IMPRESSION: Degenerative disease without acute fracture or dislocation Knee X-Ray 01/08/25 10:22 IMPRESSION: Diffuse bony demineralization and significant degenerative disease, as detailed above. No acute fracture. Cervical Spine CT 01/08/25 10:28 Impression: Significant degenerative disease without acute fracture. Chest/Abdomen/Pelvis CT 01/08/25 10:46 IMPRESSION: 1. Pulmonary emboli with relatively low clot burden. Dr. Mccartney discussed this and the following findings with Dr. clarke at 11:00 AM. 2. Moderate cardiomegaly with right ventricular and biatrial enlargement. 3. Small bilateral pleural effusions. 4. Complex medial left lower lobe along side a large sliding-type hiatal hernia containing large portion the stomach as well as segment of the nonobstructed transverse colon.. 5. Cholelithiasis. 6. Mild bilateral hydronephrosis with 1.2 x 0.4 cm stone at the left ureteropelvic junction and with 7 mm stone in the distal right ureter alongside a right intrarenal stent which is in expected position. Chest X-Ray 01/09/25 16:40 IMPRESSION: Right upper extremity PICC, terminating in the distal SVC. Bilateral pulmonary opacities may represent edema/infection. Segmental atelectasis/consolidation in the left lower lung. Small bilateral pleural effusions. Labs Labs: Laboratory Results - last 24 hr 01/09/25 01/09/25 01/09/25 11:47 17:57 21:15 WBC RBC Hgb Hct MCV MCH MCHC RDW Plt Count MPV APTT 83.5 H Sodium Potassium Chloride Carbon Dioxide Anion Gap BUN Creatinine Estim Creat Clear Calc Estimated GFR Glucose Calcium Total Creatine Kinase Troponin I 0.756 H* 0.440 H* D 0.403 H* 01/10/25 01/10/25 01:34 05:11 WBC 5.4 RBC 4.09 L Hgb 11.3 L Hct 36.2 L MCV 88.5 MCH 27.6 MCHC 31.2 L RDW 15.8 H Plt Count 132 L MPV 10.8 H APTT 95.6 H 87.2 H Sodium 138 Potassium 3.2 L Chloride 100 Carbon Dioxide 34 H Anion Gap 4 BUN 13 Creatinine 0.61 L Estim Creat Clear Calc 92 Estimated GFR > 60 Glucose 85 Calcium 8.5 Total Creatine Kinase 430 H Troponin I
[2025-01-10] MEDS: HEPARIN SOD/D5W 100 UNITS/ML 25,000 UNITS/250 ML BAG 11 UNITS IV CONT (13:28)
--- NOTE | 2025-01-10 13:40 | PC.NURSE ---
To OR for procedure via bed accompanied by RN/CCT's
--- NOTE | 2025-01-10 14:46 | WPDHPUPDATE1 ---
History and Physical Update Update Date/Time: 01/10/25 14:46 History and Physical has been reviewed, including an updated exam of the patient. There are NO changes in the patient's condition. Risks, benefits, and alternatives have been discussed and questions answered. Patient agrees to proceed with procedure.
--- NOTE | 2025-01-10 15:37 | P.PNAN_ITS ---
Anes - Initial Pre Proc Eval Procedure: Operation Date: 01/08/25 14:30 Proposed Procedures p Cystoscopy, Left Stent Placement, Right Stent Exchange - Guido Delacruz MD Operation Date: 01/10/25 15:00 Proposed Procedures p Cystoscopy, Right Stent Exchange, Left Stent Placement - Bruno Villeda MD Date/Time: 01/10/25 15:37 Surgeon: Allie Wells MD Pre Op Diagnosis: pulmonary embolism,ureteral calculi,abnormal ua Patient Data Age: 74 Gender: F Height: 1.78 m Weight: 104.5 kg Last Vital Signs Temp 36.6 C 01/10/25 14:16 Pulse 69 01/10/25 14:16 Resp 20 01/10/25 08:00 BP 114/92 H 01/10/25 14:16 Pulse Ox 93 01/10/25 14:16 O2 Del Method Nasal Cannula 01/10/25 14:16 O2 Flow Rate 3 01/10/25 14:16 Allergies Allergy/AdvReac Type Severity Reaction Status Date / Time No Known Allergies Allergy Verified 01/10/25 14:26 Home Medications ?Medication ?Instructions ?Recorded ?Confirmed ?Type apixaban 5 mg tablet (Eliquis) 5 mg PO BID 03/16/21 01/08/25 History cephalexin 500 mg capsule 500 mg PO BID 03/16/21 01/08/25 History sertraline 50 mg tablet 50 mg PO DAILY 03/17/21 01/08/25 History spironolactone 25 mg tablet 25 mg PO BID 03/17/21 01/08/25 History furosemide 40 mg tablet 40 mg PO BID #30 tabs 03/24/21 01/08/25 Rx Laboratory Tests 01/09/25 01/09/25 01/10/25 17:57 21:15 01:34 WBC RBC Hgb Hct MCV MCH MCHC RDW Plt Count MPV APTT 83.5 H Seconds 95.6 H Seconds (22.3-36.8) (22.3-36.8) Sodium Potassium Chloride Carbon Dioxide Anion Gap BUN Creatinine Estim Creat Clear Calc Estimated GFR Glucose Calcium Total Creatine Kinase Troponin I 0.440 H* D ng/mL 0.403 H* ng/mL (0.000-0.034) (0.000-0.034) 01/10/25 05:11 WBC 5.4 K/mm3 (4.5-10.0) RBC 4.09 L M/mm3 (4.2-5.4) Hgb 11.3 L g/dL (12.0-15.0) Hct 36.2 L % (37.0-47.0) MCV 88.5 fl (80-100) MCH 27.6 pg (26-34) MCHC 31.2 L g/dl (32-36) RDW 15.8 H % (11.5-14.5) Plt Count 132 L k/mm3 (150-375) MPV 10.8 H fl (7.4-10.4) APTT 87.2 H Seconds (22.3-36.8) Sodium 138 mmol/L (137-145) Potassium 3.2 L mmol/L (3.4-5.0) Chloride 100 mmol/L (98-107) Carbon Dioxide 34 H mmol/L (22-30) Anion Gap 4 mmol/L (4-12) BUN 13 mg/dL (7-17) Creatinine 0.61 L mg/dL (0.7-1.0) Estim Creat Clear Calc 92 ml/min Estimated GFR > 60 (59 - ) Glucose 85 mg/dL (65-110) Calcium 8.5 mg/dL (8.4-10.2) Total Creatine Kinase 430 H U/L (30-135) Troponin I Patient hx anesthesia problems: none Family hx anesthesia problems: none Results Review: All pre-operative results and documents have been reviewed as part of the pre- operative evaluation. [facility] Past Medical History Medical History Atrial fibrillation Anxiety Cataracts, bilateral Anemia Fibromyalgia CHF (congestive heart failure) Surgical History Surgical History History of total abdominal hysterectomy and bilateral salpingo-oophorectomy History of ventral hernia repair Family History Family History Other No pertinent family history Social History Social History Smoking status: Never smoker Alcohol intake: never Substance use: never Lack of Transportation: No Lack of Food: Never True Current Housing: I Have Housing Concerned About Future Housing: No Difficulty Paying Gas/Electric Bills: No Difficulty Paying for Meds: No Currently Unemployed: No Education: High School Diploma/GED Difficulty w/ Childcare or Family Care: No Living arrangements: alone Occupation/Education: retired Gender identity (if verbalized by the patient): Female Spiritual care concerns: No Anes - Eval Final PreProcedure Day of Procedure 01/10/25 15:37 Patient weight: obese Heart: irregular rhythm Lungs: decreased breath sounds Airway: Mallampati scale class III Neurological: alert and oriented Last oral intake: >/= 8 hours ASA classification: IV Emergent: no Anesthetic plan: proceed Anesthesia type and monitoring: general LMA and standard monitoring Results Review: All pre-operative results and documents have been reviewed as part of the pre- operative evaluation. Informed Consent: The patient's anesthetic plan and its attendant risks and benefits were discussed with the patient/family/POA. Questions were solicited and answers provided to the satisfaction of the patient/family/POA.
[2025-01-10] MEDS: LIDOCAINE 2% GEL UROJET 10 ML PKG MUCOUS MEM (16:04)
--- NOTE | 2025-01-10 16:22 | W.PM.PROC2 ---
Procedure Note - Detailed Date of Procedure 01/10/25 Pre-op Diagnosis pulmonary embolism,ureteral calculi,abnormal ua Post-op Diagnosis Same Procedure Performed Cystoscopy, bilateral retrograde pyelogram, bilateral ureteral stent insertion Unsuccessful Attempt to remove encrusted right ureteral stent Surgeon Bruno Villeda MD Anesthesia General Findings -encrusted right ureteral stent from 2022 that could not be removed -bilateral ureteral stent insertion 6 F left, 4.8 F right. Right stent placed adjacent to encrusted stent Description of Procedure Informed consent was obtained. Patient in the operating. She was given preoperative IV antibiotics. She was induced anesthesia. She was prepped and draped normal sterile fashion. A 20 F cystoscope was inserted urethra into the bladder the bladder had expected changes from previous stent insertion. We then cannulated the left ureteral orifice retrograde pyelogram showed an obstructing stone at the UPJ and hydronephrosis above the level of the stone. We advanced a Sensor wire then over the wire placed a 6 F variable length stent with a curl in the renal pelvis and a curl in the bladder. We then focused our attention on the right ureteral orifice where a wire was advanced adjacent to the encrusted stent. We were able to navigate the wire adjacent to the previous stent into the kidney. We then grasped the previous stent and were able to bring it out to the urethral meatus however no farther than that, there appeared to be incrustation of the proximal end of the stents that inhibited its removal. Given the patient's current anticoagulation additional interventions to remove the previous stent were not performed. We therefore performed a retrograde pyelogram showing moderate right hydronephrosis and over the wire placed a 4.8 F variable length stent with a curl in the upper pole curl in the bladder adjacent to the encrusted stent. A 16 F [place] catheter was inserted. The patient will return to the floor. Okay to anticoagulate patient from urologic standpoint. She will need definitive stone management and removal of her encrusted right stent as well as the bilateral new stents placed today when medically stable. Urine Output 50 Complications No immediate complications Condition Stable Disposition PACU
[2025-01-10] MEDS: LACTATED RINGERS 1,000 ML 30 ML IV CONT (16:25)
--- NOTE | 2025-01-10 20:10 | PC.NURSE ---
1730- pt returned to room post cystoscopy with bilateral stent placement- pt awake - VSS - O2 on 2l /nc- no complaints at this time
[2025-01-11] VITALS (28 sets, daily range): BP systolic 105–142; BP diastolic 60–84; PULSE 51–93; RESP 14–20; TEMP 36.5–36.9; O2SAT 92–100
[2025-01-11] MEDS: ALBUTEROL SULFATE NEB 2.5 MG/3 ML INH INHALATION ×4 (02:11→20:55)
[2025-01-11 05:58] LABS: Hematocrit 36.7 % (37.0-47.0); Hemoglobin 11.4 g/dL (12.0-15.0); Immature Granulocyte Percent A 0.2 % (0-0.5); Lymphocytes Absolute Auto 0.90 K/mm3 (0.9-3.2); Mean Corpuscular HGB Conc 31.1 g/dl (32-36); Mean Corpuscular Hemoglobin 27.4 pg (26-34); Mean Corpuscular Volume 88.2 fl (80-100); Nucleated Red Blood Cells Absolute Auto 0.000 K/mm3 (0.0-0.012); Nucleated Red Blood Cells Perc 0.0 % (0.0-0.2); Platelet Count Result 142 k/mm3 (150-375); Red Blood Count 4.16 M/mm3 (4.2-5.4); White Blood Count 5.4 K/mm3 (4.5-10.0)
[2025-01-11] MEDS: CENTRAL LINE FLUSH 10 ML IV PUSH ×3 (06:03→20:49)
[2025-01-11 06:17] LABS: Partial Thromboplastin Time 94.5 Seconds (22.3-36.8)
[2025-01-11 06:30] LABS: Alanine Aminotransferase 24 U/L (6-35); Albumin Level 2.9 g/dL (3.5-5.1); Alkaline Phosphatase 61 U/L (38-126); Anion Gap -1 mmol/L (4-12); Aspartate Amino Transferase 39 U/L (14-36); Bilirubin,Total 0.9 mg/dL (0.2-1.3); Blood Urea Nitrogen 11 mg/dL (7-17); Calcium 8.8 mg/dL (8.4-10.2); Carbon Dioxide 37 mmol/L (22-30); Chloride 95 mmol/L (98-107); Estimated CRCL calculation 89 ml/min; Estimated Glomerular Filt Rate > 60; Glucose 80 mg/dL (65-110); Magnesium 1.5 mg/dL (1.6-2.3); Potassium 3.5 mmol/L (3.4-5.0); Sodium 131 mmol/L (137-145); Total Protein 5.9 g/dL (6.3-8.2)
--- NOTE | 2025-01-11 06:40 | P.PNUR_ITS ---
Progress Note: A&P Assessment and Plan (1) Retained ureteral stent: Code(s): Z96.0 - Presence of urogenital implants Status: Chronic Assessment and Plan: * Tolerating new, bilateral ureteral stents well. * Sometime, when much more medically fit, will need either bilat. ESWL (if can come-off anticoagulation) or bilat. ureteroscopy for her retained right ureteral stent and left ureteral stone (2) Calculus of left ureter: Code(s): N20.1 - Calculus of ureter Status: Acute Subjective Subjective Date/Time Seen: 01/11/25 06:40 Interval history: Tolerating new left ureteral stent well Review of Systems Review of Systems: All systems reviewed & are unremarkable except as noted in HPI and below Exam Const: General: no acute distress Resp: Effort & Inspection: normal respiratory effort GI: Inspection: non-distended GI Palp: No abdominal tenderness and No Guarding due to palpation present (GI) Auscultation: normal bowel sounds Objective Data Vital Signs Vital Signs: Vital Signs - 24 hr 01/10/25 07:28 01/10/25 07:35 01/10/25 08:00 Temperature 97.7 F Pulse Rate 58 L 57 L 58 L Respiratory Rate 20 20 20 Blood Pressure 146/72 H Pulse Oximetry 99 Oxygen Delivery Oxygen Flow Rate 01/10/25 08:30 01/10/25 12:00 01/10/25 14:16 Temperature 98 F Pulse Rate 53 L 61 69 Respiratory Rate Blood Pressure 114/92 H Pulse Oximetry 93 Oxygen Delivery Nasal Cannula Oxygen Flow Rate 3 01/10/25 16:25 01/10/25 16:40 01/10/25 16:45 Temperature 98.4 F Pulse Rate 61 59 L 63 Respiratory Rate 12 12 14 Blood Pressure 89/50 L 88/56 L 93/64 L Pulse Oximetry 91 93 99 Oxygen Delivery Simple Face Mask Simple Face Mask Simple Face Mask Oxygen Flow Rate 8 8 8 01/10/25 16:51 01/10/25 17:00 01/10/25 17:15 Temperature 97.8 F Pulse Rate 68 63 Respiratory Rate 17 20 Blood Pressure 122/75 122/77 Pulse Oximetry 97 95 96 Oxygen Delivery Nasal Cannula Nasal Cannula Nasal Cannula Oxygen Flow Rate 2 2 2 01/10/25 17:30 01/10/25 18:00 01/10/25 19:00 Temperature 97.5 F L 97.4 F L 97.4 F L Pulse Rate 75 60 61 Respiratory Rate 18 20 20 Blood Pressure 125/73 131/79 121/72 Pulse Oximetry 97 100 100 Oxygen Delivery Oxygen Flow Rate 01/10/25 20:00 01/10/25 20:00 01/10/25 20:31 Temperature 97.5 F L Pulse Rate 54 L 54 L Respiratory Rate 22 H Blood Pressure 126/70 Pulse Oximetry 100 100 Oxygen Delivery Nasal Cannula Oxygen Flow Rate 2 01/10/25 20:40 01/10/25 20:41 01/10/25 20:42 Temperature Pulse Rate 67 67 67 Respiratory Rate 15 16 16 Blood Pressure Pulse Oximetry 100 100 Oxygen Delivery BiPAP Nasal Cannula Oxygen Flow Rate 4 01/10/25 21:22 01/10/25 22:00 01/10/25 22:19 Temperature 97.6 F 97.6 F Pulse Rate 51 L 46 L 49 L Respiratory Rate 15 14 Blood Pressure 123/87 112/76 Pulse Oximetry 100 100 Oxygen Delivery Oxygen Flow Rate 01/10/25 22:52 01/10/25 23:47 01/11/25 00:00 Temperature 97.8 F Pulse Rate 68 42 L Respiratory Rate 16 13 Blood Pressure 113/64 Pulse Oximetry 100 100 Oxygen Delivery Nasal Cannula Oxygen Flow Rate 4 01/11/25 00:00 01/11/25 02:00 01/11/25 02:11 Temperature Pulse Rate 60 54 L 54 L Respiratory Rate 16 Blood Pressure Pulse Oximetry Oxygen Delivery Oxygen Flow Rate 01/11/25 02:19 01/11/25 02:19 01/11/25 03:24 Temperature Pulse Rate 52 L 52 L Respiratory Rate 16 16 Blood Pressure Pulse Oximetry 100 100 Oxygen Delivery Nasal Cannula Oxygen Flow Rate 5 4 01/11/25 04:00 01/11/25 05:29 01/11/25 06:00 Temperature Pulse Rate 54 L 62 51 L Respiratory Rate 16 Blood Pressure Pulse Oximetry Oxygen Delivery Oxygen Flow Rate 01/11/25 06:29 01/11/25 06:32 01/11/25 06:34 Temperature 98.4 F Pulse Rate 54 L 62 66 Respiratory Rate 15 16 16 Blood Pressure 142/77 H Pulse Oximetry 100 97 Oxygen Delivery Nasal Cannula Oxygen Flow Rate 4 Intake/Output Intake/Output: Intake & Output 01/08/25 01/09/25 01/10/25 01/11/25 23:59 23:59 23:59 23:59 Intake Total 159.2 3471.8 1900.6 550 Output Total 2100 6100 3750 1900 Balance -1940.8 -2628.2 -1849.4 -1350 Meds/Results Medications: Active Medications Generic Name Dose Route Start Last Admin Trade Name Freq PRN Reason Stop Dose Admin Acetaminophen 650 mg 01/08/25 12:40 Acetaminophen 325 Mg Tablet PO Q6H PRN Mild Pain (1-3) or Fever Hydrocodone Bitart/Acetaminophen 1 tab 01/08/25 12:40 01/10/25 09:43 Hydrocodone/Acetaminophen (*Crx) 5-325 Mg Tablet PO 1 tab Q6H PRN Administration Pain Rated 4-6 Albuterol 2.5 mg 01/08/25 14:00 01/11/25 06:26 Albuterol Sulfate Neb 2.5 Mg/3 Ml Inh INHALATION 2.5 mg Q6HRT TAMMY Administration Docusate Sodium 100 mg 01/08/25 12:40 01/10/25 09:49 Docusate Sodium 100 Mg Capsule PO 100 mg Q12H PRN Administration Constipation Fentanyl Citrate 25 mcg 01/10/25 15:42 Fentanyl Citrate Inj (*Crx) 100 Mcg/2 Ml Vial IV PUSH Q2M PRN Pain Furosemide 40 mg 01/08/25 21:00 01/10/25 21:02 Furosemide Inj 40 Mg/4 Ml Vial IV PUSH 40 mg Q12HR TAMMY Administration Heparin Sodium (Porcine) 7,000 units 01/08/25 11:03 Heparin Sodium 5,000 Units/Ml Vial IV PUSH PRN PRN aPTT less than 55 seconds Heparin Sodium (Porcine) 3,500 units 01/08/25 11:03 01/09/25 11:27 Heparin Sodium 5,000 Units/Ml Vial IV PUSH 3,500 units PRN PRN Administration aPTT 55 - 70 seconds Hydromorphone HCl 0.5 mg 01/08/25 11:54 Hydromorphone Hcl Inj (*Crx) 2 Mg/Ml Vial IV PUSH Q4H PRN Pain Rated 7-10 Ceftriaxone Sodium 1 gm/ 50 mls @ 100 mls/hr 01/09/25 11:00 01/10/25 12:25 Sodium Chloride IVPB Infused Q24H TAMMY Infusion Heparin Sodium/Dextrose 25,000 units in 250 mls @ 11 mls/hr 01/08/25 11:05 01/10/25 13:28 Heparin Sodium/D5w 100 Units/Ml IV CONT 1,100 units/hr .[id number] TAMMY 11 mls/hr Administration Protocol 1,100 UNITS/HR Lactated Ringer's 1,000 mls @ 30 mls/hr 01/10/25 15:45 01/10/25 16:25 Lr - Lactated Ringers Iv IV CONT 30 mls/hr .Q24H TAMMY Administration Lactated Ringer's 1,000 mls @ 30 mls/hr 01/10/25 15:45 01/10/25 18:31 Lr - Lactated Ringers Iv IV CONT Not Given .Q24H TAMMY Naloxone HCl 0.1 mg 01/08/25 12:40 Naloxone Hcl 0.4 Mg/Ml Vial IV PUSH Q5MIN PRN Sedation Ondansetron HCl 4 mg 01/08/25 11:54 Ondansetron Inj 4 Mg/2 Ml Vial IV PUSH Q4H PRN Nausea Ondansetron HCl 4 mg 01/10/25 15:42 Ondansetron Inj 4 Mg/2 Ml Vial IV PUSH ONCE PRN Nausea Perflutren Lipid Microsphere 0 ml 01/09/25 07:48 Perflutren Lipid Microspheres 1.5 Ml Vial Diluted To 10 Ml Total Volume IV PUSH 01/12/25 07:49 ONCE PRN adequate visualization Protocol Polyethylene Glycol 17 gm 01/08/25 12:40 Polyethylene Glycol 3350 17 Gm Powd.Pack PO QAM PRN Constipation Sertraline HCl 50 mg 01/10/25 09:00 01/10/25 08:04 Sertraline Hcl 50 Mg Tablet PO 50 mg DAILY TAMMY Administration Sodium Chloride 10 ml 01/09/25 22:00 01/11/25 06:03 Central Line Flush IV PUSH 10 ml Q8HR TAMMY Administration Sodium Chloride 10 ml 01/09/25 16:35 Central Line Flush IV PUSH PRN PRN with TPN bag changes Sodium Chloride 20 ml 01/09/25 16:35 Central Line Flush IV PUSH PRN PRN after blood draws Radiology Results: ITS Impressions Head CT 01/08/25 10:14 Impression: Age-related changes within the brain, without acute intracranial hemorrhage or suspicious mass effect. Hip/Pelvis X-Ray 01/08/25 10:15 IMPRESSION: Degenerative disease without acute fracture or dislocation Knee X-Ray 01/08/25 10:22 IMPRESSION: Diffuse bony demineralization and significant degenerative disease, as detailed above. No acute fracture. Cervical Spine CT 01/08/25 10:28 Impression: Significant degenerative disease without acute fracture. Chest/Abdomen/Pelvis CT 01/08/25 10:46 IMPRESSION: 1. Pulmonary emboli with relatively low clot burden. Dr. Mccartney discussed this and the following findings with Dr. clarke at 11:00 AM. 2. Moderate cardiomegaly with right ventricular and biatrial enlargement. 3. Small bilateral pleural effusions. 4. Complex medial left lower lobe along side a large sliding-type hiatal hernia containing large portion the stomach as well as segment of the nonobstructed transverse colon.. 5. Cholelithiasis. 6. Mild bilateral hydronephrosis with 1.2 x 0.4 cm stone at the left ureteropelvic junction and with 7 mm stone in the distal right ureter alongside a right intrarenal stent which is in expected position. Chest X-Ray 01/09/25 16:40 IMPRESSION: Right upper extremity PICC, terminating in the distal SVC. Bilateral pulmonary opacities may represent edema/infection. Segmental atelectasis/consolidation in the left lower lung. Small bilateral pleural effusions. Ankle X-Ray 01/10/25 12:24 IMPRESSION: 1. No left ankle joint effusion or acute osseous abnormality. Venous Doppler Study 01/10/25 13:14 IMPRESSION: 1. Nonocclusive deep venous thrombosis at the right popliteal vein. The more peripheral right posterior tibial and peroneal veins were unable be definitively identified to assess for additional thrombosis. 2. No deep venous thrombosis in the left lower limb. Labs Labs: Laboratory Results - last 24 hr 01/11/25 05:53 WBC 5.4 RBC 4.16 L Hgb 11.4 L Hct 36.7 L MCV 88.2 MCH 27.4 MCHC 31.1 L RDW 15.5 H Plt Count 142 L MPV 11.1 H Immature Gran % (Auto) 0.2 Neut % (Auto) 71.8 Lymph % (Auto) 16.6 L [place] % (Auto) 10.1 H Eos % (Auto) 0.7 Baso % (Auto) 0.6 Lymph # (Auto) 0.90 [place] # (Auto) 0.6 Eos # (Auto) 0.0 Baso # (Auto) 0.0 Abs Immat Gran (auto) 0.01 Absolute Neuts (auto) 3.9 Absolute Nucleated RBC 0.000 Nucleated RBC % 0.0 APTT 94.5 H Sodium 131 L Potassium 3.5 Chloride 95 L Carbon Dioxide 37 H Anion Gap -1 L BUN 11 Creatinine 0.63 L Estim Creat Clear Calc 89 Estimated GFR > 60 Glucose 80 Calcium 8.8 Phosphorus 3.2 Magnesium 1.5 L Total Bilirubin 0.9 AST 39 H ALT 24 Alkaline Phosphatase 61 Total Protein 5.9 L Albumin 2.9 L
[2025-01-11] MEDS: HYDROcodone/acetaminophen (*CRX) 5-325 MG TABLET 1 TAB PO ×2 (08:50→18:20)
[2025-01-11] MEDS: SERTRALINE HCL 50 MG TABLET PO (08:51)
[2025-01-11] MEDS: FUROSEMIDE INJ 40 MG/4 ML VIAL IV PUSH (08:52)
[2025-01-11] MEDS: MAGNESIUM SULF 2 GM/WATER 50ML 2 GM/50 ML BAG IVPB (08:54)
--- NOTE | 2025-01-11 11:28 | P.PNIM_ITS ---
Progress Note: A&P Assessment and Plan (1) Pulmonary embolism: Qualifiers: Pulmonary embolism type: multiple subsegmental (without acute cor pulmonale) Qualified Code(s): I26.94 - Multiple subsegmental thrombotic pulmonary emboli without acute cor pulmonale Code(s): I26.99 - Other pulmonary embolism without acute cor pulmonale Status: Acute Assessment and Plan: PE noted on CTA chest with low clot burden. Heparin drip started. Up to 5L overnight but back down to 2L Doppler LE showing nonocclusive DVT at the right popliteal vein. Echo showing EF 50-55% with indeterminate diastolic fxn, severe bi-atrial enlargement, mild-mod MR and severe pulmonary HTN. Continue heparin. 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 Wean oxygen as tolerated. (2) CHF (congestive heart failure): Qualifiers: Heart failure chronicity: chronic Heart failure type: unspecified Qualified Code(s): I50.9 - Heart failure, unspecified Code(s): I50.9 - Heart failure, unspecified Status: Chronic Assessment and Plan: Patient was 85% on RA upon initial evaluation in the ED on 01/08. No previous O2 requirement. BNP 4000. CT Chest showing consolidation basilar LLL and small pleural effusions. Echo as above. Etiology of the hypoxia probably multifactorial from severe pulm HTN, PE and acute diastolic CHF. She was started on IV Lasix but was also on IV fluids which were stopped since clinically she is volume overloaded I/O's -7.7L so will back down on lasix. Some of the pedal edema related to severe pulm HTN and not CHF Monitor fluid status, daily weights, I&Os. Add [place] hose Wean oxygen as tolerated (3) Hypoxia: Code(s): R09.02 - Hypoxemia Status: Acute Assessment and Plan: [place] related to severe pulm HTN, PE and acute diastolic CHF. As above (4) Calculus of left ureter: Code(s): N20.1 - Calculus of ureter Status: Acute Assessment and Plan: CT showing mild bilateral hydronephrosis with 1.2 x 0.4 cm stone at the left ureteropelvic junction and with 7 mm stone in the distal right ureter alongside a right intrarenal stent which is in expected position. The right intrarenal stent was placed in 2022. UA is consistent with UTI. Rocephin started. BCx no growth to date UCx growing Klebsiella sensitive to Rocephin -> abx changed to oral Keflex Urology consulted and patient underwent bilateral stent placements 01/10. They were unable to remove the old right renal stent because it was encrusted. She will need further treatment (5) UTI (urinary tract infection): Qualifiers: Hematuria presence: with hematuria Urinary tract infection type: site unspecified Qualified Code(s): N39.0 - Urinary tract infection, site not specified; R31.9 - Hematuria, unspecified Code(s): N39.0 - Urinary tract infection, site not specified Status: Acute Assessment and Plan: As above (6) Rhabdomyolysis: Qualifiers: Encounter type: initial encounter Rhabdomyolysis type: traumatic Qualified Code(s): T79.6XXA - Traumatic ischemia of muscle, initial encounter Code(s): M62.82 - Rhabdomyolysis Status: Acute Assessment and Plan: Total CK mildly elevated to 690 but now trending downward. Resolving (7) Ground-level fall: Code(s): W18.30XA - Fall on same level, unspecified, initial encounter Status: Acute Assessment and Plan: Patient presented after having a ground level fall. Trauma workup including a head CT, hip/pelvic XR, knee XR, C-spine CT, and CT of the chest/abdomen/pelvis were negative for acute traumatic findings Left ankle xray negative for frature. Fall precaution PT and OT. (8) Atrial fibrillation: Qualifiers: Atrial fibrillation type: unspecified Qualified Code(s): I48.91 - Unspecified atrial fibrillation Code(s): I48.91 - Unspecified atrial fibrillation Status: Chronic Assessment and Plan: On heparin for PE and AFib Rate controlled with bradycardia without any medications Sick sinus syndrome? Continue to monitor on tele (9) Pulmonary hypertension: Code(s): I27.20 - Pulmonary hypertension, unspecified Status: Acute Assessment and Plan: Echo showing severe pulmonary HTN. She has JERICHO so this could be the etiology. She is compliant with BiPAP. Continue the same. Check apnea link with bipap to see if she needs O2 at night Plan Lactic acidosis - lactic trending down-no fevers, tachycardia or leukocytosis. Procalcitonin 0.2. No anion gap. DVT prophylaxis - Heparin -> Eliquis Code status - full Subjective Date/time seen: 01/11/25 11:28 Interval history: 74yo female with AFib, anemia, fibromyalgia and CHF here for fall with shortness of breath. Increasing O2 requirement overnight. She feel shungry today. No n/v. Chest ' tight' this morning but better after a 'pain pill' (probably [place]). Her leg pain also is better with medication. No SOB. Did not wear the bipap for long last night. Exam Narrative: AF 97.9 107/60 57 16 98% 4L Gen - NARD Chest - CTA bilaterally CV - irregular. Tele showing AFib with bradycardia HR around 55 Abd - soft, ND, +BS - [place] secured with blood tinged urine in bag Ext - 2+ pedal edema L>R. Pain with any movement of the lower extremity. RUE PICC line in place. Psych - Nml mood and affect. in good spirits Skin - Warm and dry Objective Data Vital Signs Vital Signs: Vital Signs - 24 hr 01/10/25 12:00 01/10/25 14:16 01/10/25 16:25 Temperature 98 F 98.4 F Pulse Rate 61 69 61 Respiratory Rate 12 Blood Pressure 114/92 H 89/50 L Pulse Oximetry 93 91 Oxygen Delivery Nasal Cannula Simple Face Mask Oxygen Flow Rate 3 8 01/10/25 16:40 01/10/25 16:45 01/10/25 16:51 Temperature Pulse Rate 59 L 63 Respiratory Rate 12 14 Blood Pressure 88/56 L 93/64 L Pulse Oximetry 93 99 97 Oxygen Delivery Simple Face Mask Simple Face Mask Nasal Cannula Oxygen Flow Rate 8 8 2 01/10/25 17:00 01/10/25 17:15 01/10/25 17:30 Temperature 97.8 F 97.5 F L Pulse Rate 68 63 75 Respiratory Rate 17 20 18 Blood Pressure 122/75 122/77 125/73 Pulse Oximetry 95 96 97 Oxygen Delivery Nasal Cannula Nasal Cannula Oxygen Flow Rate 2 2 01/10/25 18:00 01/10/25 19:00 01/10/25 20:00 Temperature 97.4 F L 97.4 F L Pulse Rate 60 61 Respiratory Rate 20 20 Blood Pressure 131/79 121/72 Pulse Oximetry 100 100 100 Oxygen Delivery Nasal Cannula Oxygen Flow Rate 2 01/10/25 20:00 01/10/25 20:31 07/30/25 20:40 Temperature 97.5 F L Pulse Rate 54 L 54 L 67 Respiratory Rate 22 H 15 Blood Pressure 126/70 Pulse Oximetry 100 100 Oxygen Delivery BiPAP Oxygen Flow Rate 01/10/25 20:41 01/10/25 20:42 01/10/25 21:22 Temperature 97.6 F Pulse Rate 67 67 51 L Respiratory Rate 16 16 15 Blood Pressure 123/87 Pulse Oximetry 100 100 Oxygen Delivery Nasal Cannula Oxygen Flow Rate 4 01/10/25 22:00 01/10/25 22:19 01/10/25 22:52 Temperature 97.6 F Pulse Rate 46 L 49 L 68 Respiratory Rate 14 16 Blood Pressure 112/76 Pulse Oximetry 100 Oxygen Delivery Oxygen Flow Rate 01/10/25 23:47 01/11/25 00:00 01/11/25 00:00 Temperature 97.8 F Pulse Rate 42 L 60 Respiratory Rate 13 Blood Pressure 113/64 Pulse Oximetry 100 100 Oxygen Delivery Nasal Cannula Oxygen Flow Rate 4 01/11/25 02:00 01/11/25 02:11 01/11/25 02:19 Temperature Pulse Rate 54 L 54 L 52 L Respiratory Rate 16 16 Blood Pressure Pulse Oximetry Oxygen Delivery Oxygen Flow Rate 01/11/25 02:19 01/11/25 03:24 01/11/25 04:00 Temperature Pulse Rate 52 L 54 L Respiratory Rate 16 Blood Pressure Pulse Oximetry 100 100 Oxygen Delivery Nasal Cannula Oxygen Flow Rate 5 4 01/11/25 05:29 01/11/25 06:00 01/11/25 06:29 Temperature 98.4 F Pulse Rate 62 51 L 54 L Respiratory Rate 16 15 Blood Pressure 142/77 H Pulse Oximetry 100 Oxygen Delivery Oxygen Flow Rate 01/11/25 06:32 01/11/25 06:34 01/11/25 07:49 Temperature 97.9 F Pulse Rate 62 66 57 L Respiratory Rate 16 16 16 Blood Pressure 107/60 Pulse Oximetry 97 98 Oxygen Delivery Nasal Cannula Oxygen Flow Rate 4 Intake/Output Intake/Output: Intake & Output 01/08/25 01/09/25 01/10/25 01/11/25 23:59 23:59 23:59 23:59 Intake Total 159.2 3471.8 1900.6 550 Output Total 2100 6100 3750 1900 Balance -1940.8 -2628.2 -1849.4 -1350 Meds/Results Medications: Active Medications Generic Name Dose Route Start Last Admin Trade Name Freq PRN Reason Stop Dose Admin Acetaminophen 650 mg 01/08/25 12:40 Acetaminophen 325 Mg Tablet PO Q6H PRN Mild Pain (1-3) or Fever Hydrocodone Bitart/Acetaminophen 1 tab 01/08/25 12:40 01/11/25 08:50 Hydrocodone/Acetaminophen (*Crx) 5-325 Mg Tablet PO 1 tab Q6H PRN Administration Pain Rated 4-6 Albuterol 2.5 mg 01/08/25 14:00 01/11/25 06:26 Albuterol Sulfate Neb 2.5 Mg/3 Ml Inh INHALATION 2.5 mg Q6HRT TAMMY Administration Docusate Sodium 100 mg 01/08/25 12:40 01/10/25 09:49 Docusate Sodium 100 Mg Capsule PO 100 mg Q12H PRN Administration Constipation Fentanyl Citrate 25 mcg 01/10/25 15:42 Fentanyl Citrate Inj (*Crx) 100 Mcg/2 Ml Vial IV PUSH Q2M PRN Pain Furosemide 40 mg 01/08/25 21:00 01/11/25 08:52 Furosemide Inj 40 Mg/4 Ml Vial IV PUSH 40 mg Q12HR TAMMY Administration Heparin Sodium (Porcine) 7,000 units 01/08/25 11:03 Heparin Sodium 5,000 Units/Ml Vial IV PUSH PRN PRN aPTT less than 55 seconds Heparin Sodium (Porcine) 3,500 units 01/08/25 11:03 01/09/25 11:27 Heparin Sodium 5,000 Units/Ml Vial IV PUSH 3,500 units PRN PRN Administration aPTT 55 - 70 seconds Hydromorphone HCl 0.5 mg 01/08/25 11:54 Hydromorphone Hcl Inj (*Crx) 2 Mg/Ml Vial IV PUSH Q4H PRN Pain Rated 7-10 Ceftriaxone Sodium 1 gm/ 50 mls @ 100 mls/hr 01/09/25 11:00 01/10/25 12:25 Sodium Chloride IVPB Infused Q24H TAMMY Infusion Heparin Sodium/Dextrose 25,000 units in 250 mls @ 11 mls/hr 01/08/25 11:05 01/10/25 13:28 Heparin Sodium/D5w 100 Units/Ml IV CONT 1,100 units/hr .[id number] TAMMY 11 mls/hr Administration Protocol 1,100 UNITS/HR Naloxone HCl 0.1 mg 01/08/25 12:40 Naloxone Hcl 0.4 Mg/Ml Vial IV PUSH Q5MIN PRN Sedation Ondansetron HCl 4 mg 01/08/25 11:54 Ondansetron Inj 4 Mg/2 Ml Vial IV PUSH Q4H PRN Nausea Perflutren Lipid Microsphere 0 ml 01/09/25 07:48 Perflutren Lipid Microspheres 1.5 Ml Vial Diluted To 10 Ml Total Volume IV PUSH 01/12/25 07:49 ONCE PRN adequate visualization Protocol Polyethylene Glycol 17 gm 01/08/25 12:40 Polyethylene Glycol 3350 17 Gm Powd.Pack PO QAM PRN Constipation Sertraline HCl 50 mg 01/10/25 09:00 01/11/25 08:51 Sertraline Hcl 50 Mg Tablet PO 50 mg DAILY TAMMY Administration Sodium Chloride 10 ml 01/09/25 22:00 01/11/25 06:03 Central Line Flush IV PUSH 10 ml Q8HR TAMMY Administration Sodium Chloride 10 ml 01/09/25 16:35 Central Line Flush IV PUSH PRN PRN with TPN bag changes Sodium Chloride 20 ml 01/09/25 16:35 Central Line Flush IV PUSH PRN PRN after blood draws Radiology Results: ITS Impressions Head CT 01/08/25 10:14 Impression: Age-related changes within the brain, without acute intracranial hemorrhage or suspicious mass effect. Hip/Pelvis X-Ray 01/08/25 10:15 IMPRESSION: Degenerative disease without acute fracture or dislocation Knee X-Ray 01/08/25 10:22 IMPRESSION: Diffuse bony demineralization and significant degenerative disease, as detailed above. No acute fracture. Cervical Spine CT 01/08/25 10:28 Impression: Significant degenerative disease without acute fracture. Chest/Abdomen/Pelvis CT 01/08/25 10:46 IMPRESSION: 1. Pulmonary emboli with relatively low clot burden. Dr. Mccartney discussed this and the following findings with Dr. clarke at 11:00 AM. 2. Moderate cardiomegaly with right ventricular and biatrial enlargement. 3. Small bilateral pleural effusions. 4. Complex medial left lower lobe along side a large sliding-type hiatal hernia containing large portion the stomach as well as segment of the nonobstructed transverse colon.. 5. Cholelithiasis. 6. Mild bilateral hydronephrosis with 1.2 x 0.4 cm stone at the left ureteropelvic junction and with 7 mm stone in the distal right ureter alongside a right intrarenal stent which is in expected position. Chest X-Ray 01/09/25 16:40 IMPRESSION: Right upper extremity PICC, terminating in the distal SVC. Bilateral pulmonary opacities may represent edema/infection. Segmental atelectasis/consolidation in the left lower lung. Small bilateral pleural effusions. Ankle X-Ray 01/10/25 12:24 IMPRESSION: 1. No left ankle joint effusion or acute osseous abnormality. Venous Doppler Study 01/10/25 13:14 IMPRESSION: 1. Nonocclusive deep venous thrombosis at the right popliteal vein. The more peripheral right posterior tibial and peroneal veins were unable be definitively identified to assess for additional thrombosis. 2. No deep venous thrombosis in the left lower limb. Abdomen X-Ray 01/11/25 07:12 Impression: 1: Probable left UPJ stone measuring 12 mm. 2: Left basilar airspace consolidation which may represent pneumonia and/or atelectasis. Labs Labs: Laboratory Results - last 24 hr 01/11/25 05:53 WBC 5.4 RBC 4.16 L Hgb 11.4 L Hct 36.7 L MCV 88.2 MCH 27.4 MCHC 31.1 L RDW 15.5 H Plt Count 142 L MPV 11.1 H Immature Gran % (Auto) 0.2 Neut % (Auto) 71.8 Lymph % (Auto) 16.6 L [place] % (Auto) 10.1 H Eos % (Auto) 0.7 Baso % (Auto) 0.6 Lymph # (Auto) 0.90 [place] # (Auto) 0.6 Eos # (Auto) 0.0 Baso # (Auto) 0.0 Abs Immat Gran (auto) 0.01 Absolute Neuts (auto) 3.9 Absolute Nucleated RBC 0.000 Nucleated RBC % 0.0 APTT 94.5 H Sodium 131 L Potassium 3.5 Chloride 95 L Carbon Dioxide 37 H Anion Gap -1 L BUN 11 Creatinine 0.63 L Estim Creat Clear Calc 89 Estimated GFR > 60 Glucose 80 Calcium 8.8 Phosphorus 3.2 Magnesium 1.5 L Total Bilirubin 0.9 AST 39 H ALT 24 Alkaline Phosphatase 61 Total Protein 5.9 L Albumin 2.9 L
[2025-01-11] MEDS: cefTRIAXone 1 GM in SODIUM CHLORIDE 0.9% IV 50 ML 100 ML IVPB (11:59)
--- NOTE | 2025-01-11 14:08 | WPDANESPN ---
Anes - Prog Note Post-Op Date/Time: 01/11/25 14:08 Cardiovascular status: normal Respiratory status: normal Airway patency: baseline Mental status: baseline Post-Op hydration status: normal Vital Signs: Last Vital Signs Temp 97.8 F 01/11/25 11:50 Pulse 64 01/11/25 12:00 Resp 16 01/11/25 11:50 BP 120/63 01/11/25 11:50 Pulse Ox 99 01/11/25 11:50 O2 Del Method Nasal Cannula 01/11/25 11:36 O2 Flow Rate 2 01/11/25 11:36 Pain Score (VAS): 0/10 I/O: Intake & Output 01/10/25 01/11/25 01/11/25 23:59 07:59 15:59 Intake Total 550 150 Output Total 150 1900 Balance -150 -1350 150 Laboratory Tests 01/11/25 05:53 01/11/25 05:53 01/11/25 05:53 WBC 5.4 RBC 4.16 L Hgb 11.4 L Hct 36.7 L MCV 88.2 MCH 27.4 MCHC 31.1 L RDW 15.5 H Plt Count 142 L MPV 11.1 H Immature Gran % (Auto) 0.2 Neut % (Auto) 71.8 Lymph % (Auto) 16.6 L [place] % (Auto) 10.1 H Eos % (Auto) 0.7 Baso % (Auto) 0.6 Lymph # (Auto) 0.90 [place] # (Auto) 0.6 Eos # (Auto) 0.0 Baso # (Auto) 0.0 Abs Immat Gran (auto) 0.01 Absolute Neuts (auto) 3.9 Absolute Nucleated RBC 0.000 Nucleated RBC % 0.0 APTT 94.5 H Sodium 131 L Potassium 3.5 Chloride 95 L Carbon Dioxide 37 H Anion Gap -1 L BUN 11 Creatinine 0.63 L Estim Creat Clear Calc 89 Estimated GFR > 60 Glucose 80 Calcium 8.8 Phosphorus 3.2 Magnesium 1.5 L Total Bilirubin 0.9 AST 39 H ALT 24 Alkaline Phosphatase 61 Total Protein 5.9 L Albumin 2.9 L Microbiology 01/08/25 12:52 Blood Blood Culture - Preliminary 01/08/25 10:56 Blood Blood Culture - Preliminary Post-procedural complaints: none Patient Feedback: Patient satisfied with anesthetic care.
[2025-01-11] MEDS: HEPARIN SOD/D5W 100 UNITS/ML 25,000 UNITS/250 ML BAG 11 UNITS IV CONT (14:40)
[2025-01-11] MEDS: APIXABAN 5 MG TABLET 10 MG PO (20:49)
[2025-01-11] MEDS: ACETAMINOPHEN 325 MG TABLET 650 MG PO (22:41)
[2025-01-12] VITALS (18 sets, daily range): BP systolic 115–137; BP diastolic 58–78; PULSE 36–86; RESP 16–22; TEMP 36.7–37.1; O2SAT 92–100
--- NOTE | 2025-01-12 01:33 | ECG_ITS ---
Test Date: 2025-01-12 01:52:35 Measurements Intervals [place] Rate: 45 P: 0 IA: 0 QRS: -44 QRSD: 161 T: -84 QT: 565 QTc: 490 Interpretive Statements ATRIAL FIBRILLATION WITH SLOW VENTRICULAR RESPONSE LEFT AXIS DEVIATION RIGHT BUNDLE BRANCH BLOCK ST-T WAVE ABNORMALITY IN ANTEROLATERAL LEADS- CONSIDER ISCHEMIA BASELINE ARTIFACT- I, III, AVR, AVL, V1-V2 ABNORMAL ECG Compared to ECG 01/09/2025 18:09:25 HEART RATE HAS DECREASED Electronically Signed On 01-12-2025 06:31:01 CDT by José Miguel Gomes D.O.
[2025-01-12 01:56] LABS: Hematocrit 32.9 % (37.0-47.0); Hemoglobin 10.3 g/dL (12.0-15.0); Mean Corpuscular HGB Conc 31.3 g/dl (32-36); Mean Corpuscular Hemoglobin 27.5 pg (26-34); Mean Corpuscular Volume 88.0 fl (80-100); Platelet Count Result 141 k/mm3 (150-375); Red Blood Count 3.74 M/mm3 (4.2-5.4); White Blood Count 4.1 K/mm3 (4.5-10.0)
[2025-01-12 02:08] LABS: Albumin Level 2.7 g/dL (3.5-5.1); Anion Gap 0 mmol/L (4-12); Blood Urea Nitrogen 13 mg/dL (7-17); Calcium 8.6 mg/dL (8.4-10.2); Carbon Dioxide 38 mmol/L (22-30); Chloride 94 mmol/L (98-107); Estimated CRCL calculation 89 ml/min; Estimated Glomerular Filt Rate > 60; Glucose 94 mg/dL (65-110); Magnesium 1.7 mg/dL (1.6-2.3); Potassium 3.1 mmol/L (3.4-5.0); Sodium 132 mmol/L (137-145)
[2025-01-12] MEDS: MAGNESIUM SULF 2 GM/WATER 50ML 2 GM/50 ML BAG IVPB (02:30)
[2025-01-12] MEDS: CENTRAL LINE FLUSH 10 ML IV PUSH ×3 (02:31→20:41)
[2025-01-12] MEDS: POTASSIUM CHLORIDE 20 MEQ ER TABLET 40 MEQ PO (02:31)
[2025-01-12] MEDS: ALBUTEROL SULFATE NEB 2.5 MG/3 ML INH INHALATION ×3 (08:29→20:15)
[2025-01-12] MEDS: FUROSEMIDE INJ 40 MG/4 ML VIAL IV PUSH (09:52)
[2025-01-12] MEDS: HYDROcodone/acetaminophen (*CRX) 5-325 MG TABLET 1 TAB PO ×2 (09:53→22:25)
[2025-01-12] MEDS: SERTRALINE HCL 50 MG TABLET PO (09:54)
[2025-01-12] MEDS: APIXABAN 5 MG TABLET 10 MG PO ×2 (09:54→20:40)
[2025-01-12] MEDS: CEPHALEXIN 500 MG CAPSULE PO ×2 (09:54→20:40)
--- NOTE | 2025-01-12 11:51 | P.PNCA_ITS ---
Progress Note: A&P Assessment and Plan (1) Pulmonary embolism: Qualifiers: Pulmonary embolism type: multiple subsegmental (without acute cor pulmonale) Qualified Code(s): I26.94 - Multiple subsegmental thrombotic pulmonary emboli without acute cor pulmonale Code(s): I26.99 - Other pulmonary embolism without acute cor pulmonale Status: Acute (2) Atrial fibrillation: Qualifiers: Atrial fibrillation type: unspecified Qualified Code(s): I48.91 - Unspecified atrial fibrillation Code(s): I48.91 - Unspecified atrial fibrillation Status: Chronic (3) Anticoagulant long-term use: Code(s): Z79.01 - detention (current) use of anticoagulants Status: Acute (4) CHF (congestive heart failure): Qualifiers: Heart failure chronicity: chronic Heart failure type: unspecified Qualified Code(s): I50.9 - Heart failure, unspecified Code(s): I50.9 - Heart failure, unspecified Status: Chronic (5) Hypokalemia: Code(s): E87.6 - Hypokalemia Status: Acute Plan PE- per patient she has a h/o PE and DVT NSTEMI- elevated troponin, central chest pain 9/10 intensity but this appears to be chronic Congestive heart failure- LV function normal, severe RV enlargement, mild- moderate MR, moderate TR, and severe pHTN AFib on chronic anticoagulation- rate controlled, Eliquis resumed (PE dosing) Acute hypoxic respiratory failure-most likely secondary to PE and congestive heart failure Ureteral calculus, bilateral hydronephrosis Ground level fall Hypokalemia Chronic constant chest pain, h/o fibromyalgia Plan: NSTEMI could be type I or type II secondary to supple demand mismatch due to acute PE and heart failure. Patient's chest pain is chronic and not new. Troponin has peaked. Recommend treating medically for now. Add atorvastatin 40 mg daily Evaluation of coronaries after she recovers from her acute illness with outpatient stress test vs cath unless her clinical condition changes. Can be arranged by her primary seismic computer She has rate controlled AFib. No AV rachael blocking agents given Bradycardia TREV shows LV function normal, severe RV enlargement, mild-moderate MR, moderate TR, and severe pHTN Continue furosemide 40mg IV daily Troponin peaked. Can stop checking Currently denies any chest pain Check and replace electrolytes to keep potassium greater than 4 and magnesium greater than 2 Subjective Date/time seen: 01/12/25 11:51 Interval history: Cardiology follow up visit Date of service 01/12/2025: Feels okay today. Reports that her breathing is better but still has shortness of breath when she lays in bed and with activity. Review of Systems Review of Systems: A complete review of systems was performed and negative other than those mentioned in the HPI Exam Narrative: General: Alert oriented x3, no acute distress Neck: Supple, JVD + Chest: Bilaterally clear to auscultation, no rales or rhonchi Cardiac: S1, S2 +, irregularly irregular rhythm, no murmurs or rubs Extremities: Bilateral lower extremity edema 1+, no skin rash Neurologic: Alert and oriented x3, no focal neurological deficits Objective Data Vital Signs Vital Signs: Vital Signs - 24 hr 01/11/25 12:00 01/11/25 14:00 01/11/25 14:00 Temperature Pulse Rate 64 75 70 Respiratory Rate 16 Blood Pressure Pulse Oximetry Oxygen Delivery Oxygen Flow Rate 01/11/25 14:45 01/11/25 15:47 01/11/25 16:00 Temperature 36.5 C Pulse Rate 76 92 Respiratory Rate 16 16 Blood Pressure 105/84 Pulse Oximetry 96 99 Oxygen Delivery Nasal Cannula Oxygen Flow Rate 2 01/11/25 16:00 01/11/25 18:00 01/11/25 20:00 Temperature 36.9 C Pulse Rate 70 81 62 Respiratory Rate 20 Blood Pressure 109/69 Pulse Oximetry 94 Oxygen Delivery Oxygen Flow Rate 01/11/25 20:00 01/11/25 20:00 01/11/25 20:56 Temperature Pulse Rate 77 Respiratory Rate Blood Pressure Pulse Oximetry 96 96 Oxygen Delivery Nasal Cannula Nasal Cannula Oxygen Flow Rate 2 2 01/11/25 20:56 01/11/25 21:04 01/11/25 22:00 Temperature Pulse Rate 72 70 54 L Respiratory Rate 16 16 Blood Pressure Pulse Oximetry Oxygen Delivery Oxygen Flow Rate 01/11/25 22:53 01/11/25 23:54 01/12/25 00:00 Temperature 36.8 C Pulse Rate 57 L 57 L 56 L Respiratory Rate 14 14 22 H Blood Pressure 115/71 Pulse Oximetry 97 97 99 Oxygen Delivery BiPAP BiPAP Oxygen Flow Rate 01/12/25 00:00 01/12/25 02:00 01/12/25 03:58 Temperature Pulse Rate 46 L 46 L 42 L Respiratory Rate 22 H Blood Pressure Pulse Oximetry 99 Oxygen Delivery BiPAP Oxygen Flow Rate 01/12/25 04:00 01/12/25 04:00 01/12/25 06:00 Temperature 37.1 C Pulse Rate 36 L 41 L 40 L Respiratory Rate 16 Blood Pressure 134/78 Pulse Oximetry 100 Oxygen Delivery Oxygen Flow Rate 01/12/25 07:51 01/12/25 08:00 01/12/25 08:00 Temperature 36.8 C Pulse Rate 45 L 50 L Respiratory Rate 16 Blood Pressure 122/68 Pulse Oximetry 100 100 Oxygen Delivery Nasal Cannula Oxygen Flow Rate 2 01/12/25 08:30 01/12/25 08:33 01/12/25 08:37 Temperature Pulse Rate 72 Respiratory Rate 16 Blood Pressure Pulse Oximetry 92 Oxygen Delivery Room Air Nasal Cannula Oxygen Flow Rate 2 01/12/25 08:37 01/12/25 08:46 01/12/25 09:04 Temperature Pulse Rate 72 Respiratory Rate 16 Blood Pressure Pulse Oximetry Oxygen Delivery Nasal Cannula Nasal Cannula Oxygen Flow Rate 2 2 01/12/25 10:00 Temperature Pulse Rate 73 Respiratory Rate Blood Pressure Pulse Oximetry Oxygen Delivery Oxygen Flow Rate Intake/Output Intake/Output: Intake & Output 01/09/25 01/10/25 01/11/25 01/12/25 23:59 23:59 23:59 23:59 Intake Total 3471.8 1900.6 1817.7 750 Output Total 6100 3750 3700 350 Balance -2628.2 -1849.4 -1882.3 400 Meds/Results Medications: Active Medications Generic Name Dose Route Start Last Admin Trade Name Freq PRN Reason Stop Dose Admin Acetaminophen 650 mg 01/08/25 12:40 01/11/25 22:41 Acetaminophen 325 Mg Tablet PO 650 mg Q6H PRN Administration Mild Pain (1-3) or Fever Hydrocodone Bitart/Acetaminophen 1 tab 01/08/25 12:40 01/12/25 09:53 Hydrocodone/Acetaminophen (*Crx) 5-325 Mg Tablet PO 1 tab Q6H PRN Administration Pain Rated 4-6 Albuterol 2.5 mg 01/08/25 14:00 01/12/25 08:29 Albuterol Sulfate Neb 2.5 Mg/3 Ml Inh INHALATION 2.5 mg Q6HRT TAMMY Administration Apixaban 10 mg 01/11/25 21:00 01/12/25 09:54 Apixaban 5 Mg Tablet PO 01/18/25 09:01 10 mg Q12HR TAMMY Administration Apixaban 5 mg 01/18/25 21:00 Apixaban 5 Mg Tablet PO Q12HR TAMMY Cephalexin HCl 500 mg 01/12/25 09:00 01/12/25 09:54 Cephalexin 500 Mg Capsule PO 01/14/25 21:01 500 mg Q12HR TAMMY Administration Docusate Sodium 100 mg 01/08/25 12:40 01/10/25 09:49 Docusate Sodium 100 Mg Capsule PO 100 mg Q12H PRN Administration Constipation Fentanyl Citrate 25 mcg 01/10/25 15:42 Fentanyl Citrate Inj (*Crx) 100 Mcg/2 Ml Vial IV PUSH Q2M PRN Pain Furosemide 40 mg 01/12/25 09:00 01/12/25 09:52 Furosemide Inj 40 Mg/4 Ml Vial IV PUSH 40 mg DAILY TAMMY Administration Hydromorphone HCl 0.5 mg 01/08/25 11:54 Hydromorphone Hcl Inj (*Crx) 2 Mg/Ml Vial IV PUSH Q4H PRN Pain Rated 7-10 Naloxone HCl 0.1 mg 01/08/25 12:40 Naloxone Hcl 0.4 Mg/Ml Vial IV PUSH Q5MIN PRN Sedation Ondansetron HCl 4 mg 01/08/25 11:54 Ondansetron Inj 4 Mg/2 Ml Vial IV PUSH Q4H PRN Nausea Polyethylene Glycol 17 gm 01/08/25 12:40 Polyethylene Glycol 3350 17 Gm Powd.Pack PO QAM PRN Constipation Sertraline HCl 50 mg 01/10/25 09:00 01/12/25 09:54 Sertraline Hcl 50 Mg Tablet PO 50 mg DAILY TAMMY Administration Sodium Chloride 10 ml 01/09/25 22:00 01/12/25 02:31 Central Line Flush IV PUSH 10 ml Q8HR TAMMY Administration Sodium Chloride 10 ml 01/09/25 16:35 Central Line Flush IV PUSH PRN PRN with TPN bag changes Sodium Chloride 20 ml 01/09/25 16:35 Central Line Flush IV PUSH PRN PRN after blood draws Radiology Results: ITS Impressions Head CT 01/08/25 10:14 Impression: Age-related changes within the brain, without acute intracranial hemorrhage or suspicious mass effect. Hip/Pelvis X-Ray 01/08/25 10:15 IMPRESSION: Degenerative disease without acute fracture or dislocation Knee X-Ray 01/08/25 10:22 IMPRESSION: Diffuse bony demineralization and significant degenerative disease, as detailed above. No acute fracture. Cervical Spine CT 01/08/25 10:28 Impression: Significant degenerative disease without acute fracture. Chest/Abdomen/Pelvis CT 01/08/25 10:46 IMPRESSION: 1. Pulmonary emboli with relatively low clot burden. Dr. Mccartney discussed this and the following findings with Dr. clarke at 11:00 AM. 2. Moderate cardiomegaly with right ventricular and biatrial enlargement. 3. Small bilateral pleural effusions. 4. Complex medial left lower lobe along side a large sliding-type hiatal hernia containing large portion the stomach as well as segment of the nonobstructed transverse colon.. 5. Cholelithiasis. 6. Mild bilateral hydronephrosis with 1.2 x 0.4 cm stone at the left ureteropelvic junction and with 7 mm stone in the distal right ureter alongside a right intrarenal stent which is in expected position. Chest X-Ray 01/09/25 16:40 IMPRESSION: Right upper extremity PICC, terminating in the distal SVC. Bilateral pulmonary opacities may represent edema/infection. Segmental atelectasis/consolidation in the left lower lung. Small bilateral pleural effusions. Ankle X-Ray 01/10/25 12:24 IMPRESSION: 1. No left ankle joint effusion or acute osseous abnormality. Venous Doppler Study 01/10/25 13:14 IMPRESSION: 1. Nonocclusive deep venous thrombosis at the right popliteal vein. The more peripheral right posterior tibial and peroneal veins were unable be definitively identified to assess for additional thrombosis. 2. No deep venous thrombosis in the left lower limb. Abdomen X-Ray 01/11/25 07:12 Impression: 1: Probable left UPJ stone measuring 12 mm. 2: Left basilar airspace consolidation which may represent pneumonia and/or atelectasis. Labs Labs: Laboratory Results - last 24 hr 01/12/25 01/12/25 01/12/25 01:45 01:45 01:45 WBC 4.1 L RBC 3.74 L Hgb 10.3 L Hct 32.9 L MCV 88.0 MCH 27.5 MCHC 31.3 L RDW 15.2 H Plt Count 141 L MPV 10.8 H Sodium 132 L Cancelled Potassium 3.1 L Cancelled Chloride 94 L Carbon Dioxide Anion Gap BUN Creatinine Estim Creat Clear Calc Estimated GFR Glucose Calcium Phosphorus Magnesium Albumin 01/12/25 01/12/25 01/12/25 01:45 01:45 01:45 WBC RBC Hgb Hct MCV MCH MCHC RDW Plt Count MPV Sodium Potassium Chloride Cancelled Carbon Dioxide 38 H Cancelled Anion Gap 0 L Cancelled BUN 13 Creatinine Estim Creat Clear Calc Estimated GFR Glucose Calcium Phosphorus Magnesium Albumin 01/12/25 01/12/25 01/12/25 01:45 01:45 01:45 WBC RBC Hgb Hct MCV MCH MCHC RDW Plt Count MPV Sodium Potassium Chloride Carbon Dioxide Anion Gap BUN Cancelled Creatinine 0.63 L Cancelled Estim Creat Clear Calc 89 Cancelled Estimated GFR > 60 Glucose Calcium Phosphorus Magnesium Albumin 01/12/25 01/12/25 01/12/25 01:45 01:45 01:45 WBC RBC Hgb Hct MCV MCH MCHC RDW Plt Count MPV Sodium Potassium Chloride Carbon Dioxide Anion Gap BUN Creatinine Estim Creat Clear Calc Estimated GFR Cancelled Glucose 94 Cancelled Calcium 8.6 Cancelled Phosphorus 2.7 Magnesium 1.7 Albumin 2.7 L
--- NOTE | 2025-01-12 12:50 | PM.IMPN ---
Progress Note: A&P Assessment and Plan (1) Pulmonary embolism: Qualifiers: Pulmonary embolism type: multiple subsegmental (without acute cor pulmonale) Qualified Code(s): I26.94 - Multiple subsegmental thrombotic pulmonary emboli without acute cor pulmonale Code(s): I26.99 - Other pulmonary embolism without acute cor pulmonale Status: Acute Assessment and Plan: PE noted on CTA chest with low clot burden. Heparin drip was started. O2 requirement up to 5L but back down to 2L Doppler LE showing nonocclusive DVT at the right popliteal vein. Echo showing EF 50-55% with indeterminate diastolic fxn, severe bi-atrial enlargement, mild-mod MR and severe pulmonary HTN. She was agreeable to start Eliquis so was changed over. Wean oxygen as tolerated. (2) CHF (congestive heart failure): Qualifiers: Heart failure chronicity: chronic Heart failure type: unspecified Qualified Code(s): I50.9 - Heart failure, unspecified Code(s): I50.9 - Heart failure, unspecified Status: Chronic Assessment and Plan: Patient was 85% on RA upon initial evaluation in the ED on 01/08. No previous O2 requirement. BNP 4000. CT Chest showing PE with small clot burden, consolidation basilar LLL and small pleural effusions. Echo as above. Etiology of the hypoxia probably multifactorial from severe pulm HTN, PE and/or acute diastolic CHF. She was started on IV Lasix but was also on IV fluids which were stopped since clinically she is volume overloaded I/O's -9L. Some of the pedal edema related to severe pulm HTN and not CHF Monitor fluid status, daily weights, I&Os. Continue Tunde hose Wean oxygen as tolerated (3) Hypoxia: Code(s): R09.02 - Hypoxemia Status: Acute Assessment and Plan: [place] related to severe pulm HTN, PE and acute diastolic CHF. As above (4) Calculus of left ureter: Code(s): N20.1 - Calculus of ureter Status: Acute Assessment and Plan: CT showing mild bilateral hydronephrosis with 1.2 x 0.4 cm stone at the left ureteropelvic junction and with 7 mm stone in the distal right ureter alongside a right intrarenal stent which is in expected position. The right intrarenal stent was placed in 2023. UA is consistent with UTI. Rocephin started. BCx no growth to date UCx growing Klebsiella sensitive to Rocephin -> abx changed to oral Keflex Urology consulted and patient underwent bilateral stent placements 01/10. They were unable to remove the old right renal stent because it was encrusted. She will need further treatment as outpatient Remove [place] if okay with Urology (5) UTI (urinary tract infection): Qualifiers: Hematuria presence: with hematuria Urinary tract infection type: site unspecified Qualified Code(s): N39.0 - Urinary tract infection, site not specified; R31.9 - Hematuria, unspecified Code(s): N39.0 - Urinary tract infection, site not specified Status: Acute Assessment and Plan: As above (6) Rhabdomyolysis: Qualifiers: Rhabdomyolysis type: traumatic Encounter type: initial encounter Qualified Code(s): T79.6XXA - Traumatic ischemia of muscle, initial encounter Code(s): M62.82 - Rhabdomyolysis Status: Acute Assessment and Plan: Total CK mildly elevated to 690 but now trending downward. Resolving (7) Ground-level fall: Code(s): W18.30XA - Fall on same level, unspecified, initial encounter Status: Acute Assessment and Plan: Patient presented after having a ground level fall. Trauma workup including a head CT, hip/pelvic XR, knee XR, C-spine CT, and CT of the chest/abdomen/pelvis were negative for acute traumatic findings Left ankle xray negative for frature. Fall precaution PT and OT. (8) Atrial fibrillation: Qualifiers: Atrial fibrillation type: unspecified Qualified Code(s): I48.91 - Unspecified atrial fibrillation Code(s): I48.91 - Unspecified atrial fibrillation Status: Chronic Assessment and Plan: Was placed on heparin for PE and AFib Rate controlled with bradycardia without any medications Sick sinus syndrome? Rate remains controlled. Changed to Eliquis. Continue to monitor on tele (9) Pulmonary hypertension: Code(s): I27.20 - Pulmonary hypertension, unspecified Status: Acute Assessment and Plan: Echo showing severe pulmonary HTN. She has J[place]IC[place] so this could be the etiology. She is compliant with BiPAP. Continue the same. Apnea link on bipap on 2L at night showing no hypoxia. Plan Lactic acidosis - lactic trending down-no fevers, tachycardia or leukocytosis. Procalcitonin 0.2. No anion gap. Reflux - large sliding-type hiatal hernia containing large portion the stomach as well as segment of the nonobstructed transverse colon. Asymptomatic. Follow clinically. DVT prophylaxis - Heparin -> Eliquis Code status - full Subjective Date/time seen: 01/12/25 12:50 Interval history: 74yo female with AFib, anemia, fibromyalgia and CHF here for fall with shortness of breath. Slept poorly. Complains of chest pain overnight. Still complains of abdominal pain. No nausea or vomiting. Exam Narrative: AF 98.2 137/59 82 20 99% 2L Gen - NARD sitting up in chair Chest - few basilar rhonchi o/w clear CV - irregularly irregular. Tele showing AFib with bradycardia, PVCs with bigeminy Abd - soft, ND, +BS - [place] secured with blood tinged urine in bag Ext - 2+ pedal edema but legs are softer. RUE PICC line in place. Tunde hose in place Psych - Nml mood and affect. in good spirits Skin - Warm and dry Objective Data Vital Signs Vital Signs: Vital Signs - 24 hr 01/11/25 14:00 01/11/25 14:00 01/11/25 14:45 Temperature Pulse Rate 75 70 76 Respiratory Rate 16 16 Blood Pressure Pulse Oximetry Oxygen Delivery Oxygen Flow Rate 01/11/25 15:47 01/11/25 16:00 01/11/25 16:00 Temperature 97.7 F Pulse Rate 92 70 Respiratory Rate 16 Blood Pressure 105/84 Pulse Oximetry 96 99 Oxygen Delivery Nasal Cannula Oxygen Flow Rate 2 01/11/25 18:00 01/11/25 20:00 01/11/25 20:00 Temperature 98.4 F Pulse Rate 81 62 Respiratory Rate 20 Blood Pressure 109/69 Pulse Oximetry 94 96 Oxygen Delivery Nasal Cannula Oxygen Flow Rate 2 01/11/25 20:00 01/11/25 20:56 01/11/25 20:56 Temperature Pulse Rate 77 72 Respiratory Rate 16 Blood Pressure Pulse Oximetry 96 Oxygen Delivery Nasal Cannula Oxygen Flow Rate 2 01/11/25 21:04 01/11/25 22:00 01/11/25 22:53 Temperature Pulse Rate 70 54 L 57 L Respiratory Rate 16 14 Blood Pressure Pulse Oximetry 97 Oxygen Delivery BiPAP Oxygen Flow Rate 01/11/25 23:54 01/12/25 00:00 01/12/25 00:00 Temperature 98.2 F Pulse Rate 57 L 56 L 46 L Respiratory Rate 14 22 H Blood Pressure 115/71 Pulse Oximetry 97 99 Oxygen Delivery BiPAP Oxygen Flow Rate 01/12/25 02:00 01/12/25 03:58 01/12/25 04:00 Temperature Pulse Rate 46 L 42 L 36 L Respiratory Rate 22 H Blood Pressure Pulse Oximetry 99 Oxygen Delivery BiPAP Oxygen Flow Rate 01/12/25 04:00 01/12/25 06:00 01/12/25 07:51 Temperature 98.7 F 98.3 F Pulse Rate 41 L 40 L 45 L Respiratory Rate 16 16 Blood Pressure 134/78 122/68 Pulse Oximetry 100 100 Oxygen Delivery Oxygen Flow Rate 01/12/25 08:00 01/12/25 08:00 01/12/25 08:30 Temperature Pulse Rate 50 L Respiratory Rate Blood Pressure Pulse Oximetry 100 Oxygen Delivery Nasal Cannula Room Air Oxygen Flow Rate 2 01/12/25 08:33 01/12/25 08:37 01/12/25 08:37 Temperature Pulse Rate 72 72 Respiratory Rate 16 16 Blood Pressure Pulse Oximetry 92 Oxygen Delivery Nasal Cannula Oxygen Flow Rate 2 01/12/25 08:46 01/12/25 09:04 01/12/25 10:00 Temperature Pulse Rate 73 Respiratory Rate Blood Pressure Pulse Oximetry Oxygen Delivery Nasal Cannula Nasal Cannula Oxygen Flow Rate 2 2 01/12/25 12:00 Temperature 98.2 F Pulse Rate 82 Respiratory Rate 20 Blood Pressure 137/59 L Pulse Oximetry 99 Oxygen Delivery Oxygen Flow Rate Intake/Output Intake/Output: Intake & Output 01/09/25 01/10/25 01/11/25 01/12/25 23:59 23:59 23:59 23:59 Intake Total 3471.8 1900.6 1817.7 990 Output Total 6100 3750 3700 1750 Balance -2628.2 -1849.4 -1882.3 -760 Meds/Results Medications: Active Medications Generic Name Dose Route Start Last Admin Trade Name Freq PRN Reason Stop Dose Admin Acetaminophen 650 mg 01/08/25 12:40 01/11/25 22:41 Acetaminophen 325 Mg Tablet PO 650 mg Q6H PRN Administration Mild Pain (1-3) or Fever Hydrocodone Bitart/Acetaminophen 1 tab 01/08/25 12:40 01/12/25 09:53 Hydrocodone/Acetaminophen (*Crx) 5-325 Mg Tablet PO 1 tab Q6H PRN Administration Pain Rated 4-6 Albuterol 2.5 mg 01/08/25 14:00 01/12/25 08:29 Albuterol Sulfate Neb 2.5 Mg/3 Ml Inh INHALATION 2.5 mg Q6HRT TAMMY Administration Apixaban 10 mg 01/11/25 21:00 01/12/25 09:54 Apixaban 5 Mg Tablet PO 01/18/25 09:01 10 mg Q12HR TAMMY Administration Apixaban 5 mg 01/18/25 21:00 Apixaban 5 Mg Tablet PO Q12HR TAMMY Cephalexin HCl 500 mg 01/12/25 09:00 01/12/25 09:54 Cephalexin 500 Mg Capsule PO 01/14/25 21:01 500 mg Q12HR TAMMY Administration Docusate Sodium 100 mg 01/08/25 12:40 01/10/25 09:49 Docusate Sodium 100 Mg Capsule PO 100 mg Q12H PRN Administration Constipation Fentanyl Citrate 25 mcg 01/10/25 15:42 Fentanyl Citrate Inj (*Crx) 100 Mcg/2 Ml Vial IV PUSH Q2M PRN Pain Furosemide 40 mg 01/12/25 09:00 01/12/25 09:52 Furosemide Inj 40 Mg/4 Ml Vial IV PUSH 40 mg DAILY TAMMY Administration Hydromorphone HCl 0.5 mg 01/08/25 11:54 Hydromorphone Hcl Inj (*Crx) 2 Mg/Ml Vial IV PUSH Q4H PRN Pain Rated 7-10 Naloxone HCl 0.1 mg 01/08/25 12:40 Naloxone Hcl 0.4 Mg/Ml Vial IV PUSH Q5MIN PRN Sedation Ondansetron HCl 4 mg 01/08/25 11:54 Ondansetron Inj 4 Mg/2 Ml Vial IV PUSH Q4H PRN Nausea Polyethylene Glycol 17 gm 01/08/25 12:40 Polyethylene Glycol 3350 17 Gm Powd.Pack PO QAM PRN Constipation Sertraline HCl 50 mg 01/10/25 09:00 01/12/25 09:54 Sertraline Hcl 50 Mg Tablet PO 50 mg DAILY TAMMY Administration Sodium Chloride 10 ml 01/09/25 22:00 01/12/25 02:31 Central Line Flush IV PUSH 10 ml Q8HR TAMMY Administration Sodium Chloride 10 ml 01/09/25 16:35 Central Line Flush IV PUSH PRN PRN with TPN bag changes Sodium Chloride 20 ml 01/09/25 16:35 Central Line Flush IV PUSH PRN PRN after blood draws Radiology Results: ITS Impressions Head CT 01/08/25 10:14 Impression: Age-related changes within the brain, without acute intracranial hemorrhage or suspicious mass effect. Hip/Pelvis X-Ray 01/08/25 10:15 IMPRESSION: Degenerative disease without acute fracture or dislocation Knee X-Ray 01/08/25 10:22 IMPRESSION: Diffuse bony demineralization and significant degenerative disease, as detailed above. No acute fracture. Cervical Spine CT 01/08/25 10:28 Impression: Significant degenerative disease without acute fracture. Chest/Abdomen/Pelvis CT 01/08/25 10:46 IMPRESSION: 1. Pulmonary emboli with relatively low clot burden. Dr. Mccartney discussed this and the following findings with Dr. clarke at 11:00 AM. 2. Moderate cardiomegaly with right ventricular and biatrial enlargement. 3. Small bilateral pleural effusions. 4. Complex medial left lower lobe along side a large sliding-type hiatal hernia containing large portion the stomach as well as segment of the nonobstructed transverse colon.. 5. Cholelithiasis. 6. Mild bilateral hydronephrosis with 1.2 x 0.4 cm stone at the left ureteropelvic junction and with 7 mm stone in the distal right ureter alongside a right intrarenal stent which is in expected position. Chest X-Ray 01/09/25 16:40 IMPRESSION: Right upper extremity PICC, terminating in the distal SVC. Bilateral pulmonary opacities may represent edema/infection. Segmental atelectasis/consolidation in the left lower lung. Small bilateral pleural effusions. Ankle X-Ray 01/10/25 12:24 IMPRESSION: 1. No left ankle joint effusion or acute osseous abnormality. Venous Doppler Study 01/10/25 13:14 IMPRESSION: 1. Nonocclusive deep venous thrombosis at the right popliteal vein. The more peripheral right posterior tibial and peroneal veins were unable be definitively identified to assess for additional thrombosis. 2. No deep venous thrombosis in the left lower limb. Abdomen X-Ray 01/11/25 07:12 Impression: 1: Probable left UPJ stone measuring 12 mm. 2: Left basilar airspace consolidation which may represent pneumonia and/or atelectasis. Labs Labs: Laboratory Results - last 24 hr 01/12/25 01/12/25 01/12/25 01:45 01:45 01:45 WBC 4.1 L RBC 3.74 L Hgb 10.3 L Hct 32.9 L MCV 88.0 MCH 27.5 MCHC 31.3 L RDW 15.2 H Plt Count 141 L MPV 10.8 H Sodium 132 L Cancelled Potassium 3.1 L Cancelled Chloride 94 L Carbon Dioxide Anion Gap BUN Creatinine Estim Creat Clear Calc Estimated GFR Glucose Calcium Phosphorus Magnesium Albumin 01/12/25 01/12/25 01/12/25 01:45 01:45 01:45 WBC RBC Hgb Hct MCV MCH MCHC RDW Plt Count MPV Sodium Potassium Chloride Cancelled Carbon Dioxide 38 H Cancelled Anion Gap 0 L Cancelled BUN 13 Creatinine Estim Creat Clear Calc Estimated GFR Glucose Calcium Phosphorus Magnesium Albumin 01/12/25 01/12/25 01/12/25 01:45 01:45 01:45 WBC RBC Hgb Hct MCV MCH MCHC RDW Plt Count MPV Sodium Potassium Chloride Carbon Dioxide Anion Gap BUN Cancelled Creatinine 0.63 L Cancelled Estim Creat Clear Calc 89 Cancelled Estimated GFR > 60 Glucose Calcium Phosphorus Magnesium Albumin 01/12/25 01/12/25 01/12/25 01:45 01:45 01:45 WBC RBC Hgb Hct MCV MCH MCHC RDW Plt Count MPV Sodium Potassium Chloride Carbon Dioxide Anion Gap BUN Creatinine Estim Creat Clear Calc Estimated GFR Cancelled Glucose 94 Cancelled Calcium 8.6 Cancelled Phosphorus 2.7 Magnesium 1.7 Albumin 2.7 L
--- NOTE | 2025-01-12 15:12 | PC.NURSE ---
Spoke with HONEY Recinos, at [facility]. Reports new orders from Dr. Lepe to discontinue urinary catheter.
[2025-01-12] MEDS: HYDROmorphone HCL INJ (*CRX) 2 MG/ML VIAL 0.5 MG IV PUSH (23:24)
[2025-01-13] VITALS (24 sets, daily range): BP systolic 111–162; BP diastolic 62–75; PULSE 39–80; RESP 14–20; TEMP 36.4–36.8; O2SAT 84–100
[2025-01-13] MEDS: ALBUTEROL SULFATE NEB 2.5 MG/3 ML INH INHALATION ×4 (02:04→20:16)
[2025-01-13 05:08] LABS: Hematocrit 37.2 % (37.0-47.0); Hemoglobin 11.2 g/dL (12.0-15.0); Mean Corpuscular HGB Conc 30.1 g/dl (32-36); Mean Corpuscular Hemoglobin 26.9 pg (26-34); Mean Corpuscular Volume 89.4 fl (80-100); Platelet Count Result 158 k/mm3 (150-375); Red Blood Count 4.16 M/mm3 (4.2-5.4); White Blood Count 4.9 K/mm3 (4.5-10.0)
[2025-01-13 05:26] LABS: Albumin Level 3.1 g/dL (3.5-5.1); Anion Gap 3 mmol/L (4-12); Blood Urea Nitrogen 11 mg/dL (7-17); Calcium 9.0 mg/dL (8.4-10.2); Carbon Dioxide 37 mmol/L (22-30); Chloride 96 mmol/L (98-107); Estimated CRCL calculation 93 ml/min; Estimated Glomerular Filt Rate > 60; Glucose 102 mg/dL (65-110); Magnesium 1.8 mg/dL (1.6-2.3); Potassium 3.2 mmol/L (3.4-5.0); Sodium 136 mmol/L (137-145)
[2025-01-13] MEDS: CENTRAL LINE FLUSH 10 ML IV PUSH ×3 (05:32→20:39)
[2025-01-13] MEDS: APIXABAN 5 MG TABLET 10 MG PO ×2 (08:39→20:35)
[2025-01-13] MEDS: CEPHALEXIN 500 MG CAPSULE PO ×2 (08:39→20:35)
[2025-01-13] MEDS: FUROSEMIDE INJ 40 MG/4 ML VIAL IV PUSH (08:39)
[2025-01-13] MEDS: SERTRALINE HCL 50 MG TABLET PO (08:39)
[2025-01-13] MEDS: POTASSIUM CHLORIDE 20 MEQ ER TABLET 40 MEQ PO ×2 (08:42→15:06)
--- NOTE | 2025-01-13 12:52 | P.PNCA_ITS ---
Progress Note: A&P Assessment and Plan (1) CHF (congestive heart failure): Qualifiers: Heart failure chronicity: chronic Heart failure type: unspecified Qualified Code(s): I50.9 - Heart failure, unspecified Code(s): I50.9 - Heart failure, unspecified Status: Chronic (2) Pulmonary hypertension: Code(s): I27.20 - Pulmonary hypertension, unspecified Status: Acute Plan Acute vs subacute pulmonary embolism Elevated troponin likely demand ischemia setting of pulmonary embolism and right-sided heart failure Right-sided heart failure severe RV enlargement and severe pulmonary hypertension Chronic atrial fibrillation Ureteral calculus bilateral hydronephrosis with hematuria Plan Continue oral anticoagulation and observe for worsening bleeding Change Lasix to 40 mg p.o. b.i.d. Subjective Date/time seen: 01/13/25 12:52 Interval history: no acute events Tele: AF 60s Review of Systems Review of Systems: All systems reviewed & are unremarkable except as noted in HPI and below Exam Narrative: General: Alert oriented x3, no acute distress Neck: Supple, JVD + Chest: Bilaterally clear to auscultation, no rales or rhonchi Cardiac: S1, S2 +, irregularly irregular rhythm, no murmurs or rubs Extremities: Bilateral lower extremity edema 1+, no skin rash Neurologic: Alert and oriented x3, no focal neurological deficits Objective Data Vital Signs Vital Signs: Vital Signs - 24 hr 01/12/25 13:48 01/12/25 13:54 01/12/25 16:00 Temperature Pulse Rate 75 78 57 L Respiratory Rate 16 18 Blood Pressure Pulse Oximetry Oxygen Delivery Oxygen Flow Rate 01/12/25 16:00 01/12/25 20:00 01/12/25 20:00 Temperature 36.9 C 36.7 C Pulse Rate 64 54 L Respiratory Rate 18 18 Blood Pressure 120/58 L 116/76 Pulse Oximetry 96 100 99 Oxygen Delivery Nasal Cannula Oxygen Flow Rate 2 01/12/25 20:00 01/12/25 20:15 01/12/25 20:15 Temperature Pulse Rate 48 L 50 L 50 L Respiratory Rate 18 Blood Pressure Pulse Oximetry 100 Oxygen Delivery Nasal Cannula Oxygen Flow Rate 4 01/12/25 20:24 01/12/25 23:45 01/13/25 00:00 Temperature 37.1 C Pulse Rate 62 59 L 56 L Respiratory Rate 18 22 H Blood Pressure 119/67 Pulse Oximetry 93 Oxygen Delivery Oxygen Flow Rate 01/13/25 02:04 01/13/25 02:10 01/13/25 04:00 Temperature Pulse Rate 63 44 L 39 L Respiratory Rate 18 18 Blood Pressure Pulse Oximetry Oxygen Delivery Oxygen Flow Rate 01/13/25 07:24 01/13/25 07:24 01/13/25 07:33 Temperature Pulse Rate 65 60 Respiratory Rate 16 16 Blood Pressure Pulse Oximetry 100 Oxygen Delivery Nasal Cannula Oxygen Flow Rate 2 01/13/25 07:58 01/13/25 08:00 01/13/25 08:00 Temperature 36.4 C L Pulse Rate 51 L 56 L Respiratory Rate 20 Blood Pressure 162/72 H Pulse Oximetry 100 94 Oxygen Delivery Nasal Cannula Oxygen Flow Rate 5 01/13/25 08:23 01/13/25 08:57 01/13/25 09:00 Temperature Pulse Rate Respiratory Rate Blood Pressure Pulse Oximetry 94 84 L 92 Oxygen Delivery Room Air Room Air Nasal Cannula Oxygen Flow Rate 5 Intake/Output Intake/Output: Intake & Output 01/10/25 01/11/25 01/12/25 01/13/25 23:59 23:59 23:59 23:59 Intake Total 1900.6 1817.7 990 490 Output Total 3750 3700 2050 100 Balance -1849.4 -1882.3 -1060 390 Meds/Results Medications: Active Medications Generic Name Dose Route Start Last Admin Trade Name Freq PRN Reason Stop Dose Admin Acetaminophen 650 mg 01/08/25 12:40 01/11/25 22:41 Acetaminophen 325 Mg Tablet PO 650 mg Q6H PRN Administration Mild Pain (1-3) or Fever Hydrocodone Bitart/Acetaminophen 1 tab 01/08/25 12:40 01/12/25 22:25 Hydrocodone/Acetaminophen (*Crx) 5-325 Mg Tablet PO 1 tab Q6H PRN Administration Pain Rated 4-6 Albuterol 2.5 mg 01/08/25 14:00 01/13/25 07:24 Albuterol Sulfate Neb 2.5 Mg/3 Ml Inh INHALATION 2.5 mg Q6HRT TAMMY Administration Apixaban 10 mg 01/11/25 21:00 01/13/25 08:39 Apixaban 5 Mg Tablet PO 01/18/25 09:01 10 mg Q12HR TAMMY Administration Apixaban 5 mg 01/18/25 21:00 Apixaban 5 Mg Tablet PO Q12HR TAMMY Cephalexin HCl 500 mg 01/12/25 09:00 01/13/25 08:39 Cephalexin 500 Mg Capsule PO 01/14/25 21:01 500 mg Q12HR TAMMY Administration Docusate Sodium 100 mg 01/08/25 12:40 01/10/25 09:49 Docusate Sodium 100 Mg Capsule PO 100 mg Q12H PRN Administration Constipation Furosemide 40 mg 01/12/25 09:00 01/13/25 08:39 Furosemide Inj 40 Mg/4 Ml Vial IV PUSH 40 mg DAILY TAMMY Administration Hydromorphone HCl 0.5 mg 01/08/25 11:54 01/12/25 23:24 Hydromorphone Hcl Inj (*Crx) 2 Mg/Ml Vial IV PUSH 0.5 mg Q4H PRN Administration Pain Rated 7-10 Naloxone HCl 0.1 mg 01/08/25 12:40 Naloxone Hcl 0.4 Mg/Ml Vial IV PUSH Q5MIN PRN Sedation Ondansetron HCl 4 mg 01/08/25 11:54 Ondansetron Inj 4 Mg/2 Ml Vial IV PUSH Q4H PRN Nausea Polyethylene Glycol 17 gm 01/08/25 12:40 Polyethylene Glycol 3350 17 Gm Powd.Pack PO QAM PRN Constipation Potassium Chloride 40 meq 01/13/25 08:25 01/13/25 08:42 Potassium Chloride 20 Meq Er Tablet PO 01/13/25 14:26 40 meq Q6H TAMMY Administration Sertraline HCl 50 mg 01/10/25 09:00 01/13/25 08:39 Sertraline Hcl 50 Mg Tablet PO 50 mg DAILY TAMMY Administration Sodium Chloride 10 ml 01/09/25 22:00 01/13/25 05:32 Central Line Flush IV PUSH 10 ml Q8HR TAMMY Administration Sodium Chloride 10 ml 01/09/25 16:35 Central Line Flush IV PUSH PRN PRN with TPN bag changes Sodium Chloride 20 ml 01/09/25 16:35 Central Line Flush IV PUSH PRN PRN after blood draws Radiology Results: ITS Impressions Head CT 01/08/25 10:14 Impression: Age-related changes within the brain, without acute intracranial hemorrhage or suspicious mass effect. Hip/Pelvis X-Ray 01/08/25 10:15 IMPRESSION: Degenerative disease without acute fracture or dislocation Knee X-Ray 01/08/25 10:22 IMPRESSION: Diffuse bony demineralization and significant degenerative disease, as detailed above. No acute fracture. Cervical Spine CT 01/08/25 10:28 Impression: Significant degenerative disease without acute fracture. Chest/Abdomen/Pelvis CT 01/08/25 10:46 IMPRESSION: 1. Pulmonary emboli with relatively low clot burden. Dr. Mccartney discussed this and the following findings with Dr. clarke at 11:00 AM. 2. Moderate cardiomegaly with right ventricular and biatrial enlargement. 3. Small bilateral pleural effusions. 4. Complex medial left lower lobe along side a large sliding-type hiatal hernia containing large portion the stomach as well as segment of the nonobstructed transverse colon.. 5. Cholelithiasis. 6. Mild bilateral hydronephrosis with 1.2 x 0.4 cm stone at the left ur eteropelvic junction and with 7 mm stone in the distal right ureter alongside a right intrarenal stent which is in expected position. Chest X-Ray 01/09/25 16:40 IMPRESSION: Right upper extremity PICC, terminating in the distal SVC. Bilateral pulmonary opacities may represent edema/infection. Segmental atelectasis/consolidation in the left lower lung. Small bilateral pleural effusions. Ankle X-Ray 01/10/25 12:24 IMPRESSION: 1. No left ankle joint effusion or acute osseous abnormality. Venous Doppler Study 01/10/25 13:14 IMPRESSION: 1. Nonocclusive deep venous thrombosis at the right popliteal vein. The more peripheral right posterior tibial and peroneal veins were unable be definitively identified to assess for additional thrombosis. 2. No deep venous thrombosis in the left lower limb. Abdomen X-Ray 01/11/25 07:12 Impression: 1: Probable left UPJ stone measuring 12 mm. 2: Left basilar airspace consolidation which may represent pneumonia and/or atelectasis. Labs Labs: Laboratory Results - last 24 hr 01/13/25 05:00 WBC 4.9 RBC 4.16 L Hgb 11.2 L Hct 37.2 MCV 89.4 MCH 26.9 MCHC 30.1 L RDW 15.4 H Plt Count 158 MPV 10.8 H Sodium 136 L Potassium 3.2 L Chloride 96 L Carbon Dioxide 37 H Anion Gap 3 L BUN 11 Creatinine 0.59 L Estim Creat Clear Calc 93 Estimated GFR > 60 Glucose 102 Calcium 9.0 Phosphorus 2.8 Magnesium 1.8 Albumin 3.1 L
[2025-01-13] MEDS: ONDANSETRON INJ 4 MG/2 ML VIAL IV PUSH (12:53)
[2025-01-13] MEDS: MAGNESIUM SULF 2 GM/WATER 50ML 2 GM/50 ML BAG IVPB (12:53)
--- NOTE | 2025-01-13 13:30 | ECG_ITS ---
Test Date: 2025-01-13 13:34:34 Measurements Intervals [place] Rate: 73 P: 0 MN: 0 QRS: -40 QRSD: 163 T: 181 QT: 378 QTc: 417 Interpretive Statements ATRIAL FIBRILLATION LEFT AXIS DEVIATION RIGHT BUNDLE BRANCH BLOCK ST-T WAVE ABNORMALITY IN ANTEROLATERAL LEADS- CONSIDER ISCHEMIA BASELINE ARTIFACT- I, II, III, AVR, AVL, AVF ABNORMAL ECG Compared to ECG 01/12/2025 01:52:35 HEART RATE HAS INCREASED Electronically Signed On 01-13-2025 14:41:29 CDT by José Miguel Gomes D.O.
[2025-01-13] MEDS: NITROGLYCERIN SL 0.4 MG TABLET SUBLINGUAL (13:59)
[2025-01-13 14:37] LABS: Troponin I 0.075 ng/mL (0.000-0.034)
--- NOTE | 2025-01-13 15:37 | PM.IMPN ---
Progress Note: A&P Assessment and Plan (1) Chest pain: Code(s): R07.9 - Chest pain, unspecified Status: Acute Assessment and Plan: Patient with chest pain today. Palpable left sided chest wall pain EKG performed and reviewed showing afib, Rt BBB and ST-T wave changes in anterolateral leads but no change form prior CXR reviewed showing CMG, large HH, persistent RLL linear opacities. Troponin 0.075 but trending down from admission. Suspect this is more musculoskeletal pain. Will follow. Check one more Trop to make sure its trending down. (2) Pulmonary embolism: Qualifiers: Pulmonary embolism type: multiple subsegmental (without acute cor pulmonale) Qualified Code(s): I26.94 - Multiple subsegmental thrombotic pulmonary emboli without acute cor pulmonale Code(s): I26.99 - Other pulmonary embolism without acute cor pulmonale Status: Acute Assessment and Plan: PE noted on CTA chest with low clot burden. Heparin drip was started. O2 requirement up to 5L but back down to 2L Doppler LE showing nonocclusive DVT at the right popliteal vein. Echo showing EF 50-55% with indeterminate diastolic fxn, severe bi-atrial enlargement, mild-mod MR and severe pulmonary HTN. She was agreeable to start Eliquis so was changed over. Wean oxygen as tolerated. (3) CHF (congestive heart failure): Qualifiers: Heart failure chronicity: chronic Heart failure type: unspecified Qualified Code(s): I50.9 - Heart failure, unspecified Code(s): I50.9 - Heart failure, unspecified Status: Chronic Assessment and Plan: Patient was 85% on RA upon initial evaluation in the ED on 01/08. No previous O2 requirement. BNP 4000. CT Chest showing PE with small clot burden, consolidation basilar LLL and small pleural effusions. Echo as above. Etiology of the hypoxia probably multifactorial from severe pulm HTN, PE and/or acute diastolic CHF. She was started on IV Lasix but was also on IV fluids which were stopped since clinically she is volume overloaded I/O's -8.7L. Some of the pedal edema related to severe pulm HTN and not CHF Monitor fluid status, daily weights, I&Os. Continue Tunde hose Wean oxygen as tolerated. Changed to oral Lasix today (4) Hypoxia: Code(s): R09.02 - Hypoxemia Status: Acute Assessment and Plan: [place] related to severe pulm HTN, PE and acute diastolic CHF. As above (5) Calculus of left ureter: Code(s): N20.1 - Calculus of ureter Status: Acute Assessment and Plan: CT showing mild bilateral hydronephrosis with 1.2 x 0.4 cm stone at the left ureteropelvic junction and with 7 mm stone in the distal right ureter alongside a right intrarenal stent which is in expected position. The right intrarenal stent was placed in 2022. UA is consistent with UTI. Rocephin started. BCx no growth to date UCx growing Klebsiella sensitive to Rocephin -> abx changed to oral Keflex Urology consulted and patient underwent bilateral stent placements 01/10. They were unable to remove the old right renal stent because it was encrusted. She will need further treatment as outpatient Removed [place]. Still having hematuria related to recent procedure and anti-coagulation. (6) UTI (urinary tract infection): Qualifiers: Hematuria presence: with hematuria Urinary tract infection type: site unspecified Qualified Code(s): N39.0 - Urinary tract infection, site not specified; R31.9 - Hematuria, unspecified Code(s): N39.0 - Urinary tract infection, site not specified Status: Acute Assessment and Plan: As above (7) Rhabdomyolysis: Qualifiers: Rhabdomyolysis type: traumatic Encounter type: initial encounter Qualified Code(s): T79.6XXA - Traumatic ischemia of muscle, initial encounter Code(s): M62.82 - Rhabdomyolysis Status: Acute Assessment and Plan: Total CK mildly elevated to 690 but now trending downward. Resolving (8) Ground-level fall: Code(s): W18.30XA - Fall on same level, unspecified, initial encounter Status: Acute Assessment and Plan: Patient presented after having a ground level fall. Trauma workup including a head CT, hip/pelvic XR, knee XR, C-spine CT, and CT of the chest/abdomen/pelvis were negative for acute traumatic findings Left ankle xray negative for fracture. Fall precaution PT and OT. (9) Atrial fibrillation: Qualifiers: Atrial fibrillation type: unspecified Qualified Code(s): I48.91 - Unspecified atrial fibrillation Code(s): I48.91 - Unspecified atrial fibrillation Status: Chronic Assessment and Plan: Was placed on heparin for PE and AFib Rate controlled with bradycardia without any medications Sick sinus syndrome? Rate remains controlled. Changed to Eliquis. Continue to monitor on tele (10) Pulmonary hypertension: Code(s): I27.20 - Pulmonary hypertension, unspecified Status: Acute Assessment and Plan: Echo showing severe pulmonary HTN. She has JERICHO so this could be the etiology. She is compliant with BiPAP. Continue the same. Apnea link on bipap on 2L at night showing no hypoxia. Plan Lactic acidosis - lactic trending down-no fevers, tachycardia or leukocytosis. Procalcitonin 0.2. No anion gap. Reflux - large sliding-type hiatal hernia containing large portion the stomach as well as segment of the nonobstructed transverse colon. Asymptomatic. Follow clinically. DVT prophylaxis - Heparin -> Eliquis Code status - full Subjective Date/time seen: 01/13/25 15:37 Interval history: 74yo female with AFib, anemia, fibromyalgia and CHF here for fall with shortness of breath. Complains of left sided chest pain. No nausea or radiation to the pain. Slightly pleuritic and painful to touch. Rates it 9/10. Associated with right upper arm pain. Has been tolerating therapy without chest pain Exam Narrative: AF 97.5 123/75 65 14 93% 2L Gen - NARD Chest - few basilar rhonchi o/w clear. Left side palpable CW pain (this is the pain she is having) CV - irregularly irregular. Tele showing AFib with PVCs with bigeminy Abd - soft, ND, +BS - dark blood in [employer] canister Ext - 1-2+ pedal edema. RUE PICC line in place. Tunde hose in place Psych - Nml mood and affect Skin - Warm and dry Objective Data Vital Signs Vital Signs: Vital Signs - 24 hr 01/12/25 16:00 01/12/25 16:00 01/12/25 20:00 Temperature 98.4 F 98.0 F Pulse Rate 57 L 64 54 L Respiratory Rate 18 18 Blood Pressure 120/58 L 116/76 Pulse Oximetry 96 100 Oxygen Delivery Oxygen Flow Rate 01/12/25 20:00 01/12/25 20:00 01/12/25 20:15 Temperature Pulse Rate 48 L 50 L Respiratory Rate 18 Blood Pressure Pulse Oximetry 99 Oxygen Delivery Nasal Cannula Oxygen Flow Rate 2 01/12/25 20:15 01/12/25 20:24 01/12/25 23:45 Temperature 98.7 F Pulse Rate 50 L 62 59 L Respiratory Rate 18 22 H Blood Pressure 119/67 Pulse Oximetry 100 93 Oxygen Delivery Nasal Cannula Oxygen Flow Rate 4 01/13/25 00:00 01/13/25 02:04 01/13/25 02:10 Temperature Pulse Rate 56 L 63 44 L Respiratory Rate 18 18 Blood Pressure Pulse Oximetry Oxygen Delivery Oxygen Flow Rate 01/13/25 04:00 01/13/25 07:24 01/13/25 07:24 Temperature Pulse Rate 39 L 65 Respiratory Rate 16 Blood Pressure Pulse Oximetry 100 Oxygen Delivery Nasal Cannula Oxygen Flow Rate 2 01/13/25 07:33 01/13/25 07:58 01/13/25 08:00 Temperature 97.5 F L Pulse Rate 60 51 L Respiratory Rate 16 20 Blood Pressure 162/72 H Pulse Oximetry 100 94 Oxygen Delivery Nasal Cannula Oxygen Flow Rate 5 01/13/25 08:00 01/13/25 08:23 01/13/25 08:57 Temperature Pulse Rate 56 L Respiratory Rate Blood Pressure Pulse Oximetry 94 84 L Oxygen Delivery Room Air Room Air Oxygen Flow Rate 01/13/25 09:00 01/13/25 12:00 01/13/25 13:13 Temperature Pulse Rate 76 66 Respiratory Rate 16 Blood Pressure Pulse Oximetry 92 Oxygen Delivery Nasal Cannula Oxygen Flow Rate 5 01/13/25 13:13 01/13/25 13:22 01/13/25 13:44 Temperature Pulse Rate 77 Respiratory Rate 16 Blood Pressure 125/70 Pulse Oximetry 97 Oxygen Delivery Nasal Cannula Oxygen Flow Rate 2 01/13/25 14:55 Temperature Pulse Rate 65 Respiratory Rate 14 Blood Pressure 123/75 Pulse Oximetry 93 Oxygen Delivery Nasal Cannula Oxygen Flow Rate 2 Intake/Output Intake/Output: Intake & Output 01/10/25 01/11/25 01/12/25 01/13/25 23:59 23:59 23:59 23:59 Intake Total 1900.6 1817.7 990 730 Output Total 3750 3700 2050 100 Balance -1849.4 -1882.3 -1060 630 Meds/Results Medications: Active Medications Generic Name Dose Route Start Last Admin Trade Name Freq PRN Reason Stop Dose Admin Acetaminophen 650 mg 01/08/25 12:40 01/11/25 22:41 Acetaminophen 325 Mg Tablet PO 650 mg Q6H PRN Administration Mild Pain (1-3) or Fever Hydrocodone Bitart/Acetaminophen 1 tab 01/08/25 12:40 01/12/25 22:25 Hydrocodone/Acetaminophen (*Crx) 5-325 Mg Tablet PO 1 tab Q6H PRN Administration Pain Rated 4-6 Albuterol 2.5 mg 01/08/25 14:00 01/13/25 13:11 Albuterol Sulfate Neb 2.5 Mg/3 Ml Inh INHALATION 2.5 mg Q6HRT TAMMY Administration Apixaban 10 mg 01/11/25 21:00 01/13/25 08:39 Apixaban 5 Mg Tablet PO 01/18/25 09:01 10 mg Q12HR TAMMY Administration Apixaban 5 mg 01/18/25 21:00 Apixaban 5 Mg Tablet PO Q12HR TAMMY Cephalexin HCl 500 mg 01/12/25 09:00 01/13/25 08:39 Cephalexin 500 Mg Capsule PO 01/14/25 21:01 500 mg Q12HR TAMMY Administration Docusate Sodium 100 mg 01/08/25 12:40 01/10/25 09:49 Docusate Sodium 100 Mg Capsule PO 100 mg Q12H PRN Administration Constipation Furosemide 40 mg 01/12/25 09:00 01/13/25 08:39 Furosemide Inj 40 Mg/4 Ml Vial IV PUSH 40 mg DAILY TAMMY Administration Hydromorphone HCl 0.5 mg 01/08/25 11:54 01/12/25 23:24 Hydromorphone Hcl Inj (*Crx) 2 Mg/Ml Vial IV PUSH 0.5 mg Q4H PRN Administration Pain Rated 7-10 Naloxone HCl 0.1 mg 01/08/25 12:40 Naloxone Hcl 0.4 Mg/Ml Vial IV PUSH Q5MIN PRN Sedation Ondansetron HCl 4 mg 01/08/25 11:54 01/13/25 12:53 Ondansetron Inj 4 Mg/2 Ml Vial IV PUSH 4 mg Q4H PRN Administration Nausea Polyethylene Glycol 17 gm 01/08/25 12:40 Polyethylene Glycol 3350 17 Gm Powd.Pack PO QAM PRN Constipation Sertraline HCl 50 mg 01/10/25 09:00 01/13/25 08:39 Sertraline Hcl 50 Mg Tablet PO 50 mg DAILY TAMMY Administration Sodium Chloride 10 ml 01/09/25 22:00 01/13/25 14:27 Central Line Flush IV PUSH 10 ml Q8HR TAMMY Administration Sodium Chloride 10 ml 01/09/25 16:35 Central Line Flush IV PUSH PRN PRN with TPN bag changes Sodium Chloride 20 ml 01/09/25 16:35 Central Line Flush IV PUSH PRN PRN after blood draws Radiology Results: ITS Impressions Head CT 01/08/25 10:14 Impression: Age-related changes within the brain, without acute intracranial hemorrhage or suspicious mass effect. Hip/Pelvis X-Ray 01/08/25 10:15 IMPRESSION: Degenerative disease without acute fracture or dislocation Knee X-Ray 01/08/25 10:22 IMPRESSION: Diffuse bony demineralization and significant degenerative disease, as detailed above. No acute fracture. Cervical Spine CT 01/08/25 10:28 Impression: Significant degenerative disease without acute fracture. Chest/Abdomen/Pelvis CT 01/08/25 10:46 IMPRESSION: 1. Pulmonary emboli with relatively low clot burden. Dr. Mccartney discussed this and the following findings with Dr. clarke at 11:00 AM. 2. Moderate cardiomegaly with right ventricular and biatrial enlargement. 3. Small bilateral pleural effusions. 4. Complex medial left lower lobe along side a large sliding-type hiatal hernia containing large portion the stomach as well as segment of the nonobstructed transverse colon.. 5. Cholelithiasis. 6. Mild bilateral hydronephrosis with 1.2 x 0.4 cm stone at the left ureteropelvic junction and with 7 mm stone in the distal right ureter alongside a right intrarenal stent which is in expected position. Ankle X-Ray 01/10/25 12:24 IMPRESSION: 1. No left ankle joint effusion or acute osseous abnormality. Venous Doppler Study 01/10/25 13:14 IMPRESSION: 1. Nonocclusive deep venous thrombosis at the right popliteal vein. The more peripheral right posterior tibial and peroneal veins were unable be definitively identified to assess for additional thrombosis. 2. No deep venous thrombosis in the left lower limb. Abdomen X-Ray 01/11/25 07:12 Impression: 1: Probable left UPJ stone measuring 12 mm. 2: Left basilar airspace consolidation which may represent pneumonia and/or atelectasis. Chest X-Ray 01/13/25 13:57 IMPRESSION: 1. Persistent linear opacities in bilateral mid and right lower lung zones consistent with persistent atelectasis/scarring. 2. Large hiatal hernia. Labs Labs: Laboratory Results - last 24 hr 01/13/25 01/13/25 05:00 13:54 WBC 4.9 RBC 4.16 L Hgb 11.2 L Hct 37.2 MCV 89.4 MCH 26.9 MCHC 30.1 L RDW 15.4 H Plt Count 158 MPV 10.8 H Sodium 136 L Potassium 3.2 L Chloride 96 L Carbon Dioxide 37 H Anion Gap 3 L BUN 11 Creatinine 0.59 L Estim Creat Clear Calc 93 Estimated GFR > 60 Glucose 102 Calcium 9.0 Phosphorus 2.8 Magnesium 1.8 Troponin I 0.075 H* Albumin 3.1 L
[2025-01-13 19:07] LABS: Troponin I 0.076 ng/mL (0.000-0.034)
[2025-01-13] MEDS: HYDROcodone/acetaminophen (*CRX) 5-325 MG TABLET 1 TAB PO (20:39)
[2025-01-14] VITALS (14 sets, daily range): BP systolic 109–120; BP diastolic 73–80; PULSE 42–82; RESP 16–18; TEMP 36.4–36.6; O2SAT 94–100
[2025-01-14] MEDS: ALBUTEROL SULFATE NEB 2.5 MG/3 ML INH INHALATION ×3 (02:41→19:52)
[2025-01-14 05:17] LABS: Anion Gap -1 mmol/L (4-12); Blood Urea Nitrogen 12 mg/dL (7-17); Calcium 9.1 mg/dL (8.4-10.2); Carbon Dioxide 36 mmol/L (22-30); Chloride 95 mmol/L (98-107); Estimated CRCL calculation 91 ml/min; Estimated Glomerular Filt Rate > 60; Glucose 108 mg/dL (65-110); Magnesium 2.0 mg/dL (1.6-2.3); Potassium 3.8 mmol/L (3.4-5.0); Sodium 130 mmol/L (137-145)
[2025-01-14] MEDS: CENTRAL LINE FLUSH 10 ML IV PUSH ×2 (05:23→20:45)
[2025-01-14] MEDS: APIXABAN 5 MG TABLET 10 MG PO ×2 (09:48→20:44)
[2025-01-14] MEDS: SERTRALINE HCL 50 MG TABLET PO (09:48)
[2025-01-14] MEDS: CEPHALEXIN 500 MG CAPSULE PO ×2 (09:48→20:44)
[2025-01-14] MEDS: FUROSEMIDE 40 MG TABLET PO (09:48)
--- NOTE | 2025-01-14 11:21 | PM.IMPN ---
Progress Note: A&P Assessment and Plan (1) Chest pain: Code(s): R07.9 - Chest pain, unspecified Status: Acute Assessment and Plan: Patient with chest pain yesterday. Palpable left sided chest wall pain EKG performed and reviewed showing afib, Rt BBB and ST-T wave changes in anterolateral leads but no change form prior CXR reviewed showing CMG, large HH, persistent RLL linear opacities. Troponin 0.075 -> 0.076 but trending down from admission. Suspect this is more musculoskeletal pain. Will follow. Check one more Trop this morning to confirm trend. (2) Pulmonary embolism: Qualifiers: Pulmonary embolism type: multiple subsegmental (without acute cor pulmonale) Qualified Code(s): I26.94 - Multiple subsegmental thrombotic pulmonary emboli without acute cor pulmonale Code(s): I26.99 - Other pulmonary embolism without acute cor pulmonale Status: Acute Assessment and Plan: PE noted on CTA chest with low clot burden. Heparin drip was started. O2 requirement up to 5L but back down to 1L Doppler LE showing nonocclusive DVT at the right popliteal vein. Echo showing EF 50-55% with indeterminate diastolic fxn, severe bi-atrial enlargement, mild-mod MR and severe pulmonary HTN. She was agreeable to start Eliquis so was changed over. Tolerating Eliquis. Wean oxygen as tolerated. (3) CHF (congestive heart failure): Qualifiers: Heart failure chronicity: chronic Heart failure type: unspecified Qualified Code(s): I50.9 - Heart failure, unspecified Code(s): I50.9 - Heart failure, unspecified Status: Chronic Assessment and Plan: Patient was 85% on RA upon initial evaluation in the ED on 01/08. No previous O2 requirement. BNP 4000. CT Chest showing PE with small clot burden, consolidation basilar LLL and small pleural effusions. Echo as above. Etiology of the hypoxia probably multifactorial from severe pulm HTN, PE and/or acute diastolic CHF. She was started on IV Lasix with I/O's -8.7L. Some of the pedal edema related to severe pulm HTN and not CHF Monitor fluid status, daily weights, I&Os. Continue [place] hose Wean oxygen as tolerated. Change to oral Lasix today (4) Hypoxia: Code(s): R09.02 - Hypoxemia Status: Acute Assessment and Plan: [place] related to severe pulm HTN, PE and acute diastolic CHF. As above (5) Calculus of left ureter: Code(s): N20.1 - Calculus of ureter Status: Acute Assessment and Plan: CT showing mild bilateral hydronephrosis with 1.2 x 0.4 cm stone at the left ureteropelvic junction and with 7 mm stone in the distal right ureter alongside a right intrarenal stent which is in expected position. The right intrarenal stent was placed in 2022. UA is consistent with UTI. Rocephin started. BCx no growth to date UCx growing Klebsiella sensitive to Rocephin -> abx changed to oral Keflex Urology consulted and patient underwent bilateral stent placements 01/10. They were unable to remove the old right renal stent because it was encrusted. She will need further treatment as outpatient Removed [place]. Still having hematuria related to recent procedure and anti-coagulation. Follow (6) UTI (urinary tract infection): Qualifiers: Hematuria presence: with hematuria Urinary tract infection type: site unspecified Qualified Code(s): N39.0 - Urinary tract infection, site not specified; R31.9 - Hematuria, unspecified Code(s): N39.0 - Urinary tract infection, site not specified Status: Acute Assessment and Plan: As above (7) Rhabdomyolysis: Qualifiers: Rhabdomyolysis type: traumatic Encounter type: initial encounter Qualified Code(s): T79.6XXA - Traumatic ischemia of muscle, initial encounter Code(s): M62.82 - Rhabdomyolysis Status: Acute Assessment and Plan: Total CK mildly elevated to 690 but now trending downward. Resolving (8) Ground-level fall: Code(s): W18.30XA - Fall on same level, unspecified, initial encounter Status: Acute Assessment and Plan: Patient presented after having a ground level fall. Trauma workup including a head CT, hip/pelvic XR, knee XR, C-spine CT, and CT of the chest/abdomen/pelvis were negative for acute traumatic findings Left ankle xray negative for fracture. Fall precaution PT and OT. (9) Atrial fibrillation: Qualifiers: Atrial fibrillation type: unspecified Qualified Code(s): I48.91 - Unspecified atrial fibrillation Code(s): I48.91 - Unspecified atrial fibrillation Status: Chronic Assessment and Plan: Was placed on heparin for PE and AFib Rate controlled with bradycardia without any medications Sick sinus syndrome? Rate remains controlled. Changed to Eliquis. Continue to monitor on tele (10) Pulmonary hypertension: Code(s): I27.20 - Pulmonary hypertension, unspecified Status: Acute Assessment and Plan: Echo showing severe pulmonary HTN. She has J[place]ICHO so this could be the etiology. She is compliant with BiPAP. Continue the same. Apnea link on bipap on 2L at night showing no hypoxia. Plan Lactic acidosis - lactic trending down-no fevers, tachycardia or leukocytosis. Procalcitonin 0.2. No anion gap. Reflux - large sliding-type hiatal hernia containing large portion the stomach as well as segment of the nonobstructed transverse colon. Asymptomatic. Follow clinically. DVT prophylaxis - Heparin -> Eliquis Code status - full Subjective Date/time seen: 01/14/25 11:21 Interval history: 74yo female with AFib, anemia, fibromyalgia and CHF here for fall with shortness of breath. No further chest pain. Slept poorly. No CP or SOB. Exam Narrative: AF 97.5 120/76 45 16 100% 1L Gen - NARD Chest - lungs clear anteriorly. CV - irregularly irregular. Tele showing AFib with PVCs and bigeminy Abd - soft, ND, +BS Ext - 1+ pedal edema with minimal pitting now. RUE PICC line in place. Psych - Nml mood and affect Skin - Warm and dry Objective Data Vital Signs Vital Signs: Vital Signs - 24 hr 01/13/25 12:00 01/13/25 13:13 01/13/25 13:13 Temperature Pulse Rate 76 66 Respiratory Rate 16 Blood Pressure Pulse Oximetry 97 Oxygen Delivery Nasal Cannula Oxygen Flow Rate 2 01/13/25 13:22 01/13/25 13:44 01/13/25 14:55 Temperature Pulse Rate 77 65 Respiratory Rate 16 14 Blood Pressure 125/70 123/75 Pulse Oximetry 93 Oxygen Delivery Nasal Cannula Oxygen Flow Rate 2 01/13/25 16:00 01/13/25 16:00 01/13/25 19:53 Temperature 98.2 F 98.3 F Pulse Rate 76 60 80 Respiratory Rate 18 18 Blood Pressure 115/62 112/62 Pulse Oximetry 97 96 Oxygen Delivery Oxygen Flow Rate 01/13/25 20:00 01/13/25 20:00 01/13/25 20:16 Temperature Pulse Rate 55 L 79 Respiratory Rate 18 Blood Pressure Pulse Oximetry 92 Oxygen Delivery Nasal Cannula Oxygen Flow Rate 2 01/13/25 20:22 01/13/25 20:42 01/13/25 22:48 Temperature Pulse Rate 79 Respiratory Rate 18 16 Blood Pressure Pulse Oximetry 95 95 Oxygen Delivery Nasal Cannula BiPAP Oxygen Flow Rate 2 01/13/25 23:49 01/14/25 00:00 01/14/25 02:44 Temperature Pulse Rate 59 L 54 L 79 Respiratory Rate 20 18 Blood Pressure 111/66 Pulse Oximetry 99 Oxygen Delivery Oxygen Flow Rate 01/14/25 02:50 01/14/25 04:00 01/14/25 07:58 Temperature 97.5 F L Pulse Rate 79 61 54 L Respiratory Rate 18 18 Blood Pressure 120/73 Pulse Oximetry 99 Oxygen Delivery Oxygen Flow Rate 01/14/25 08:19 Temperature Pulse Rate 45 L Respiratory Rate 16 Blood Pressure Pulse Oximetry 100 Oxygen Delivery Nasal Cannula Oxygen Flow Rate 1 Intake/Output Intake/Output: Intake & Output 01/11/25 01/12/25 01/13/25 01/14/25 23:59 23:59 23:59 23:59 Intake Total 1817.7 990 730 540 Output Total 3700 2050 400 201 Balance -1882.3 -1060 330 339 Meds/Results Medications: Active Medications Generic Name Dose Route Start Last Admin Trade Name Freq PRN Reason Stop Dose Admin Acetaminophen 650 mg 01/08/25 12:40 01/11/25 22:41 Acetaminophen 325 Mg Tablet PO 650 mg Q6H PRN Administration Mild Pain (1-3) or Fever Hydrocodone Bitart/Acetaminophen 1 tab 01/08/25 12:40 01/13/25 20:39 Hydrocodone/Acetaminophen (*Crx) 5-325 Mg Tablet PO 1 tab Q6H PRN Administration Pain Rated 4-6 Albuterol 2.5 mg 01/08/25 14:00 01/14/25 08:18 Albuterol Sulfate Neb 2.5 Mg/3 Ml Inh INHALATION Not Given Q6HRT TAMMY Apixaban 10 mg 01/11/25 21:00 01/14/25 09:48 Apixaban 5 Mg Tablet PO 01/18/25 09:01 10 mg Q12HR TAMMY Administration Apixaban 5 mg 01/18/25 21:00 Apixaban 5 Mg Tablet PO Q12HR TAMMY Cephalexin HCl 500 mg 01/12/25 09:00 01/14/25 09:48 Cephalexin 500 Mg Capsule PO 01/14/25 21:01 500 mg Q12HR TAMMY Administration Docusate Sodium 100 mg 01/08/25 12:40 01/10/25 09:49 Docusate Sodium 100 Mg Capsule PO 100 mg Q12H PRN Administration Constipation Furosemide 40 mg 01/14/25 09:00 01/14/25 09:48 Furosemide 40 Mg Tablet PO 40 mg BID TAMMY Administration Hydromorphone HCl 0.5 mg 01/08/25 11:54 01/12/25 23:24 Hydromorphone Hcl Inj (*Crx) 2 Mg/Ml Vial IV PUSH 0.5 mg Q4H PRN Administration Pain Rated 7-10 Naloxone HCl 0.1 mg 01/08/25 12:40 Naloxone Hcl 0.4 Mg/Ml Vial IV PUSH Q5MIN PRN Sedation Ondansetron HCl 4 mg 01/08/25 11:54 01/13/25 12:53 Ondansetron Inj 4 Mg/2 Ml Vial IV PUSH 4 mg Q4H PRN Administration Nausea Polyethylene Glycol 17 gm 01/08/25 12:40 Polyethylene Glycol 3350 17 Gm Powd.Pack PO QAM PRN Constipation Sertraline HCl 50 mg 01/10/25 09:00 01/14/25 09:48 Sertraline Hcl 50 Mg Tablet PO 50 mg DAILY TAMMY Administration Sodium Chloride 10 ml 01/09/25 22:00 01/14/25 05:23 Central Line Flush IV PUSH 10 ml Q8HR TAMMY Administration Sodium Chloride 10 ml 01/09/25 16:35 Central Line Flush IV PUSH PRN PRN with TPN bag changes Sodium Chloride 20 ml 01/09/25 16:35 Central Line Flush IV PUSH PRN PRN after blood draws Radiology Results: ITS Impressions Head CT 01/08/25 10:14 Impression: Age-related changes within the brain, without acute intracranial hemorrhage or suspicious mass effect. Hip/Pelvis X-Ray 01/08/25 10:15 IMPRESSION: Degenerative disease without acute fracture or dislocation Knee X-Ray 01/08/25 10:22 IMPRESSION: Diffuse bony demineralization and significant degenerative disease, as detailed above. No acute fracture. Cervical Spine CT 01/08/25 10:28 Impression: Significant degenerative disease without acute fracture. Chest/Abdomen/Pelvis CT 01/08/25 10:46 IMPRESSION: 1. Pulmonary emboli with relatively low clot burden. Dr. Mccartney discussed this and the following findings with Dr. clarke at 11:00 AM. 2. Moderate cardiomegaly with right ventricular and biatrial enlargement. 3. Small bilateral pleural effusions. 4. Complex medial left lower lobe along side a large sliding-type hiatal hernia containing large portion the stomach as well as segment of the nonobstructed transverse colon.. 5. Cholelithiasis. 6. Mild bilateral hydronephrosis with 1.2 x 0.4 cm stone at the left ureteropelvic junction and with 7 mm stone in the distal right ureter alongside a right intrarenal stent which is in expected position. Ankle X-Ray 01/10/25 12:24 IMPRESSION: 1. No left ankle joint effusion or acute osseous abnormality. Venous Doppler Study 01/10/25 13:14 IMPRESSION: 1. Nonocclusive deep venous thrombosis at the right popliteal vein. The more peripheral right posterior tibial and peroneal veins were unable be definitively identified to assess for additional thrombosis. 2. No deep venous thrombosis in the left lower limb. Abdomen X-Ray 01/11/25 07:12 Impression: 1: Probable left UPJ stone measuring 12 mm. 2: Left basilar airspace consolidation which may represent pneumonia and/or atelectasis. Chest X-Ray 01/13/25 13:57 IMPRESSION: 1. Persistent linear opacities in bilateral mid and right lower lung zones consistent with persistent atelectasis/scarring. 2. Large hiatal hernia. Labs Labs: Laboratory Results - last 24 hr 01/13/25 01/13/25 01/14/25 13:54 18:23 04:44 Sodium 130 L Potassium 3.8 Chloride 95 L Carbon Dioxide 36 H Anion Gap -1 L BUN 12 Creatinine 0.60 L Estim Creat Clear Calc 91 Estimated GFR > 60 Glucose 108 Calcium 9.1 Magnesium 2.0 Troponin I 0.075 H* 0.076 H*
[2025-01-14 11:46] LABS: Troponin I 0.053 ng/mL (0.000-0.034)
--- NOTE | 2025-01-14 12:17 | PM.PNCARD ---
Progress Note: A&P Assessment and Plan (1) CHF (congestive heart failure): Qualifiers: Heart failure chronicity: chronic Heart failure type: unspecified Qualified Code(s): I50.9 - Heart failure, unspecified Code(s): I50.9 - Heart failure, unspecified Status: Chronic (2) Pulmonary hypertension: Code(s): I27.20 - Pulmonary hypertension, unspecified Status: Acute Plan Acute vs subacute pulmonary embolism Elevated troponin likely demand ischemia setting of pulmonary embolism and right-sided heart failure Right-sided heart failure severe RV enlargement and severe pulmonary hypertension Chronic atrial fibrillation Ureteral calculus bilateral hydronephrosis with hematuria Plan Continue oral anticoagulation and observe for worsening bleeding Restart Lasix IV 40 mg b.i.d. Subjective Date/time seen: 01/14/25 12:17 Interval history: No acute events Atrial fibrillation rate controlled Review of Systems Review of Systems: All systems reviewed & are unremarkable except as noted in HPI and below Exam Narrative: General: Alert oriented x3, no acute distress Neck: Supple, JVD + Chest: Bilaterally clear to auscultation, no rales or rhonchi Cardiac: S1, S2 +, irregularly irregular rhythm, no murmurs or rubs Extremities: Bilateral lower extremity edema 1+, no skin rash Neurologic: Alert and oriented x3, no focal neurological deficits Objective Data Vital Signs Vital Signs: Vital Signs - 24 hr 01/13/25 13:13 01/13/25 13:13 01/13/25 13:22 Temperature Pulse Rate 66 77 Respiratory Rate 16 16 Blood Pressure Pulse Oximetry 97 Oxygen Delivery Nasal Cannula Oxygen Flow Rate 2 01/13/25 13:44 01/13/25 14:55 01/13/25 16:00 Temperature 36.8 C Pulse Rate 65 76 Respiratory Rate 14 18 Blood Pressure 125/70 123/75 115/62 Pulse Oximetry 93 97 Oxygen Delivery Nasal Cannula Oxygen Flow Rate 2 01/13/25 16:00 01/13/25 19:53 01/13/25 20:00 Temperature 36.8 C Pulse Rate 60 80 Respiratory Rate 18 Blood Pressure 112/62 Pulse Oximetry 96 92 Oxygen Delivery Nasal Cannula Oxygen Flow Rate 2 01/13/25 20:00 01/13/25 20:16 01/13/25 20:22 Temperature Pulse Rate 55 L 79 79 Respiratory Rate 18 18 Blood Pressure Pulse Oximetry Oxygen Delivery Oxygen Flow Rate 01/13/25 20:42 01/13/25 22:48 01/13/25 23:49 Temperature Pulse Rate 59 L Respiratory Rate 16 20 Blood Pressure 111/66 Pulse Oximetry 95 95 99 Oxygen Delivery Nasal Cannula BiPAP Oxygen Flow Rate 2 01/14/25 00:00 01/14/25 02:44 01/14/25 02:50 Temperature Pulse Rate 54 L 79 79 Respiratory Rate 18 18 Blood Pressure Pulse Oximetry Oxygen Delivery Oxygen Flow Rate 01/14/25 04:00 01/14/25 07:58 01/14/25 08:19 Temperature 36.4 C L Pulse Rate 61 54 L 45 L Respiratory Rate 18 16 Blood Pressure 120/73 Pulse Oximetry 99 100 Oxygen Delivery Nasal Cannula Oxygen Flow Rate 1 Intake/Output Intake/Output: Intake & Output 01/11/25 01/12/25 01/13/25 01/14/25 23:59 23:59 23:59 23:59 Intake Total 1817.7 990 730 540 Output Total 3700 2050 400 201 Balance -1882.3 -1060 330 339 Meds/Results Medications: Active Medications Generic Name Dose Route Start Last Admin Trade Name Freq PRN Reason Stop Dose Admin Acetaminophen 650 mg 01/08/25 12:40 01/11/25 22:41 Acetaminophen 325 Mg Tablet PO 650 mg Q6H PRN Administration Mild Pain (1-3) or Fever Hydrocodone Bitart/Acetaminophen 1 tab 01/08/25 12:40 01/13/25 20:39 Hydrocodone/Acetaminophen (*Crx) 5-325 Mg Tablet PO 1 tab Q6H PRN Administration Pain Rated 4-6 Albuterol 2.5 mg 01/08/25 14:00 01/14/25 08:18 Albuterol Sulfate Neb 2.5 Mg/3 Ml Inh INHALATION Not Given Q6HRT TAMMY Apixaban 10 mg 01/11/25 21:00 01/14/25 09:48 Apixaban 5 Mg Tablet PO 01/18/25 09:01 10 mg Q12HR TAMMY Administration Apixaban 5 mg 01/18/25 21:00 Apixaban 5 Mg Tablet PO Q12HR TAMMY Cephalexin HCl 500 mg 01/12/25 09:00 01/14/25 09:48 Cephalexin 500 Mg Capsule PO 01/14/25 21:01 500 mg Q12HR TAMMY Administration Docusate Sodium 100 mg 01/08/25 12:40 01/10/25 09:49 Docusate Sodium 100 Mg Capsule PO 100 mg Q12H PRN Administration Constipation Furosemide 40 mg 01/14/25 09:00 01/14/25 09:48 Furosemide 40 Mg Tablet PO 40 mg BID TAMMY Administration Hydromorphone HCl 0.5 mg 01/08/25 11:54 01/12/25 23:24 Hydromorphone Hcl Inj (*Crx) 2 Mg/Ml Vial IV PUSH 0.5 mg Q4H PRN Administration Pain Rated 7-10 Naloxone HCl 0.1 mg 01/08/25 12:40 Naloxone Hcl 0.4 Mg/Ml Vial IV PUSH Q5MIN PRN Sedation Ondansetron HCl 4 mg 01/08/25 11:54 01/13/25 12:53 Ondansetron Inj 4 Mg/2 Ml Vial IV PUSH 4 mg Q4H PRN Administration Nausea Polyethylene Glycol 17 gm 01/08/25 12:40 Polyethylene Glycol 3350 17 Gm Powd.Pack PO QAM PRN Constipation Sertraline HCl 50 mg 01/10/25 09:00 01/14/25 09:48 Sertraline Hcl 50 Mg Tablet PO 50 mg DAILY TAMMY Administration Sodium Chloride 10 ml 01/09/25 22:00 01/14/25 05:23 Central Line Flush IV PUSH 10 ml Q8HR TAMMY Administration Sodium Chloride 10 ml 01/09/25 16:35 Central Line Flush IV PUSH PRN PRN with TPN bag changes Sodium Chloride 20 ml 01/09/25 16:35 Central Line Flush IV PUSH PRN PRN after blood draws Radiology Results: ITS Impressions Head CT 01/08/25 10:14 Impression: Age-related changes within the brain, without acute intracranial hemorrhage or suspicious mass effect. Hip/Pelvis X-Ray 01/08/25 10:15 IMPRESSION: Degenerative disease without acute fracture or dislocation Knee X-Ray 01/08/25 10:22 IMPRESSION: Diffuse bony demineralization and significant degenerative disease, as detailed above. No acute fracture. Cervical Spine CT 01/08/25 10:28 Impression: Significant degenerative disease without acute fracture. Chest/Abdomen/Pelvis CT 01/08/25 10:46 IMPRESSION: 1. Pulmonary emboli with relatively low clot burden. Dr. Mccartney discussed this and the following findings with Dr. clarke at 11:00 AM. 2. Moderate cardiomegaly with right ventricular and biatrial enlargement. 3. Small bilateral pleural effusions. 4. Complex medial left lower lobe along side a large sliding-type hiatal hernia containing large portion the stomach as well as segment of the nonobstructed transverse colon.. 5. Cholelithiasis. 6. Mild bilateral hydronephrosis with 1.2 x 0.4 cm stone at the left ureteropelvic junction and with 7 mm stone in the distal right ureter alongside a right intrarenal stent which is in expected position. Ankle X-Ray 01/10/25 12:24 IMPRESSION: 1. No left ankle joint effusion or acute osseous abnormality. Venous Doppler Study 01/10/25 13:14 IMPRESSION: 1. Nonocclusive deep venous thrombosis at the right popliteal vein. The more peripheral right posterior tibial and peroneal veins were unable be definitively identified to assess for additional thrombosis. 2. No deep venous thrombosis in the left lower limb. Abdomen X-Ray 01/11/25 07:12 Impression: 1: Probable left UPJ stone measuring 12 mm. 2: Left basilar airspace consolidation which may represent pneumonia and/or atelectasis. Chest X-Ray 01/13/25 13:57 IMPRESSION: 1. Persistent linear opacities in bilateral mid and right lower lung zones consistent with persistent atelectasis/scarring. 2. Large hiatal hernia. Labs Labs: Laboratory Results - last 24 hr 01/13/25 01/13/25 01/14/25 13:54 18:23 04:44 Sodium 130 L Potassium 3.8 Chloride 95 L Carbon Dioxide 36 H Anion Gap -1 L BUN 12 Creatinine 0.60 L Estim Creat Clear Calc 91 Estimated GFR > 60 Glucose 108 Calcium 9.1 Magnesium 2.0 Troponin I 0.075 H* 0.076 H* 0.053 H*
[2025-01-14] MEDS: HYDROcodone/acetaminophen (*CRX) 5-325 MG TABLET 1 TAB PO (16:34)
[2025-01-14] MEDS: FUROSEMIDE INJ 40 MG/4 ML VIAL IV PUSH (16:34)
--- NOTE | 2025-01-14 20:30 | PC.NURSE ---
This patient, Vanessa Olsen, was transferred to [ [id number] ] on 01/14/25 at 2030. Personal belongings sent with patient. Report given to [ Danny HERNANDES @ 2013 ]. Appropriate documentation sent with patient.
[2025-01-14] MEDS: HYDROmorphone HCL INJ (*CRX) 2 MG/ML VIAL 0.5 MG IV PUSH (20:49)
[2025-01-15] VITALS (14 sets, daily range): BP systolic 108–127; BP diastolic 66–84; PULSE 42–111; RESP 14–20; TEMP 36.4–36.9; O2SAT 93–100
[2025-01-15] MEDS: HYDROmorphone HCL INJ (*CRX) 2 MG/ML VIAL 0.5 MG IV PUSH ×3 (02:14→20:45)
[2025-01-15] MEDS: HYDROcodone/acetaminophen (*CRX) 5-325 MG TABLET 1 TAB PO ×2 (04:17→15:03)
[2025-01-15 04:42] LABS: Anion Gap 2 mmol/L (4-12); Blood Urea Nitrogen 13 mg/dL (7-17); Calcium 9.3 mg/dL (8.4-10.2); Carbon Dioxide 38 mmol/L (22-30); Chloride 94 mmol/L (98-107); Estimated CRCL calculation 83 ml/min; Estimated Glomerular Filt Rate > 60; Glucose 96 mg/dL (65-110); Potassium 3.8 mmol/L (3.4-5.0); Sodium 134 mmol/L (137-145)
[2025-01-15] MEDS: CENTRAL LINE FLUSH 10 ML IV PUSH ×2 (06:02→20:46)
[2025-01-15] MEDS: ALBUTEROL SULFATE NEB 2.5 MG/3 ML INH INHALATION (08:35)
[2025-01-15] MEDS: SERTRALINE HCL 50 MG TABLET PO (08:46)
[2025-01-15] MEDS: APIXABAN 5 MG TABLET 10 MG PO ×2 (08:46→20:45)
[2025-01-15] MEDS: FUROSEMIDE INJ 40 MG/4 ML VIAL IV PUSH ×2 (08:46→16:18)
--- NOTE | 2025-01-15 11:01 | PCNWS ---
Weekly nutritional screen. Patient is tolerating current Heart healthy diet with adequate intake, 50-100%. No weight loss reported. No nutritional needs at this time.
--- NOTE | 2025-01-15 11:36 | PCPTNOTE ---
Patient refused PT stating she has walked to the bathroom already today. Patient states that was plenty of exercise for the day.
--- NOTE | 2025-01-15 13:43 | P.PNIM_ITS ---
Progress Note: A&P Assessment and Plan (1) Chest pain: Code(s): R07.9 - Chest pain, unspecified Status: Acute Assessment and Plan: Patient with chest pain 8/. Palpable left sided chest wall pain EKG performed and reviewed showing afib, Rt BBB and ST-T wave changes in anterolateral leads but no change form prior CXR reviewed showing CMG, large HH, persistent RLL linear opacities. Troponin 0.075 -> 0.053 and trending down from admission. Suspect this is more musculoskeletal pain. Will follow. (2) Pulmonary embolism: Qualifiers: Pulmonary embolism type: multiple subsegmental (without acute cor pulmonale) Qualified Code(s): I26.94 - Multiple subsegmental thrombotic pulmon freda emboli without acute cor pulmonale Code(s): I26.99 - Other pulmonary embolism without acute cor pulmonale Status: Acute Assessment and Plan: PE noted on CTA chest with low clot burden. Heparin drip was started. O2 requirement up to 5L but back down to 1L Doppler LE showing nonocclusive DVT at the right popliteal vein. Echo showing EF 50-55% with indeterminate diastolic fxn, severe bi-atrial enlargement, mild-mod MR and severe pulmonary HTN. She was agreeable to start Eliquis so was changed over. Tolerating Eliquis. Wean oxygen as tolerated. (3) CHF (congestive heart failure): Qualifiers: Heart failure chronicity: chronic Heart failure type: unspecified Qualified Code(s): I50.9 - Heart failure, unspecified Code(s): I50.9 - Heart failure, unspecified Status: Chronic Assessment and Plan: Patient was 85% on RA upon initial evaluation in the ED on 01/08. No previous O2 requirement. BNP 4000. CT Chest showing PE with small clot burden, consolidation basilar LLL and small pleural effusions. Echo as above. Etiology of the hypoxia probably multifactorial from severe pulm HTN, PE and/or acute diastolic CHF. She was started on IV Lasix with I/O's -8.7L. Some of the pedal edema related to severe pulm HTN and not CHF Changed back to IV Lasix over the weekend by Cardilogy Monitor fluid status, daily weights, I&Os. Continue Tunde hose Wean oxygen as tolerated. (4) Hypoxia: Code(s): R09.02 - Hypoxemia Status: Acute Assessment and Plan: [place] related to severe pulm HTN, PE and acute diastolic CHF. As above (5) Calculus of left ureter: Code(s): N20.1 - Calculus of ureter Status: Acute Assessment and Plan: CT showing mild bilateral hydronephrosis with 1.2 x 0.4 cm stone at the left ureteropelvic junction and with 7 mm stone in the distal right ureter alongside a right intrarenal stent which is in expected position. The right intrarenal stent was placed in 2022. UA is consistent with UTI. Rocephin started. BCx no growth to date UCx growing Klebsiella sensitive to Rocephin -> abx changed to oral Keflex Urology consulted and patient underwent bilateral stent placements 01/10. They were unable to remove the old right renal stent because it was encrusted. She will need further treatment as outpatient Removed [place]. Still having hematuria related to recent procedure and anti- coagulation. She complete her abx here. Follow (6) UTI (urinary tract infection): Qualifiers: Hematuria presence: with hematuria Urinary tract infection type: site unspecified Qualified Code(s): N39.0 - Urinary tract infection, site not specified; R31.9 - Hematuria, unspecified Code(s): N39.0 - Urinary tract infection, site not specified Status: Acute Assessment and Plan: As above (7) Rhabdomyolysis: Qualifiers: Rhabdomyolysis type: traumatic Encounter type: initial encounter Qualified Code(s): T79.6XXA - Traumatic ischemia of muscle, initial encounter Code(s): M62.82 - Rhabdomyolysis Status: Acute Assessment and Plan: Total CK mildly elevated to 690 but now trending downward. Resolving (8) Ground-level fall: Code(s): W18.30XA - Fall on same level, unspecified, initial encounter Status: Acute Assessment and Plan: Patient presented after having a ground level fall. Trauma workup including a head CT, hip/pelvic XR, knee XR, C-spine CT, and CT of the chest/abdomen/pelvis were negative for acute traumatic findings Left ankle xray negative for fracture. Fall precaution PT and OT. (9) Atrial fibrillation: Qualifiers: Atrial fibrillation type: unspecified Qualified Code(s): I48.91 - Unspecified atrial fibrillation Code(s): I48.91 - Unspecified atrial fibrillation Status: Chronic Assessment and Plan: Was placed on heparin for PE and AFib Rate controlled with bradycardia without any medications Sick sinus syndrome? Rate remains controlled. Changed to Eliquis. Continue to monitor on tele (10) Pulmonary hypertension: Code(s): I27.20 - Pulmonary hypertension, unspecified Status: Acute Assessment and Plan: Echo showing severe pulmonary HTN. She has JERICHO so this could be the etiology. She is compliant with BiPAP. Continue the same. Apnea link on bipap on 2L at night showing no hypoxia. Plan Lactic acidosis - lactic trending down-no fevers, tachycardia or leukocytosis. Procalcitonin 0.2. No anion gap. Reflux - large sliding-type hiatal hernia containing large portion the stomach as well as segment of the nonobstructed transverse colon. Asymptomatic. Follow clinically. DVT prophylaxis - Eliquis Code status - full Disp - awaiting placement. Subjective Date/time seen: 01/15/25 13:43 Interval history: 74yo female with AFib, anemia, fibromyalgia and CHF here for fall with shortness of breath. Slept okay. No Cp or SOB. Still with left abdominal and flank pain. Voiding well. Exam Narrative: AF 998.3 120/66 52 20 93% 1L Gen - NARD Chest - lungs clear anteriorly. CV - irregularly irregular. Tele showing AFib with PVCs and bradycardia Abd - soft, ND, +BS Ext - soft tissue pedal edema with minimal pitting now Psych - Nml mood and affect Skin - Warm and dry Objective Data Vital Signs Vital Signs: Vital Signs - 24 hr 01/14/25 16:00 01/14/25 16:00 01/14/25 19:52 Temperature 97.9 F Pulse Rate 58 L 62 76 Respiratory Rate 18 18 Blood Pressure 109/80 Pulse Oximetry 97 Oxygen Delivery Oxygen Flow Rate 01/14/25 20:00 01/14/25 20:00 01/14/25 20:01 Temperature Pulse Rate 66 77 Respiratory Rate 18 Blood Pressure Pulse Oximetry 98 Oxygen Delivery Nasal Cannula Oxygen Flow Rate 2 01/14/25 20:37 01/15/25 00:00 01/15/25 04:00 Temperature 97.7 F Pulse Rate 68 46 L 46 L Respiratory Rate 16 Blood Pressure 110/80 Pulse Oximetry 98 Oxygen Delivery Oxygen Flow Rate 01/15/25 05:15 01/15/25 08:00 01/15/25 08:30 Temperature 98.3 F Pulse Rate 111 H 74 Respiratory Rate 18 Blood Pressure 120/66 Pulse Oximetry 100 93 Oxygen Delivery Nasal Cannula Oxygen Flow Rate 2 01/15/25 08:36 01/15/25 08:36 01/15/25 08:43 Temperature Pulse Rate 42 L 42 L 52 L Respiratory Rate 16 16 20 Blood Pressure Pulse Oximetry 93 Oxygen Delivery Nasal Cannula Oxygen Flow Rate 1 Intake/Output Intake/Output: Intake & Output 01/12/25 01/13/25 01/14/25 01/15/25 23:59 23:59 23:59 23:59 Intake Total 990 730 780 480 Output Total 2050 400 901 375 Balance -1060 330 -121 105 Meds/Results Medications: Active Medications Generic Name Dose Route Start Last Admin Trade Name Freq PRN Reason Stop Dose Admin Acetaminophen 650 mg 01/08/25 12:40 01/11/25 22:41 Acetaminophen 325 Mg Tablet PO 650 mg Q6H PRN Administration Mild Pain (1-3) or Fever Hydrocodone Bitart/Acetaminophen 1 tab 01/08/25 12:40 01/15/25 04:17 Hydrocodone/Acetaminophen (*Crx) 5-325 Mg Tablet PO 1 tab Q6H PRN Administration Pain Rated 4-6 Albuterol 2.5 mg 01/08/25 14:00 01/15/25 08:35 Albuterol Sulfate Neb 2.5 Mg/3 Ml Inh INHALATION 2.5 mg Q6HRT TAMMY Administration Apixaban 10 mg 01/11/25 21:00 01/15/25 08:46 Apixaban 5 Mg Tablet PO 01/18/25 09:01 10 mg Q12HR TAMMY Administration Apixaban 5 mg 01/18/25 21:00 Apixaban 5 Mg Tablet PO Q12HR TAMMY Docusate Sodium 100 mg 01/08/25 12:40 01/10/25 09:49 Docusate Sodium 100 Mg Capsule PO 100 mg Q12H PRN Administration Constipation Furosemide 40 mg 01/14/25 17:00 01/15/25 08:46 Furosemide Inj 40 Mg/4 Ml Vial IV PUSH 40 mg BID TAMMY Administration Hydromorphone HCl 0.5 mg 01/08/25 11:54 01/15/25 02:14 Hydromorphone Hcl Inj (*Crx) 2 Mg/Ml Vial IV PUSH 0.5 mg Q4H PRN Administration Pain Rated 7-10 Naloxone HCl 0.1 mg 01/08/25 12:40 Naloxone Hcl 0.4 Mg/Ml Vial IV PUSH Q5MIN PRN Sedation Ondansetron HCl 4 mg 01/08/25 11:54 01/13/25 12:53 Ondansetron Inj 4 Mg/2 Ml Vial IV PUSH 4 mg Q4H PRN Administration Nausea Polyethylene Glycol 17 gm 01/08/25 12:40 Polyethylene Glycol 3350 17 Gm Powd.Pack PO QAM PRN Constipation Sertraline HCl 50 mg 01/10/25 09:00 01/15/25 08:46 Sertraline Hcl 50 Mg Tablet PO 50 mg DAILY TAMMY Administration Sodium Chloride 10 ml 01/09/25 22:00 01/15/25 13:29 Central Line Flush IV PUSH Not Given Q8HR TAMMY Sodium Chloride 10 ml 01/09/25 16:35 Central Line Flush IV PUSH PRN PRN with TPN bag changes Sodium Chloride 20 ml 01/09/25 16:35 Central Line Flush IV PUSH PRN PRN after blood draws Radiology Results: ITS Impressions Head CT 01/08/25 10:14 Impression: Age-related changes within the brain, without acute intracranial hemorrhage or suspicious mass effect. Hip/Pelvis X-Ray 01/08/25 10:15 IMPRESSION: Degenerative disease without acute fracture or dislocation Knee X-Ray 01/08/25 10:22 IMPRESSION: Diffuse bony demineralization and significant degenerative disease, as detailed above. No acute fracture. Cervical Spine CT 01/08/25 10:28 Impression: Significant degenerative disease without acute fracture. Chest/Abdomen/Pelvis CT 01/08/25 10:46 IMPRESSION: 1. Pulmonary emboli with relatively low clot burden. Dr. Mccartney discussed this and the following findings with Dr. clarke at 11:00 AM. 2. Moderate cardiomegaly with right ventricular and biatrial enlargement. 3. Small bilateral pleural effusions. 4. Complex medial left lower lobe along side a large sliding-type hiatal hernia containing large portion the stomach as well as segment of the nonobstructed transverse colon.. 5. Cholelithiasis. 6. Mild bilateral hydronephrosis with 1.2 x 0.4 cm stone at the left ureteropelvic junction and with 7 mm stone in the distal right ureter alongside a right intrarenal stent which is in expected position. Ankle X-Ray 01/10/25 12:24 IMPRESSION: 1. No left ankle joint effusion or acute osseous abnormality. Venous Doppler Study 01/10/25 13:14 IMPRESSION: 1. Nonocclusive deep venous thrombosis at the right popliteal vein. The more peripheral right posterior tibial and peroneal veins were unable be definitively identified to assess for additional thrombosis. 2. No deep venous thrombosis in the left lower limb. Abdomen X-Ray 01/11/25 07:12 Impression: 1: Probable left UPJ stone measuring 12 mm. 2: Left basilar airspace consolidation which may represent pneumonia and/or atelectasis. Chest X-Ray 01/13/25 13:57 IMPRESSION: 1. Persistent linear opacities in bilateral mid and right lower lung zones consistent with persistent atelectasis/scarring. 2. Large hiatal hernia. Labs Labs: Laboratory Results - last 24 hr 01/15/25 04:09 Sodium 134 L Potassium 3.8 Chloride 94 L Carbon Dioxide 38 H Anion Gap 2 L BUN 13 Creatinine 0.66 L Estim Creat Clear Calc 83 Estimated GFR > 60 Glucose 96 Calcium 9.3
[2025-01-16] VITALS (11 sets, daily range): BP systolic 107–120; BP diastolic 57–73; PULSE 45–80; RESP 14–16; TEMP 35.7–36.3; O2SAT 94–99
[2025-01-16] MEDS: HYDROmorphone HCL INJ (*CRX) 2 MG/ML VIAL 0.5 MG IV PUSH (01:18)
[2025-01-16] MEDS: ALTEPLASE 2 MG VIAL (CATHFLO) IV PUSH (05:03)
[2025-01-16] MEDS: CENTRAL LINE FLUSH 10 ML IV PUSH ×3 (07:31→21:17)
[2025-01-16 08:50] LABS: Anion Gap 3 mmol/L (4-12); Blood Urea Nitrogen 14 mg/dL (7-17); Calcium 9.4 mg/dL (8.4-10.2); Carbon Dioxide 38 mmol/L (22-30); Chloride 95 mmol/L (98-107); Estimated CRCL calculation 85 ml/min; Estimated Glomerular Filt Rate > 60; Glucose 84 mg/dL (65-110); Magnesium 1.6 mg/dL (1.6-2.3); Potassium 3.6 mmol/L (3.4-5.0); Sodium 136 mmol/L (137-145)
[2025-01-16] MEDS: HYDROcodone/acetaminophen (*CRX) 5-325 MG TABLET 1 TAB PO (09:24)
[2025-01-16] MEDS: FUROSEMIDE INJ 40 MG/4 ML VIAL IV PUSH ×3 (09:24→17:17)
[2025-01-16] MEDS: SERTRALINE HCL 50 MG TABLET PO (09:24)
[2025-01-16] MEDS: APIXABAN 5 MG TABLET 10 MG PO ×2 (09:24→21:16)
--- NOTE | 2025-01-16 11:34 | P.PNCA_ITS ---
Progress Note: A&P Assessment and Plan (1) CHF (congestive heart failure): Qualifiers: Heart failure chronicity: chronic Heart failure type: unspecified Qualified Code(s): I50.9 - Heart failure, unspecified Code(s): I50.9 - Heart failure, unspecified Status: Chronic (2) Pulmonary hypertension: Code(s): I27.20 - Pulmonary hypertension, unspecified Status: Acute Plan Acute vs subacute pulmonary embolism Elevated troponin likely demand ischemia setting of pulmonary embolism and right-sided heart failure acute on chronic Right-sided heart failure severe RV enlargement and severe pulmonary hypertension Chronic atrial fibrillation Ureteral calculus bilateral hydronephrosis with hematuria Plan in regards to acute on chronic right heart failure exacerbation, increase Lasix from 40 mg IV b.i.d. to t.i.d.. Will recommend to discharge home on torsemide 20 mg b.i.d. patient has poor compliance with diuretics. - in regards to acute pulmonary embolism, continue anticoagulation with Eliquis. - In regards to to atrial fibrillation, rate controlled. Continue anticoagulation. - regards to severe pulmonary hypertension, part of the severity related to volume overload. Continue diuresis. Subjective Date/time seen: 01/16/25 11:34 Chief complaint CHF Interval history: Date of service 01/16/2025-She has significant lower extremity edema. She is on 1 L nasal cannula. persistent hematuria Review of Systems 2 Review of Systems: A complete review of systems was performed and negative other than those mentioned in the HPI All systems reviewed & are unremarkable except as noted in HPI and below Constitutional: Constitutional: Denies chills Eyes: Eyes: Denies blurry vision ENT: Denies dysphagia Cardiovascular: Cardiovascular: Reports leg edema Respiratory: Respiratory: Reports dyspnea on exertion Gastrointestinal: Gastrointestinal: Denies vomiting Genitourinary: Comments: hematuria Musculoskeletal: Comments: no joint pain Psychiatric: Psychiatric: Denies depression Hematologic/Lymphatic: Hematologic/Lymphatic: Reports easy bleeding Exam Narrative: General: Alert oriented x3, no acute distress Neck: Supple, JVD + Chest: Bilaterally clear to auscultation, no rales or rhonchi Cardiac: S1, S2 +, irregularly irregular rhythm, no murmurs or rubs Extremities: Bilateral lower extremity edema 1+, no skin rash Neurologic: Alert and oriented x3, no focal neurological deficits Objective Data Vital Signs Vital Signs: Vital Signs - 24 hr 01/15/25 12:00 01/15/25 14:00 01/15/25 16:00 Temperature 36.9 C Pulse Rate 63 55 L 72 Respiratory Rate 18 Blood Pressure 127/84 Pulse Oximetry 97 Oxygen Delivery Oxygen Flow Rate Fraction of Inspired Oxygen 01/15/25 20:00 01/15/25 20:00 01/15/25 20:31 Temperature 36.4 C L Pulse Rate 56 L 80 Respiratory Rate 16 Blood Pressure 108/69 Pulse Oximetry 97 98 Oxygen Delivery Nasal Cannula Oxygen Flow Rate 1 Fraction of Inspired Oxygen 01/15/25 20:40 01/15/25 20:45 01/16/25 00:00 Temperature Pulse Rate 57 L 54 L 45 L Respiratory Rate 20 14 Blood Pressure Pulse Oximetry 95 97 Oxygen Delivery Nasal Cannula BiPAP Oxygen Flow Rate 1 Fraction of Inspired Oxygen 01/16/25 01:06 01/16/25 04:00 01/16/25 05:09 Temperature 36.3 C L Pulse Rate 80 60 59 L Respiratory Rate 15 16 Blood Pressure 119/73 Pulse Oximetry 97 99 Oxygen Delivery BiPAP Oxygen Flow Rate Fraction of Inspired Oxygen 01/16/25 08:00 Temperature Pulse Rate 58 L Respiratory Rate Blood Pressure Pulse Oximetry Oxygen Delivery Oxygen Flow Rate Fraction of Inspired Oxygen Intake/Output Intake/Output: Intake & Output 01/13/25 01/14/25 01/15/25 01/16/25 23:59 23:59 23:59 23:59 Intake Total 730 924 839 5770 Output Total 123 238 1747 450 Balance 330 121 -2007 600 Meds/Results Medications: Active Medications Generic Name Dose Route Start Last Admin Trade Name Irvingq PRN Reason Stop Dose Admin Acetaminophen 650 mg 01/08/25 12:40 01/11/25 22:41 Acetaminophen 325 Mg Tablet PO 650 mg Q6H PRN Administration Mild Pain (1-3) or Fever Hydrocodone Bitart/Acetaminophen 1 tab 01/08/25 12:40 01/16/25 09:24 Hydrocodone/Acetaminophen (*Crx) 5-325 Mg Tablet PO 1 tab Q6H PRN Administration Pain Rated 4-6 Albuterol 2.5 mg 01/15/25 18:17 Albuterol Sulfate Neb 2.5 Mg/3 Ml Inh INHALATION Q6HRT PRN Shortness Of Breath Or Wheezing Alteplase, Recombinant 2 mg 01/16/25 04:46 01/16/25 05:03 Alteplase 2 Mg Vial (Cathflo) IV PUSH 2 mg ONCE PRN Administration Line Occlusion Apixaban 10 mg 01/11/25 21:00 01/16/25 09:24 Apixaban 5 Mg Tablet PO 01/18/25 09:01 10 mg Q12HR TAMMY Administration Apixaban 5 mg 01/18/25 21:00 Apixaban 5 Mg Tablet PO Q12HR TAMMY Docusate Sodium 100 mg 01/08/25 12:40 01/10/25 09:49 Docusate Sodium 100 Mg Capsule PO 100 mg Q12H PRN Administration Constipation Furosemide 40 mg 01/14/25 17:00 01/16/25 09:24 Furosemide Inj 40 Mg/4 Ml Vial IV PUSH 40 mg BID TAMMY Administration Hydromorphone HCl 0.5 mg 01/08/25 11:54 01/16/25 01:18 Hydromorphone Hcl Inj (*Crx) 2 Mg/Ml Vial IV PUSH 0.5 mg Q4H PRN Administration Pain Rated 7-10 Naloxone HCl 0.1 mg 01/08/25 12:40 Naloxone Hcl 0.4 Mg/Ml Vial IV PUSH Q5MIN PRN Sedation Ondansetron HCl 4 mg 01/08/25 11:54 01/13/25 12:53 Ondansetron Inj 4 Mg/2 Ml Vial IV PUSH 4 mg Q4H PRN Administration Nausea Polyethylene Glycol 17 gm 01/08/25 12:40 Polyethylene Glycol 3350 17 Gm Powd.Pack PO QAM PRN Constipation Sertraline HCl 50 mg 01/10/25 09:00 01/16/25 09:24 Sertraline Hcl 50 Mg Tablet PO 50 mg DAILY TAMMY Administration Sodium Chloride 10 ml 01/09/25 22:00 01/16/25 07:31 Central Line Flush IV PUSH 10 ml Q8HR TAMMY Administration Sodium Chloride 10 ml 01/09/25 16:35 Central Line Flush IV PUSH PRN PRN with TPN bag changes Sodium Chloride 20 ml 01/09/25 16:35 Central Line Flush IV PUSH PRN PRN after blood draws Radiology Results: ITS Impressions Head CT 01/08/25 10:14 Impression: Age-related changes within the brain, without acute intracranial hemorrhage or suspicious mass effect. Hip/Pelvis X-Ray 01/08/25 10:15 IMPRESSION: Degenerative disease without acute fracture or dislocation Knee X-Ray 01/08/25 10:22 IMPRESSION: Diffuse bony demineralization and significant degenerative disease, as detailed above. No acute fracture. Cervical Spine CT 01/08/25 10:28 Impression: Significant degenerative disease without acute fracture. Chest/Abdomen/Pelvis CT 01/08/25 10:46 IMPRESSION: 1. Pulmonary emboli with relatively low clot burden. Dr. Mccartney discussed this and the following findings with Dr. clarke at 11:00 AM. 2. Moderate cardiomegaly with right ventricular and biatrial enlargement. 3. Small bilateral pleural effusions. 4. Complex medial left lower lobe along side a large sliding-type hiatal hernia containing large portion the stomach as well as segment of the nonobstructed transverse colon.. 5. Cholelithiasis. 6. Mild bilateral hydronephrosis with 1.2 x 0.4 cm stone at the left ureteropelvic junction and with 7 mm stone in the distal right ureter alongside a right intrarenal stent which is in expected position. Ankle X-Ray 01/10/25 12:24 IMPRESSION: 1. No left ankle joint effusion or acute osseous abnormality. Venous Doppler Study 01/10/25 13:14 IMPRESSION: 1. Nonocclusive deep venous thrombosis at the right popliteal vein. The more peripheral right posterior tibial and peroneal veins were unable be definitively identified to assess for additional thrombosis. 2. No deep venous thrombosis in the left lower limb. Abdomen X-Ray 01/11/25 07:12 Impression: 1: Probable left UPJ stone measuring 12 mm. 2: Left basilar airspace consolidation which may represent pneumonia and/or atelectasis. Chest X-Ray 01/13/25 13:57 IMPRESSION: 1. Persistent linear opacities in bilateral mid and right lower lung zones consistent with persistent atelectasis/scarring. 2. Large hiatal hernia. Labs Labs: Laboratory Results - last 24 hr 01/16/25 08:05 Sodium 136 L Potassium 3.6 Chloride 95 L Carbon Dioxide 38 H Anion Gap 3 L BUN 14 Creatinine 0.64 L Estim Creat Clear Calc 85 Estimated GFR > 60 Glucose 84 Calcium 9.4 Magnesium 1.6
--- NOTE | 2025-01-16 15:50 | P.PNIM_ITS ---
Progress Note: A&P Assessment and Plan (1) Chest pain: Code(s): R07.9 - Chest pain, unspecified Status: Acute Assessment and Plan: Patient with chest pain 01/13. Palpable left sided chest wall pain EKG performed and reviewed showing afib, Rt BBB and ST-T wave changes in anterolateral leads but no change form prior CXR reviewed showing CMG, large HH, persistent RLL linear opacities. Troponin 0.075 -> 0.053 and trending down from admission. Suspect this is more musculoskeletal pain. No recurrence Will follow. (2) Pulmonary embolism: Qualifiers: Pulmonary embolism type: multiple subsegmental (without acute cor pulmonale) Qualified Code(s): I26.94 - Multiple subsegmental thrombotic pulmonary emboli without acute cor pulmonale Code(s): I26.99 - Other pulmonary embolism without acute cor pulmonale Status: Acute Assessment and Plan: PE noted on CTA chest with low clot burden. Heparin drip was started. O2 requirement up to 5L but back down to 1L Doppler LE showing nonocclusive DVT at the right popliteal vein. Echo showing EF 50-55% with indeterminate diastolic fxn, severe bi-atrial enlargement, mild-mod MR and severe pulmonary HTN. She was agreeable to start Eliquis so was changed over. Tolerating Eliquis. Wean oxygen as tolerated. (3) CHF (congestive heart failure): Qualifiers: Heart failure chronicity: chronic Heart failure type: unspecified Qualified Code(s): I50.9 - Heart failure, unspecified Code(s): I50.9 - Heart failure, unspecified Status: Chronic Assessment and Plan: Patient was 85% on RA upon initial evaluation in the ED on 01/08. No previous O2 requirement. BNP 4000. CT Chest showing PE with small clot burden, consolidation basilar LLL and small pleural effusions. Echo as above. Etiology of the hypoxia probably multifactorial from severe pulm HTN, PE and/or acute diastolic CHF. She was started on IV Lasix with some of the pedal edema related to severe pulm HTN and not CHF CXR (01/13) showing atelecatsis but no pulm edema Changed back to IV Lasix over the weekend by Cardiology I/O's -10.6L. Lasix increased to 40mg IV TID today Monitor fluid status, daily weights, I&Os. Continue [place] hose. Wean oxygen as tolerated. Discussed with cardiology (4) Hypoxia: Code(s): R09.02 - Hypoxemia Status: Acute Assessment and Plan: [place] related to severe pulm HTN, PE and acute diastolic CHF. As above (5) Calculus of left ureter: Code(s): N20.1 - Calculus of ureter Status: Acute Assessment and Plan: CT showing mild bilateral hydronephrosis with 1.2 x 0.4 cm stone at the left ureteropelvic junction and with 7 mm stone in the distal right ureter alongside a right intrarenal stent which is in expected position. The right intrarenal stent was placed in 2022. UA is consistent with UTI. Rocephin started. BCx no growth to date UCx growing Klebsiella sensitive to Rocephin -> abx changed to oral Keflex Urology consulted and patient underwent bilateral stent placements 01/10. They were unable to remove the old right renal stent because it was encrusted. She will need further treatment as outpatient Removed [place]. Still having hematuria related to recent procedure and anti- coagulation. Bladder scan today showing about 120ml. She complete her abx here. Follow (6) UTI (urinary tract infection): Qualifiers: Hematuria presence: with hematuria Urinary tract infection type: site unspecified Qualified Code(s): N39.0 - Urinary tract infection, site not specified; R31.9 - Hematuria, unspecified Code(s): N39.0 - Urinary tract infection, site not specified Status: Acute Assessment and Plan: As above (7) Rhabdomyolysis: Qualifiers: Rhabdomyolysis type: traumatic Encounter type: initial encounter Qualified Code(s): T79.6XXA - Traumatic ischemia of muscle, initial encounter Code(s): M62.82 - Rhabdomyolysis Status: Acute Assessment and Plan: Total CK mildly elevated to 690 but now trending downward. Resolving (8) Ground-level fall: Code(s): W18.30XA - Fall on same level, unspecified, initial encounter Status: Acute Assessment and Plan: Patient presented after having a ground level fall. Trauma workup including a head CT, hip/pelvic XR, knee XR, C-spine CT, and CT of the chest/abdomen/pelvis were negative for acute traumatic findings Left ankle xray negative for fracture. Fall precaution PT and OT. (9) Atrial fibrillation: Qualifiers: Atrial fibrillation type: unspecified Qualified Code(s): I48.91 - Unspecified atrial fibrillation Code(s): I48.91 - Unspecified atrial fibrillation Status: Chronic Assessment and Plan: Was placed on heparin for PE and AFib Rate controlled with bradycardia without any medications Sick sinus syndrome? Rate remains controlled. Changed to Eliquis. Continue to monitor on tele (10) Pulmonary hypertension: Code(s): I27.20 - Pulmonary hypertension, unspecified Status: Acute Assessment and Plan: Echo showing severe pulmonary HTN. She has JERICHO so this could be the etiology. Doubt related to small PEs. She is compliant with BiPAP. Continue the same. Apnea link on bipap with 2L at night showing no hypoxia. Continue 2L oxygen at night with bipap Plan Lactic acidosis - lactic trending down-no fevers, tachycardia or leukocytosis. Procalcitonin 0.2. No anion gap. Hiatal hernia - large sliding-type hiatal hernia containing large portion the stomach as well as segment of the nonobstructed transverse colon. Asymptomatic. Follow clinically. DVT prophylaxis - Eliquis Code status - full Disp - accepted at [facility]. Subjective Date/time seen: 01/16/25 15:50 Interval history: 74yo female with AFib, anemia, fibromyalgia and CHF here for fall with shortness of breath. Restless but able to settle down and sleep last night. No CP or SOB. Still left flank and lower abd pain. Exam Narrative: AF 96.2 120/62 54 14 98% 1L Gen - NARD Chest - lungs clear anteriorly. CV - irregularly irregular. Tele showing AFib with PVCs and bradycardia Abd - soft, ND, +BS Ext - 1-2+ pitting and nonpitting edema Psych - Nml mood and affect Skin - Warm and dry Objective Data Vital Signs Vital Signs: Vital Signs - 24 hr 01/15/25 16:00 01/15/25 20:00 01/15/25 20:00 Temperature Pulse Rate 72 56 L Respiratory Rate Blood Pressure Pulse Oximetry 97 Oxygen Delivery Nasal Cannula Oxygen Flow Rate 1 Fraction of Inspired Oxygen 01/15/25 20:31 01/15/25 20:40 01/15/25 20:45 Temperature 97.5 F L Pulse Rate 80 57 L 54 L Respiratory Rate 16 20 14 Blood Pressure 108/69 Pulse Oximetry 98 95 97 Oxygen Delivery Nasal Cannula BiPAP Oxygen Flow Rate 1 Fraction of Inspired Oxygen 24 01/16/25 00:00 01/16/25 01:06 01/16/25 04:00 Temperature Pulse Rate 45 L 80 60 Respiratory Rate 15 Blood Pressure Pulse Oximetry 97 Oxygen Delivery BiPAP Oxygen Flow Rate Fraction of Inspired Oxygen 01/16/25 05:09 01/16/25 08:00 01/16/25 14:00 Temperature 97.4 F L 96.2 F L Pulse Rate 59 L 58 L 54 L Respiratory Rate 16 14 Blood Pressure 119/73 120/62 Pulse Oximetry 99 98 Oxygen Delivery Oxygen Flow Rate Fraction of Inspired Oxygen Intake/Output Intake/Output: Intake & Output 01/13/25 01/14/25 01/15/25 01/16/25 23:59 23:59 23:59 23:59 Intake Total 730 018 819 7341 Output Total 281 893 2429 1650 Balance 330 -121 -1135 -378 Meds/Results Medications: Active Medications Generic Name Dose Route Start Last Admin Trade Name Freq PRN Reason Stop Dose Admin Acetaminophen 650 mg 01/08/25 12:40 01/11/25 22:41 Acetaminophen 325 Mg Tablet PO 650 mg Q6H PRN Administration Mild Pain (1-3) or Fever Hydrocodone Bitart/Acetaminophen 1 tab 01/08/25 12:40 01/16/25 09:24 Hydrocodone/Acetaminophen (*Crx) 5-325 Mg Tablet PO 1 tab Q6H PRN Administration Pain Rated 4-6 Albuterol 2.5 mg 01/15/25 18:17 Albuterol Sulfate Neb 2.5 Mg/3 Ml Inh INHALATION Q6HRT PRN Shortness Of Breath Or Wheezing Alteplase, Recombinant 2 mg 01/16/25 04:46 01/16/25 05:03 Alteplase 2 Mg Vial (Cathflo) IV PUSH 2 mg ONCE PRN Administration Line Occlusion Apixaban 10 mg 01/11/25 21:00 01/16/25 09:24 Apixaban 5 Mg Tablet PO 01/18/25 09:01 10 mg Q12HR TAMMY Administration Apixaban 5 mg 01/18/25 21:00 Apixaban 5 Mg Tablet PO Q12HR TAMMY Docusate Sodium 100 mg 01/08/25 12:40 01/10/25 09:49 Docusate Sodium 100 Mg Capsule PO 100 mg Q12H PRN Administration Constipation Furosemide 40 mg 01/16/25 13:00 01/16/25 13:01 Furosemide Inj 40 Mg/4 Ml Vial IV PUSH 40 mg TID TAMMY Administration Hydromorphone HCl 0.5 mg 01/08/25 11:54 01/16/25 01:18 Hydromorphone Hcl Inj (*Crx) 2 Mg/Ml Vial IV PUSH 0.5 mg Q4H PRN Administration Pain Rated 7-10 Naloxone HCl 0.1 mg 01/08/25 12:40 Naloxone Hcl 0.4 Mg/Ml Vial IV PUSH Q5MIN PRN Sedation Ondansetron HCl 4 mg 01/08/25 11:54 01/13/25 12:53 Ondansetron Inj 4 Mg/2 Ml Vial IV PUSH 4 mg Q4H PRN Administration Nausea Polyethylene Glycol 17 gm 01/08/25 12:40 Polyethylene Glycol 3350 17 Gm Powd.Pack PO QAM PRN Constipation Sertraline HCl 50 mg 01/10/25 09:00 01/16/25 09:24 Sertraline Hcl 50 Mg Tablet PO 50 mg DAILY TAMMY Administration Sodium Chloride 10 ml 01/09/25 22:00 01/16/25 13:01 Central Line Flush IV PUSH 10 ml Q8HR TAMMY Administration Sodium Chloride 10 ml 01/09/25 16:35 Central Line Flush IV PUSH PRN PRN with TPN bag changes Sodium Chloride 20 ml 01/09/25 16:35 Central Line Flush IV PUSH PRN PRN after blood draws Radiology Results: ITS Impressions Head CT 01/08/25 10:14 Impression: Age-related changes within the brain, without acute intracranial hemorrhage or suspicious mass effect. Hip/Pelvis X-Ray 01/08/25 10:15 IMPRESSION: Degenerative disease without acute fracture or dislocation Knee X-Ray 01/08/25 10:22 IMPRESSION: Diffuse bony demineralization and significant degenerative disease, as detailed above. No acute fracture. Cervical Spine CT 01/08/25 10:28 Impression: Significant degenerative disease without acute fracture. Chest/Abdomen/Pelvis CT 01/08/25 10:46 IMPRESSION: 1. Pulmonary emboli with relatively low clot burden. Dr. Mccartney discussed this and the following findings with Dr. clarke at 11:00 AM. 2. Moderate cardiomegaly with right ventricular and biatrial enlargement. 3. Small bilateral pleural effusions. 4. Complex medial left lower lobe along side a large sliding-type hiatal hernia containing large portion the stomach as well as segment of the nonobstructed transverse colon.. 5. Cholelithiasis. 6. Mild bilateral hydronephrosis with 1.2 x 0.4 cm stone at the left ureteropelvic junction and with 7 mm stone in the distal right ureter alongside a right intrarenal stent which is in expected position. Ankle X-Ray 01/10/25 12:24 IMPRESSION: 1. No left ankle joint effusion or acute osseous abnormality. Venous Doppler Study 01/10/25 13:14 IMPRESSION: 1. Nonocclusive deep venous thrombosis at the right popliteal vein. The more peripheral right posterior tibial and peroneal veins were unable be definitively identified to assess for additional thrombosis. 2. No deep venous thrombosis in the left lower limb. Abdomen X-Ray 01/11/25 07:12 Impression: 1: Probable left UPJ stone measuring 12 mm. 2: Left basilar airspace consolidation which may represent pneumonia and/or atelectasis. Chest X-Ray 01/13/25 13:57 IMPRESSION: 1. Persistent linear opacities in bilateral mid and right lower lung zones consistent with persistent atelectasis/scarring. 2. Large hiatal hernia. Labs Labs: Laboratory Results - last 24 hr 01/16/25 08:05 Sodium 136 L Potassium 3.6 Chloride 95 L Carbon Dioxide 38 H Anion Gap 3 L BUN 14 Creatinine 0.64 L Estim Creat Clear Calc 85 Estimated GFR > 60 Glucose 84 Calcium 9.4 Magnesium 1.6
[2025-01-17] VITALS: PULSE 66
[2025-01-17 04:00] VITALS: PULSE 51
[2025-01-17 05:18] VITALS: BP 120/62; PULSE 62; RESP 16; TEMP 36.6; O2SAT 100
[2025-01-17] MEDS: HYDROmorphone HCL INJ (*CRX) 2 MG/ML VIAL 0.5 MG IV PUSH (05:52)
[2025-01-17] MEDS: CENTRAL LINE FLUSH 10 ML IV PUSH ×2 (06:26→13:45)
[2025-01-17 07:09] LABS: Blood Urea Nitrogen 12 mg/dL (7-17); Calcium 9.0 mg/dL (8.4-10.2); Carbon Dioxide > 40 mmol/L (22-30); Chloride 93 mmol/L (98-107); Estimated CRCL calculation 86 ml/min; Estimated Glomerular Filt Rate > 60; Glucose 80 mg/dL (65-110); Potassium 2.9 mmol/L (3.4-5.0); Sodium 139 mmol/L (137-145)
[2025-01-17 08:00] VITALS: PULSE 47; O2SAT 92
[2025-01-17] MEDS: POTASSIUM CHLORIDE 20 MEQ PACKET (FOR LIQUID) 40 MEQ PO (09:25)
[2025-01-17] MEDS: APIXABAN 5 MG TABLET 10 MG PO (09:27)
[2025-01-17] MEDS: FUROSEMIDE INJ 40 MG/4 ML VIAL IV PUSH ×2 (09:27→12:04)
[2025-01-17] MEDS: SERTRALINE HCL 50 MG TABLET PO (09:27)
[2025-01-17] MEDS: POTASSIUM CHLORIDE INJ 40 MEQ in SODIUM CHLORIDE 0.9% IV 500 ML 130 MEQ IVPB (09:31)
[2025-01-17] MEDS: HYDROcodone/acetaminophen (*CRX) 5-325 MG TABLET 1 TAB PO ×2 (11:59→17:35)
[2025-01-17 12:00] VITALS: PULSE 67
--- NOTE | 2025-01-17 13:36 | P.DS_ITS ---
DS: Admitting Diagnosis Discharge Date 01/17/25 Admitting Diagnosis Fall DS: Discharge Diagnosis Discharge Diagnosis (1) Hypoxia: Code(s): R09.02 - Hypoxemia Status: Acute (2) Calculus of left ureter: Code(s): N20.1 - Calculus of ureter Status: Acute DS: Summary Hospital Course Hospital Course: History & Presentation: The patient presented after a ground-level fall at home while transferring from the toilet to her electric wheelchair. She was unable to get up and remained on the floor for 6?7 hours, subsequently developing right hip pain radiating to the right leg, right lower quadrant abdominal pain with nausea, and new hypoxia (O2 sat 85% on room air). She has a history of atrial fibrillation (on anticoagulation), CHF, prior PE, nephrolithiasis, and a retained right ureteral stent. Initial Evaluation: * Vitals:?Hypoxic (85% on room air), afebrile, hypertensive. * Labs:?No leukocytosis, Hgb 14.2, INR 1.2, Cr 0.78, lactate 2.5, CK 470, K 3.2, UA with UTI. * Imaging: * CT chest/abd/pelvis:?Multiple subsegmental pulmonary emboli, moderate cardiomegaly, severe biatrial enlargement, severe pulmonary hypertension, small bilateral pleural effusions, large hiatal hernia, cholelithiasis, mild bilateral hydronephrosis, 1.2 x 0.4 cm left UPJ stone, 7 mm right distal ureteral stone with retained right ureteral stent. * Echo:?EF 50?55%, severe biatrial enlargement, severe pulmonary hypertension, mild-moderate MR. * X-rays/CT:?No acute fractures or intracranial findings. Hospital Management: * Pulmonary Embolism: * Started on heparin drip, transitioned to Eliquis after urologic procedure. * O2 requirement up to 5L, weaned to 1L. * Doppler LE: Nonocclusive DVT right popliteal vein. * Heart Failure/Pulmonary Hypertension: * IV Lasix titrated up to 40 mg IV TID for volume overload and severe pulmonary hypertension. * Monitored I/O, daily weights, and oxygen requirements. * Discharged on Torsemide 20mg bid per cardiology, discussed with Dr Wallace * Atrial Fibrillation: * Rate controlled, no AV rachael blockers due to bradycardia. * Continued anticoagulation. * Ureteral Calculi/UTI: * Bilateral hydronephrosis with left UPJ stone and right distal ureteral stone. * Bilateral ureteral stent placement performed; retained right stent could not be removed due to encrustation. * Treated UTI (Klebsiella) with IV ceftriaxone, transitioned to oral Keflex. * Persistent hematuria attributed to recent procedure and anticoagulation. * Will require outpatient urology follow-up for definitive stone management. * Rhabdomyolysis: * Mild CK elevation, trending down, resolving. * Other: * Hypokalemia corrected. * Fall precautions, PT/OT evaluation. * Large hiatal hernia and cholelithiasis noted, asymptomatic, to follow clinically. Discharge Medications * Eliquis?(apixaban) for PE and atrial fibrillation * Torsemide 20 mg BID?(in place of Lasix) * Potassium Chloride x 3 days * Other home medications as appropriate Follow-Up and Recommendations * Urology:?Outpatient follow-up for retained right ureteral stent and left ureteral stone; will need either bilateral ESWL (if can come off anticoagulation) or bilateral ureteroscopy when medically stable. * Cardiology:?Outpatient follow-up for CHF and pulmonary hypertension management. * Primary Care:?Monitor for volume status, renal function, and medication c ompliance. * PT/OT:?Continue fall prevention strategies. * Return Precautions:?Worsening shortness of breath, chest pain, hematuria, fever, inability to urinate, or any new concerning symptoms. Time Spent with Patient Time attestation: Total time spent providing and/or coordinating discharge services: DS: Data Data Completed and Pending Labs on day of discharge: Labs from last 24 hours 01/17/25 05:48 Sodium 139 Potassium 2.9 L Chloride 93 L Carbon Dioxide > 40 H Anion Gap BUN 12 Creatinine 0.64 L Estim Creat Clear Calc 86 Estimated GFR > 60 Glucose 80 Calcium 9.0 Discharge Plan Discharge Attending physician on discharge: Giselle Stanley Consulting providers: Maya Rucker; Guido Delacruz; Katarina Maddox Discharging Clinician: Giselle Stanley Anticipated Discharge Date/Time: 01/17/25 13:27 Patient Disposition: SNF Activity: as tolerated Diet: as tolerated and heart healthy Discharge Instructions: BiPAP at night and with naps with 2L oxygen. Compression hose on in the morning and off at night. Follow-up with Cardiology Follow-up with Urology. Patient Language: Ivorian Stand Alone Forms: General Discharge Information Follow-up/Referrals: Susannah,Karri Gilmore MD [Primary Care Provider] - (F/u with PCP in 3-5 days ) Guido Delacruz MD [Physician] - (F/u with urology as instructed ) Katarina Maddox MD [Physician] - (F/u with cardiology as instructed ) Discharge Medications: New potassium chloride [K-Tab] 20 mEq tablet extended release 40 meq PO DAILY 3 Days Qty: 6 0RF torsemide 20 mg tablet 20 mg PO BID 30 Days Qty: 60 1RF Continued cephalexin 500 mg capsule 500 mg PO BID Rx Instructions: Started 03/14; 7 days spironolactone 25 mg tablet 25 mg PO BID sertraline 50 mg tablet 50 mg PO DAILY Eliquis 5 mg tablet 5 mg PO BID 30 Days Qty: 60 1RF Discontinued furosemide 40 mg Tablet 40 mg PO BID Qty: 30 0RF Date of admission: 01/09/25 09:51 Primary Care Provider: SusannahKarri Admitting Provider: Allie Wells Attending physician on admission: Allie Wells Condition: Serious
--- NOTE | 2025-01-17 13:36 | PM.DS ---
DS: Admitting Diagnosis Discharge Date 01/17/25 Admitting Diagnosis Fall DS: Discharge Diagnosis Discharge Diagnosis (1) Hypoxia: Code(s): R09.02 - Hypoxemia Status: Acute (2) Calculus of left ureter: Code(s): N20.1 - Calculus of ureter Status: Acute DS: Summary Hospital Course Hospital Course: History & Presentation: The patient presented after a ground-level fall at home while transferring from the toilet to her electric wheelchair. She was unable to get up and remained on the floor for 6?7 hours, subsequently developing right hip pain radiating to the right leg, right lower quadrant abdominal pain with nausea, and new hypoxia (O2 sat 85% on room air). She has a history of atrial fibrillation (on anticoagulation), CHF, prior PE, nephrolithiasis, and a retained right ureteral stent. Initial Evaluation: Vitals:?Hypoxic (85% on room air), afebrile, hypertensive. Labs:?No leukocytosis, Hgb 14.2, INR 1.2, Cr 0.78, lactate 2.5, CK 470, K 3.2, UA with UTI. Imaging: CT chest/abd/pelvis:?Multiple subsegmental pulmonary emboli, moderate cardiomegaly, severe biatrial enlargement, severe pulmonary hypertension, small bilateral pleural effusions, large hiatal hernia, cholelithiasis, mild bilateral hydronephrosis, 1.2 x 0.4 cm left UPJ stone, 7 mm right distal ureteral stone with retained right ureteral stent. Echo:?EF 50?55%, severe biatrial enlargement, severe pulmonary hypertension, mild-moderate MR. X-rays/CT:?No acute fractures or intracranial findings. Hospital Management: Pulmonary Embolism: Started on heparin drip, transitioned to Eliquis after urologic procedure. O2 requirement up to 5L, weaned to 1L. Doppler LE: Nonocclusive DVT right popliteal vein. Heart Failure/Pulmonary Hypertension: IV Lasix titrated up to 40 mg IV TID for volume overload and severe pulmonary hypertension. Monitored I/O, daily weights, and oxygen requirements. Discharged on Torsemide 20mg bid per cardiology, discussed with Dr Wallace Atrial Fibrillation: Rate controlled, no AV rachael blockers due to bradycardia. Continued anticoagulation. Ureteral Calculi/UTI: Bilateral hydronephrosis with left UPJ stone and right distal ureteral stone. Bilateral ureteral stent placement performed; retained right stent could not be removed due to encrustation. Treated UTI (Klebsiella) with IV ceftriaxone, transitioned to oral Keflex. Persistent hematuria attributed to recent procedure and anticoagulation. Will require outpatient urology follow-up for definitive stone management. Rhabdomyolysis: Mild CK elevation, trending down, resolving. Other: Hypokalemia corrected. Fall precautions, PT/OT evaluation. Large hiatal hernia and cholelithiasis noted, asymptomatic, to follow clinically. Discharge Medications Eliquis?(apixaban) for PE and atrial fibrillation Torsemide 20 mg BID?(in place of Lasix) Potassium Chloride x 3 days Other home medications as appropriate Follow-Up and Recommendations Urology:?Outpatient follow-up for retained right ureteral stent and left ureteral stone; will need either bilateral ESWL (if can come off anticoagulation) or bilateral ureteroscopy when medically stable. Cardiology:?Outpatient follow-up for CHF and pulmonary hypertension management. Primary Care:?Monitor for volume status, renal function, and medication compliance. PT/OT:?Continue fall prevention strategies. Return Precautions:?Worsening shortness of breath, chest pain, hematuria, fever, inability to urinate, or any new concerning symptoms. Time Spent with Patient Time attestation: Total time spent providing and/or coordinating discharge services: DS: Data Data Completed and Pending Labs on day of discharge: Labs from last 24 hours 01/17/25 05:48 Sodium 139 Potassium 2.9 L Chloride 93 L Carbon Dioxide > 40 H Anion Gap BUN 12 Creatinine 0.64 L Estim Creat Clear Calc 86 Estimated GFR > 60 Glucose 80 Calcium 9.0 Discharge Plan Discharge Attending physician on discharge: Giselle Stanley Consulting providers: Maya Rucker; Guido Delacruz; Katarina Maddox Discharging Clinician: Giselle Stanley Anticipated Discharge Date/Time: 01/17/25 13:27 Patient Disposition: SNF Activity: as tolerated Diet: as tolerated and heart healthy Discharge Instructions: BiPAP at night and with naps with 2L oxygen. Compression hose on in the morning and off at night. Follow-up with Cardiology Follow-up with Urology. Patient Language: Slovak Stand Alone Forms: General Discharge Information Follow-up/Referrals: Sami,Karri Gilmore MD [Primary Care Provider] - (F/u with PCP in 3-5 days ) Guido Delacruz MD [Physician] - (F/u with urology as instructed ) Katarina Maddox MD [Physician] - (F/u with cardiology as instructed ) Discharge Medications: New potassium chloride [K-Tab] 20 mEq tablet extended release 40 meq PO DAILY 3 Days Qty: 6 0RF torsemide 20 mg tablet 20 mg PO BID 30 Days Qty: 60 1RF Continued cephalexin 500 mg capsule 500 mg PO BID Rx Instructions: Started 03/14; 7 days spironolactone 25 mg tablet 25 mg PO BID sertraline 50 mg tablet 50 mg PO DAILY Eliquis 5 mg tablet 5 mg PO BID 30 Days Qty: 60 1RF Discontinued furosemide 40 mg Tablet 40 mg PO BID Qty: 30 0RF Date of admission: 01/09/25 09:51 Primary Care Provider: Sami,Karri Gilmore Admitting Provider: Allie Wells Attending physician on admission: Allie Wells Condition: Serious
[2025-01-17 14:00] VITALS: BP 119/76; PULSE 58; RESP 16; TEMP 36.4; O2SAT 97
[2025-01-17] MEDS: NEOMYCIN/POLYMYXIN/BACITRACIN OINTMENT PACKET 1 PACKET (18:38)
--- NOTE | 2025-01-18 06:37 | P.CDI_ITS ---
CDI Query Clarification Request 1)pt with acute PE and heart failure. Notes from cardiology states, NSTEMI could be type I or type II secondary to supply demand mismatch due to acute PE and heart failure. Later documentation notesdemand ischemia. please clarify cardiac diagnosis * type 1 NSTEMI * type 2 NSTEMI * demand ischemia * other, please specify * unable to determine The medical chart reflects the followin/31 hospitalist: 2) CHF (congestive heart failure): Qualifiers: Heart failure chronicity: chronic Heart failure type: unspecified Qualified Code(s): I50.9 - Heart failure, unspecified Code(s): I50.9 - Heart failure, unspecified Status: Chronic Assessment and Plan: Patient was 85% on RA upon initial evaluation in the ED on 01/08. No previous O2 requirement. BNP 4000. CT Chest showing consolidation basilar LLL and small pleural effusions. Echo as above. Etiology of the hypoxia probably multifactorial from severe pulm HTN, PE and acute diastolic CHF. She was started on IV Lasix but was also on IV fluids which were stopped since clinically she is volume overloaded I/O's -7.7L so will back down on lasix. Some of the pedal edema related to severe pulm HTN and not CHF Monitor fluid status, daily weights, I&Os. Add Tunde hose Wean oxygen as tolerated 01/12 cardiology: (4) CHF (congestive heart failure): Qualifiers: Heart failure chronicity: chronic Heart failure type: unspecified Qualified Code(s): I50.9 - Heart failure, unspecified Code(s): I50.9 - Heart failure, unspecified Status: Chronic Plan PE- per patient she has a h/o PE and DVT NSTEMI- elevated troponin, central chest pain 9/10 intensity but this appears to be chronic Congestive heart failure- LV function normal, severe RV enlargement, mild- moderate MR, moderate TR, and severe pHTN Acute hypoxic respiratory failure-most likely secondary to PE and congestive heart failure Plan: NSTEMI could be type I or type II secondary to supple demand mismatch due to acute PE and heart failure. Patient's chest pain is chronic and not new. Troponin has peaked. Recommend treating medically for now. Add atorvastatin 40 mg daily 01/13 cardiology: Plan Acute vs subacute pulmonary embolism Elevated troponin likely demand ischemia setting of pulmonary embolism and right-sided heart failure Right-sided heart failure severe RV enlargement and severe pulmonary hypertension 01/16 cardiology: Plan Acute vs subacute pulmonary embolism Elevated troponin likely demand ischemia setting of pulmonary embolism and right-sided heart failure acute on chronic Right-sided heart failure severe RV enlargement and severe pulmonary hypertension Plan in regards to acute on chronic right heart failure exacerbation, increase Lasix from 40 mg IV b.i.d. to t.i.d.. Will recommend to discharge home on torsemide 20 mg b.i.d. patient has poor compliance with diuretics. <Jacki Lerma RN - Last Filed: 01/18/25 07:00> Clarified Diagnosis Clarified Diagnosis: * demand ischemia <Giselle Stanley MD - Last Filed: 01/18/25 07:34>
== END 2025-01-17 20:00 | DRG 987 ==
LOC: ANHED 11:35 → ANHIMU 12:25 → ANHICU 01-12 10:28 → ANHIMU 01-12 10:28 → ANH3MEDSUR 01-14 20:30
PROVIDERS: Internal Medicine; Physician Assistant; Student in an Organized Health Care Education/Training Program; Urology; Admitting Provider Family Medicine; Emergency Provider Emergency Medicine; PCP Family Medicine; Visit Provider Internal Medicine
PROC: (CPT 52352; principal; 2025-01-10 15:00)
DX: I26.94 Multiple subsegmental thrombotic pulmonary emboli without acute cor pulmonale (principal); I50.33 Acute on chronic diastolic (congestive) heart failure; I24.89 Other forms of acute ischemic heart disease; N13.6 Pyonephrosis; I48.20 Chronic atrial fibrillation, unspecified; E87.20 Acidosis, unspecified; I27.20 Pulmonary hypertension, unspecified; T79.6XXA Traumatic ischemia of muscle, initial encounter; W18.30XA Fall on same level, unspecified, initial encounter; B96.1 Klebsiella pneumoniae [K. pneumoniae] as the cause of diseases classified elsewhere; R07.89 Other chest pain; K80.20 Calculus of gallbladder without cholecystitis without obstruction; K44.9 Diaphragmatic hernia without obstruction or gangrene; M79.7 Fibromyalgia; F41.9 Anxiety disorder, unspecified; Z79.01 Long term (current) use of anticoagulants
CPT/HCPCS: 36415; 36569; 36600; 70450; 71045; 71260; 72125; 73502; 73562; 73610; 74018; 74177; 74420; 80048; 80053; 80069; 81001; 82375; 82550; 82805; 83050; 83605; 83690; 83735; 83880; 84100; 84145; 84484; 85018; 85025; 85027; 85610; 85730; 86850; 86900; 86901; 87040; 87086; 93005; 93306; 93970; 94002; 94003; 94640; 96365; 96375; 96376; 97110; 97162; 97166; 97530; 97535; 99285; A9270; C1751; C1758; C1769; C2617; G0378; J0461; J0696; J1171; J1644; J1938; J2003; J2405; J2704; J2997; J3010; J3475; J3480; J7040; J7120; Q9966; Q9967